=== PATIENT | male | born 1945 | race Caucasian/White ===

== ENCOUNTER 2017-03-31 16:35 | Inpatient (IN) | payer MEDICARE, OTHER ==
[2017-03-31 17:18] LABS: BASO % 0.8 % (0-2.0); EOS % 0.3 % (0-4.5); HEMATOCRIT 21.7 % (35.4-49); MCHC 29.7 g/dl (32.0-35.9); MEAN CELL VOLUME 66.7 fl (80-96); MEAN PLT VOLUME 11.4 fl (7.5-11.1); MONO % 7.6 % (3.8-10.2); NEUT % 76.3 % (42.8-82.8); PLATELET COUNT 97 K/MM3 (134-434); RBC 3.25 M/mm3 (4.00-5.60); RDW 17.4 % (11.9-15.9); WHITE BLOOD COUNT 7.5 K/mm3 (4.0-10.0)
[2017-03-31] MEDS ORDERED: PANTOPRAZOLE SODIUM 40 MG VIAL IVPUSH ONE (17:21)
[2017-03-31 17:27] LABS: MCH 19.8 pg (25.7-33.7)
[2017-03-31 17:28] LABS: HEMOGLOBIN 6.4 GM/dL (11.7-16.9)
[2017-03-31] MEDS ORDERED: PANTOPRAZOLE SODIUM 80 MG in SODIUM CHLORIDE 100 ML IVPB SCH ×2 (17:30→19:45)
[2017-03-31 17:33] LABS: INR 1.27 (0.82-1.09); PROTHROMBIN TIME (PATIENT) 14.3 SEC (9.98-11.88)
[2017-03-31] MEDS ORDERED: PANTOPRAZOLE SODIUM 80 MG/200 ML BAG IVPB ONE (17:37)
[2017-03-31] MEDS ORDERED: PANTOPRAZOLE SODIUM 40 MG VIAL ONE (17:38)
[2017-03-31 17:44] LABS: ALBUMIN 2.5 g/dl (3.4-5.0); ANION GAP 14 (8-16); BILIRUBIN,TOTAL 0.5 mg/dL (0.2-1.0); BLOOD UREA NITROGEN 62 mg/dL (7-18); CALCIUM 8.2 mg/dL (8.5-10.1); CHLORIDE 118 mmol/L (98-107); CO2 14 mmol/L (21-32); CREATININE 1.5 mg/dL (0.7-1.3); SGOT/AST 46 U/L (15-37); SGPT/ALT 63 U/L (12-78); SODIUM 146 mmol/L (136-145); TOT PROT 5.1 g/dl (6.4-8.2)
[2017-03-31 17:46] LABS: ALK PHOS 117 U/L (45-117)
[2017-03-31 17:54] LABS: GLUCOSE,RANDOM 320 mg/dL (74-106); POTASSIUM 7.1 mmol/L (3.5-5.1)
[2017-03-31] MEDS ORDERED: ALBUTEROL SO4 0.083% IH SOL 2.5 MG/3 ML VIAL.NEB. NEB ONE ×3 (17:54→20:43)
[2017-03-31] MEDS ORDERED: SODIUM BICARBONATE 8.4% 50 MEQ/50 ML VIAL IV ONE (17:54)
[2017-03-31] MEDS ORDERED: INSULIN REGULAR HUMAN 100 UNITS/ML *VIAL IVPUSH ONE ×3 (17:54→21:01)
[2017-03-31] MEDS ORDERED: DEXTROSE 50%-WATER - 25 GM/50 ML VIAL IVPUSH ONE ×2 (17:55→20:43)
--- NOTE | 2017-03-31 17:55 | PDOC ---
History of Present Illness - History of Present Illness Initial Comments: 03/31/17 18:12 71 y/o M with a PMH of anemia, HTN, DM, prior alcohol use presents to the ED with lethargy today. Daughter reports 5 episodes of melena, with associated diffuse abdominal pain and dizziness.Patient recently lost about 20 pounds, which the daughter states is due to dietary changes. He denies nausea, vomiting. Denies fever, chills. <Shirley Romero - Last Filed: 03/31/17 18:58> - General History Source: Patient, Family <Nelson Piña - Last Filed: 04/04/17 12:54> - General Chief Complaint: Lethargy Stated Complaint: DIZZINESS/NAUSEA Time Seen by Provider: 03/31/17 16:56 Past History <Shirley Romero - Last Filed: 03/31/17 18:58> - Past Medical History Anemia: Yes Asthma: No Cancer: No Cardiac Disorders: No CVA: No COPD: No CHF: No Dementia: No Diabetes: Yes GI Disorders: No Disorders: Yes (KIDNEY STONES) HTN: Yes Hypercholesterolemia: No Liver Disease: No Seizures: No Thyroid Disease: No - Surgical History Abdominal Surgery: No Appendectomy: No Cardiac Surgery: No Cholecystectomy: No Lung Surgery: No Neurologic Surgery: No Orthopedic Surgery: No - Immunization History Immunization Up to Date: Yes - Suicide/Smoking/Psychosocial Hx Smoking History: Never smoked Have you smoked in the past 12 months: No Hx Alcohol Use: No Drug/Substance Use Hx: No Substance Use Type: None Hx Substance Use Treatment: No <Nelson Piña - Last Filed: 04/04/17 12:54> - Past Medical History Allergies/Adverse Reactions: Allergies Allergy/AdvReac Type Severity Reaction Status Date / Time No Known Drug Allergies Allergy Verified 03/31/17 16:58 Home Medications: Ambulatory Orders Glimepiride 4 mg PO DAILY 01/01/12 Lisinopril [Prinivil] 10 mg PO DAILY 01/01/12 Metformin HCl [Glucophage] 1,000 mg PO BID 01/01/12 Terazosin HCl 2 mg PO DAILY 01/01/12 Insulin (Levemir) [Levemir Flexpen -] 25 units SQ DAILY 04/08/12 Review of Systems - Review of Systems Comments:: 03/31/17 18:12 GENERAL/CONSTITUTIONAL: (+) lethargy. No fever or chills. HEAD, EYES, EARS, NOSE AND THROAT: No change in vision. No ear pain or discharge. No sore throat. CARDIOVASCULAR: No chest pain or shortness of breath. RESPIRATORY: No cough, wheezing, or hemoptysis. GASTROINTESTINAL: (+) melena, abdominal pain. No nausea, vomiting, constipation. GENITOURINARY: No dysuria, frequency, or change in urination. MUSCULOSKELETAL: No joint or muscle swelling or pain. No neck or back pain. SKIN: No rash NEUROLOGIC: (+) dizziness. No headache, loss of consciousness, or change in strength/sensation. ENDOCRINE: No increased thirst. No abnormal weight change. HEMATOLOGIC/LYMPHATIC: No anemia, easy bleeding, or history of blood clots. ALLERGIC/IMMUNOLOGIC: No hives or skin allergy. <Shirley Romero - Last Filed: 03/31/17 18:58> *Physical Exam - Vital Signs Last Vital Signs Temp Pulse Resp BP Pulse Ox 98.1 F 74 18 102/37 99 03/31/17 17:14 03/31/17 16:40 03/31/17 16:40 03/31/17 16:40 03/31/17 16:40 - Physical Exam Comments: 03/31/17 18:58 GENERAL: Awake, alert, and fully oriented, in no acute distress, ill appearing, pale HEAD: No signs of trauma EYES: PERRLA, EOMI, sclera anicteric, conjunctiva clear ENT: Auricles normal inspection, hearing grossly normal, nares patent, oropharynx clear without exudates. Moist mucosa NECK: Normal ROM, supple, no lymphadenopathy, JVD, or masses LUNGS: Mildly tachypneic. Breath sounds equal, clear to auscultation bilaterally. No wheezes, and no crackles HEART: Regular rate and rhythm, normal S1 and S2, no murmurs, rubs or gallops ABDOMEN: Diffuse abdominal tenderness, particularly worse in epigastric. Soft, normoactive bowel sounds. No guarding, no rebound. No masses EXTREMITIES: Normal range of motion, no edema. No clubbing or cyanosis. No cords, erythema, or tenderness NEUROLOGICAL: Cranial nerves II through XII grossly intact. Normal speech, normal gait SKIN: Warm, Dry, normal turgor, no rashes or lesions noted. RECTAL: Dark stool <Joe Romeromacey Solomon - Last Filed: 03/31/17 18:58> - Vital Signs Last Vital Signs Temp Pulse Resp BP Pulse Ox 98.1 F 74 18 102/37 99 03/31/17 17:14 03/31/17 16:40 03/31/17 16:40 03/31/17 16:40 03/31/17 16:40 <Nelson Piña - Last Filed: 04/04/17 12:54> Heart Score/ECG Review #1 ECG reviewed & interpreted by me at: 17:40 03/31/17 18:42 NSR 63, no std/vickey, normal axis, normal intervals, QTC 442 msec. No evidence of peaked T waves <Nelson Piña - Last Filed: 04/04/17 12:54> ED Treatment Course - LABORATORY CBC & Chemistry Diagram: 03/31/17 17:05 03/31/17 17:05 - ADDITIONAL ORDERS Additional order review: Laboratory Results 03/31/17 03/31/17 03/31/17 17:31 17:31 17:24 PT with INR INR PTT (Actin FS) Sodium Potassium Chloride Carbon Dioxide Anion Gap BUN Creatinine Creat Clearance w eGFR Random Glucose Lactic Acid 7.6 H* Calcium Total Bilirubin AST ALT Alkaline Phosphatase Creatine Kinase Troponin I Total Protein Albumin Stool Occult Blood Positive Blood Type B POSITIVE Antibody Screen Crossmatch See Detail 03/31/17 03/31/17 03/31/17 17:05 17:05 17:05 PT with INR 14.30 H INR 1.27 H PTT (Actin FS) 23.0 L Sodium 146 H Potassium 7.1 H* Chloride 118 H Carbon Dioxide 14 L Anion Gap 14 BUN 62 H Creatinine 1.5 H Creat Clearance w eGFR 46.00 Random Glucose 320 H* Lactic Acid Calcium 8.2 L Total Bilirubin 0.5 AST 46 H ALT 63 Alkaline Phosphatase 117 Creatine Kinase 45 Troponin I 0.02 Total Protein 5.1 L Albumin 2.5 L Stool Occult Blood Blood Type B POSITIVE Antibody Screen Negative Crossmatch 03/31/17 17:05 RBC 3.25 L MCV 66.7 L MCHC 29.7 L RDW 17.4 H MPV 11.4 H Neutrophils % 76.3 Lymphocytes % 15.0 Monocytes % 7.6 Eosinophils % 0.3 Basophils % 0.8 - Medications Given in the ED: ED Medications Discontinued Medications Generic Name Dose Route Start Last Admin Trade Name Freq PRN Reason Stop Dose Admin Pantoprazole Sodium 80 mg 03/31/17 17:21 03/31/17 17:49 Protonix Iv IVPUSH 03/31/17 17:22 80 mg ONCE ONE Administration <Shirley Romero - Last Filed: 03/31/17 18:58> - LABORATORY CBC & Chemistry Diagram: 04/04/17 07:30 04/04/17 10:58 - ADDITIONAL ORDERS Additional order review: Laboratory Results 03/31/17 03/31/17 03/31/17 17:31 17:05 17:05 PT with INR 14.30 H INR 1.27 H PTT (Actin FS) 23.0 L Sodium 146 H Chloride 118 H Carbon Dioxide 14 L Anion Gap 14 BUN 62 H Creatinine 1.5 H Creat Clearance w eGFR 46.00 Calcium 8.2 L Total Bilirubin 0.5 AST 46 H ALT 63 Alkaline Phosphatase 117 Creatine Kinase 45 Troponin I 0.02 Total Protein 5.1 L Albumin 2.5 L Crossmatch See Detail 03/31/17 17:05 RBC 3.25 L MCV 66.7 L MCHC 29.7 L RDW 17.4 H MPV 11.4 H Neutrophils % 76.3 Lymphocytes % 15.0 Monocytes % 7.6 Eosinophils % 0.3 Basophils % 0.8 - RADIOLOGY Radiology Studies Ordered: Category Date Time Status CHEST X-RAY PORTABLE* [RAD] Stat Radiology 03/31/17 17:53 Ordered - Medications Given in the ED: ED Medications Discontinued Medications Generic Name Dose Route Start Last Admin Trade Name Freq PRN Reason Stop Dose Admin Pantoprazole Sodium 80 mg 03/31/17 17:21 03/31/17 17:49 Protonix Iv IVPUSH 03/31/17 17:22 80 mg ONCE ONE Administration <Nelson Piña - Last Filed: 04/04/17 12:54> Medical Decision Making - Critical Care Time Total Critical Care Time (minutes): 60 Critical Care Statement: The care of this patient involved high complexity decision making to prevent further life threatening deterioration of the patient 's condition and/or to evaluate & treat vital organ system(s) failure or risk of failure. - Medical Decision Making 03/31/17 18:43 A portion of this note was documented by scribe services under my direction. I have reviewed the details of the note, within reason, and agree with the documentation with the following case summary and management plan written by me. Patient treated in the ED. Nursing notes are reviewed and incorporated into the medical decision-making. Vital signs reviewed. Peripheral IV access obtained by the nurse, laboratory studies are drawn and sent, reviewed and interpreted by myself. Vital Signs Temp Pulse Resp BP Pulse Ox 98.1 F 87 18 130/39 98 03/31/17 17:14 03/31/17 18:18 03/31/17 18:18 03/31/17 18:18 03/31/17 18:18 71-year-old male with history of hypertension, diabetes presents with one week of loose stools, melena and generalized weakness. The patient has been passing dark stools but denies any chest or short of breath. Reports diffuse abdominal pain particular the epigastrium. The patient's daughter went to check on the patient noticed that he was profoundly weak when he typically ambulatory and alert and conversant. Patient was noted to have melanotic stools with a low hemoglobin count concerning for upper GI bleed. The patient appears ill appearing and nontoxic. Patient is noted to have numerous metabolic disarray including an elevated potassium, acute renal insufficiency. He was noted be 6.4 and the patient and family was consented for blood transfusion. Two unit of packed red blood cells were ordered. Case was consulted with lean engineer Dr. Wang who had came and examined the patient. Agrees with the plan of upper GI bleed. States that he will follow along as a inside solar sales consultant. Patient's hyperkalemia was treated with albuterol, dextrose, sodium bicarbonate insulin. We'll hold off on Lasix as patient volume is down. We'll also hold off on kayexelate like given the upper GI bleed. Given the elevated lactic acid, patient was empirically covered Zosyn. We'll up so obtain a CAT scan the abdomen pelvis to rule out microperforations. Given the severity of illness, decision was made to admit the patient the ICU. Case is discussed with Dr. Izquierdo who accepts the patient ICU. Case discussed with [facility] hospitalist Dr. Kulkarni who accepts the patient. Case discussed in detail with admitting physician including history, physical exam and ancillary studies. Admitting physician has assumed care for the patient, will follow all pending diagnostics and will complete the evaluation and treatment. <Nelson Piña - Last Filed: 04/04/17 12:54> *DC/Admit/Observation/Transfer - Attestations Scribe Attestion: 03/31/17 18:12 Documentation prepared by Shirley Romero, acting as medical technologist blood bank for Nelson Piña MD. <Shirley Romero - Last Filed: 03/31/17 18:58> - Discharge Dispostion Admit: Yes <Nelson Piña - Last Filed: 04/04/17 12:54> Diagnosis at time of Disposition: Upper GI bleed, Lactic acidosis, Acute renal insufficiency, Anemia - Discharge Dispostion Condition at time of disposition: Guarded
[2017-03-31] MEDS ORDERED: SODIUM BICARBONATE 8.4% - 50 ML ONE (17:59)
[2017-03-31] MEDS ORDERED: INSULIN REGULAR HUMAN 100 UNITS/ML *VIAL ONE (18:00)
[2017-03-31] MEDS ORDERED: PIPERACIL/TAZOB 3.375 GM 3.375 GM/50 ML PREMIX IVPB ONE (18:12)
[2017-03-31] MEDS: PANTOPRAZOLE SODIUM 80 MG in SODIUM CHLORIDE 100 ML IVPB SCH (18:15)
[2017-03-31] MEDS ORDERED: PIPERACILLIN/TAZOB 3.375 GM 3.375 GM/50 ML BAG IVPB ONE (18:20)
[2017-03-31 18:40] LABS: PLATELET ESTIMATE DECREASED
[2017-03-31 18:42] LABS: MAGNESIUM 1.2 mg/dL (1.8-2.4); PHOSPHOROUS 2.7 mg/dL (2.5-4.9)
[2017-03-31] MEDS ORDERED: PIPERACILLIN/TAZOB 3.375 GM/50 ML PRE-DOCKED IVPB ONE (18:45)
--- NOTE | 2017-03-31 18:58 | CON.GI ---
Consult Consult Specialty:: Gastroenterology ( covering Dr. Vázquez) Referred by:: Dr Nelson Piña Reason for Consultation:: GI bleed - History of Present Illness Chief Complaint: Profound weakness. Melena History of Present Illness: 71M felt too weak to get out of bed today. He has been having abdominal pain and black stool for the past few days. He denies hematemesis. He takes Advil before sleep for arthritic neck pain. He has never had GI bleeding before. He did have a colonoscopy with Dr Og remotely but cannot recall the results. His daughter served as the rubber tire and tubes supervisor. He drank alcohol heavily remotely > 40 years ago. He denies any h/o liver disease. - History Source History Provided By: Patient, Significant Other Limitations to Obtaining History: Clinical Condition - Past Medical History Cardio/Vascular: Yes: HTN Renal/: Yes: Renal Calculi (requiring ESWL) Musculoskeletal: Yes: Chronic low back pain, Osteoarthritis, Other (neck pain) Endocrine: Yes: Diabetes Mellitus (with diabetic retinopathy requiring laser therapy) - Past Surgical History Past Surgical History: Yes: None, Colonoscopy - Alcohol/Substance Use Hx Alcohol Use: Yes (remotely drank heavily) - Smoking History Smoking history: Never smoked Have you smoked in the past 12 months: No - Social History Usual Living Arrangement: With Spouse ADL: Independent Occupation: retired cemetary worker Place of : Other ([place]) Came to [place] (year[place] age 17 History of Recent Travel: No Home Medications - Allergies Allergies/Adverse Reactions: Allergies Allergy/AdvReac Type Severity Reaction Status Date / Time No Known Drug Allergies Allergy Verified 03/31/17 16:58 - Home Medications Home Medications: Ambulatory Orders Glimepiride 4 mg PO DAILY 01/01/12 Lisinopril [Prinivil] 10 mg PO DAILY 01/01/12 Metformin HCl [Glucophage] 1,000 mg PO BID 01/01/12 Terazosin HCl 2 mg PO DAILY 01/01/12 Insulin (Levemir) [Levemir Flexpen -] 25 units SQ DAILY 04/08/12 Family Disease History - Family Disease History Family Disease History: Diabetes: Brother, Sister, Heart Disease: Father ([place] in his 60s), Mother ([place] in her 80s), Brother Review of Systems - Review of Systems Constitutional: reports: Loss of Appetite, Malaise, Unintentional Wgt. Loss, Weakness Eyes: reports: No Symptoms HENT: reports: No Symptoms Neck: reports: No Symptoms Cardiovascular: reports: No Symptoms Respiratory: reports: No Symptoms Gastrointestinal: reports: Abdominal Pain, Melena Genitourinary: reports: No Symptoms Musculoskeletal: reports: Back Pain, Joint Pain Neurological: reports: Incoordination, Weakness Physical Exam-GI Vital Signs: Vital Signs Temperature 98.1 F 03/31/17 17:14 Pulse Rate 87 03/31/17 18:18 Respiratory Rate 18 03/31/17 18:18 Blood Pressure 130/39 03/31/17 18:18 O2 Sat by Pulse Oximetry (%) 98 03/31/17 18:18 CBC,CMP WBC 7.5 K/mm3 (4.0-10.0) 03/31/17 17:05 RBC 3.25 M/mm3 (4.00-5.60) L 03/31/17 17:05 Hgb 6.4 GM/dL (11.7-16.9) L* 03/31/17 17:05 Hct 21.7 % (35.4-49) L 03/31/17 17:05 MCV 66.7 fl (80-96) L 03/31/17 17:05 MCH 19.8 pg (25.7-33.7) L 03/31/17 17:05 MCHC 29.7 g/dl (32.0-35.9) L 03/31/17 17:05 RDW 17.4 % (11.9-15.9) H 03/31/17 17:05 Plt Count 97 K/MM3 (134-434) L 03/31/17 17:05 MPV 11.4 fl (7.5-11.1) H 03/31/17 17:05 Neutrophils % 76.3 % (42.8-82.8) 03/31/17 17:05 Lymphocytes % 15.0 % (8-40) 03/31/17 17:05 Monocytes % 7.6 % (3.8-10.2) 03/31/17 17:05 Eosinophils % 0.3 % (0-4.5) 03/31/17 17:05 Basophils % 0.8 % (0-2.0) 03/31/17 17:05 Platelet Estimate Decreased 03/31/17 17:05 Platelet Comment No clotting detected 03/31/17 17:05 Sodium 146 mmol/L (136-145) H 03/31/17 17:05 Potassium 7.1 mmol/L (3.5-5.1) H* 03/31/17 17:05 Chloride 118 mmol/L (98-107) H 03/31/17 17:05 Carbon Dioxide 14 mmol/L (21-32) L 03/31/17 17:05 Anion Gap 14 (8-16) 03/31/17 17:05 BUN 62 mg/dL (7-18) H 03/31/17 17:05 Creatinine 1.5 mg/dL (0.7-1.3) H 03/31/17 17:05 Creat Clearance w eGFR 46.00 (>60) 03/31/17 17:05 Random Glucose 320 mg/dL (74-106) H* 03/31/17 17:05 Lactic Acid 7.6 mmol/L (0.4-2.0) H* 03/31/17 17:31 Calcium 8.2 mg/dL (8.5-10.1) L 03/31/17 17:05 Phosphorus 2.7 mg/dL (2.5-4.9) 03/31/17 17:05 Magnesium 1.2 mg/dL (1.8-2.4) L 03/31/17 17:05 Total Bilirubin 0.5 mg/dL (0.2-1.0) 03/31/17 17:05 AST 46 U/L (15-37) H 03/31/17 17:05 ALT 63 U/L (12-78) 03/31/17 17:05 Alkaline Phosphatase 117 U/L (45-117) 03/31/17 17:05 Creatine Kinase 45 IU/L (39-308) 03/31/17 17:05 Troponin I 0.02 ng/ml (0.00-0.05) 03/31/17 17:05 Total Protein 5.1 g/dl (6.4-8.2) L 03/31/17 17:05 Albumin 2.5 g/dl (3.4-5.0) L 03/31/17 17:05 Current Medications Generic Name Dose Route Start Last Admin Trade Name Freq PRN Reason Stop Dose Admin Pantoprazole Sodium 80 mg/ 100 mls @ 10 mls/hr 03/31/17 17:30 03/31/17 18:15 Sodium Chloride IVPB 10 mls/hr Q10H JELENA Administration 8 MG/HR Constitutional: Yes: Ashen, Moderate Distress Eyes: Yes: Conjunctiva Clear HENT: Yes: Normocephalic Neck: Yes: Supple Cardiovascular: Yes: Regular Rate and Rhythm, Tachycardia Respiratory: Yes: CTA Bilaterally Gastrointestinal Inspection: Yes: Distention ...Auscultate: Yes: Hypoactive Bowel Sounds ...Palpate: Yes: Soft, Other (nontender) ...Percussion: Yes: Tympanitic ...Rectal Exam: Yes: Guaiac Positive (black strongly guaiac positive stool), Sphincter Tone Normal Genitourinary: Yes: Other (2+ prostate) Edema: No Neurological: Yes: Alert, Oriented Labs: CBC, BMP 03/31/17 17:05 03/31/17 17:05 INR, PTT INR 1.27 (0.82-1.09) H 03/31/17 17:05 Laboratory Tests 03/31/17 03/31/17 03/31/17 17:05 17:05 17:05 WBC 7.5 Hgb 6.4 L* Hct 21.7 L MCV 66.7 L Plt Count 97 L PT with INR 14.30 H INR 1.27 H Total Bilirubin 0.5 AST 46 H ALT 63 Alkaline Phosphatase 117 Albumin 2.5 L Problem List - Problems (1) GI hemorrhage Assessment/Plan: This appears to be a UGI hemorrhage. The most likely etiologies include ulcers or erosive gastritis/duodenitis related to NSAID usage. Given his thrombocytopenia, elevated INR, hypoalbuminemia and hepatitis bleeding due to cirrhosis is also likely which includes esophageal and/or gastric varices and portal gastropathy. Agree with PPI drip. Will empirically add octreotide infusion. I have discussed the need for interventional upper endoscopy with Hero with his daughter serving as our rubber tire and tubes supervisor. I informed him of the risks of perforation and hemorrhage among others after which he gave his mini for an informed consent. He will need to be resuscitated with blood and fluids and have his electrolytes corrected to optimize stability for the procedure. Agree with CT to exclude a perforated ulcer given his profound lactic acidosis Code(s): K92.2 - GASTROINTESTINAL HEMORRHAGE, UNSPECIFIED (2) Hyperkalemia Assessment/Plan: Management already initiated in the ER. See azotemia Code(s): E87.5 - HYPERKALEMIA (3) Azotemia Assessment/Plan: Appears oo be a combination of hypovolemia due to blood loss superimposed on diabetic nephropathy. Given his suspected cirrhosis he is at risk of lapsing into hepatorenal syndrome. A renal consultation should be considered. 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 Will need more extensive studied when stable. Code(s): K74.60 - UNSPECIFIED CIRRHOSIS OF LIVER (6) Lactic acid acidosis Assessment/Plan: For now appears to reflect severe anemia due to hemorrhage. The pain does not appear as severe as would be expected with mesenteric ischemia but if the acidosis fails to rapidly respoind to blood and fluid a CTA will need to be pursued given possible diabetic vasculopathy. Code(s): E87.2 - ACIDOSIS (7) Diabetes mellitus Code(s): E11.9 - TYPE 2 DIABETES MELLITUS WITHOUT COMPLICATIONS (8) Hypertension Code(s): I10 - ESSENTIAL (PRIMARY) HYPERTENSION (9) Anemia Assessment/Plan: The microcytic indices indicate that this acute bleed is superimposed on chronic GI blood loss. He may need a repeat colonoscopy when clinically appropriate. Code(s): D64.9 - ANEMIA, UNSPECIFIED Qualifiers: Other causes of anemia: acute posthemorrhagic (10) Coagulopathy Code(s): D68.9 - COAGULATION DEFECT, UNSPECIFIED Assessment/Plan Transfuse then IV fluids PPI drip Octreotide drip Serial CBCs Vitamin K Ammonia level Renal consultation FFP if bleeding persists Await CT to exclude an abdominal catastrophe CTA if acidosis fails to correct or pain worsens
--- NOTE | 2017-03-31 19:10 | PN ---
Teaching Attending Note Name of Resident: Jaswant Alcala ATTENDING PHYSICIAN STATEMENT I saw and evaluated the patient. I reviewed the resident's note and discussed the case with the resident. I agree with the resident's findings and plan as documented. SUBJECTIVE: 71 M with pmhx. of HTN, renal calculi (ESWL), chronic back pain, OA, DM, Diabetic retinopathy who presents with abdominal pain and black stool. States he has hx. of heavy etoh drinking (>40years ago). Also, notes hes had a colo with Dr. Og. 2- 3 years ago which was negative. Upon my interview with the patient he started having hematemesis X1, which was suctioned, family and notified OBJECTIVE: Physical: VS: Vital Signs Period Temp Pulse Resp BP Sys/Aden Pulse Ox Last 24 Hr 98.1 F 74-87 18-18 102-130/37-39 98-99 GEN: Mod distress, AA0X3 HEENT: NCAT, PERRL, Dried blood in mouth CARD: RRR S1, S2 RESP: CTAB ABD: Distended BSX4, NTD to palpation EXT: - C/C/E RECTAL: Pt. Deferred, as it had been done earlier CBCD WBC 7.5 K/mm3 (4.0-10.0) 03/31/17 17:05 RBC 3.25 M/mm3 (4.00-5.60) L 03/31/17 17:05 Hgb 6.4 GM/dL (11.7-16.9) L* 03/31/17 17:05 Hct 21.7 % (35.4-49) L 03/31/17 17:05 MCV 66.7 fl (80-96) L 03/31/17 17:05 MCHC 29.7 g/dl (32.0-35.9) L 03/31/17 17:05 RDW 17.4 % (11.9-15.9) H 03/31/17 17:05 Plt Count 97 K/MM3 (134-434) L 03/31/17 17:05 MPV 11.4 fl (7.5-11.1) H 03/31/17 17:05 CMP Sodium 146 mmol/L (136-145) H 03/31/17 17:05 Potassium 7.1 mmol/L (3.5-5.1) H* 03/31/17 17:05 Chloride 118 mmol/L (98-107) H 03/31/17 17:05 Carbon Dioxide 14 mmol/L (21-32) L 03/31/17 17:05 Anion Gap 14 (8-16) 03/31/17 17:05 BUN 62 mg/dL (7-18) H 03/31/17 17:05 Creatinine 1.5 mg/dL (0.7-1.3) H 03/31/17 17:05 Creat Clearance w eGFR 46.00 (>60) 03/31/17 17:05 Random Glucose 320 mg/dL (74-106) H* 03/31/17 17:05 Calcium 8.2 mg/dL (8.5-10.1) L 03/31/17 17:05 Total Bilirubin 0.5 mg/dL (0.2-1.0) 03/31/17 17:05 AST 46 U/L (15-37) H 03/31/17 17:05 ALT 63 U/L (12-78) 03/31/17 17:05 Alkaline Phosphatase 117 U/L (45-117) 03/31/17 17:05 Total Protein 5.1 g/dl (6.4-8.2) L 03/31/17 17:05 Albumin 2.5 g/dl (3.4-5.0) L 03/31/17 17:05 CARDIAC ENZYMES Creatine Kinase 45 IU/L (39-308) 03/31/17 17:05 Troponin I 0.02 ng/ml (0.00-0.05) 03/31/17 17:05 CT ABDOMEN- Pending ASSESSMENT AND PLAN: 71 M with pmhx. of HTN, renal calculi (ESWL), chronic back pain, OA, DM, Diabetic retinopathy who presents with abdominal pain and black stool, being admitted for GIB 1.) Upper GI Bleed - NPO - IF Continued Hematemsis- stat intubation - 2 LARGE Bore IVs - Protonix gtt - Transfuse to keep Hgb>7 - GI consult - Repeat LA- Needs repeat after PRBC recieved - Jimenez cx - Serial H&H/Coags - Serial Abdominal exams, - FU CT Abd. - 2U FFP - Octeotride 2.) Hyperkalemia - Treated in ED - Trend K - NO EKG changes 2.) ARF - U lytes - Trend - Avoid Nephrotoxins 4.) Hypomagnesemia - Replete 5.) Dvt Ppx - SCDS CC Time: Place in ICU
[2017-03-31] MEDS ORDERED: OCTREOTIDE ACETATE 50 MCG/1 ML - 1 ML VIAL IVPUSH ONE (19:32)
--- NOTE | 2017-03-31 19:35 | HP ---
CHIEF COMPLAINT: Fatigue, melena Source: daughter at bedside, serving as b2b sales consultant PCP: Dr. Reyes HISTORY OF PRESENT ILLNESS: 71 yo man with pmh of HTN, DM2, Anemia, prior alcohol abuse (40 y ago) who presents to ED in setting of progressive fatigue, multiple days of diarrhea w/ melena and epigastric GI pain. Pt endorses roughly one week of diarrhea w/ accompanying intermittent sharp epigastric pain, worsened by eating w/ no radiation or other exacerbating symptoms. Pt endorses diarrhea w/ dark, tarry stools for past few days, but denies any brittny blood or clots. He also endorses accompanying nausea, but no emesis, in addition to worsening fatigue and lightheadness. He denies any hematemesis, epistaxis or hemoptysis and denies any hx of GI conditions, apart from multiple months of intermittent mild epigastric pain. Pt denies any prior hx of GI bleeds. He endorses chronic advil use at bedtime for chronic neck pain. He also endorses decreased PO intake and 20 lb weight loss, which he attributes to dieting. He denies any fevers/chills, CP, cough, SOB, SANTANA, dysuria, constipation, rashes or peripheral weakness/ numbness. ER course was notable for: (1)Hgb 6.4, plt 97 (2)K 7.1 -> 6.0 w/ tx (3)Glucose 320 (4)Brittny blood in oropharynx during episode of bradycardia after exam Recent Travel: None PAST MEDICAL HISTORY: Anemia HTN DM2 renal calculi Prior alcohol abuse PAST SURGICAL HISTORY: None Colonoscopy 4-5 years ago, negative Social History: Smoking: Denies Alcohol: Heavy drinker ~40 years ago Drugs: Denies Family History: Mother, Father with CAD; Mother during open heart surgery Allergies Shellfish NKDA HOME MEDICATIONS: Home Medications Medication Instructions Recorded Glimepiride 4 mg PO DAILY 01/01/12 Lisinopril [Prinivil] 10 mg PO DAILY 01/01/12 Metformin HCl [Glucophage] 1,000 mg PO BID 01/01/12 Terazosin HCl 2 mg PO DAILY 01/01/12 Insulin (Levemir) [Levemir Flexpen 25 units SQ DAILY 04/08/12 -] REVIEW OF SYSTEMS CONSTITUTIONAL: generalized weakness, loss of appetite, weight change Absent: fever, chills, diaphoresis, malaise, HEENT: Absent: rhinorrhea, nasal congestion, throat pain, throat swelling, difficulty swallowing, mouth swelling, ear pain, eye pain, visual changes CARDIOVASCULAR: lightheadedness, Absent: chest pain, syncope, palpitations, irregular heart rate, peripheral edema RESPIRATORY: Absent: cough, shortness of breath, dyspnea with exertion, orthopnea, wheezing, stridor, hemoptysis GASTROINTESTINAL: abdominal pain, nausea, melena, Absent: abdominal distension, vomiting, diarrhea, constipation, hematochezia GENITOURINARY: Absent: dysuria, frequency, urgency, hesitancy, hematuria, flank pain, genital pain MUSCULOSKELETAL: chronic back pain, Absent: myalgia, arthralgia, joint swelling, neck pain SKIN: Absent: rash, itching, pallor HEMATOLOGIC/IMMUNOLOGIC: Absent: easy bleeding, easy bruising, lymphadenopathy, frequent infections ENDOCRINE: Absent: unexplained weight gain, unexplained weight loss, heat intolerance, cold intolerance NEUROLOGIC: Absent: headache, focal weakness or paresthesias, dizziness, unsteady gait, seizure, mental status changes, bladder or bowel incontinence PHYSICAL EXAMINATION Vital Signs - 24 hr 03/31/17 03/31/17 03/31/17 16:40 17:14 18:18 Temperature 98.1 F Pulse Rate 74 Pulse Rate [ 87 Apical] Respiratory 18 18 Rate Blood Pressure 102/37 Blood Pressure 130/39 [Right Arm] O2 Sat by Pulse 99 98 Oximetry (%) GENERAL: Somnolent, resting bed comfortably. A&Ox3 HEAD: Normal with no signs of trauma. EYES: Pupils equal, round and reactive to light, extraocular movements intact, sclera anicteric, conjunctiva clear. No lid lag. EARS, NOSE, THROAT: Ears normal, nares patent, oropharynx clear without exudates. Moist mucous membranes. NECK: Normal range of motion, supple without lymphadenopathy, JVD, or masses. Some peritracheal adiposity. LUNGS: breath sounds decreased at bases. No wheezes and no crackles. No accessory muscle use. HEART: Tachycardic, normal S1 and S2 without murmur, rub or gallop. ABDOMEN: Globular abdomen, tender to palpation in epigastric region. Hepatosplenomegaly noted. Negative concepcion's, rebound tenderness. No cullens or mena jose sign. Normoactive bowel sounds. No masses noted. Fullness in LUQ/ RUQ. Midline, periumbilical circular scar. MUSCULOSKELETAL: Normal range of motion at all joints. No bony deformities or tenderness. UPPER EXTREMITIES: 2+ pulses, warm, well-perfused. No cyanosis. No clubbing. No peripheral edema. LOWER EXTREMITIES: 2+ pulses, warm, well-perfused. No calf tenderness. No peripheral edema. NEUROLOGICAL: Cranial nerves II-XII intact. Normal speech. Gait not evaluated. PSYCHIATRIC: Cooperative, but somnolent. Restricted affect. SKIN: Warm, dry, normal turgor, no rashes or lesions noted. Laboratory Results - last 24 hr 03/31/17 03/31/17 03/31/17 17:05 17:05 17:05 WBC 7.5 RBC 3.25 L Hgb 6.4 L* Hct 21.7 L MCV 66.7 L MCH 19.8 L MCHC 29.7 L RDW 17.4 H Plt Count 97 L MPV 11.4 H Neutrophils % 76.3 Lymphocytes % 15.0 Monocytes % 7.6 Eosinophils % 0.3 Basophils % 0.8 Platelet Estimate Decreased Platelet Comment No clotting detected PT with INR 14.30 H INR 1.27 H PTT (Actin FS) 23.0 L Sodium 146 H Potassium 7.1 H* Chloride 118 H Carbon Dioxide 14 L Anion Gap 14 BUN 62 H Creatinine 1.5 H Creat Clearance w eGFR 46.00 Random Glucose 320 H* Lactic Acid Calcium 8.2 L Phosphorus 2.7 Magnesium 1.2 L Total Bilirubin 0.5 AST 46 H ALT 63 Alkaline Phosphatase 117 Creatine Kinase 45 Troponin I 0.02 Total Protein 5.1 L Albumin 2.5 L Stool Occult Blood Blood Type Antibody Screen Crossmatch 03/31/17 03/31/17 03/31/17 17:05 17:24 17:31 WBC RBC Hgb Hct MCV MCH MCHC RDW Plt Count MPV Neutrophils % Lymphocytes % Monocytes % Eosinophils % Basophils % Platelet Estimate Platelet Comment PT with INR INR PTT (Actin FS) Sodium Potassium Chloride Carbon Dioxide Anion Gap BUN Creatinine Creat Clearance w eGFR Random Glucose Lactic Acid 7.6 H* Calcium Phosphorus Magnesium Total Bilirubin AST ALT Alkaline Phosphatase Creatine Kinase Troponin I Total Protein Albumin Stool Occult Blood Positive Blood Type B POSITIVE Antibody Screen Negative Crossmatch 03/31/17 17:31 WBC RBC Hgb Hct MCV MCH MCHC RDW Plt Count MPV Neutrophils % Lymphocytes % Monocytes % Eosinophils % Basophils % Platelet Estimate Platelet Comment PT with INR INR PTT (Actin FS) Sodium Potassium Chloride Carbon Dioxide Anion Gap BUN Creatinine Creat Clearance w eGFR Random Glucose Lactic Acid Calcium Phosphorus Magnesium Total Bilirubin AST ALT Alkaline Phosphatase Creatine Kinase Troponin I Total Protein Albumin Stool Occult Blood Blood Type B POSITIVE Antibody Screen Crossmatch See Detail CXR: No acute pathology noted Abdominal CT (non-con) - Read pending. ASSESSMENT/PLAN: 71 yo man with pmh of HTN, DM2, Anemia, prior alcohol abuse (40 y ago) who presents to ED in setting of progressive fatigue, multiple days of diarrhea w/ melena and epigastric GI pain. On interview, pt with hematemesis requiring suctioning. Dr. Wang (GI) contacted, recommended 2 units FFP, continue octreotide gtt, continue with blood transfusion and avoid NGT tube/gastric lavage due to risk of varices. #Upper GI bleed - Pt with brittny hematemesis during interview, multiple days of melena. CBC 6.4 on admission. FOBT + - GI consulted, Dr. Wang aware. Plan to stabilize then EGD. INR 1.5 , received 10mg Vit K in ED - Protonix gtt - transfuse to maintain hgb >7 - f/u abdominal CT read - octreotide gtt - Transfuse 2u FFP per Dr. Wang - Trend lactate - Serial coags, Abdominal exams - bourgeois culture - IV access (multiple large bore, peripheral IVs) - If continues to clinically deteriorate, stat repeat labs, transfuse prbcs and consider intubation. May require gonzalez insertion if continued brittny hematemesis and worsening vitals - Vit K daily #Hyperkalemia - Received tx in ED. 7.1 -> 6.0 on repeat. No ekg changes noted. - Continue to trend K - Daily BMPs - Serial EKGs #Elevated Lactate - IVF/prbcs for volume resuscitation - Trend lactate #Acute renal failure - Increase in Cr to 1.7 - Send urine lytes - Trend Cr - avoid all nephrotoxic agents #DM2 - Confirm home diabetes regimen - BGM q4h - ISS - Hold metformin (renal toxicity) - Levemir 25u Subq #Hypomagnesemia - 1.2 on admission. Received 2gm Mgso4 in ED. - trend mg - Daily Mg, monitor EKG #HTN -hold home HTN meds PPX - SCDs - PPI gtt FEN Aggressive IVFs after completion of blood transfusions Daily BMPs, K elevated, Mg depleted NPO Plan discussed with attending, Dr. Chantel Alcala PGY1 Visit type - Emergency Visit Emergency Visit: Yes ED Registration Date: 03/31/17 Care time: The patient presented to the Emergency Department on the above date and was hospitalized for further evaluation of their emergent condition. - New Patient This patient is new to me today: Yes Date on this admission: 04/01/17 - Critical Care Critical Care patient: Yes Total Critical Care Time (in minutes): 35 Critical Care Statement: The care of this patient involved high complexity decision making to prevent further life threatening deterioration of the patient 's condition and/or to evaluate & treat vital organ system(s) failure or risk of failure.
[2017-03-31] MEDS ORDERED: DEXTROSE 5%-0.45% SALINE 1,000 ML IV SCH (19:45)
[2017-03-31] MEDS ORDERED: OCTREOTIDE ACETATE 100 MCG/1 ML ONE (19:58)
--- NOTE | 2017-03-31 20:03 | CONSULT ---
Consult - text type - Consultation Consultation Note: PULM/CCM Pt seen and examined in ICU CC: weakness HPI: Briefly Mr Ponce is a 71 y/o man with hx of heavy ETOH use/abuse, renal calculi, DM, and HTN who presented to ED today due to weakness after multiple episodes of melena. He has no hx of GIB, has had colonoscopy some time in the past, unclear results. Today he was too weak to get out of bed and had Upper abd pain. Relates frequent dark tarry stool, which he denies having in the past. Denies Cxpn, SOB, syncope, falls, hematemesis, hematuria, BRBPR. In ED pt was afebrile, pale, normotensive 108/50, HR 80, RR 18, good saturations. Labs notable for Hgb 6.7, plts 98, HCo3 14, lacate 7, Cr 1.4 (unk baseline), K 7. Pt has albumin of 2.5, INR 1.5 c/f chronic liver disease. Bilis and transaminases not significantly elevated. PRBC were ordered, fluid was given , Potassium was medically managed, there was no significant EKG changes. Vit K given for elevated INR. PPI and octreotide gtts were started. Pt was seen by GI , plan to transfuse and perform EGD once stable. CTAP was performed, not yet formally read. No apparent free air, significant gastric contents still in stomach c/f gastric outlet obstruction. Pt relates significant weight loss in last few months. Transferred to ICU for further care. Past Medical History Cardio/Vascular HTN Renal/ Renal Calculi (requiring ESWL) Endocrine Diabetes Mellitus (with diabetic retinopathy requiring laser therapy) Past Surgical History Past Surgical History None,Colonoscopy Smoking History Smoking history Never smoked Alcohol/Substance Use Hx Alcohol Use Yes: remotely drank heavily Social History Usual Living Arrangement With Spouse ADL Independent Occupation retired cemetary worker History of Recent Travel No Home Medications Medication Instructions Recorded Glimepiride 4 mg PO DAILY 01/01/12 Lisinopril [Prinivil] 10 mg PO DAILY 01/01/12 Metformin HCl [Glucophage] 1,000 mg PO BID 01/01/12 Terazosin HCl 2 mg PO DAILY 01/01/12 Insulin (Levemir) [Levemir Flexpen 25 units SQ DAILY 04/08/12 -] Current Medications Octreotide Acetate 1,200 mcg/ (Dextrose) 500 mls @ 20.83 mls/hr IVPB Q24H JELENA PRN Reason: 50 MCG/HR Dextrose/Sodium Chloride (D5-1/2ns -) 1,000 mls @ 125 mls/hr IV ASDIR JELENA Pantoprazole Sodium 80 mg/ (Sodium Chloride) 100 mls @ 10 mls/hr IVPB Q10H JELENA PRN Reason: 8 MG/HR Phytonadione (Aqua Mephyton Injection -) 10 mg IM DAILY JELENA Stop: 04/03/17 10:01 ROS: 9pt review negative save for as per HPI CBCD WBC 7.5 K/mm3 (4.0-10.0) 03/31/17 17:05 RBC 3.25 M/mm3 (4.00-5.60) L 03/31/17 17:05 Hgb 6.4 GM/dL (11.7-16.9) L* 03/31/17 17:05 Hct 21.7 % (35.4-49) L 03/31/17 17:05 MCV 66.7 fl (80-96) L 03/31/17 17:05 MCHC 29.7 g/dl (32.0-35.9) L 03/31/17 17:05 RDW 17.4 % (11.9-15.9) H 03/31/17 17:05 Plt Count 97 K/MM3 (134-434) L 03/31/17 17:05 MPV 11.4 fl (7.5-11.1) H 03/31/17 17:05 CMP Sodium 146 mmol/L (136-145) H 03/31/17 17:05 Potassium 7.1 mmol/L (3.5-5.1) H* 03/31/17 17:05 Chloride 118 mmol/L (98-107) H 03/31/17 17:05 Carbon Dioxide 14 mmol/L (21-32) L 03/31/17 17:05 Anion Gap 14 (8-16) 03/31/17 17:05 BUN 62 mg/dL (7-18) H 03/31/17 17:05 Creatinine 1.5 mg/dL (0.7-1.3) H 03/31/17 17:05 Creat Clearance w eGFR 46.00 (>60) 03/31/17 17:05 Calcium 8.2 mg/dL (8.5-10.1) L 03/31/17 17:05 Total Bilirubin 0.5 mg/dL (0.2-1.0) 03/31/17 17:05 AST 46 U/L (15-37) H 03/31/17 17:05 ALT 63 U/L (12-78) 03/31/17 17:05 Alkaline Phosphatase 117 U/L (45-117) 03/31/17 17:05 Total Protein 5.1 g/dl (6.4-8.2) L 03/31/17 17:05 Albumin 2.5 g/dl (3.4-5.0) L 03/31/17 17:05 Troponin, BNP 03/31/17 17:05 Troponin I 0.02 Vital Signs Temp 98.4 F 03/31/17 19:00 Pulse 86 03/31/17 19:00 Resp 17 03/31/17 19:00 BP 114/49 03/31/17 19:00 Pulse Ox 99 03/31/17 19:00 Intake & Output 03/30/17 03/31/17 03/31/17 23:59 11:59 23:59 Weight 86.183 kg Other: Voiding Method Urinal Height 5 ft 6 in Body Mass Index (BMI) 30.7 Weight Measurement Method Est/Stated by Patient EKG: SR, normal axis/intervals CTAP: pending CXR: reviewed, no infiltrate or ptx PE: Gen:awake, alert, mild pallor, no distress HEENT: anicteric PULM: clear, no wheezes CV: RRR, no m/r/g appreciated ABD soft, NT, no hepatomegaly, no spider angiomas noted. No significant fluid wave< hypoactive BS EXT: w/w/p Derm: no rash Neuro: intact, non focal exam A/ 71 y/o man with significant ETOH hx p/w anemia and melena, likely UGIB admitted to ICU for blood/fluid resuscitation, plan for EGD once stable. P/ -2 PRBC now -PPI and octreotide gtt -if hematemesis--> intubate for airway protection as at risk for variceal bleed -maintain adequate access, 2 large bore or greater -hepatitis workup -consider GI cancer workup given weight loss -NPO -venodynes -ICU monitoring Hiram Godoy ACNP [id number] Critical Care Total Critical Care Time (in minutes): 35 Critical Care Statement: The care of this patient involved high complexity decision making to prevent further life threatening deterioration of the patient 's condition and/or to evaluate & treat vital organ system(s) failure or risk of failure.
[2017-03-31] MEDS: OCTREOTIDE ACETATE 1,200 MCG in DEXTROSE 5%-WATER - 488 ML IVPB SCH (20:12)
[2017-03-31 20:25] LABS: ALBUMIN 2.4 g/dl (3.4-5.0); ALK PHOS 115 U/L (45-117); ANION GAP 11 (8-16); BILIRUBIN,TOTAL 0.6 mg/dL (0.2-1.0); BLOOD UREA NITROGEN 66 mg/dL (7-18); CALCIUM 7.7 mg/dL (8.5-10.1); CHLORIDE 118 mmol/L (98-107); CO2 18 mmol/L (21-32); CREATININE 1.7 mg/dL (0.7-1.3); SGOT/AST 42 U/L (15-37); SGPT/ALT 65 U/L (12-78); SODIUM 147 mmol/L (136-145); TOT PROT 5.2 g/dl (6.4-8.2)
[2017-03-31] MEDS ORDERED: MAGNESIUM SULF 50% (8.12 MEQ/2 ML-1 GM VIAL) IVPB ONE (20:41)
[2017-03-31 20:49] LABS: GLUCOSE,RANDOM 418 mg/dL (74-106)
[2017-03-31] MEDS ORDERED: SODIUM CHLORIDE 0.9% 1000 ML INFUS.BAG IV ONE (20:53)
[2017-03-31] MEDS ORDERED: PNEUMOC 13-VAL CONJ-DIP CRM/PF 0.5 ML DISP.SYRIN IM ONE (20:59)
[2017-03-31 21:04] VITALS: BMI 31.1
[2017-03-31] MEDS: CHLORHEXIDINE GLUCONATE 4% CLEANSER FOR DECOLONIZATION TP SCH (21:14)
[2017-03-31] MEDS: MUPIROCIN 2% TOPICAL OINTMENT FOR DECOLONIZATION NS SCH (21:14)
[2017-03-31] MEDS ORDERED: INSULIN SLIDING SCALE (NOVOLOG) 1 VIAL SQ SCH ×2 (23:00→23:01)
[2017-04-01] MEDS ORDERED: INSULIN SLIDING SCALE (NOVOLOG) 1 VIAL SQ SCH
[2017-04-01] MEDS: INSULIN SLIDING SCALE (NOVOLOG) 1 VIAL SQ SCH ×6 (03:00→23:15)
[2017-04-01 03:10] LABS: HEMATOCRIT 28.2 % (35.4-49); MCH 22.3 pg (25.7-33.7); MEAN CELL VOLUME 69.8 fl (80-96); MEAN PLT VOLUME 9.8 fl (7.5-11.1); PLATELET COUNT 92 K/MM3 (134-434); RBC 4.04 M/mm3 (4.00-5.60); RDW 21.5 % (11.9-15.9)
[2017-04-01] MEDS ORDERED: morphine SULFATE 4 MG/ML VIAL ONE (03:56)
[2017-04-01] MEDS: PANTOPRAZOLE SODIUM 80 MG in SODIUM CHLORIDE 100 ML IVPB SCH ×3 (04:04→15:00)
[2017-04-01] MEDS ORDERED: morphine SULFATE 4 MG/ML VIAL IVPUSH ONE (04:15)
[2017-04-01 06:53] LABS: BASO % 0.3 % (0-2.0); EOS % 0.7 % (0-4.5); HEMATOCRIT 25.5 % (35.4-49); LYMPH % 13.3 % (8-40); MCH 21.8 pg (25.7-33.7); MCHC 31.4 g/dl (32.0-35.9); MEAN CELL VOLUME 69.5 fl (80-96); MEAN PLT VOLUME 9.8 fl (7.5-11.1); NEUT % 77.7 % (42.8-82.8); PLATELET COUNT 87 K/MM3 (134-434); RBC 3.67 M/mm3 (4.00-5.60); RDW 20.7 % (11.9-15.9); RETICULOCYTES 1.74 % (0.5-1.5); WHITE BLOOD COUNT 8.1 K/mm3 (4.0-10.0)
[2017-04-01 07:08] LABS: INR 1.18 (0.82-1.09); PROTHROMBIN TIME (PATIENT) 13.3 SEC (9.98-11.88)
[2017-04-01 07:09] LABS: ADD RBC MORPHOLOGY YES
[2017-04-01 07:22] LABS: MAGNESIUM 1.8 mg/dL (1.8-2.4)
--- NOTE | 2017-04-01 07:38 | PN ---
Progress Note (short form) - Note Progress Note: c/o epigastric pain, no improvement since yesterday. requesting water. no more episodes of hematemsis since last night. 1 large melanotic stool this AM. denies CP, SOB, fever, chills. Colonoscopy several years ago, unknown results Current Medications Generic Name Dose Route Start Last Admin Trade Name Selam PRN Reason Stop Dose Admin Chlorhexidine Gluconate 1 applic 03/31/17 22:00 03/31/17 21:14 Hibiclens For Decolonization - TP 1 applic HS JELENA Administration Octreotide Acetate 1,200 mcg/ 500 mls @ 20.83 mls/hr 03/31/17 20:00 03/31/17 20:12 Dextrose IVPB 20.83 mls/hr Q24H JELENA Administration 50 MCG/HR Dextrose/Sodium Chloride 1,000 mls @ 125 mls/hr 03/31/17 19:45 D5-1/2ns - IV ASDIR JELENA Pantoprazole Sodium 80 mg/ 100 mls @ 10 mls/hr 03/31/17 19:45 04/01/17 06:14 Sodium Chloride IVPB Not Given Q10H JELENA 8 MG/HR Insulin Aspart 1 vial 04/01/17 06:00 04/01/17 06:21 Novolog Vial Sliding Scale - SQ 4 units Q4HPO JELENA Administration Protocol Mupirocin 1 applic 03/31/17 22:00 03/31/17 21:14 Bactroban Ointment (For Decolonization) - NS 04/05/17 21:59 1 applic BID JELENA Administration Phytonadione 10 mg 04/01/17 10:00 Aqua Mephyton Injection - IM 04/03/17 10:01 DAILY JELENA Pneumococcal 13-Valent Conj Vacc 0.5 ml 03/31/17 20:59 Prevnar 13 Syringe - IM 03/31/17 21:00 .ONCE ONE Last Vital Signs Temp Pulse Resp BP Pulse Ox 98.7 F 70 20 118/40 98 04/01/17 06:00 04/01/17 06:00 04/01/17 06:00 04/01/17 06:00 03/31/17 20:53 Intake & Output 03/29/17 03/30/17 03/31/17 04/01/17 23:59 23:59 23:59 23:59 Intake Total 1062 217 Output Total 0 1000 Balance 1062 -783 Weight 193 lb 5 oz 193 lb 5 oz General lethargic, pale CV S1 S2 RRR no murmur/rub/gallop Lungs CTA B/L no wheezing/rales/rhonchi Abdomen +epigastric tenderness, soft, ND, obese normoactive BS. unable to palpate liver edge Extremities no pedal edema CBCD WBC 8.1 K/mm3 (4.0-10.0) 04/01/17 06:00 RBC 3.67 M/mm3 (4.00-5.60) L 04/01/17 06:00 Hgb 8.0 GM/dL (11.7-16.9) L D 04/01/17 06:00 Hct 25.5 % (35.4-49) L 04/01/17 06:00 MCV 69.5 fl (80-96) L 04/01/17 06:00 MCHC 31.4 g/dl (32.0-35.9) L 04/01/17 06:00 RDW 20.7 % (11.9-15.9) H 04/01/17 06:00 Plt Count 87 K/MM3 (134-434) L 04/01/17 06:00 MPV 9.8 fl (7.5-11.1) 04/01/17 06:00 CMP Sodium 147 mmol/L (136-145) H 03/31/17 19:45 Potassium 6.0 mmol/L (3.5-5.1) H 03/31/17 19:45 Chloride 118 mmol/L (98-107) H 03/31/17 19:45 Carbon Dioxide 18 mmol/L (21-32) L D 03/31/17 19:45 Anion Gap 11 (8-16) 03/31/17 19:45 BUN 66 mg/dL (7-18) H 03/31/17 19:45 Creatinine 1.7 mg/dL (0.7-1.3) H 03/31/17 19:45 Creat Clearance w eGFR 39.82 (>60) 03/31/17 19:45 Random Glucose 418 mg/dL (74-106) H* D 03/31/17 19:45 Calcium 7.7 mg/dL (8.5-10.1) L 03/31/17 19:45 Total Bilirubin 0.6 mg/dL (0.2-1.0) 03/31/17 19:45 AST 42 U/L (15-37) H 03/31/17 19:45 ALT 65 U/L (12-78) 03/31/17 19:45 Alkaline Phosphatase 115 U/L (45-117) 03/31/17 19:45 Total Protein 5.2 g/dl (6.4-8.2) L 03/31/17 19:45 Albumin 2.4 g/dl (3.4-5.0) L 03/31/17 19:45 CARDIAC ENZYMES Creatine Kinase 45 IU/L (39-308) 03/31/17 17:05 Troponin I 0.02 ng/ml (0.00-0.05) 03/31/17 17:05 A/p 71 yo M with PMH HTN, nephrolithasis, DM, and remote hx of heavy ETOH use presented to the ER wtih abdominal pain and melena and developed multiple episodes of hememtesis in the ER. 1. Upper GI bleed- hemodynamically stable. s/p 2 units PRBC. no repeated episodes of hematemesis. concern for peptic ulcer vs esophageal varices given long hx of ETOH with elevated INR and thrombocytopenia suggestive of cirrhosis although not officially diagnosed. will trend Hgb Q8H. on ppi and octreotide ggt. plan for EGD once medically stable. keep NPO, IVF, pain and nausea control GI on board. 2. Hyperkalemia- s/p cocktail x2. unable to give kayexylate due to GI bleed. repeat. if persists will need to consider HD. repeat labs today 3. Hypophosphatemia- Kphos IV as unable to take po. minimal amount of potassium in Kphos 4. Lactic acidosis- concern for ischemic bowel or perforation. CT abdomen done but no official read. no obvious signs of perforation. more likely due to severe anemia and Metformin use. IVF, trend lactate. hold metformin 5. Hypercoaguable- suspected cirrhosis. s/p vitamin K. 2 FFP ordered to be transfused 6. ANISHA- likely due to poor perfusion. nephrology consulted. monitor UOP. avoid NSAIDS 7. Thrombocytopenia- suspected cirrhosis. trend, consider platelet transfusion prior to any procedures 8. Transaminases- suggestive of heavy ETOH use. will need to work up for cirrhosis. ammonia level elevated however good mental status 9. HTN- currently normotensive. hold antihypertensives 10. DM- check A1c. hold oral agents. BGM and iss 11. DVT ppx- SCD 12. MICU monitoring Visit type - Emergency Visit Emergency Visit: Yes ED Registration Date: 03/31/17 Care time: The patient presented to the Emergency Department on the above date and was hospitalized for further evaluation of their emergent condition. - New Patient This patient is new to me today: Yes Date on this admission: 04/01/17 - Critical Care Critical Care patient: Yes Total Critical Care Time (in minutes): 40 Critical Care Statement: The care of this patient involved high complexity decision making to prevent further life threatening deterioration of the patient 's condition and/or to evaluate & treat vital organ system(s) failure or risk of failure. - Discharge Referral Referred to [facility] Med [facility].: No
[2017-04-01 08:39] LABS: ALBUMIN 2.6 g/dl (3.4-5.0); BILIRUBIN,TOTAL 0.9 mg/dL (0.2-1.0); BLOOD UREA NITROGEN 69 mg/dL (7-18); CHLORIDE 121 mmol/L (98-107); CREATININE 1.3 mg/dL (0.7-1.3); GLUCOSE,RANDOM 231 mg/dL (74-106); POTASSIUM 5.4 mmol/L (3.5-5.1); SGOT/AST 51 U/L (15-37); SODIUM 151 mmol/L (136-145); TOT PROT 5.4 g/dl (6.4-8.2)
[2017-04-01 08:46] LABS: ANISOCYTOSIS 2+; PLATELET ESTIMATE DECREASED
--- NOTE | 2017-04-01 08:51 | EKG ---
Test Reason : Blood Pressure : / mmHG Vent. Rate : 063 BPM Atrial Rate : 063 BPM P-R Int : 176 ms QRS Dur : 090 ms QT Int : 432 ms P-R-T Axes : 071 063 073 degrees QTc Int : 442 ms NORMAL SINUS RHYTHM WITH SINUS ARRHYTHMIA NORMAL ECG WHEN COMPARED WITH ECG OF 04-APR-2001 12:32, NO SIGNIFICANT CHANGE WAS FOUND Confirmed by JANNETTE LING, RAFI ([id number] on 04/01/2017 8:51:13 AM Referred By: Confirmed By:RAFI BHATIA MD
--- NOTE | 2017-04-01 09:16 | PN ---
Progress Note (short form) - Note Progress Note: Patient seen and examined in the ICU. Awake and alert. Denies CP or SOB. Reports some non-specific abdominal discomfort. Intake & Output 03/29/17 03/30/17 03/31/17 04/01/17 23:59 23:59 23:59 23:59 Intake Total 1062 217 Output Total 0 1625 Balance 1062 -1408 Weight 193 lb 5 oz 193 lb 5 oz Last Vital Signs Temp Pulse Resp BP Pulse Ox 98.3 F 87 18 212/68 98 04/01/17 08:00 04/01/17 08:00 04/01/17 08:00 04/01/17 08:00 03/31/17 20:53 Active Medications Chlorhexidine Gluconate (Hibiclens For Decolonization -) 1 applic TP HS [facility] Last Admin: 03/31/17 21:14 Dose: 1 applic Octreotide Acetate 1,200 mcg/ (Dextrose) 500 mls @ 20.83 mls/hr IVPB Q24H JELENA PRN Reason: 50 MCG/HR Last Admin: 03/31/17 20:12 Dose: 20.83 mls/hr Dextrose/Sodium Chloride (D5-1/2ns -) 1,000 mls @ 125 mls/hr IV ASDIR JELENA Pantoprazole Sodium 80 mg/ (Sodium Chloride) 100 mls @ 10 mls/hr IVPB Q10H JELENA PRN Reason: 8 MG/HR Last Admin: 04/01/17 06:14 Dose: Not Given Potassium Phosphate 30 mm/ (Sodium Chloride) 260 mls @ 62.5 mls/hr IVPB ONCE ONE Stop: 04/01/17 12:57 Insulin Aspart (Novolog Vial Sliding Scale -) 1 vial SQ Q4HPO JELENA PRN Reason: Protocol Last Admin: 04/01/17 06:21 Dose: 4 units Mupirocin (Bactroban Ointment (For Decolonization) -) 1 applic NS BID [facility] Stop: 04/05/17 21:59 Last Admin: 03/31/17 21:14 Dose: 1 applic Phytonadione (Aqua Mephyton Injection -) 10 mg IM DAILY [facility] Stop: 04/03/17 10:01 Pneumococcal 13-Valent Conj Vacc (Prevnar 13 Syringe -) 0.5 ml IM .ONCE ONE Stop: 03/31/17 21:00 PE: Gen:awake, alert, mild pallor, no distress HEENT: anicteric PULM: clear, no wheezes CV: RRR, no m/r/g appreciated ABD soft, NT, no hepatomegaly, no spider angiomas noted. No significant fluid wave< hypoactive BS EXT: w/w/p Derm: no rash Neuro: intact, non focal exam Laboratory Results - last 24 hr 03/31/17 03/31/17 03/31/17 17:05 17:05 17:05 WBC 7.5 RBC 3.25 L Hgb 6.4 L* Hct 21.7 L MCV 66.7 L MCH 19.8 L MCHC 29.7 L RDW 17.4 H Plt Count 97 L MPV 11.4 H Neutrophils % 76.3 Lymphocytes % 15.0 Monocytes % 7.6 Eosinophils % 0.3 Basophils % 0.8 Hypochromia Platelet Estimate Decreased Platelet Comment No clotting detected Polychromasia Basophilic Stippling Anisocytosis Microcytosis Retic Count PT with INR 14.30 H INR 1.27 H PTT (Actin FS) 23.0 L Sodium 146 H Potassium 7.1 H* Chloride 118 H Carbon Dioxide 14 L Anion Gap 14 BUN 62 H Creatinine 1.5 H Creat Clearance w eGFR 46.00 POC Glucometer Random Glucose 320 H* Lactic Acid Calcium 8.2 L Phosphorus 2.7 Magnesium 1.2 L Total Bilirubin 0.5 AST 46 H ALT 63 Alkaline Phosphatase 117 Ammonia Creatine Kinase 45 Troponin I 0.02 Total Protein 5.1 L Albumin 2.5 L Stool Occult Blood Blood Type Antibody Screen Crossmatch 03/31/17 03/31/17 03/31/17 17:05 17:24 17:31 WBC RBC Hgb Hct MCV MCH MCHC RDW Plt Count MPV Neutrophils % Lymphocytes % Monocytes % Eosinophils % Basophils % Hypochromia Platelet Estimate Platelet Comment Polychromasia Basophilic Stippling Anisocytosis Microcytosis Retic Count PT with INR INR PTT (Actin FS) Sodium Potassium Chloride Carbon Dioxide Anion Gap BUN Creatinine Creat Clearance w eGFR POC Glucometer Random Glucose Lactic Acid 7.6 H* Calcium Phosphorus Magnesium Total Bilirubin AST ALT Alkaline Phosphatase Ammonia Creatine Kinase Troponin I Total Protein Albumin Stool Occult Blood Positive Blood Type B POSITIVE Antibody Screen Negative Crossmatch 03/31/17 03/31/17 03/31/17 17:31 19:40 19:45 WBC RBC Hgb Hct MCV MCH MCHC RDW Plt Count MPV Neutrophils % Lymphocytes % Monocytes % Eosinophils % Basophils % Hypochromia Platelet Estimate Platelet Comment Polychromasia Basophilic Stippling Anisocytosis Microcytosis Retic Count PT with INR INR PTT (Actin FS) Sodium 147 H Potassium 6.0 H Chloride 118 H Carbon Dioxide 18 L D Anion Gap 11 BUN 66 H Creatinine 1.7 H Creat Clearance w eGFR 39.82 POC Glucometer Random Glucose 418 H* D Lactic Acid 8.3 H* Calcium 7.7 L Phosphorus Magnesium Total Bilirubin 0.6 AST 42 H ALT 65 Alkaline Phosphatase 115 Ammonia Creatine Kinase Troponin I Total Protein 5.2 L Albumin 2.4 L Stool Occult Blood Blood Type B POSITIVE Antibody Screen Crossmatch See Detail 04/01/17 04/01/17 04/01/17 02:50 03:02 03:10 WBC 9.0 RBC 4.04 D Hgb 9.0 L D Hct 28.2 L D MCV 69.8 L MCH 22.3 L MCHC 32.0 RDW 21.5 H D Plt Count 92 L MPV 9.8 D Neutrophils % Lymphocytes % Monocytes % Eosinophils % Basophils % Hypochromia Platelet Estimate Platelet Comment Polychromasia Basophilic Stippling Anisocytosis Microcytosis Retic Count PT with INR INR PTT (Actin FS) Sodium Potassium Chloride Carbon Dioxide Anion Gap BUN Creatinine Creat Clearance w eGFR POC Glucometer [phone] Random Glucose Lactic Acid 2.7 H* Calcium Phosphorus Magnesium Total Bilirubin AST ALT Alkaline Phosphatase Ammonia Creatine Kinase Troponin I Total Protein Albumin Stool Occult Blood Blood Type Antibody Screen Crossmatch 04/01/17 04/01/17 04/01/17 06:00 06:00 06:00 WBC 8.1 RBC 3.67 L Hgb 8.0 L D Hct 25.5 L MCV 69.5 L MCH 21.8 L MCHC 31.4 L RDW 20.7 H Plt Count 87 L MPV 9.8 Neutrophils % 77.7 Lymphocytes % 13.3 Monocytes % 8.0 Eosinophils % 0.7 D Basophils % 0.3 Hypochromia 1+ Platelet Estimate Decreased Platelet Comment Polychromasia 1+ Basophilic Stippling Few Anisocytosis 2+ Microcytosis 1+ Retic Count 1.74 H PT with INR 13.30 H INR 1.18 H PTT (Actin FS) Sodium Potassium Chloride Carbon Dioxide Anion Gap BUN Creatinine Creat Clearance w eGFR POC Glucometer Random Glucose Lactic Acid 1.8 Calcium Phosphorus Magnesium Total Bilirubin AST ALT Alkaline Phosphatase Ammonia Creatine Kinase Troponin I Total Protein Albumin Stool Occult Blood Blood Type Antibody Screen Crossmatch 04/01/17 04/01/17 04/01/17 06:20 06:30 06:30 WBC RBC Hgb Hct MCV MCH MCHC RDW Plt Count MPV Neutrophils % Lymphocytes % Monocytes % Eosinophils % Basophils % Hypochromia Platelet Estimate Platelet Comment Polychromasia Basophilic Stippling Anisocytosis Microcytosis Retic Count PT with INR INR PTT (Actin FS) Sodium Cancelled Potassium Cancelled Chloride Cancelled Carbon Dioxide Cancelled Anion Gap Cancelled BUN Cancelled Creatinine Cancelled Creat Clearance w eGFR Cancelled POC Glucometer [phone] Random Glucose Cancelled Lactic Acid Calcium Cancelled Phosphorus Magnesium Total Bilirubin Cancelled AST Cancelled ALT Cancelled Alkaline Phosphatase Cancelled Ammonia 197.14 H Creatine Kinase Troponin I Total Protein Cancelled Albumin Cancelled Stool Occult Blood Blood Type Antibody Screen Crossmatch 04/01/17 06:30 WBC RBC Hgb Hct MCV MCH MCHC RDW Plt Count MPV Neutrophils % Lymphocytes % Monocytes % Eosinophils % Basophils % Hypochromia Platelet Estimate Platelet Comment Polychromasia Basophilic Stippling Anisocytosis Microcytosis Retic Count PT with INR INR PTT (Actin FS) Sodium 151 H Potassium 5.4 H Chloride 121 H Carbon Dioxide Anion Gap BUN 69 H Creatinine 1.3 D Creat Clearance w eGFR 54.26 POC Glucometer Random Glucose 231 H D Lactic Acid Calcium 8.0 L Phosphorus 2.0 L D Magnesium 1.8 D Total Bilirubin 0.9 D AST 51 H D ALT Alkaline Phosphatase Ammonia Creatine Kinase Troponin I Total Protein 5.4 L Albumin 2.6 L Stool Occult Blood Blood Type Antibody Screen Crossmatch IMP: 71 y/o man with significant ETOH hx p/w anemia and melena, likely UGIB admitted to ICU for blood/fluid resuscitation, plan for EGD once stable. PLAN: -Transfusional support -PPI and octreotide drips -maintain adequate access -hepatitis workup -Will need to consider GI cancer workup given weight loss -NPO -IVF -venodynes -ICU monitoring Dr Izquierdo Critical care time spent in reviewing chart, evaluating patient and formulating plan - 40 minutes.
[2017-04-01 09:31] LABS: ANION GAP 9 (8-16); CO2 21 mmol/L (21-32)
[2017-04-01 09:32] LABS: ALK PHOS 108 U/L (45-117); SGPT/ALT 68 U/L (12-78)
[2017-04-01] MEDS ORDERED: POTASSIUM PHOSPHATE 30 MM in SODIUM CHLORIDE 250 ML IVPB ONE (10:00)
[2017-04-01] MEDS ORDERED: PHYTONADIONE 10 MG/1 ML AMP IM SCH (10:00)
--- NOTE | 2017-04-01 10:22 | PN ---
GI Progress Note Subjective: GI Note ( covering Dr Vázquez) Awake and conversant. Has epigastric pain. CT reveals no perforation. He has gallstones, thickening of the colon wall, splenomegaly and a liver contour suggesting cirrhosis. Hb is up to 8. Potassium in down to 5.4. Will need to proceed [facility] EGD - Objective Vital Signs: Vital Signs Temperature 98.3 F 04/01/17 08:00 Pulse Rate 87 04/01/17 08:00 Respiratory Rate 18 04/01/17 09:00 Blood Pressure 212/68 04/01/17 08:00 O2 Sat by Pulse Oximetry (%) 98 04/01/17 09:00 Laboratory Tests 03/31/17 03/31/17 04/01/17 17:05 17:05 02:50 WBC Hgb 6.4 L* 9.0 L D Plt Count INR 1.27 H Sodium Potassium Anion Gap BUN Creatinine 04/01/17 04/01/17 04/01/17 06:00 06:00 06:30 WBC 8.1 Hgb 8.0 L D Plt Count 87 L INR 1.18 H Sodium 151 H Potassium 5.4 H Anion Gap 9 BUN 69 H Creatinine 1.3 D Constitutional: Anxious ...Auscultate: Yes: Normoactive Bowel Sounds ...Palpate: Yes: Soft, Other (nontender) Labs: CBC, BMP 04/01/17 06:00 04/01/17 06:30 INR, PTT INR 1.18 (0.82-1.09) H 04/01/17 06:00 Assessment/Plan For EGD DORIAN Further recommendations based on EGD findings. Problem List - Problems (1) GI hemorrhage Code(s): K92.2 - GASTROINTESTINAL HEMORRHAGE, UNSPECIFIED (2) Hyperkalemia Code(s): E87.5 - HYPERKALEMIA (3) Azotemia Code(s): R79.89 - OTHER SPECIFIED ABNORMAL FINDINGS OF BLOOD CHEMISTRY (4) Hepatitis Code(s): K75.9 - INFLAMMATORY LIVER DISEASE, UNSPECIFIED (5) Cirrhosis Code(s): K74.60 - UNSPECIFIED CIRRHOSIS OF LIVER (6) Lactic acid acidosis Code(s): E87.2 - ACIDOSIS (7) Diabetes mellitus Code(s): E11.9 - TYPE 2 DIABETES MELLITUS WITHOUT COMPLICATIONS (8) Hypertension Code(s): I10 - ESSENTIAL (PRIMARY) HYPERTENSION (9) Anemia Code(s): D64.9 - ANEMIA, UNSPECIFIED
[2017-04-01] MEDS: MUPIROCIN 2% TOPICAL OINTMENT FOR DECOLONIZATION NS SCH ×2 (10:33→23:15)
[2017-04-01] MEDS ORDERED: ERYTHROMYCIN *INJECTION* 500 MG VIAL IVPB ONE (11:09)
[2017-04-01] MEDS ORDERED: PROPOFOL 20 ML ONE ×2 (11:16)
--- NOTE | 2017-04-01 12:13 | PN ---
Progress Note (short form) - Note Progress Note: GI Procedure Note ( covering Dr Vázquez) : Please see EGD report. Large distal esophageal varices with stigmata of recent bleeding were found and all four were rubber band ligated. Continue antibiotics, octreotide and PPI drip. Problem List - Problems (1) GI hemorrhage Code(s): K92.2 - GASTROINTESTINAL HEMORRHAGE, UNSPECIFIED (2) Hyperkalemia Code(s): E87.5 - HYPERKALEMIA (3) Azotemia Code(s): R79.89 - OTHER SPECIFIED ABNORMAL FINDINGS OF BLOOD CHEMISTRY (4) Hepatitis Code(s): K75.9 - INFLAMMATORY LIVER DISEASE, UNSPECIFIED (5) Cirrhosis Code(s): K74.60 - UNSPECIFIED CIRRHOSIS OF LIVER (6) Lactic acid acidosis Code(s): E87.2 - ACIDOSIS (7) Diabetes mellitus Code(s): E11.9 - TYPE 2 DIABETES MELLITUS WITHOUT COMPLICATIONS (8) Hypertension Code(s): I10 - ESSENTIAL (PRIMARY) HYPERTENSION (9) Anemia Code(s): D64.9 - ANEMIA, UNSPECIFIED
[2017-04-01] MEDS ORDERED: MAG HYDROX/AL HYDROX/SIMETH 30 ML UNIT-DOSE CUP PO PRN (12:16)
--- NOTE | 2017-04-01 12:26 | CONSULT ---
Consult Consult Specialty:: general surgery Referred by:: jhony lopez - GI Reason for Consultation:: UGIB - History of Present Illness Chief Complaint: hematemesis History of Present Illness: 71 yo male PMH ETOH use/abuse, renal calculi, DM, and HTN who presented to ED today due to weakness after multiple episodes of melena. He has no hx of GIB, has had colonoscopy some time in the past, unclear results. Today he was too weak to get out of bed and had Upper abd pain. Relates frequent dark tarry stool , which he denies having in the past. Denies Cxpn, SOB, syncope, falls, hematemesis, hematuria, BRBPR. In the emergency department the patient was afebrile, pale, normotensive 108/50, HR 80, RR 18, good saturations. Labs notable for Hgb 6.7, plts 98, HCo3 14, lacate 7, Cr 1.4 (unk baseline), K 7. Pt has albumin of 2.5, INR 1.5 c/f chronic liver disease. Bilis and transaminases not significantly elevated. PRBC were ordered, fluid was given, Potassium was medically managed, there was no significant EKG changes. Vit K given for elevated INR. PPI and octreotide gtts were started. Pt was seen by GI, plan to transfuse and perform EGD once stable. - History Source History Provided By: Patient, Medical Record Limitations to Obtaining History: No Limitations - Past Medical History Cardio/Vascular: Yes: HTN Renal/: Yes: Renal Calculi (requiring ESWL) Musculoskeletal: Yes: Chronic low back pain, Osteoarthritis, Other (neck pain) Endocrine: Yes: Diabetes Mellitus (with diabetic retinopathy requiring laser therapy) - Past Surgical History Past Surgical History: Yes: None, Colonoscopy - Alcohol/Substance Use Hx Alcohol Use: Yes (remotely drank heavily) - Smoking History Smoking history: Never smoked Have you smoked in the past 12 months: No - Social History Usual Living Arrangement: With Spouse ADL: Independent Occupation: retired cemetary worker History of Recent Travel: No Home Medications - Allergies Allergies/Adverse Reactions: Allergies Allergy/AdvReac Type Severity Reaction Status Date / Time No Known Drug Allergies Allergy Verified 03/31/17 16:58 - Home Medications Home Medications: Ambulatory Orders Glimepiride 4 mg PO DAILY 01/01/12 Lisinopril [Prinivil] 10 mg PO DAILY 01/01/12 Metformin HCl [Glucophage] 1,000 mg PO BID 01/01/12 Terazosin HCl 2 mg PO DAILY 01/01/12 Insulin (Levemir) [Levemir Flexpen -] 25 units SQ DAILY 04/08/12 Family Disease History - Family Disease History Family Disease History: Diabetes: Brother, Sister, Heart Disease: Father ([place] in his 60s), Mother ([place] in her 80s), Brother Review of Systems - Review of Systems Constitutional: denies: Chills, Fever, Loss of Appetite Eyes: denies: Blind Spots, Recent Change in Vision HENT: denies: Difficult Swallowing, Throat Pain Neck: denies: Lumps, Swollen Glands Cardiovascular: denies: Chest Pain, Palpitations Respiratory: denies: Cough, SOB Gastrointestinal: reports: Rectal Bleeding, Vomiting. denies: Abdominal Pain Genitourinary: denies: Burning, Discharge, Dysuria Breasts: reports: No Symptoms Reported. denies: Pain Integumentary: denies: Lesions, Rash Neurological: denies: Change in LOC, Syncope Hematology/Lymphatic: denies: Easily Bruised, Excessive Bleeding Psychiatric: denies: Anxiety, Depression Physical Exam Vital Signs: Vital Signs Temperature 98.4 F 04/01/17 10:00 Pulse Rate 72 04/01/17 10:00 Respiratory Rate 21 04/01/17 10:00 Blood Pressure 124/39 04/01/17 10:00 O2 Sat by Pulse Oximetry (%) 98 04/01/17 09:00 Vital Signs Period Temp Pulse Resp BP Sys/Aden Pulse Ox Last 24 Hr 97.8 F-99.0 F 70-93 16-21 112-212/34-68 98-98 Intake & Output 04/01/17 04/01/17 04/01/17 07:59 15:59 23:59 Intake Total 217 515 Output Total 1000 975 Balance -783 -460 Weight 193 lb 5 oz Intake: IV 217 515 1/2 Normal Saline 1,000 125 ml @ 125 mls/hr IV ASDIR JELENA Rx#:[id number] protonix 70 80 sandostatin 147 160 Output: Urine 1000 975 Void 1000 975 Other: Voiding Method Urinal Urinal Bowel Movement Yes Yes # Bowel Movements 1 2 Weight Measurement Method Built in Bedscale Constitutional: Yes: No Distress, Calm, Obese Eyes: Yes: Conjunctiva Clear, EOM Intact HENT: Yes: Atraumatic, Normocephalic Neck: Yes: Supple, Trachea Midline Cardiovascular: Yes: Regular Rate and Rhythm, S1, S2. No: Murmur Respiratory: Yes: Regular, CTA Bilaterally Gastrointestinal: Yes: Soft, Abdomen, Obese, Ascites, Melena, Rectal Bleeding. No: Tenderness, Tenderness, Epigastrium ...Rectal Exam: Yes: Deferred Renal/: No: CVA Tenderness - Left, CVA Tenderness - Right Neurological: Yes: Alert, Oriented Psychiatric: Yes: Alert, Oriented Labs: CBC, BMP 04/01/17 06:00 04/01/17 06:30 Imaging - Results Chest X-ray: Report Reviewed, Image Reviewed Cat Scan: Pending (no acute pathology identified, report pending), Image Reviewed Problem List - Problems (1) Esophageal varices with hemorrhage Assessment/Plan: 71 yo female with MMP with bleeding esophageal varix, german b, meld 12 (6.0%), he has been transfused units RBC and during his EGD today had multiple varices banded. IVF resusscitation Trend labs [id number] Transfuse blood and blood products as indicated Consider IR if rebleed We will follow for serial exams This patient is critically ill. Time spent reviewing chart, examining patient, talking with providers and/or family and documentation is 60 minutes Thank you for the opportunity to participate in the care of this patient. Code(s): I85.01 - ESOPHAGEAL VARICES WITH BLEEDING (2) Cirrhosis Code(s): K74.60 - UNSPECIFIED CIRRHOSIS OF LIVER (3) Diabetes mellitus Code(s): E11.9 - TYPE 2 DIABETES MELLITUS WITHOUT COMPLICATIONS (4) GI hemorrhage Code(s): K92.2 - GASTROINTESTINAL HEMORRHAGE, UNSPECIFIED (5) Hypertension Code(s): I10 - ESSENTIAL (PRIMARY) HYPERTENSION
[2017-04-01] MEDS ORDERED: SODIUM CHLORIDE 0.45% 1,000 ML IV SCH (12:30)
[2017-04-01] MEDS ORDERED: PT OWN MED DRAWER 7, Y5N ONE ×2 (13:08→19:40)
[2017-04-01 13:31] LABS: HEMATOCRIT 26.8 % (35.4-49); HEMOGLOBIN 8.5 GM/dL (11.7-16.9); MCHC 31.6 g/dl (32.0-35.9); MEAN CELL VOLUME 69.6 fl (80-96); MEAN PLT VOLUME 10.4 fl (7.5-11.1); PLATELET COUNT 100 K/MM3 (134-434); RBC 3.85 M/mm3 (4.00-5.60); RDW 21.2 % (11.9-15.9); WHITE BLOOD COUNT 10.3 K/mm3 (4.0-10.0)
[2017-04-01 13:59] LABS: ANION GAP 10 (8-16); BLOOD UREA NITROGEN 68 mg/dL (7-18); CHLORIDE 122 mmol/L (98-107); CO2 19 mmol/L (21-32); CREATININE 1.3 mg/dL (0.7-1.3); GLUCOSE,RANDOM 264 mg/dL (74-106); PHOSPHOROUS 2.8 mg/dL (2.5-4.9); POTASSIUM 5.6 mmol/L (3.5-5.1); SODIUM 151 mmol/L (136-145)
--- NOTE | 2017-04-01 15:26 | CONSULT ---
Consult Consult Specialty:: Nephrology Reason for Consultation:: ANISHA and hyperkalemia - History of Present Illness Chief Complaint: abdominal pain and melena History of Present Illness: Pt is a 71 year old male with pmhx of anemia, HTN, DM, and etoh use who presents to the ER with abdominal pain and melena. He was found to be anemic and admitted for workup and treatment. I was called to evaluate him for ANISHA and hyperlkalemia. He denies history of CKD. He denies dysuria or hematuria. He denies nsaid use. His renal function improved with hydration. He wsa taken to endoscopy and was found to have esophageal varices. Pt was on lisinopril and metformin at home. - History Source History Provided By: Patient, Family Member, Medical Record - Past Medical History Cardio/Vascular: Yes: HTN Renal/: Yes: Renal Calculi (requiring ESWL) Musculoskeletal: Yes: Chronic low back pain, Osteoarthritis, Other (neck pain) Endocrine: Yes: Diabetes Mellitus (with diabetic retinopathy requiring laser therapy) - Past Surgical History Past Surgical History: Yes: None, Colonoscopy - Alcohol/Substance Use Hx Alcohol Use: Yes (remotely drank heavily) - Smoking History Smoking history: Never smoked Have you smoked in the past 12 months: No - Social History Usual Living Arrangement: With Spouse ADL: Independent Occupation: retired cemetary worker History of Recent Travel: No Home Medications - Allergies Allergies/Adverse Reactions: Allergies Allergy/AdvReac Type Severity Reaction Status Date / Time No Known Drug Allergies Allergy Verified 03/31/17 16:58 - Home Medications Home Medications: Ambulatory Orders Glimepiride 4 mg PO DAILY 01/01/12 Lisinopril [Prinivil] 10 mg PO DAILY 01/01/12 Metformin HCl [Glucophage] 1,000 mg PO BID 01/01/12 Terazosin HCl 2 mg PO DAILY 01/01/12 Insulin (Levemir) [Levemir Flexpen -] 25 units SQ DAILY 04/08/12 Family Disease History - Family Disease History Family Disease History: Diabetes: Brother, Sister, Heart Disease: Father ([place] in his 60s), Mother ([place] in her 80s), Brother Review of Systems - Review of Systems Constitutional: reports: Malaise Eyes: reports: No Symptoms HENT: reports: No Symptoms, Ocular Prosthesis Cardiovascular: reports: No Symptoms Respiratory: reports: No Symptoms Gastrointestinal: reports: Melena Genitourinary: reports: No Symptoms Musculoskeletal: reports: No Symptoms Integumentary: reports: No Symptoms Neurological: reports: No Symptoms Endocrine: reports: No Symptoms Hematology/Lymphatic: reports: No Symptoms Physical Exam Vital Signs: Vital Signs Temperature 98.2 F 04/01/17 14:00 Pulse Rate 81 04/01/17 14:00 Respiratory Rate 20 04/01/17 14:00 Blood Pressure 132/41 04/01/17 14:00 O2 Sat by Pulse Oximetry (%) 98 04/01/17 09:00 Constitutional: Yes: Calm Eyes: Yes: Conjunctiva Clear HENT: Yes: Atraumatic Neck: Yes: Supple Cardiovascular: Yes: S1, S2 Respiratory: Yes: CTA Bilaterally Gastrointestinal: Yes: Normal Bowel Sounds, Soft Renal/: Yes: WNL Musculoskeletal: Yes: WNL Edema: No Neurological: Yes: Oriented Psychiatric: Yes: Oriented Labs: CBC, BMP 04/01/17 13:25 04/01/17 13:25 Laboratory Tests 03/31/17 03/31/17 03/31/17 17:05 17:05 17:31 Hgb 6.4 L* PT with INR INR Sodium Potassium Chloride Carbon Dioxide Anion Gap BUN Creatinine 1.5 H Lactic Acid 7.6 H* Ammonia 03/31/17 03/31/17 04/01/17 19:40 19:45 02:50 Hgb 9.0 L D PT with INR INR Sodium Potassium Chloride Carbon Dioxide Anion Gap BUN Creatinine 1.7 H Lactic Acid 8.3 H* Ammonia 04/01/17 04/01/17 04/01/17 03:10 06:00 06:00 Hgb 8.0 L D PT with INR 13.30 H INR 1.18 H Sodium Potassium Chloride Carbon Dioxide Anion Gap BUN Creatinine Lactic Acid 2.7 H* Ammonia 04/01/17 04/01/17 04/01/17 06:00 06:30 06:30 Hgb PT with INR INR Sodium 151 H Potassium 5.4 H Chloride Carbon Dioxide 21 Anion Gap 9 BUN 69 H Creatinine 1.3 D Lactic Acid 1.8 Ammonia 197.14 H 04/01/17 04/01/17 13:25 13:25 Hgb 8.5 L PT with INR INR Sodium 151 H Potassium 5.6 H Chloride 122 H Carbon Dioxide 19 L Anion Gap 10 BUN Creatinine 1.3 Lactic Acid Ammonia Imaging - Results Chest X-ray: Report Reviewed Problem List - Problems (1) Anemia Code(s): D64.9 - ANEMIA, UNSPECIFIED (2) Azotemia Code(s): R79.89 - OTHER SPECIFIED ABNORMAL FINDINGS OF BLOOD CHEMISTRY (3) Cirrhosis Code(s): K74.60 - UNSPECIFIED CIRRHOSIS OF LIVER (4) Diabetes mellitus Code(s): E11.9 - TYPE 2 DIABETES MELLITUS WITHOUT COMPLICATIONS (5) GI hemorrhage Code(s): K92.2 - GASTROINTESTINAL HEMORRHAGE, UNSPECIFIED (6) Hepatitis Code(s): K75.9 - INFLAMMATORY LIVER DISEASE, UNSPECIFIED (7) Hyperkalemia Code(s): E87.5 - HYPERKALEMIA (8) Hypertension Code(s): I10 - ESSENTIAL (PRIMARY) HYPERTENSION (9) Lactic acid acidosis Code(s): E87.2 - ACIDOSIS Assessment/Plan Current Medications Generic Name Dose Route Start Last Admin Trade Name Freq PRN Reason Stop Dose Admin Al Hydroxide/Mg Hydroxide 30 ml 04/01/17 12:16 Mylanta Oral Suspension - PO Q6H PRN DYSPEPSIA Chlorhexidine Gluconate 1 applic 03/31/17 22:00 03/31/17 21:14 Hibiclens For Decolonization - TP 1 applic HS JELENA Administration Octreotide Acetate 1,200 mcg/ 500 mls @ 20.83 mls/hr 03/31/17 20:00 03/31/17 20:12 Dextrose IVPB 20.83 mls/hr Q24H JELENA Administration 50 MCG/HR Dextrose/Sodium Chloride 1,000 mls @ 125 mls/hr 03/31/17 19:45 D5-1/2ns - IV ASDIR JELENA Pantoprazole Sodium 80 mg/ 100 mls @ 10 mls/hr 03/31/17 19:45 04/01/17 06:14 Sodium Chloride IVPB Not Given Q10H JELENA 8 MG/HR Sodium Chloride 1,000 mls @ 125 mls/hr 04/01/17 12:30 04/01/17 13:00 1/2 Normal Saline IV 125 mls/hr ASDIR JELENA Administration Insulin Aspart 1 vial 04/01/17 06:00 04/01/17 14:40 Novolog Vial Sliding Scale - SQ 5 units Q4HPO JELENA Administration Protocol Lactulose 20 gm 04/01/17 22:00 Cephulac (Oral Use) PO BID JELENA Mupirocin 1 applic 03/31/17 22:00 04/01/17 10:33 Bactroban Ointment (For Decolonization) - NS 04/05/17 21:59 1 applic BID JELENA Administration Pneumococcal 13-Valent Conj Vacc 0.5 ml 03/31/17 20:59 Prevnar 13 Syringe - IM 03/31/17 21:00 .ONCE ONE Impression 1. ANISHA 2. hyperkalemia 3. lactic acidosis 4. GI bleed 5. anemia 6. DM 7. HTN 8. liver cirrhosis 9. hypernatremia Plan - renal function is improving - stopped [id number] - cont with hypotonic fluid as he is hypernatremic - monitor hg - lactic acid has improved - wound not restart metformin at this time - hold lisinopril - if his sugars are controlled would switch fluids to d5w - discussed with GI - will follow pt - low potassium diet once feeds are started - discussed plan with family
[2017-04-01 21:13] LABS: HEMATOCRIT 26.2 % (35.4-49); HEMOGLOBIN 8.3 GM/dL (11.7-16.9); MCHC 31.5 g/dl (32.0-35.9); MEAN CELL VOLUME 69.8 fl (80-96); MEAN PLT VOLUME 9.8 fl (7.5-11.1); PLATELET COUNT 100 K/MM3 (134-434); RBC 3.75 M/mm3 (4.00-5.60); RDW 20.8 % (11.9-15.9); WHITE BLOOD COUNT 7.6 K/mm3 (4.0-10.0)
[2017-04-01] MEDS: OCTREOTIDE ACETATE 1,200 MCG in DEXTROSE 5%-WATER - 488 ML IVPB SCH (21:43)
[2017-04-01 21:44] LABS: ANION GAP 9 (8-16); BLOOD UREA NITROGEN 60 mg/dL (7-18); CALCIUM 7.5 mg/dL (8.5-10.1); CHLORIDE 118 mmol/L (98-107); CO2 20 mmol/L (21-32); CREATININE 1.6 mg/dL (0.7-1.3); PHOSPHOROUS 2.7 mg/dL (2.5-4.9); SODIUM 147 mmol/L (136-145)
[2017-04-01] MEDS: CHLORHEXIDINE GLUCONATE 4% CLEANSER FOR DECOLONIZATION TP SCH (21:44)
[2017-04-01] MEDS: LACTULOSE 20 GM/30 ML UDC (FOR ORAL USE ONLY) PO SCH (21:46)
[2017-04-01 21:48] LABS: GLUCOSE,RANDOM 402 mg/dL (74-106)
[2017-04-01] MEDS ORDERED: INSULIN REGULAR HUMAN 100 UNITS/ML *VIAL IVPUSH ONE (22:11)
[2017-04-02] MEDS ORDERED: HEMOQUE TEST 1 EACH EACH ONE (04:25)
[2017-04-02] MEDS: INSULIN SLIDING SCALE (NOVOLOG) 1 VIAL SQ SCH ×4 (06:00→21:14)
[2017-04-02 06:15] LABS: BASO % 0.4 % (0-2.0); EOS % 2.8 % (0-4.5); HEMOGLOBIN 7.6 GM/dL (11.7-16.9); LYMPH % 15.8 % (8-40); MCHC 31.8 g/dl (32.0-35.9); MEAN CELL VOLUME 69.3 fl (80-96); MEAN PLT VOLUME 9.6 fl (7.5-11.1); MONO % 6.5 % (3.8-10.2); NEUT % 74.5 % (42.8-82.8); PLATELET COUNT 103 K/MM3 (134-434); RBC 3.47 M/mm3 (4.00-5.60); RDW 21.2 % (11.9-15.9); WHITE BLOOD COUNT 7.8 K/mm3 (4.0-10.0)
[2017-04-02 06:30] LABS: INR 1.24 (0.82-1.09)
[2017-04-02 06:45] LABS: CHLORIDE 120 mmol/L (98-107); POTASSIUM 4.5 mmol/L (3.5-5.1); SODIUM 148 mmol/L (136-145)
[2017-04-02 06:52] LABS: ALBUMIN 2.6 g/dl (3.4-5.0); ALK PHOS 99 U/L (45-117); ANION GAP 9 (8-16); BLOOD UREA NITROGEN 45 mg/dL (7-18); CALCIUM 7.9 mg/dL (8.5-10.1); CO2 19 mmol/L (21-32); CREATININE 1.3 mg/dL (0.7-1.3); GLUCOSE,RANDOM 260 mg/dL (74-106); SGOT/AST 39 U/L (15-37); SGPT/ALT 61 U/L (12-78); TOT PROT 5.4 g/dl (6.4-8.2)
--- NOTE | 2017-04-02 08:54 | PN ---
Progress Note (short form) - Note Progress Note: Anesthesia Post Op Pt seen and examined S:alert and awake,c/o chest tightness O: Vital Signs Temperature 99.2 F 04/02/17 06:00 Pulse Rate 78 04/02/17 08:00 Respiratory Rate 20 04/02/17 08:00 Blood Pressure 116/42 04/02/17 08:00 O2 Sat by Pulse Oximetry (%) 98 04/02/17 08:01 CBC, BMP 04/02/17 05:15 04/02/17 05:15 A/P; Current Active Problems Anemia (Acute) Azotemia (Acute) Cirrhosis (Acute) Diabetes mellitus (Acute) Esophageal varices with hemorrhage (Acute) GI hemorrhage (Acute) Hepatitis (Acute) Hyperkalemia (Acute) Hypertension (Acute) Lactic acid acidosis (Acute) s/p EGD with banding EKG NSR doing well post op Continue current care Kevon Figueroa MD
[2017-04-02] MEDS: LACTULOSE 20 GM/30 ML UDC (FOR ORAL USE ONLY) PO SCH ×2 (09:40→21:14)
[2017-04-02] MEDS: MUPIROCIN 2% TOPICAL OINTMENT FOR DECOLONIZATION NS SCH (09:44)
[2017-04-02] MEDS ORDERED: CEFTRIAXONE 1 G/50 ML PREMIX 50 ML IVPB SCH (10:00)
--- NOTE | 2017-04-02 11:20 | PN ---
Progress Note, Physician Chief Complaint: ugib History of Present Illness: 71 yo male PMH ETOH use/abuse, renal calculi, DM, and HTN who presented to ED today due to weakness after multiple episodes of melena. s/p egd varix banding now controlled. no events overnight - Current Medication List Current Medications: Active Medications Al Hydroxide/Mg Hydroxide (Mylanta Oral Suspension -) 30 ml PO Q6H PRN PRN Reason: DYSPEPSIA Chlorhexidine Gluconate (Hibiclens For Decolonization -) 1 applic TP HS [facility] Last Admin: 04/01/17 21:44 Dose: 1 applic CEFTRIAXONE 1 G/50 ML PREMIX (Ceftriaxone 1 Gm-D5w Bag) 50 mls @ 100 mls/hr IVPB DAILY [facility] Octreotide Acetate 1,200 mcg/ (Dextrose) 500 mls @ 10.41 mls/hr IVPB Q24H [facility] PRN Reason: 25 MCG/HR Insulin Aspart (Novolog Vial Sliding Scale -) 1 vial SQ ACHS [facility] PRN Reason: Protocol Last Admin: 04/02/17 06:00 Dose: 5 units Lactulose (Cephulac (Oral Use)) 20 gm PO BID [facility] Last Admin: 04/02/17 09:40 Dose: 20 gm Mupirocin (Bactroban Ointment (For Decolonization) -) 1 applic NS BID [facility] Stop: 04/05/17 21:59 Last Admin: 04/02/17 09:44 Dose: 1 applic Pantoprazole Sodium (Protonix -) 40 mg PO BID [facility] Pneumococcal 13-Valent Conj Vacc (Prevnar 13 Syringe -) 0.5 ml IM .ONCE ONE Stop: 03/31/17 21:00 - Objective Vital Signs: Vital Signs Temperature 99.3 F 04/02/17 10:00 Pulse Rate 64 04/02/17 10:00 Respiratory Rate 20 04/02/17 10:00 Blood Pressure 135/42 04/02/17 10:00 O2 Sat by Pulse Oximetry (%) 98 04/02/17 08:01 Constitutional: Yes: No Distress, Calm, Obese Eyes: Yes: Conjunctiva Clear, EOM Intact HENT: Yes: Atraumatic, Normocephalic Neck: Yes: Supple, Trachea Midline Cardiovascular: Yes: Regular Rate and Rhythm, S1, S2 Respiratory: Yes: Regular, CTA Bilaterally Gastrointestinal: Yes: Normal Bowel Sounds, Soft, Abdomen, Obese, Melena, Rectal Bleeding ...Rectal Exam: Yes: Guaiac Positive Edema: No Peripheral Pulses WNL: Yes Peripheral Pulses: Left Doralis Pedis: 2+, Right Dorsalis Pedis: 2+ Neurological: Yes: Alert, Oriented Labs: CBC, BMP 04/02/17 05:15 04/02/17 05:15 INR, PTT INR 1.24 (0.82-1.09) H 04/02/17 05:15 Problem List - Problems (1) Esophageal varices with hemorrhage Assessment/Plan: 71 yo female with MMP with bleeding esophageal varix, german b, meld 12 (6.0%), he has been transfused units RBC and during his EGD today had multiple varices banded. acute bleed resolved. IVF hydration advance diet as tolerated Trend labs Consider IR if rebleed We will follow peripherally Code(s): I85.01 - ESOPHAGEAL VARICES WITH BLEEDING (2) Cirrhosis Code(s): K74.60 - UNSPECIFIED CIRRHOSIS OF LIVER (3) Diabetes mellitus Code(s): E11.9 - TYPE 2 DIABETES MELLITUS WITHOUT COMPLICATIONS (4) GI hemorrhage Code(s): K92.2 - GASTROINTESTINAL HEMORRHAGE, UNSPECIFIED (5) Hypertension Code(s): I10 - ESSENTIAL (PRIMARY) HYPERTENSION
--- NOTE | 2017-04-02 12:27 | PN ---
Physical Exam: SUBJECTIVE: Patient seen and examined in ICU No overnight events. Patient denies any BM. Has mild epigastric discomfort. Denies any more episodes of hematemesis s/p ligation of 4 varicies OBJECTIVE: Vital Signs Period Temp Pulse Resp BP Sys/Aden Pulse Ox Last 24 Hr 97.8 F-99.6 F 64-88 18-20 116-145/34-58 96-98 GENERAL: The patient is awake, alert, and fully oriented, in no acute distress. HEAD: Normal with no signs of trauma. EYES: Extraocular movements intact, sclera anicteric, conjunctiva clear. No ptosis. NECK: Trachea midline, full range of motion, supple. LUNGS: Breath sounds equal, clear to auscultation bilaterally, no wheezes, no crackles, no accessory muscle use. HEART: Regular rate and rhythm, S1, S2 without murmur, rub or gallop. ABDOMEN: Soft, mild epigastric tenderness, nondistended, normoactive bowel sounds, no guarding, no rebound, no hepatosplenomegaly, no masses. EXTREMITIES: 2+ pulses, warm, well-perfused, no edema. PSYCH: Normal mood, normal affect. SKIN: Warm, dry, normal turgor, no rashes or lesions noted Laboratory Results - last 24 hr 04/01/17 04/01/17 04/01/17 11:01 13:25 13:25 WBC 10.3 H RBC 3.85 L Hgb 8.5 L Hct 26.8 L MCV 69.6 L MCH 22.0 L MCHC 31.6 L RDW 21.2 H Plt Count 100 L MPV 10.4 Neutrophils % Lymphocytes % Monocytes % Eosinophils % Basophils % PT with INR INR Sodium 151 H Potassium 5.6 H Chloride 122 H Carbon Dioxide 19 L Anion Gap 10 BUN 68 H Creatinine 1.3 Creat Clearance w eGFR POC Glucometer [phone] Random Glucose 264 H Calcium 8.0 L Phosphorus 2.8 D Total Bilirubin AST ALT Alkaline Phosphatase Ammonia Total Protein Albumin 04/01/17 04/01/17 04/01/17 14:39 18:09 20:30 WBC 7.6 RBC 3.75 L Hgb 8.3 L Hct 26.2 L MCV 69.8 L MCH 22.0 L MCHC 31.5 L RDW 20.8 H Plt Count 100 L MPV 9.8 Neutrophils % Lymphocytes % Monocytes % Eosinophils % Basophils % PT with INR INR Sodium Potassium Chloride Carbon Dioxide Anion Gap BUN Creatinine Creat Clearance w eGFR POC Glucometer [phone] Random Glucose Calcium Phosphorus Total Bilirubin AST ALT Alkaline Phosphatase Ammonia Total Protein Albumin 04/01/17 04/01/17 04/02/17 20:30 22:07 04:27 WBC RBC Hgb Hct MCV MCH MCHC RDW Plt Count MPV Neutrophils % Lymphocytes % Monocytes % Eosinophils % Basophils % PT with INR INR Sodium 147 H Potassium 5.0 Chloride 118 H Carbon Dioxide 20 L Anion Gap 9 BUN 60 H Creatinine 1.6 H D Creat Clearance w eGFR POC Glucometer > [phone] Random Glucose 402 H* D Calcium 7.5 L Phosphorus 2.7 Total Bilirubin AST ALT Alkaline Phosphatase Ammonia Total Protein Albumin 04/02/17 04/02/17 04/02/17 05:15 05:15 05:15 WBC 7.8 RBC 3.47 L Hgb 7.6 L Hct 24.0 L MCV 69.3 L MCH 22.0 L MCHC 31.8 L RDW 21.2 H Plt Count 103 L MPV 9.6 Neutrophils % 74.5 Lymphocytes % 15.8 Monocytes % 6.5 Eosinophils % 2.8 D Basophils % 0.4 PT with INR 14.00 H INR 1.24 H Sodium 148 H Potassium 4.5 Chloride 120 H Carbon Dioxide 19 L Anion Gap 9 BUN 45 H D Creatinine 1.3 Creat Clearance w eGFR 54.26 POC Glucometer Random Glucose 260 H D Calcium 7.9 L Phosphorus Total Bilirubin 1.0 AST 39 H D ALT 61 Alkaline Phosphatase 99 Ammonia Total Protein 5.4 L Albumin 2.6 L 04/02/17 05:15 WBC RBC Hgb Hct MCV MCH MCHC RDW Plt Count MPV Neutrophils % Lymphocytes % Monocytes % Eosinophils % Basophils % PT with INR INR Sodium Potassium Chloride Carbon Dioxide Anion Gap BUN Creatinine Creat Clearance w eGFR POC Glucometer Random Glucose Calcium Phosphorus Total Bilirubin AST ALT Alkaline Phosphatase Ammonia 154.89 H Total Protein Albumin Active Medications Generic Name Dose Route Start Last Admin Trade Name Freq PRN Reason Stop Dose Admin Al Hydroxide/Mg Hydroxide 30 ml 04/01/17 12:16 Mylanta Oral Suspension - PO Q6H PRN DYSPEPSIA Chlorhexidine Gluconate 1 applic 03/31/17 22:00 01/01/18 21:44 Hibiclens For Decolonization - TP 1 applic HS [facility]ELENA Administration CEFTRIAXONE 1 G/50 ML PREMIX 50 mls @ 100 mls/hr 04/02/17 10:00 Ceftriaxone 1 Gm-D5w Bag IVPB DAILY [facility] Octreotide Acetate 1,200 mcg/ 500 mls @ 10.41 mls/hr 04/02/17 10:41 Dextrose IVPB Q24H [facility]ELENA 25 MCG/HR Insulin Aspart 1 vial 04/01/17 18:59 04/02/17 06:00 Novolog Vial Sliding Scale - SQ 5 units ACHS [facility]ELENA Administration Protocol Lactulose 20 gm 04/01/17 22:00 04/02/17 09:40 Cephulac (Oral Use) PO 20 gm BID [facility]ELENA Administration Mupirocin 1 applic 03/31/17 22:00 04/02/17 09:44 Bactroban Ointment (For Decolonization) - NS 04/05/17 21:59 1 applic BID [facility]ELENA Administration Pantoprazole Sodium 40 mg 04/02/17 22:00 Protonix - PO BID [facility] Pneumococcal 13-Valent Conj Vacc 0.5 ml 03/31/17 20:59 Prevnar 13 Syringe - IM 03/31/17 21:00 .ONCE ONE ASSESSMENT/PLAN: 71 year old M with pmh of HTN, DM Type 2, Anemia, and ETOH abuse presenting with melena and anemia s/p EGD GI Variceal bleeding s/p band ligation -Lactulose 20 gm po bid -Mylanta 30 mL q6 prn -Protonix 40 mg po bid -Octreotide drip -Ceftriaxone for SBP ppx -Monitor H/H -Transfuse if hgb <7 CV HTN -Hold antihtn meds Nephro ANISHA-resolving -No IVF -Avoid nephrotoxic meds -Monitor cr and urine output Endo DM -ISS achs -BGM achs FEN/GI -No IVF -wnl -Clear liquid, advance as tolerated per GI PPx -SCDs -Protonix drip Dispo: Transfer to Med-Surg Visit type - Emergency Visit Emergency Visit: Yes ED Registration Date: 03/31/17 Care time: The patient presented to the Emergency Department on the above date and was hospitalized for further evaluation of their emergent condition. - New Patient This patient is new to me today: Yes Date on this admission: 04/02/17 - Critical Care Critical Care patient: Yes Total Critical Care Time (in minutes): 35 Critical Care Statement: The care of this patient involved high complexity decision making to prevent further life threatening deterioration of the patient 's condition and/or to evaluate & treat vital organ system(s) failure or risk of failure.
--- NOTE | 2017-04-02 12:45 | PN ---
Teaching Attending Note Name of Resident: Popeye Mcdonnell ATTENDING PHYSICIAN STATEMENT I saw and evaluated the patient. I reviewed the resident's note and discussed the case with the resident. I agree with the resident's findings and plan as documented. SUBJECTIVE: Pt seen and examined in the ICU. s/p EGD, found to have esophageal varices s/p banding x 4. Some tarry stools yesterday, none today. Denies abdominal pain. No shortness of breath or chest pain. OBJECTIVE: Last Vital Signs Temp Pulse Resp BP Pulse Ox 99.3 F 64 20 135/42 98 04/02/17 10:00 04/02/17 10:00 04/02/17 10:00 04/02/17 10:00 04/02/17 08:01 Intake & Output 03/30/17 03/31/17 04/01/17 04/02/17 23:59 23:59 23:59 23:59 Intake Total 1062 732 691 Output Total 0 2875 200 Balance 1062 -2143 491 Weight 87.685 kg 87.685 kg 87.226 kg Gen: NAD at rest Heart: RRR Lung: decreased breath sounds at the bases Abd: soft, nontender Ext: no edema CBC, BMP 04/02/17 05:15 04/02/17 05:15 Active Medications Al Hydroxide/Mg Hydroxide (Mylanta Oral Suspension -) 30 ml PO Q6H PRN PRN Reason: DYSPEPSIA Chlorhexidine Gluconate (Hibiclens For Decolonization -) 1 applic TP HS [facility] Last Admin: 04/01/17 21:44 Dose: 1 applic CEFTRIAXONE 1 G/50 ML PREMIX (Ceftriaxone 1 Gm-D5w Bag) 50 mls @ 100 mls/hr IVPB DAILY [facility] Octreotide Acetate 1,200 mcg/ (Dextrose) 500 mls @ 10.41 mls/hr IVPB Q24H [facility] PRN Reason: 25 MCG/HR Insulin Aspart (Novolog Vial Sliding Scale -) 1 vial SQ ACHS [facility] PRN Reason: Protocol Last Admin: 04/02/17 06:00 Dose: 5 units Lactulose (Cephulac (Oral Use)) 20 gm PO BID [facility] Last Admin: 04/02/17 09:40 Dose: 20 gm Mupirocin (Bactroban Ointment (For Decolonization) -) 1 applic NS BID [facility] Stop: 04/05/17 21:59 Last Admin: 04/02/17 09:44 Dose: 1 applic Pantoprazole Sodium (Protonix -) 40 mg PO BID [facility] Pneumococcal 13-Valent Conj Vacc (Prevnar 13 Syringe -) 0.5 ml IM .ONCE ONE Stop: 03/31/17 21:00 ASSESSMENT AND PLAN: Acute GI Bleed Esophageal Varices s/p banding x 4 Acute Blood Loss Anemia Alcoholic Liver Cirrhosis Acute Kidney Injury Lactic Acidosis HTN DM - monitor H/H - transfuse as needed - PO per GI - protonix, octreotide gtts per GI - ensure large bore peripheral access - monitor urine output, creatinine - resume home meds - DVT prophylaxis - can monitor on floor critical care time spent in reviewing chart, evaluating patient and formulating plan 35 min
[2017-04-02] MEDS ORDERED: INSULIN (NOVOLOG) ASPART 100 UNITS/ML 10ML VIAL SQ ONE (13:30)
[2017-04-02 14:08] LABS: BASO % 0.7 % (0-2.0); EOS % 3.3 % (0-4.5); HEMATOCRIT 25.9 % (35.4-49); LYMPH % 16.5 % (8-40); MCH 21.5 pg (25.7-33.7); MCHC 30.8 g/dl (32.0-35.9); MEAN CELL VOLUME 69.7 fl (80-96); MEAN PLT VOLUME 10.4 fl (7.5-11.1); MONO % 8.8 % (3.8-10.2); NEUT % 70.7 % (42.8-82.8); PLATELET COUNT 109 K/MM3 (134-434); RBC 3.72 M/mm3 (4.00-5.60); RDW 21.4 % (11.9-15.9); WHITE BLOOD COUNT 8.9 K/mm3 (4.0-10.0)
[2017-04-02] MEDS ORDERED: INSULIN DETEMIR 100 UNITS/ML MDV SQ SCH (14:15)
[2017-04-02] MEDS ORDERED: INSULIN DETEMIR 100 UNITS/ML MDV SQ ONE ×2 (14:17→17:39)
[2017-04-02] MEDS ORDERED: INSULIN SLIDING SCALE (NOVOLOG) 1 VIAL SQ SCH (14:18)
[2017-04-02 14:26] LABS: ADD RBC MORPHOLOGY YES
[2017-04-02 15:38] LABS: ANISOCYTOSIS 2+; PLATELET ESTIMATE DECREASED; TEAR DROP CELLS 1+
[2017-04-02] MEDS ORDERED: MAG HYDROX/AL HYDROX/SIMETH 30 ML UNIT-DOSE CUP PO PRN (17:02)
--- NOTE | 2017-04-02 17:15 | PN ---
Progress Note, Physician History of Present Illness: Pt seen and examined at bedside. He is awake and alert. He denies chest pain or shortness of breath. - Current Medication List Current Medications: Active Medications Al Hydroxide/Mg Hydroxide (Mylanta Oral Suspension -) 30 ml PO Q6H PRN PRN Reason: DYSPEPSIA Octreotide Acetate 1,200 mcg/ (Dextrose) 500 mls @ 10.41 mls/hr IVPB Q24H [facility] PRN Reason: 25 MCG/HR Ceftriaxone Sodium 1 gm/ (Dextrose) 50 mls @ 100 mls/hr IVPB DAILY [facility] Insulin Aspart (Novolog Vial Sliding Scale -) 1 vial SQ ACHS [facility] PRN Reason: Protocol Insulin Detemir (Levemir Vial) 10 units SQ AM [facility] Lactulose (Cephulac (Oral Use)) 20 gm PO BID [facility] Pantoprazole Sodium (Protonix -) 40 mg PO BID [facility] - Objective Vital Signs: Vital Signs Temperature 99.1 F 04/02/17 14:00 Pulse Rate 65 04/02/17 14:00 Respiratory Rate 20 04/02/17 14:00 Blood Pressure 137/43 04/02/17 14:00 O2 Sat by Pulse Oximetry (%) 98 04/02/17 08:01 Constitutional: Yes: Calm Eyes: Yes: Conjunctiva Clear HENT: Yes: Atraumatic Neck: Yes: Supple Cardiovascular: Yes: S1, S2 Respiratory: Yes: CTA Bilaterally Gastrointestinal: Yes: Normal Bowel Sounds, Soft Genitourinary: Yes: WNL Musculoskeletal: Yes: WNL Extremities: Yes: WNL Edema: No Neurological: Yes: Oriented Psychiatric: Yes: Oriented Labs: CBC, BMP 04/02/17 13:50 04/02/17 05:15 INR, PTT INR 1.24 (0.82-1.09) H 04/02/17 05:15 Problem List - Problems (1) Anemia Code(s): D64.9 - ANEMIA, UNSPECIFIED (2) Azotemia Code(s): R79.89 - OTHER SPECIFIED ABNORMAL FINDINGS OF BLOOD CHEMISTRY (3) Cirrhosis Code(s): K74.60 - UNSPECIFIED CIRRHOSIS OF LIVER (4) Diabetes mellitus Code(s): E11.9 - TYPE 2 DIABETES MELLITUS WITHOUT COMPLICATIONS (5) GI hemorrhage Code(s): K92.2 - GASTROINTESTINAL HEMORRHAGE, UNSPECIFIED (6) Hepatitis Code(s): K75.9 - INFLAMMATORY LIVER DISEASE, UNSPECIFIED (7) Hyperkalemia Code(s): E87.5 - HYPERKALEMIA (8) Hypertension Code(s): I10 - ESSENTIAL (PRIMARY) HYPERTENSION (9) Lactic acid acidosis Code(s): E87.2 - ACIDOSIS Assessment/Plan Current Medications Generic Name Dose Route Start Last Admin Trade Name Freq PRN Reason Stop Dose Admin Al Hydroxide/Mg Hydroxide 30 ml 04/02/17 17:02 Mylanta Oral Suspension - PO Q6H PRN DYSPEPSIA Octreotide Acetate 1,200 mcg/ 500 mls @ 10.41 mls/hr 04/02/17 10:41 Dextrose IVPB Q24H [facility]NA 25 MCG/HR Ceftriaxone Sodium 1 gm/ 50 mls @ 100 mls/hr 04/03/17 10:00 Dextrose IVPB DAILY [facility] Insulin Aspart 1 vial 04/02/17 16:30 Novolog Vial Sliding Scale - SQ ACHS [facility]NA Protocol Insulin Detemir 10 units 04/03/17 07:00 Levemir Vial SQ AM [facility] Lactulose 20 gm 04/02/17 22:00 Cephulac (Oral Use) PO BID [facility] Pantoprazole Sodium 40 mg 04/02/17 22:00 Protonix - PO BID [facility]ELENA Impression 1. ANISHA 2. hyperkalemia 3. lactic acidosis 4. GI bleed 5. anemia 6. DM 7. HTN 8. liver cirrhosis 9. hypernatremia Plan - renal function is improved - recommend hypotonic fluids - repeat labs in am - encourage free water intake - monitor potassium - will follow pt - discussed plan with family
[2017-04-02] MEDS: OCTREOTIDE ACETATE 1,200 MCG in DEXTROSE 5%-WATER - 488 ML IVPB SCH (17:36)
--- NOTE | 2017-04-02 18:43 | PN ---
Teaching Attending Note Name of Resident: Heather Scruggs ATTENDING PHYSICIAN STATEMENT Time of evaluation 9:30 AM I saw and evaluated the patient. I reviewed the resident's note and discussed the case with the resident. I agree with the resident's findings and plan as documented. SUBJECTIVE: patient seen and examined, reports some chest burning with eating, overall feels better otherwise. NO nausea, vomiting or dizziness. Had 1 BM yesterday, unsure if dark. Tolerating liquid diet well. OBJECTIVE: Vital Signs Period Temp Pulse Resp BP Sys/Aden Pulse Ox Last 24 Hr 72 F-99.6 F 64-79 18-25 65-137/34-79 96-98 Intake & Output 03/30/17 03/31/17 04/01/17 04/02/17 23:59 23:59 23:59 23:59 Intake Total 2891 674 1330 Output Total 0 2875 600 Balance 1062 -2143 891 Weight 193 lb 5 oz 193 lb 5 oz 192 lb 4.8 oz General: sitting in bed in no acute distress CVS:S1S2 regular Chest: CTAB, no rales or wheezing abdomen: soft, NT, ND, positive bwoel sounds extremtiies; no edema Home Medication List Medication Instructions Recorded Confirmed Type Glimepiride 4 mg PO DAILY 01/01/12 03/31/17 History Lisinopril [Prinivil] 10 mg PO DAILY 01/01/12 03/31/17 History Metformin HCl [Glucophage] 1,000 mg PO BID 01/01/12 03/31/17 History Terazosin HCl 2 mg PO DAILY 01/01/12 03/31/17 History Insulin (Levemir) [Levemir Flexpen 25 units SQ DAILY 04/08/12 03/31/17 History -] Active Medications Generic Name Dose Route Start Last Admin Trade Name Freq PRN Reason Stop Dose Admin Al Hydroxide/Mg Hydroxide 30 ml 04/02/17 17:02 Mylanta Oral Suspension - PO Q6H PRN DYSPEPSIA Octreotide Acetate 1,200 mcg/ 500 mls @ 10.41 mls/hr 04/02/17 10:41 04/02/17 17:36 Dextrose IVPB 10.41 mls/hr Q24H [facility] Administration 25 MCG/HR CEFTRIAXONE 1 G/50 ML PREMIX 50 mls @ 100 mls/hr 04/03/17 10:00 Ceftriaxone 1 Gm-D5w Bag IVPB DAILY [facility] Insulin Aspart 1 vial 04/02/17 16:30 04/02/17 17:44 Novolog Vial Sliding Scale - SQ 10 units ACHS [facility] Administration Protocol Insulin Detemir 10 units 04/03/17 07:00 Levemir Vial SQ AM [facility] Lactulose 20 gm 04/02/17 22:00 Cephulac (Oral Use) PO BID [facility] Pantoprazole Sodium 40 mg 04/02/17 22:00 Protonix - PO BID [facility] Laboratory Results - last 24 hr 04/01/17 04/01/17 04/01/17 14:39 18:09 20:30 WBC 7.6 RBC 3.75 L Hgb 8.3 L Hct 26.2 L MCV 69.8 L MCH 22.0 L MCHC 31.5 L RDW 20.8 H Plt Count 100 L MPV 9.8 Neutrophils % Lymphocytes % Monocytes % Eosinophils % Basophils % Hypochromia Platelet Estimate Polychromasia Anisocytosis Microcytosis Tear Drop Cells Fragmented RBCs PT with INR INR Sodium Potassium Chloride Carbon Dioxide Anion Gap BUN Creatinine Creat Clearance w eGFR POC Glucometer 321.88169 387.01647 Random Glucose Calcium Phosphorus Total Bilirubin AST ALT Alkaline Phosphatase Ammonia Total Protein Albumin 04/01/17 04/01/17 04/02/17 20:30 22:07 04:27 WBC RBC Hgb Hct MCV MCH MCHC RDW Plt Count MPV Neutrophils % Lymphocytes % Monocytes % Eosinophils % Basophils % Hypochromia Platelet Estimate Polychromasia Anisocytosis Microcytosis Tear Drop Cells Fragmented RBCs PT with INR INR Sodium 147 H Potassium 5.0 Chloride 118 H Carbon Dioxide 20 L Anion Gap 9 BUN 60 H Creatinine 1.6 H D Creat Clearance w eGFR POC Glucometer > [phone] Random Glucose 402 H* D Calcium 7.5 L Phosphorus 2.7 Total Bilirubin AST ALT Alkaline Phosphatase Ammonia Total Protein Albumin 04/02/17 04/02/17 04/02/17 05:15 05:15 05:15 WBC 7.8 RBC 3.47 L Hgb 7.6 L Hct 24.0 L MCV 69.3 L MCH 22.0 L MCHC 31.8 L RDW 21.2 H Plt Count 103 L MPV 9.6 Neutrophils % 74.5 Lymphocytes % 15.8 Monocytes % 6.5 Eosinophils % 2.8 D Basophils % 0.4 Hypochromia Platelet Estimate Polychromasia Anisocytosis Microcytosis Tear Drop Cells Fragmented RBCs PT with INR 14.00 H INR 1.24 H Sodium 148 H Potassium 4.5 Chloride 120 H Carbon Dioxide 19 L Anion Gap 9 BUN 45 H D Creatinine 1.3 Creat Clearance w eGFR 54.26 POC Glucometer Random Glucose 260 H D Calcium 7.9 L Phosphorus Total Bilirubin 1.0 AST 39 H D ALT 61 Alkaline Phosphatase 99 Ammonia Total Protein 5.4 L Albumin 2.6 L 04/02/17 04/02/17 04/02/17 05:15 12:43 13:50 WBC 8.9 RBC 3.72 L Hgb 8.0 L Hct 25.9 L MCV 69.7 L MCH 21.5 L MCHC 30.8 L RDW 21.4 H Plt Count 109 L MPV 10.4 Neutrophils % 70.7 Lymphocytes % 16.5 Monocytes % 8.8 Eosinophils % 3.3 Basophils % 0.7 Hypochromia 3+ Platelet Estimate Decreased Polychromasia 1+ Anisocytosis 2+ Microcytosis 3+ Tear Drop Cells 1+ Fragmented RBCs 1+ PT with INR INR Sodium Potassium Chloride Carbon Dioxide Anion Gap BUN Creatinine Creat Clearance w eGFR POC Glucometer > 400 Random Glucose Calcium Phosphorus Total Bilirubin AST ALT Alkaline Phosphatase Ammonia 154.89 H Total Protein Albumin 04/02/17 17:32 WBC RBC Hgb Hct MCV MCH MCHC RDW Plt Count MPV Neutrophils % Lymphocytes % Monocytes % Eosinophils % Basophils % Hypochromia Platelet Estimate Polychromasia Anisocytosis Microcytosis Tear Drop Cells Fragmented RBCs PT with INR INR Sodium Potassium Chloride Carbon Dioxide Anion Gap BUN Creatinine Creat Clearance w eGFR POC Glucometer [phone] Random Glucose Calcium Phosphorus Total Bilirubin AST ALT Alkaline Phosphatase Ammonia Total Protein Albumin ASSESSMENT AND PLAN: 71 yo M with PMH HTN, nephrolithasis, DM, and remote hx of heavy ETOH use presented to the ER wtih abdominal pain and melena and developed multiple episodes of hememtesis in the ER. -Acute upper GI bleed from esophageal varices s/p banding -Acute blood loss anemia s/p 2 units PRBC -Hyperkalemia, resolved -ANISHA, likely from poor perfusion, improved, monitor -Hypernatremia suspect from less free water intake -Hypophosphatemia , -Lactic acidosis, suspect from hypovolumia/GI bleed, ischemic bowel ruled out on CT A/P -Hepatic cirrhosis with portal hypertension, coagulopathy, abnormal LFTs, thrombocytopenia -HTN -NIDDM Plan: GI input noted. Tolerating clears well, changed to Protonix PO BID Octreotide drip per GI. renal function improved, renal input appreciated. Trend LFTs, coags, platelets. Hold antihypertensives for now. Follow up A1c, ISS, diabetic diet when full PO. Hold oral agents for now SCDs for DVTPPX Critical care time spent in ICU 35 min. OK for transfer to medical floor.
--- NOTE | 2017-04-02 21:10 | PN ---
Physical Exam: SUBJECTIVE: Patient seen and examined. Pt transferred to med-surg floors today. Pt reports chronic stomach pain. Pt denies chest pain, sob, nausea, vomiting, diarrhea, fever, chills. Pt tolerating clear liquid diet. OBJECTIVE: Vital Signs Period Temp Pulse Resp BP Sys/Aden Pulse Ox Last 24 Hr 72 F-99.6 F 64-79 18-25 65-145/40-79 96-98 GENERAL: The patient is awake, alert, and fully oriented, in no acute distress. HEAD: Normal with no signs of trauma. LUNGS: Breath sounds equal, clear to auscultation bilaterally, no wheezes, no crackles, no accessory muscle use. HEART: Regular rate and rhythm, S1, S2 without murmur, rub or gallop. ABDOMEN: Soft, nontender, nondistended, normoactive bowel sounds, no guarding. EXTREMITIES: Warm, well-perfused, no edema. PSYCH: Normal mood, normal affect. SKIN: Warm, dry, normal turgor, no rashes or lesions noted Laboratory Results - last 24 hr 04/01/17 04/01/17 04/01/17 14:39 18:09 20:30 WBC 7.6 RBC 3.75 L Hgb 8.3 L Hct 26.2 L MCV 69.8 L MCH 22.0 L MCHC 31.5 L RDW 20.8 H Plt Count 100 L MPV 9.8 Neutrophils % Lymphocytes % Monocytes % Eosinophils % Basophils % Hypochromia Platelet Estimate Polychromasia Anisocytosis Microcytosis Tear Drop Cells Fragmented RBCs PT with INR INR Sodium Potassium Chloride Carbon Dioxide Anion Gap BUN Creatinine Creat Clearance w eGFR POC Glucometer [phone] Random Glucose Calcium Phosphorus Total Bilirubin AST ALT Alkaline Phosphatase Ammonia Total Protein Albumin 04/01/17 04/01/17 04/02/17 20:30 22:07 04:27 WBC RBC Hgb Hct MCV MCH MCHC RDW Plt Count MPV Neutrophils % Lymphocytes % Monocytes % Eosinophils % Basophils % Hypochromia Platelet Estimate Polychromasia Anisocytosis Microcytosis Tear Drop Cells Fragmented RBCs PT with INR INR Sodium 147 H Potassium 5.0 Chloride 118 H Carbon Dioxide 20 L Anion Gap 9 BUN 60 H Creatinine 1.6 H D Creat Clearance w eGFR POC Glucometer > [phone] Random Glucose 402 H* D Calcium 7.5 L Phosphorus 2.7 Total Bilirubin AST ALT Alkaline Phosphatase Ammonia Total Protein Albumin 04/02/17 04/02/17 04/02/17 05:15 05:15 05:15 WBC 7.8 RBC 3.47 L Hgb 7.6 L Hct 24.0 L MCV 69.3 L MCH 22.0 L MCHC 31.8 L RDW 21.2 H Plt Count 103 L MPV 9.6 Neutrophils % 74.5 Lymphocytes % 15.8 Monocytes % 6.5 Eosinophils % 2.8 D Basophils % 0.4 Hypochromia Platelet Estimate Polychromasia Anisocytosis Microcytosis Tear Drop Cells Fragmented RBCs PT with INR 14.00 H INR 1.24 H Sodium 148 H Potassium 4.5 Chloride 120 H Carbon Dioxide 19 L Anion Gap 9 BUN 45 H D Creatinine 1.3 Creat Clearance w eGFR 54.26 POC Glucometer Random Glucose 260 H D Calcium 7.9 L Phosphorus Total Bilirubin 1.0 AST 39 H D ALT 61 Alkaline Phosphatase 99 Ammonia Total Protein 5.4 L Albumin 2.6 L 04/02/17 04/02/17 04/02/17 05:15 12:43 13:50 WBC 8.9 RBC 3.72 L Hgb 8.0 L Hct 25.9 L MCV 69.7 L MCH 21.5 L MCHC 30.8 L RDW 21.4 H Plt Count 109 L MPV 10.4 Neutrophils % 70.7 Lymphocytes % 16.5 Monocytes % 8.8 Eosinophils % 3.3 Basophils % 0.7 Hypochromia 3+ Platelet Estimate Decreased Polychromasia 1+ Anisocytosis 2+ Microcytosis 3+ Tear Drop Cells 1+ Fragmented RBCs 1+ PT with INR INR Sodium Potassium Chloride Carbon Dioxide Anion Gap BUN Creatinine Creat Clearance w eGFR POC Glucometer > 400 Random Glucose Calcium Phosphorus Total Bilirubin AST ALT Alkaline Phosphatase Ammonia 154.89 H Total Protein Albumin 04/02/17 17:32 WBC RBC Hgb Hct MCV MCH MCHC RDW Plt Count MPV Neutrophils % Lymphocytes % Monocytes % Eosinophils % Basophils % Hypochromia Platelet Estimate Polychromasia Anisocytosis Microcytosis Tear Drop Cells Fragmented RBCs PT with INR INR Sodium Potassium Chloride Carbon Dioxide Anion Gap BUN Creatinine Creat Clearance w eGFR POC Glucometer [phone] Random Glucose Calcium Phosphorus Total Bilirubin AST ALT Alkaline Phosphatase Ammonia Total Protein Albumin Active Medications Generic Name Dose Route Start Last Admin Trade Name Freq PRN Reason Stop Dose Admin Al Hydroxide/Mg Hydroxide 30 ml 04/02/17 17:02 Mylanta Oral Suspension - PO Q6H PRN DYSPEPSIA Octreotide Acetate 1,200 mcg/ 500 mls @ 10.41 mls/hr 04/02/17 10:41 04/02/17 17:36 Dextrose IVPB 10.41 mls/hr Q24H JELENA Administration 25 MCG/HR CEFTRIAXONE 1 G/50 ML PREMIX 50 mls @ 100 mls/hr 04/03/17 10:00 Ceftriaxone 1 Gm-D5w Bag IVPB DAILY JELENA Insulin Aspart 1 vial 04/02/17 16:30 04/02/17 17:44 Novolog Vial Sliding Scale - SQ 10 units ACHS JELENA Administration Protocol Insulin Detemir 10 units 04/03/17 07:00 Levemir Vial SQ AM JELENA Lactulose 20 gm 04/02/17 22:00 Cephulac (Oral Use) PO BID JELENA Pantoprazole Sodium 40 mg 04/02/17 22:00 Protonix - PO BID JELENA ASSESSMENT/PLAN: 71M with PMH of htn, DM, remote hx of heavy etoh use, presented with epigastric pain and melena with multiple episodes of hematemeis in the ER. # upper GI bleed - monitor hgb - s/p 2U PRBCs on 04/01/17 - s/p EGD with banding of esophageal varices this morning - GI ppx with Protonix 40mg po BID - octreotide - GI (Dr. Wang) recs appreciated # ANISHA - renal function improved - monitor Cr and UOP # DM - BGMs - Novolog SSI - Levemir 10U AM - f/u [id number] # transaminitis - suggestive of etoh hx - trend LFTs, coags and platelets - elevated ammonia noted, pt is AAOx3 # hypernatremia - Free Water Deficit 2.5 L - Renal (Dr. Day) recs appreciated: encourage free water intake # FEN - Fluids: encourage po - Electrolytes: continue to monitor - Nutrition: clear liquids # Prophylaxis - DVT ppx with brown SCDs, hold pharmacologic ppx in light of upper GI bleed and thrombocytopenia - GI ppx with Prontonix BID - deconditioning ppx with PT Visit type - Emergency Visit Emergency Visit: Yes ED Registration Date: 03/31/17 Care time: The patient presented to the Emergency Department on the above date and was hospitalized for further evaluation of their emergent condition. - New Patient This patient is new to me today: Yes Date on this admission: 04/02/17 - Critical Care Critical Care patient: Yes Total Critical Care Time (in minutes): 40 Critical Care Statement: The care of this patient involved high complexity decision making to prevent further life threatening deterioration of the patient 's condition and/or to evaluate & treat vital organ system(s) failure or risk of failure.
[2017-04-02] MEDS: PANTOPRAZOLE 40 MG TABLET (FP) PO SCH (21:15)
[2017-04-03] MEDS: INSULIN DETEMIR 100 UNITS/ML MDV SQ SCH (06:35)
[2017-04-03] MEDS: INSULIN SLIDING SCALE (NOVOLOG) 1 VIAL SQ SCH ×4 (06:38→21:53)
[2017-04-03] MEDS ORDERED: INSULIN (NOVOLOG) ASPART 100 UNITS/ML 10ML VIAL ONE ×3 (06:43→16:43)
[2017-04-03 08:04] LABS: HEMATOCRIT 23.7 % (35.4-49); HEMOGLOBIN 7.5 GM/dL (11.7-16.9); MCHC 31.5 g/dl (32.0-35.9); MEAN CELL VOLUME 69.9 fl (80-96); MEAN PLT VOLUME 10.1 fl (7.5-11.1); PLATELET COUNT 95 K/MM3 (134-434); RDW 21.3 % (11.9-15.9); WHITE BLOOD COUNT 7.3 K/mm3 (4.0-10.0)
[2017-04-03 08:22] LABS: ALBUMIN 2.6 g/dl (3.4-5.0); ANION GAP 5 (8-16); BLOOD UREA NITROGEN 27 mg/dL (7-18); CALCIUM 7.4 mg/dL (8.5-10.1); CHLORIDE 116 mmol/L (98-107); CO2 27 mmol/L (21-32); GLUCOSE,RANDOM 180 mg/dL (74-106); POTASSIUM 4.4 mmol/L (3.5-5.1); SGOT/AST 40 U/L (15-37); SGPT/ALT 59 U/L (12-78); SODIUM 148 mmol/L (136-145)
[2017-04-03 08:27] LABS: ALK PHOS 105 U/L (45-117); CREATININE 1.2 mg/dL (0.7-1.3); TOT PROT 5.4 g/dl (6.4-8.2)
[2017-04-03 08:40] LABS: INR 1.2 (0.82-1.09); PROTHROMBIN TIME (PATIENT) 13.6 SEC (9.98-11.88)
[2017-04-03] MEDS: PANTOPRAZOLE 40 MG TABLET (FP) PO SCH ×2 (09:31→21:52)
[2017-04-03] MEDS: LACTULOSE 20 GM/30 ML UDC (FOR ORAL USE ONLY) PO SCH ×2 (09:31→21:52)
[2017-04-03] MEDS: CEFTRIAXONE 1 G/50 ML PREMIX 50 ML IVPB SCH (09:31)
--- NOTE | 2017-04-03 09:42 | EKG ---
Test Reason : Blood Pressure : / mmHG Vent. Rate : 067 BPM Atrial Rate : 067 BPM P-R Int : 164 ms QRS Dur : 086 ms QT Int : 402 ms P-R-T Axes : 055 045 058 degrees QTc Int : 424 ms NORMAL SINUS RHYTHM NORMAL ECG Confirmed by MD Sonja, Waldo ([id number]) on 04/03/2017 9:41:44 AM Referred By: Confirmed By:Waldo Casillas MD
--- NOTE | 2017-04-03 10:20 | PN ---
Progress Note, Physician History of Present Illness: c/o mild chest pain. No bms, nausea, hematemesis, melena, hematochezia. No dysphagia. Not in distress. - Current Medication List Current Medications: Active Medications Al Hydroxide/Mg Hydroxide (Mylanta Oral Suspension -) 30 ml PO Q6H PRN PRN Reason: DYSPEPSIA Octreotide Acetate 1,200 mcg/ (Dextrose) 500 mls @ 10.41 mls/hr IVPB Q24H JELENA PRN Reason: 25 MCG/HR Last Admin: 04/02/17 17:36 Dose: 10.41 mls/hr CEFTRIAXONE 1 G/50 ML PREMIX (Ceftriaxone 1 Gm-D5w Bag) 50 mls @ 100 mls/hr IVPB DAILY [facility] Last Admin: 04/03/17 09:31 Dose: 100 mls/hr Insulin Aspart (Novolog Vial Sliding Scale -) 1 vial SQ ACHS JELENA PRN Reason: Protocol Last Admin: 04/03/17 06:38 Dose: 4 units Insulin Detemir (Levemir Vial) 10 units SQ AM [facility] Last Admin: 04/03/17 06:35 Dose: 10 units Lactulose (Cephulac (Oral Use)) 20 gm PO BID [facility] Last Admin: 04/03/17 09:31 Dose: 20 gm Pantoprazole Sodium (Protonix -) 40 mg PO BID [facility] Last Admin: 04/03/17 09:31 Dose: 40 mg - Objective Vital Signs: Vital Signs Temperature 98.6 F 04/03/17 06:00 Pulse Rate 64 04/03/17 06:00 Respiratory Rate 22 04/03/17 06:00 Blood Pressure 132/54 04/03/17 06:00 O2 Sat by Pulse Oximetry (%) 98 04/02/17 20:08 Constitutional: Yes: No Distress, Calm Eyes: Yes: Conjunctiva Clear HENT: Yes: Atraumatic Neck: Yes: Supple Cardiovascular: Yes: Regular Rate and Rhythm Respiratory: Yes: Regular Gastrointestinal: Yes: Soft, Abdomen, Obese, Ascites, Distention. No: Melena, Rectal Bleeding, Tenderness, Epigastrium, Vomiting Neurological: Yes: Alert Labs: CBC, BMP 04/03/17 06:30 04/03/17 06:30 INR, PTT INR 1.20 (0.82-1.09) H 04/03/17 06:30 Laboratory Results - last 24 hr 04/02/17 04/02/17 04/02/17 05:15 12:43 13:50 WBC 8.9 RBC 3.72 L Hgb 8.0 L Hct 25.9 L MCV 69.7 L MCH 21.5 L MCHC 30.8 L RDW 21.4 H Plt Count 109 L MPV 10.4 Neutrophils % 70.7 Lymphocytes % 16.5 Monocytes % 8.8 Eosinophils % 3.3 Basophils % 0.7 Hypochromia 3+ Platelet Estimate Decreased Polychromasia 1+ Anisocytosis 2+ Microcytosis 3+ Tear Drop Cells 1+ Fragmented RBCs 1+ PT with INR INR Sodium Potassium Chloride Carbon Dioxide Anion Gap BUN Creatinine Creat Clearance w eGFR POC Glucometer > 400 Random Glucose Hemoglobin A1c % Calcium Total Bilirubin AST ALT Alkaline Phosphatase Creatine Kinase Troponin I Total Protein Albumin Tumor Marker AFP 2.1 04/02/17 04/02/17 04/03/17 17:32 22:30 05:23 WBC RBC Hgb Hct MCV MCH MCHC RDW Plt Count MPV Neutrophils % Lymphocytes % Monocytes % Eosinophils % Basophils % Hypochromia Platelet Estimate Polychromasia Anisocytosis Microcytosis Tear Drop Cells Fragmented RBCs PT with INR INR Sodium Potassium Chloride Carbon Dioxide Anion Gap BUN Creatinine Creat Clearance w eGFR POC Glucometer [phone] 202 Random Glucose Hemoglobin A1c % Calcium Total Bilirubin AST ALT Alkaline Phosphatase Creatine Kinase Troponin I Total Protein Albumin Tumor Marker AFP 04/03/17 04/03/17 04/03/17 06:30 06:30 06:30 WBC 7.3 RBC 3.40 L Hgb 7.5 L Hct 23.7 L MCV 69.9 L MCH 22.0 L MCHC 31.5 L RDW 21.3 H Plt Count 95 L MPV 10.1 Neutrophils % Lymphocytes % Monocytes % Eosinophils % Basophils % Hypochromia Platelet Estimate Polychromasia Anisocytosis Microcytosis Tear Drop Cells Fragmented RBCs PT with INR 13.60 H INR 1.20 H Sodium 148 H Potassium 4.4 Chloride 116 H Carbon Dioxide 27 D Anion Gap 5 L BUN 27 H D Creatinine 1.2 Creat Clearance w eGFR 59.51 POC Glucometer Random Glucose 180 H D Hemoglobin A1c % Calcium 7.4 L Total Bilirubin 1.0 AST 40 H ALT 59 Alkaline Phosphatase 105 Creatine Kinase 36 L Troponin I < 0.02 Total Protein 5.4 L Albumin 2.6 L Tumor Marker AFP 04/03/17 04/03/17 06:30 06:30 WBC RBC Hgb Hct MCV MCH MCHC RDW Plt Count MPV Neutrophils % Lymphocytes % Monocytes % Eosinophils % Basophils % Hypochromia Platelet Estimate Polychromasia Anisocytosis Microcytosis Tear Drop Cells Fragmented RBCs PT with INR INR Sodium Potassium Chloride Carbon Dioxide Anion Gap BUN Creatinine Creat Clearance w eGFR POC Glucometer Random Glucose Hemoglobin A1c % 9.7 H Calcium Total Bilirubin AST ALT Alkaline Phosphatase Creatine Kinase Cancelled Troponin I Cancelled Total Protein Albumin Tumor Marker AFP Problem List - Problems (1) Esophageal varices with hemorrhage Code(s): I85.01 - ESOPHAGEAL VARICES WITH BLEEDING (2) GI hemorrhage Code(s): K92.2 - GASTROINTESTINAL HEMORRHAGE, UNSPECIFIED Assessment/Plan continue current management. Carafate added Soft diet Sandostatin can be d/c's after a total of 72 hrs if no signs of GI bleeding
[2017-04-03] MEDS: SUCRALFATE 1 GM/10 ML UNIT DOSE CUPS PO SCH ×3 (11:13→22:18)
--- NOTE | 2017-04-03 13:11 | EKG ---
Test Reason : Blood Pressure : / mmHG Vent. Rate : 061 BPM Atrial Rate : 061 BPM P-R Int : 182 ms QRS Dur : 086 ms QT Int : 410 ms P-R-T Axes : 069 045 057 degrees QTc Int : 412 ms NORMAL SINUS RHYTHM NORMAL ECG WHEN COMPARED WITH ECG OF 02-APR-2017 02:41, NO SIGNIFICANT CHANGE WAS FOUND Confirmed by RENU FERNÁNDEZ MD ([id number]) on 04/03/2017 1:11:21 PM Referred By: POLLY SERRA Confirmed By:RENU FERNÁNDEZ MD
--- NOTE | 2017-04-03 13:54 | CON.CARD ---
Consult Consult Specialty:: Cardiology Referred by:: Roberth Vázquez Reason for Consultation:: chest pain - History of Present Illness Chief Complaint: GI bleed History of Present Illness: 71 year old male with a pmhx of htn, dm, and etoh use admitted with abdominal pain and melena and found to be anemic Hgb 6s. EGD demonstrated esophageal varices s/p banding. Today had complained of some mild chest pain. Patient seen and evaluated at bedside with family and nurse. Patient says he gets some very mild central chest pain when he drinks something cold or eats something. Mildly reproducible to palpation. Not associated with sob. Non-radiating. Did PT today and ambulated up and down hallways with no chest pain or dyspnea. Family reports patient had cardiac cath several years ago at [facility] and was told it was fine. - History Source History Provided By: Patient, Family Member, Medical Record - Past Medical History Cardio/Vascular: Yes: HTN Renal/: Yes: Renal Calculi (requiring ESWL) Musculoskeletal: Yes: Chronic low back pain, Osteoarthritis, Other (neck pain) Endocrine: Yes: Diabetes Mellitus (with diabetic retinopathy requiring laser therapy) - Past Surgical History Past Surgical History: Yes: None, Colonoscopy - Alcohol/Substance Use Hx Alcohol Use: Yes (remotely drank heavily) - Smoking History Smoking history: Never smoked Have you smoked in the past 12 months: No - Social History Usual Living Arrangement: With Spouse ADL: Independent Occupation: retired cemetary worker History of Recent Travel: No Home Medications - Allergies Allergies/Adverse Reactions: Allergies Allergy/AdvReac Type Severity Reaction Status Date / Time No Known Drug Allergies Allergy Verified 03/31/17 16:58 - Home Medications Home Medications: Ambulatory Orders Glimepiride 4 mg PO DAILY 01/01/12 Lisinopril [Prinivil] 10 mg PO DAILY 01/01/12 Metformin HCl [Glucophage] 1,000 mg PO BID 01/01/12 Terazosin HCl 2 mg PO DAILY 01/01/12 Insulin (Levemir) [Levemir Flexpen -] 25 units SQ DAILY 04/08/12 Family Disease History - Family Disease History Family Disease History: Diabetes: Brother, Sister, Heart Disease: Father ([place] in his 60s), Mother ([place] in her 80s), Brother Vital Signs: Vital Signs Temperature 98.6 F 04/03/17 06:00 Pulse Rate 63 04/03/17 10:00 Respiratory Rate 22 04/03/17 10:00 Blood Pressure 124/56 04/03/17 10:00 O2 Sat by Pulse Oximetry (%) 98 04/02/17 20:08 Constitutional: Yes: No Distress Neck: Yes: WNL Respiratory: Yes: CTA Bilaterally Gastrointestinal: Yes: Soft Cardiovascular: Yes: WNL, Regular Rate and Rhythm JVD: No Carotid Bruit: No Heart Sounds: Yes: S1, S2 Murmur: No: Systolic Murmur Edema: No - Other Data Labs, Other Data: CBC, BMP 04/03/17 06:30 04/03/17 06:30 INR, PTT INR 1.20 (0.82-1.09) H 04/03/17 06:30 Troponin, BNP 04/03/17 04/03/17 06:30 06:30 Troponin I < 0.02 Cancelled Troponin, BNP 04/03/17 04/03/17 06:30 06:30 Troponin I < 0.02 Cancelled Imaging - Results Chest X-ray: Report Reviewed EKG: Image Reviewed Assessment/Plan 71 year old male with a pmhx of htn, dm, and etoh use admitted with abdominal pain and melena and found to be anemic Hgb 6s. EGD demonstrated esophageal varices s/p banding. Today had complained of some mild chest pain. Patient seen and evaluated at bedside with family and nurse. Patient says he gets some very mild central chest pain when he drinks something cold or eats something. Mildly reproducible to palpation. Not associated with sob. Non-radiating. Did PT today and ambulated up and down hallways with no chest pain or dyspnea. Family reports patient had cardiac cath several years ago at [facility] and was told it was fine. 1) Chest pain -Pain is very atypical and unlikely to be cardiac in etiology. EKG normal with no ischemic changes. EKG from this morning with limb lead reversal. Echocardiogram unremarakble -Patient very comfortable and symptoms related to eating and drinking. No symptoms on exertion with PT. Would treat GI issues and transfuse as needed as per primary team. Please call back with any new issues. Any worsening chest pain. Any new ekg changes.
--- NOTE | 2017-04-03 15:39 | PN ---
Progress Note, Physician History of Present Illness: Pt seen and examined at bedside. He is awake and alert. Pt is out of bed to chair. He is now in the medical aguilar. - Current Medication List Current Medications: Active Medications Al Hydroxide/Mg Hydroxide (Mylanta Oral Suspension -) 30 ml PO Q6H PRN PRN Reason: DYSPEPSIA Octreotide Acetate 1,200 mcg/ (Dextrose) 500 mls @ 10.41 mls/hr IVPB Q24H JELENA PRN Reason: 25 MCG/HR Last Admin: 04/02/17 17:36 Dose: 10.41 mls/hr CEFTRIAXONE 1 G/50 ML PREMIX (Ceftriaxone 1 Gm-D5w Bag) 50 mls @ 100 mls/hr IVPB DAILY [facility] Last Admin: 04/03/17 09:31 Dose: 100 mls/hr Insulin Aspart (Novolog Vial Sliding Scale -) 1 vial SQ ACHS JELENA PRN Reason: Protocol Last Admin: 04/03/17 11:13 Dose: 6 units Insulin Detemir (Levemir Vial) 10 units SQ AM [facility] Last Admin: 04/03/17 06:35 Dose: 10 units Lactulose (Cephulac (Oral Use)) 20 gm PO BID [facility] Last Admin: 04/03/17 09:31 Dose: 20 gm Pantoprazole Sodium (Protonix -) 40 mg PO BID [facility] Last Admin: 04/03/17 09:31 Dose: 40 mg Sucralfate (Carafate Oral Suspension -) 1 gm PO ACHS [facility] Last Admin: 04/03/17 11:13 Dose: 1 gm - Objective Vital Signs: Vital Signs Temperature 98.7 F 04/03/17 15:25 Pulse Rate 75 04/03/17 15:25 Respiratory Rate 22 04/03/17 15:25 Blood Pressure 124/61 04/03/17 15:25 O2 Sat by Pulse Oximetry (%) 98 04/02/17 20:08 Constitutional: Yes: Calm Eyes: Yes: Conjunctiva Clear HENT: Yes: Atraumatic Neck: Yes: Supple Cardiovascular: Yes: S1, S2 Respiratory: Yes: CTA Bilaterally Gastrointestinal: Yes: Soft Genitourinary: Yes: WNL Musculoskeletal: Yes: WNL Edema: No Neurological: Yes: Oriented Psychiatric: Yes: Oriented Labs: CBC, BMP 04/03/17 06:30 04/03/17 06:30 INR, PTT INR 1.20 (0.82-1.09) H 04/03/17 06:30 Problem List - Problems (1) Anemia Code(s): D64.9 - ANEMIA, UNSPECIFIED (2) Azotemia Code(s): R79.89 - OTHER SPECIFIED ABNORMAL FINDINGS OF BLOOD CHEMISTRY (3) Cirrhosis Code(s): K74.60 - UNSPECIFIED CIRRHOSIS OF LIVER (4) Diabetes mellitus Code(s): E11.9 - TYPE 2 DIABETES MELLITUS WITHOUT COMPLICATIONS (5) GI hemorrhage Code(s): K92.2 - GASTROINTESTINAL HEMORRHAGE, UNSPECIFIED (6) Hepatitis Code(s): K75.9 - INFLAMMATORY LIVER DISEASE, UNSPECIFIED (7) Hyperkalemia Code(s): E87.5 - HYPERKALEMIA (8) Hypertension Code(s): I10 - ESSENTIAL (PRIMARY) HYPERTENSION (9) Lactic acid acidosis Code(s): E87.2 - ACIDOSIS Assessment/Plan Current Medications Generic Name Dose Route Start Last Admin Trade Name Freq PRN Reason Stop Dose Admin Al Hydroxide/Mg Hydroxide 30 ml 04/02/17 17:02 Mylanta Oral Suspension - PO Q6H PRN DYSPEPSIA Octreotide Acetate 1,200 mcg/ 500 mls @ 10.41 mls/hr 04/02/17 10:41 04/02/17 17:36 Dextrose IVPB 10.41 mls/hr Q24H JELENA Administration 25 MCG/HR CEFTRIAXONE 1 G/50 ML PREMIX 50 mls @ 100 mls/hr 04/03/17 10:00 04/03/17 09: 31 Ceftriaxone 1 Gm-D5w Bag IVPB 100 mls/hr DAILY JELENA Administration Insulin Aspart 1 vial 04/02/17 16:30 04/03/17 11:13 Novolog Vial Sliding Scale - SQ 6 units ACHS JELENA Administration Protocol Insulin Detemir 10 units 04/03/17 07:00 04/03/17 06:35 Levemir Vial SQ 10 units AM JELENA Administration Lactulose 20 gm 04/02/17 22:00 04/03/17 09:31 Cephulac (Oral Use) PO 20 gm BID JELENA Administration Pantoprazole Sodium 40 mg 04/02/17 22:00 04/03/17 09:31 Protonix - PO 40 mg BID JELENA Administration Sucralfate 1 gm 04/03/17 11:00 04/03/17 11:13 Carafate Oral Suspension - PO 1 gm ACHS JELENA Administration Impression 1. ANISHA 2. hyperkalemia 3. lactic acidosis 4. GI bleed 5. anemia 6. DM 7. HTN 8. liver cirrhosis 9. hypernatremia Plan - renal function stabilizing - sodium remains elevated, recommend that pt increase his free water intake - repeat labs in am - monitor potassium - will follow pt - discussed plan with family
[2017-04-03] MEDS ORDERED: DEXTROSE 5%-WATER - 1,000 ML IV SCH (15:45)
--- NOTE | 2017-04-03 16:30 | PN ---
Progress Note, Physician Chief Complaint: Upper GI bleeding History of Present Illness: 71 yo male PMH ETOH use/abuse, renal calculi, DM, and HTN who presented to ED today due to weakness after multiple episodes of melena. s/p egd varix banding now controlled. no events overnight - Current Medication List Current Medications: Active Medications Al Hydroxide/Mg Hydroxide (Mylanta Oral Suspension -) 30 ml PO Q6H PRN PRN Reason: DYSPEPSIA Octreotide Acetate 1,200 mcg/ (Dextrose) 500 mls @ 10.41 mls/hr IVPB Q24H JELENA PRN Reason: 25 MCG/HR Last Admin: 04/02/17 17:36 Dose: 10.41 mls/hr CEFTRIAXONE 1 G/50 ML PREMIX (Ceftriaxone 1 Gm-D5w Bag) 50 mls @ 100 mls/hr IVPB DAILY [facility] Last Admin: 04/03/17 09:31 Dose: 100 mls/hr Dextrose (D5w -) 1,000 mls @ 42 mls/hr IV ASDIR [facility] Insulin Aspart (Novolog Vial Sliding Scale -) 1 vial SQ ACHS [facility] PRN Reason: Protocol Last Admin: 04/03/17 11:13 Dose: 6 units Insulin Detemir (Levemir Vial) 10 units SQ AM [facility] Last Admin: 04/03/17 06:35 Dose: 10 units Lactulose (Cephulac (Oral Use)) 20 gm PO BID [facility] Last Admin: 04/03/17 09:31 Dose: 20 gm Pantoprazole Sodium (Protonix -) 40 mg PO BID [facility] Last Admin: 04/03/17 09:31 Dose: 40 mg Sucralfate (Carafate Oral Suspension -) 1 gm PO ACHS [facility] Last Admin: 04/03/17 11:13 Dose: 1 gm - Objective Vital Signs: Vital Signs Temperature 98.7 F 04/03/17 15:25 Pulse Rate 75 04/03/17 15:25 Respiratory Rate 22 04/03/17 15:25 Blood Pressure 124/61 04/03/17 15:25 O2 Sat by Pulse Oximetry (%) 98 04/02/17 20:08 Constitutional: Yes: No Distress, Calm, Obese. No: Pallor Eyes: Yes: Conjunctiva Clear HENT: Yes: Atraumatic, Normocephalic Neck: Yes: Supple, Trachea Midline Cardiovascular: Yes: Regular Rate and Rhythm, S1, S2. No: Murmur Respiratory: Yes: Regular, CTA Bilaterally Gastrointestinal: Yes: Normal Bowel Sounds, Soft, Abdomen, Obese. No: Melena, Tenderness ...Rectal Exam: Yes: Deferred Genitourinary: No: CVA Tenderness - Left, CVA Tenderness - Right Musculoskeletal: No: Muscle Pain, Muscle Weakness Edema: No Peripheral Pulses WNL: Yes Peripheral Pulses: Left Doralis Pedis: 2+, Right Dorsalis Pedis: 2+ Labs: CBC, BMP 04/03/17 06:30 04/03/17 06:30 INR, PTT INR 1.20 (0.82-1.09) H 04/03/17 06:30 Problem List - Problems (1) Esophageal varices with hemorrhage Assessment/Plan: 71 yo female with MMP with bleeding esophageal varix, german b, meld 12 (6.0%), he has been transfused units RBC and during his EGD today had multiple varices banded. acute bleed resolved. tolerating soft diet IVF hydration Trend labs Consider IR if rebleed Recall as needed No surgical followup is needed Code(s): I85.01 - ESOPHAGEAL VARICES WITH BLEEDING (2) Cirrhosis Code(s): K74.60 - UNSPECIFIED CIRRHOSIS OF LIVER (3) Diabetes mellitus Code(s): E11.9 - TYPE 2 DIABETES MELLITUS WITHOUT COMPLICATIONS (4) GI hemorrhage Code(s): K92.2 - GASTROINTESTINAL HEMORRHAGE, UNSPECIFIED (5) Hypertension Code(s): I10 - ESSENTIAL (PRIMARY) HYPERTENSION
[2017-04-03] MEDS: OCTREOTIDE ACETATE 1,200 MCG in DEXTROSE 5%-WATER - 488 ML IVPB SCH (17:35)
--- NOTE | 2017-04-03 18:07 | PN ---
Teaching Attending Note Name of Resident: Heather Scruggs ATTENDING PHYSICIAN STATEMENT Time of evaluation: 10:30 AM I saw and evaluated the patient. I reviewed the resident's note and discussed the case with the resident. I agree with the resident's findings and plan as documented. SUBJECTIVE: Patient seen and examined, reports chest pain in AM when seen, when asked if was 'pressure like' reported yes, NO dyspnea, palpitations, dizziness or new complaints. no nausea, vomiting or abdominal pain, tolerating diet well. OBJECTIVE: Vital Signs Period Temp Pulse Resp BP Sys/Aden Pulse Ox Last 24 Hr 98.6 F-98.7 F 63-75 22-22 124-132/54-61 98 Intake & Output 03/31/17 04/01/17 04/02/17 04/03/17 23:59 23:59 23:59 23:59 Intake Total 7729 393 1755 Output Total 0 2875 600 500 Balance 1062 -2143 1200 -500 Weight 193 lb 5 oz 193 lb 5 oz 192 lb 4.8 oz 190 lb General: sitting in bed in no acute distress CVS:S1S2 regular Chest; CTAB, no rales or wheezing abdomen: soft, NT, ND, positive bowel sounds extremities: no edema Home Medication List Medication Instructions Recorded Confirmed Type Glimepiride 4 mg PO DAILY 01/01/12 03/31/17 History Lisinopril [Prinivil] 10 mg PO DAILY 01/01/12 03/31/17 History Metformin HCl [Glucophage] 1,000 mg PO BID 01/01/12 03/31/17 History Terazosin HCl 2 mg PO DAILY 01/01/12 03/31/17 History Insulin (Levemir) [Levemir Flexpen 25 units SQ DAILY 04/08/12 03/31/17 History -] Active Medications Generic Name Dose Route Start Last Admin Trade Name Freq PRN Reason Stop Dose Admin Al Hydroxide/Mg Hydroxide 30 ml 04/02/17 17:02 Mylanta Oral Suspension - PO Q6H PRN DYSPEPSIA Octreotide Acetate 1,200 mcg/ 500 mls @ 10.41 mls/hr 04/02/17 10:41 04/03/17 17:35 Dextrose IVPB 10.41 mls/hr Q24H JELENA Administration 25 MCG/HR CEFTRIAXONE 1 G/50 ML PREMIX 50 mls @ 100 mls/hr 04/03/17 10:00 04/03/17 09: 31 Ceftriaxone 1 Gm-D5w Bag IVPB 100 mls/hr DAILY JELENA Administration Dextrose 1,000 mls @ 42 mls/hr 04/03/17 15:45 04/03/17 17:35 D5w - IV 42 mls/hr ASDIR JELENA Administration Insulin Aspart 1 vial 04/02/17 16:30 04/03/17 17:36 Novolog Vial Sliding Scale - SQ 8 units ACHS JELENA Administration Protocol Insulin Detemir 10 units 04/03/17 07:00 04/03/17 06:35 Levemir Vial SQ 10 units AM JELENA Administration Lactulose 20 gm 04/02/17 22:00 04/03/17 09:31 Cephulac (Oral Use) PO 20 gm BID JELENA Administration Pantoprazole Sodium 40 mg 04/02/17 22:00 04/03/17 09:31 Protonix - PO 40 mg BID JELENA Administration Sucralfate 1 gm 04/03/17 11:00 04/03/17 17:36 Carafate Oral Suspension - PO 1 gm ACHS JELENA Administration Laboratory Results - last 24 hr 03/31/17 03/31/17 04/02/17 17:05 17:31 05:15 WBC RBC Hgb Hct MCV MCH MCHC RDW Plt Count MPV PT with INR INR Sodium Potassium Chloride Carbon Dioxide Anion Gap BUN Creatinine Creat Clearance w eGFR POC Glucometer Random Glucose Hemoglobin A1c % Calcium Total Bilirubin AST ALT Alkaline Phosphatase Creatine Kinase Troponin I Total Protein Albumin Tumor Marker AFP 2.1 Blood Type B POSITIVE Antibody Screen Negative Crossmatch See Detail See Detail 04/02/17 04/03/17 04/03/17 22:30 05:23 06:30 WBC 7.3 RBC 3.40 L Hgb 7.5 L Hct 23.7 L MCV 69.9 L MCH 22.0 L MCHC 31.5 L RDW 21.3 H Plt Count 95 L MPV 10.1 PT with INR INR Sodium Potassium Chloride Carbon Dioxide Anion Gap BUN Creatinine Creat Clearance w eGFR POC Glucometer 168 202 Random Glucose Hemoglobin A1c % Calcium Total Bilirubin AST ALT Alkaline Phosphatase Creatine Kinase Troponin I Total Protein Albumin Tumor Marker AFP Blood Type Antibody Screen Crossmatch 04/03/17 04/03/17 04/03/17 06:30 06:30 06:30 WBC RBC Hgb Hct MCV MCH MCHC RDW Plt Count MPV PT with INR 13.60 H INR 1.20 H Sodium 148 H Potassium 4.4 Chloride 116 H Carbon Dioxide 27 D Anion Gap 5 L BUN 27 H D Creatinine 1.2 Creat Clearance w eGFR 59.51 POC Glucometer Random Glucose 180 H D Hemoglobin A1c % 9.7 H Calcium 7.4 L Total Bilirubin 1.0 AST 40 H ALT 59 Alkaline Phosphatase 105 Creatine Kinase 36 L Troponin I < 0.02 Total Protein 5.4 L Albumin 2.6 L Tumor Marker AFP Blood Type Antibody Screen Crossmatch 04/03/17 04/03/17 04/03/17 06:30 11:04 16:26 WBC RBC Hgb Hct MCV MCH MCHC RDW Plt Count MPV PT with INR INR Sodium Potassium Chloride Carbon Dioxide Anion Gap BUN Creatinine Creat Clearance w eGFR POC Glucometer 294 308 Random Glucose Hemoglobin A1c % Calcium Total Bilirubin AST ALT Alkaline Phosphatase Creatine Kinase Cancelled Troponin I Cancelled Total Protein Albumin Tumor Marker AFP Blood Type Antibody Screen Crossmatch 2D echo impaired LV relaxation, no WMA noted EKG flipped T waves in lateral leads likely lead reversal ASSESSMENT AND PLAN: 71 yo M with PMH HTN, nephrolithasis, DM, and remote hx of heavy ETOH use presented to the ER wtih abdominal pain and melena and developed multiple episodes of hememtesis in the ER. -Acute upper GI bleed from esophageal varices s/p banding -Acute blood loss anemia s/p 2 units PRBC -Atypical Chest pain -Hyperkalemia, resolved -ANISHA, likely from poor perfusion, improved, monitor -Hypernatremia suspect from less free water intake -Hypophosphatemia , -Lactic acidosis, suspect from hypovolumia/GI bleed, ischemic bowel ruled out on CT A/P -Hepatic cirrhosis with portal hypertension, coagulopathy, abnormal LFTs, thrombocytopenia -HTN -NIDDM Plan: GI input noted. Tolerating clears well, advanced to soft diet. Changed to Protonix PO BID Octreotide drip started on 03/31, will d/c in AM if no new events. renal function improved, renal input appreciated. Trend LFTs, coags, platelets. Hold antihypertensives for now. A1c, ISS, Changed to diabetic diet. Hold oral agents for now Encourage free water intake Atpyical chest pain, cardiology input appreciated, EKG changes from lead reversal. 2D echo non concerning. No additional w/u for now, monitor. SCDs for DVTPPX PT eval for dispo planning.
[2017-04-03 19:01] LABS: HEMATOCRIT 25.2 % (35.4-49); MCH 23.2 pg (25.7-33.7); MCHC 31.9 g/dl (32.0-35.9); MEAN CELL VOLUME 72.8 fl (80-96); PLATELET COUNT 99 K/MM3 (134-434); RBC 3.46 M/mm3 (4.00-5.60); RDW 24.1 % (11.9-15.9)
[2017-04-03 19:07] LABS: ADD RBC MORPHOLOGY YES
[2017-04-03 20:03] LABS: ANISOCYTOSIS 3+; MACROCYTOSIS 1+
--- NOTE | 2017-04-03 20:34 | PN ---
Physical Exam: SUBJECTIVE: Patient seen and examined. Pt reports chest pain this AM, rated 7/ 10, new since last night, feels like pressure, non-radiating, substernal/Left Chest. Trops (-) and EKG reveals NSR. Pt denies palpitations, dizziness, sob, nausea, vomiting, abdominal pain, fever, chills. Pt tolerating soft diet. OBJECTIVE: Vital Signs Period Temp Pulse Resp BP Sys/Aden Pulse Ox Last 24 Hr 98.6 F-98.7 F 63-75 22-22 124-132/54-61 GENERAL: The patient is awake, alert, and fully oriented, in no acute distress. LUNGS: Breath sounds equal, clear to auscultation bilaterally, no wheezes, no crackles, no accessory muscle use. HEART: Regular rate and rhythm, +S1/S2. ABDOMEN: Soft, nontender, nondistended. EXTREMITIES: Warm, well-perfused, no edema. SKIN: Warm, dry, normal turgor, no rashes or lesions noted Laboratory Results - last 24 hr 03/31/17 03/31/17 04/02/17 17:05 17:31 05:15 WBC RBC Hgb Hct MCV MCH MCHC RDW Plt Count MPV Hypochromia Anisocytosis Microcytosis Macrocytosis PT with INR INR Sodium Potassium Chloride Carbon Dioxide Anion Gap BUN Creatinine Creat Clearance w eGFR POC Glucometer Random Glucose Hemoglobin A1c % Calcium Total Bilirubin AST ALT Alkaline Phosphatase Creatine Kinase Troponin I Total Protein Albumin Tumor Marker AFP 2.1 Blood Type B POSITIVE B POSITIVE Antibody Screen Negative Crossmatch See Detail See Detail 04/02/17 04/03/17 04/03/17 22:30 05:23 06:30 WBC 7.3 RBC 3.40 L Hgb 7.5 L Hct 23.7 L MCV 69.9 L MCH 22.0 L MCHC 31.5 L RDW 21.3 H Plt Count 95 L MPV 10.1 Hypochromia Anisocytosis Microcytosis Macrocytosis PT with INR INR Sodium Potassium Chloride Carbon Dioxide Anion Gap BUN Creatinine Creat Clearance w eGFR POC Glucometer 168 202 Random Glucose Hemoglobin A1c % Calcium Total Bilirubin AST ALT Alkaline Phosphatase Creatine Kinase Troponin I Total Protein Albumin Tumor Marker AFP Blood Type Antibody Screen Crossmatch 04/03/17 04/03/17 04/03/17 06:30 06:30 06:30 WBC RBC Hgb Hct MCV MCH MCHC RDW Plt Count MPV Hypochromia Anisocytosis Microcytosis Macrocytosis PT with INR 13.60 H INR 1.20 H Sodium 148 H Potassium 4.4 Chloride 116 H Carbon Dioxide 27 D Anion Gap 5 L BUN 27 H D Creatinine 1.2 Creat Clearance w eGFR 59.51 POC Glucometer Random Glucose 180 H D Hemoglobin A1c % 9.7 H Calcium 7.4 L Total Bilirubin 1.0 AST 40 H ALT 59 Alkaline Phosphatase 105 Creatine Kinase 36 L Troponin I < 0.02 Total Protein 5.4 L Albumin 2.6 L Tumor Marker AFP Blood Type Antibody Screen Crossmatch 04/03/17 04/03/17 04/03/17 06:30 11:04 16:26 WBC RBC Hgb Hct MCV MCH MCHC RDW Plt Count MPV Hypochromia Anisocytosis Microcytosis Macrocytosis PT with INR INR Sodium Potassium Chloride Carbon Dioxide Anion Gap BUN Creatinine Creat Clearance w eGFR POC Glucometer 294 308 Random Glucose Hemoglobin A1c % Calcium Total Bilirubin AST ALT Alkaline Phosphatase Creatine Kinase Cancelled Troponin I Cancelled Total Protein Albumin Tumor Marker AFP Blood Type Antibody Screen Crossmatch 04/03/17 04/03/17 18:10 18:10 WBC 6.0 RBC 3.46 L Hgb 8.0 L Hct 25.2 L MCV 72.8 L MCH 23.2 L MCHC 31.9 L RDW 24.1 H D Plt Count 99 L MPV 10.0 Hypochromia 2+ Anisocytosis 3+ Microcytosis 2+ Macrocytosis 1+ PT with INR INR Sodium Potassium Chloride Carbon Dioxide Anion Gap BUN Creatinine Creat Clearance w eGFR POC Glucometer Random Glucose Hemoglobin A1c % Calcium Total Bilirubin AST ALT Alkaline Phosphatase Creatine Kinase 34 L Troponin I < 0.02 Total Protein Albumin Tumor Marker AFP Blood Type Antibody Screen Crossmatch Active Medications Generic Name Dose Route Start Last Admin Trade Name Freq PRN Reason Stop Dose Admin Al Hydroxide/Mg Hydroxide 30 ml 04/02/17 17:02 Mylanta Oral Suspension - PO Q6H PRN DYSPEPSIA Octreotide Acetate 1,200 mcg/ 500 mls @ 10.41 mls/hr 04/02/17 10:41 04/03/17 17:35 Dextrose IVPB 10.41 mls/hr Q24H JELENA Administration 25 MCG/HR CEFTRIAXONE 1 G/50 ML PREMIX 50 mls @ 100 mls/hr 04/03/17 10:00 04/03/17 09: 31 Ceftriaxone 1 Gm-D5w Bag IVPB 100 mls/hr DAILY JELENA Administration Dextrose 1,000 mls @ 42 mls/hr 04/03/17 15:45 04/03/17 17:35 D5w - IV 42 mls/hr ASDIR JELENA Administration Insulin Aspart 1 vial 04/02/17 16:30 04/03/17 17:36 Novolog Vial Sliding Scale - SQ 8 units ACHS JELENA Administration Protocol Insulin Detemir 10 units 04/03/17 07:00 04/03/17 06:35 Levemir Vial SQ 10 units AM JELENA Administration Lactulose 20 gm 04/02/17 22:00 04/03/17 09:31 Cephulac (Oral Use) PO 20 gm BID JELENA Administration Pantoprazole Sodium 40 mg 04/02/17 22:00 04/03/17 09:31 Protonix - PO 40 mg BID JELENA Administration Sucralfate 1 gm 04/03/17 11:00 04/03/17 17:36 Carafate Oral Suspension - PO 1 gm ACHS JELENA Administration IMAGIN04/03/17 Echo -> Left ventricle borderline dilated, with normal EF and wall motion. Right ventricular systolic function normal. Trace MR and TR. ASSESSMENT/PLAN: 71M with PMH of htn, DM, remote hx of heavy etoh use, presented with epigastric pain and melena with multiple episodes of hematemeis in the ER. # upper GI bleed - s/p EGD with banding of esophageal varices on 04/01/17 - monitor hgb - s/p 3U PRBCs during this hospitalization, with given 1U today - GI ppx with Protonix 40mg po BID - octreotide - GI (Dr. Vázquez) recs appreciated: Sucralfate added, diet upgraded to soft, can D/C Octreotide after 72 hrs if no signs of GI bleeding noted. - Surgery (Dr. Castellon) recs appreciated # chest pain - Cardiology (Dr. Casillas) recs appreciated: EKG from this morning with limb lead reversal. Pain is atypical and unlikely to be cardiac in etiology. - trops (-) x 2 # DM - BGMs - Novolog SSI - Levemir 10U AM # transaminitis - suggestive of etoh hx - trend LFTs, coags and platelets - elevated ammonia noted, pt is AAOx3 # hypernatremia - Free Water Deficit 2.5 L - Renal (Dr. Day) recs appreciated: encourage free water intake # FEN - Fluids: encourage po - Electrolytes: continue to monitor - Nutrition: soft diabetic diet # Prophylaxis - DVT ppx with brown SCDs, hold pharmacologic ppx in light of upper GI bleed and thrombocytopenia - GI ppx with Prontonix BID - deconditioning ppx with PT Visit type - Emergency Visit Emergency Visit: Yes ED Registration Date: 03/31/17 Care time: The patient presented to the Emergency Department on the above date and was hospitalized for further evaluation of their emergent condition. - New Patient This patient is new to me today: No - Critical Care Critical Care patient: No
[2017-04-04] MEDS: INSULIN DETEMIR 100 UNITS/ML MDV SQ SCH (06:15)
[2017-04-04] MEDS: SUCRALFATE 1 GM/10 ML UNIT DOSE CUPS PO SCH ×4 (06:15→21:18)
[2017-04-04] MEDS: INSULIN SLIDING SCALE (NOVOLOG) 1 VIAL SQ SCH ×4 (06:16→21:21)
[2017-04-04] MEDS: ACETAMINOPHEN 500 MG TABLET (FP) PO PRN ×2 (06:54→20:07)
[2017-04-04] MEDS ORDERED: INSULIN (NOVOLOG) ASPART 100 UNITS/ML 10ML VIAL ONE ×3 (07:22→21:21)
[2017-04-04] MEDS: PANTOPRAZOLE SODIUM 80 MG in SODIUM CHLORIDE 100 ML IVPB SCH (07:33)
[2017-04-04] MEDS ORDERED: INSULIN DETEMIR 100 UNITS/ML MDV SQ ONE (07:49)
[2017-04-04] MEDS ORDERED: INSULIN DETEMIR 100 UNITS/ML MDV SQ SCH (07:50)
[2017-04-04 08:31] LABS: HEMATOCRIT 25.5 % (35.4-49); HEMOGLOBIN 8.2 GM/dL (11.7-16.9); MEAN CELL VOLUME 71.8 fl (80-96); MEAN PLT VOLUME 10.1 fl (7.5-11.1); PLATELET COUNT 86 K/MM3 (134-434); RBC 3.55 M/mm3 (4.00-5.60); RDW 23.9 % (11.9-15.9)
[2017-04-04 09:00] LABS: ALBUMIN 2.5 g/dl (3.4-5.0); ANION GAP 8 (8-16); BLOOD UREA NITROGEN 19 mg/dL (7-18); CALCIUM 7.7 mg/dL (8.5-10.1); CHLORIDE 114 mmol/L (98-107); CO2 23 mmol/L (21-32); CREATININE 1.1 mg/dL (0.7-1.3); GLUCOSE,RANDOM 225 mg/dL (74-106); POTASSIUM 4.2 mmol/L (3.5-5.1); SGOT/AST 37 U/L (15-37); SGPT/ALT 57 U/L (12-78); SODIUM 145 mmol/L (136-145)
[2017-04-04 09:02] LABS: ALK PHOS 112 U/L (45-117); BILIRUBIN,TOTAL 1.2 mg/dL (0.2-1.0); TOT PROT 5.4 g/dl (6.4-8.2)
[2017-04-04] MEDS: PANTOPRAZOLE 40 MG TABLET (FP) PO SCH ×2 (09:29→21:18)
[2017-04-04] MEDS: LACTULOSE 20 GM/30 ML UDC (FOR ORAL USE ONLY) PO SCH ×2 (09:29→21:18)
[2017-04-04] MEDS: CEFTRIAXONE 1 G/50 ML PREMIX 50 ML IVPB SCH (09:29)
[2017-04-04] MEDS: OCTREOTIDE ACETATE 1,200 MCG in DEXTROSE 5%-WATER - 488 ML IVPB SCH (09:48)
--- NOTE | 2017-04-04 11:32 | PN ---
Progress Note, Physician History of Present Illness: No longer has chest pain. No nausea, hematemesis, melena, hematochezia. No dysphagia. Not in distress. - Current Medication List Current Medications: Active Medications Acetaminophen (Tylenol -) 500 mg PO Q4H PRN PRN Reason: FEVER OR PAIN Last Admin: 04/04/17 06:54 Dose: 500 mg Al Hydroxide/Mg Hydroxide (Mylanta Oral Suspension -) 30 ml PO Q6H PRN PRN Reason: DYSPEPSIA Octreotide Acetate 1,200 mcg/ (Dextrose) 500 mls @ 10.41 mls/hr IVPB Q24H JELENA PRN Reason: 25 MCG/HR Last Admin: 04/04/17 09:48 Dose: Not Given CEFTRIAXONE 1 G/50 ML PREMIX (Ceftriaxone 1 Gm-D5w Bag) 50 mls @ 100 mls/hr IVPB DAILY [facility] Last Admin: 04/04/17 09:29 Dose: 100 mls/hr Dextrose (D5w -) 1,000 mls @ 42 mls/hr IV ASDIR [facility] Last Admin: 04/03/17 17:35 Dose: 42 mls/hr Insulin Aspart (Novolog Vial Sliding Scale -) 1 vial SQ [facility] PRN Reason: Protocol Last Admin: 04/04/17 10:55 Dose: 12 units Insulin Detemir (Levemir Vial) 15 units SQ AM [facility] Lactulose (Cephulac (Oral Use)) 20 gm PO BID [facility] Last Admin: 04/04/17 09:29 Dose: 20 gm Pantoprazole Sodium (Protonix -) 40 mg PO BID [facility] Last Admin: 04/04/17 09:29 Dose: 40 mg Sucralfate (Carafate Oral Suspension -) 1 gm PO ACHS [facility] Last Admin: 04/04/17 10:55 Dose: 1 gm - Objective Vital Signs: Vital Signs Temperature 98.8 F 04/04/17 10:00 Pulse Rate 65 04/04/17 10:00 Respiratory Rate 15 04/04/17 10:00 Blood Pressure 154/51 04/04/17 10:00 O2 Sat by Pulse Oximetry (%) 98 04/02/17 20:08 Neurological: Yes: Alert Labs: CBC, BMP 04/04/17 07:30 INR, PTT INR 1.20 (0.82-1.09) H 04/03/17 06:30 Abnormal Lab Results 03/31/17 03/31/17 04/03/17 17:05 17:31 18:10 RBC Hgb Hct MCV MCH MCHC RDW Plt Count Chloride BUN Random Glucose Calcium Total Bilirubin Creatine Kinase 34 L Total Protein Albumin Crossmatch See Detail See Detail 04/03/17 04/04/17 04/04/17 18:10 07:30 07:30 RBC 3.46 L 3.55 L Hgb 8.0 L 8.2 L Hct 25.2 L 25.5 L MCV 72.8 L 71.8 L MCH 23.2 L 23.0 L MCHC 31.9 L RDW 24.1 H D 23.9 H Plt Count 99 L 86 L Chloride 114 H BUN 19 H D Random Glucose 225 H D Calcium 7.7 L Total Bilirubin 1.2 H Creatine Kinase Total Protein 5.4 L Albumin 2.5 L Crossmatch 04/04/17 07:30 RBC Hgb Hct MCV MCH MCHC RDW Plt Count Chloride BUN Random Glucose Calcium Total Bilirubin Creatine Kinase 28 L Total Protein Albumin Crossmatch Problem List - Problems (1) Esophageal varices with hemorrhage Code(s): I85.01 - ESOPHAGEAL VARICES WITH BLEEDING (2) GI hemorrhage Code(s): K92.2 - GASTROINTESTINAL HEMORRHAGE, UNSPECIFIED Assessment/Plan continue current management. Carafate added Soft diet Octreotide can be d/c's after a total of 72 hrs if no signs of GI bleeding
--- NOTE | 2017-04-04 15:39 | PN ---
Progress Note, Physician History of Present Illness: Pt seen and examined at bedside. He is awake and alert. He denies shortness of breath. - Current Medication List Current Medications: Active Medications Acetaminophen (Tylenol -) 500 mg PO Q4H PRN PRN Reason: FEVER OR PAIN Last Admin: 04/04/17 06:54 Dose: 500 mg Al Hydroxide/Mg Hydroxide (Mylanta Oral Suspension -) 30 ml PO Q6H PRN PRN Reason: DYSPEPSIA CEFTRIAXONE 1 G/50 ML PREMIX (Ceftriaxone 1 Gm-D5w Bag) 50 mls @ 100 mls/hr IVPB DAILY [facility] Last Admin: 04/04/17 09:29 Dose: 100 mls/hr Dextrose (D5w -) 1,000 mls @ 42 mls/hr IV ASDIR [facility] Last Admin: 04/03/17 17:35 Dose: 42 mls/hr Insulin Aspart (Novolog Vial Sliding Scale -) 1 vial SQ [facility] PRN Reason: Protocol Last Admin: 04/04/17 10:55 Dose: 12 units Insulin Detemir (Levemir Vial) 15 units SQ AM [facility] Lactulose (Cephulac (Oral Use)) 20 gm PO BID [facility] Last Admin: 04/04/17 09:29 Dose: 20 gm Pantoprazole Sodium (Protonix -) 40 mg PO BID [facility] Last Admin: 04/04/17 09:29 Dose: 40 mg Sucralfate (Carafate Oral Suspension -) 1 gm PO ACHS [facility] Last Admin: 04/04/17 10:55 Dose: 1 gm - Objective Vital Signs: Vital Signs Temperature 98.3 F 04/04/17 15:28 Pulse Rate 57 L 04/04/17 15:28 Respiratory Rate 18 04/04/17 15:28 Blood Pressure 132/48 04/04/17 15:28 O2 Sat by Pulse Oximetry (%) 98 04/02/17 20:08 Constitutional: Yes: Calm Eyes: Yes: Conjunctiva Clear HENT: Yes: Atraumatic Cardiovascular: Yes: S1, S2 Respiratory: Yes: CTA Bilaterally Gastrointestinal: Yes: Soft Genitourinary: Yes: WNL Musculoskeletal: Yes: WNL Edema: No Neurological: Yes: Oriented Psychiatric: Yes: Oriented Labs: CBC, BMP 04/04/17 07:30 04/04/17 10:58 INR, PTT INR 1.20 (0.82-1.09) H 04/03/17 06:30 Problem List - Problems (1) Anemia Code(s): D64.9 - ANEMIA, UNSPECIFIED (2) Azotemia Code(s): R79.89 - OTHER SPECIFIED ABNORMAL FINDINGS OF BLOOD CHEMISTRY (3) Cirrhosis Code(s): K74.60 - UNSPECIFIED CIRRHOSIS OF LIVER (4) Diabetes mellitus Code(s): E11.9 - TYPE 2 DIABETES MELLITUS WITHOUT COMPLICATIONS (5) GI hemorrhage Code(s): K92.2 - GASTROINTESTINAL HEMORRHAGE, UNSPECIFIED (6) Hepatitis Code(s): K75.9 - INFLAMMATORY LIVER DISEASE, UNSPECIFIED (7) Hyperkalemia Code(s): E87.5 - HYPERKALEMIA (8) Hypertension Code(s): I10 - ESSENTIAL (PRIMARY) HYPERTENSION (9) Lactic acid acidosis Code(s): E87.2 - ACIDOSIS Assessment/Plan Current Medications Generic Name Dose Route Start Last Admin Trade Name Freq PRN Reason Stop Dose Admin Acetaminophen 500 mg 04/04/17 06:42 04/04/17 06:54 Tylenol - PO 500 mg Q4H PRN Administration FEVER OR PAIN Al Hydroxide/Mg Hydroxide 30 ml 04/02/17 17:02 Mylanta Oral Suspension - PO Q6H PRN DYSPEPSIA CEFTRIAXONE 1 G/50 ML PREMIX 50 mls @ 100 mls/hr 04/03/17 10:00 04/04/17 09: 29 Ceftriaxone 1 Gm-D5w Bag IVPB 100 mls/hr DAILY JELENA Administration Dextrose 1,000 mls @ 42 mls/hr 04/03/17 15:45 04/03/17 17:35 D5w - IV 42 mls/hr ASDIR JELENA Administration Insulin Aspart 1 vial 04/02/17 16:30 04/04/17 10:55 Novolog Vial Sliding Scale - SQ 12 units ACHS JELENA Administration Protocol Insulin Detemir 15 units 04/04/17 07:50 Levemir Vial SQ AM JELENA Lactulose 20 gm 04/02/17 22:00 04/04/17 09:29 Cephulac (Oral Use) PO 20 gm BID JELENA Administration Pantoprazole Sodium 40 mg 04/02/17 22:00 04/04/17 09:29 Protonix - PO 40 mg BID JELENA Administration Sucralfate 1 gm 04/03/17 11:00 04/04/17 10:55 Carafate Oral Suspension - PO 1 gm ACHS JELENA Administration Impression 1. ANISHA 2. hyperkalemia 3. lactic acidosis 4. GI bleed 5. anemia 6. DM 7. HTN 8. liver cirrhosis 9. hypernatremia Plan - encourage PO water intake - will stop d5w as his glucose is elevated - repeat labs in am - monitor potassium - will follow pt
--- NOTE | 2017-04-04 16:42 | PN ---
Teaching Attending Note Name of Resident: Heather Scruggs ATTENDING PHYSICIAN STATEMENT I saw and evaluated the patient. I reviewed the resident's note and discussed the case with the resident. I agree with the resident's findings and plan as documented. SUBJECTIVE: Patient seen and examined. no complaints. Denies any chest pain, abdominal pain , nausea, vomiting. Feels good. OBJECTIVE: Vital Signs Period Temp Pulse Resp BP Sys/Aden Pulse Ox Last 24 Hr 98.3 F-99.3 F 57-65 15-20 118-154/41-60 Intake & Output 04/01/17 04/02/17 04/03/17 04/04/17 23:59 23:59 23:59 23:59 Intake Total 732 1800 620 400 Output Total 2875 600 700 950 Balance -2143 1200 -80 -550 Weight 193 lb 5 oz 192 lb 4.8 oz 190 lb 193 lb General: sitting in chair in no acute distress CVS:S1s2 regular Chest: CTAB, no rales or wheezing abdomen : soft, NT, ND, positive bowel sounds extremities: no edema Home Medication List Medication Instructions Recorded Confirmed Type Glimepiride 4 mg PO DAILY 01/01/12 03/31/17 History Lisinopril [Prinivil] 10 mg PO DAILY 01/01/12 03/31/17 History Metformin HCl [Glucophage] 1,000 mg PO BID 01/01/12 03/31/17 History Terazosin HCl 2 mg PO DAILY 01/01/12 03/31/17 History Insulin (Levemir) [Levemir Flexpen 25 units SQ DAILY 04/08/12 03/31/17 History -] Active Medications Generic Name Dose Route Start Last Admin Trade Name Freq PRN Reason Stop Dose Admin Acetaminophen 500 mg 04/04/17 06:42 04/04/17 06:54 Tylenol - PO 500 mg Q4H PRN Administration FEVER OR PAIN Al Hydroxide/Mg Hydroxide 30 ml 04/02/17 17:02 Mylanta Oral Suspension - PO Q6H PRN DYSPEPSIA CEFTRIAXONE 1 G/50 ML PREMIX 50 mls @ 100 mls/hr 04/03/17 10:00 04/04/17 09: 29 Ceftriaxone 1 Gm-D5w Bag IVPB 100 mls/hr DAILY JELENA Administration Insulin Aspart 1 vial 04/02/17 16:30 04/04/17 16:23 Novolog Vial Sliding Scale - SQ 6 units ACHS JELENA Administration Protocol Insulin Detemir 15 units 04/04/17 07:50 Levemir Vial SQ AM JELENA Lactulose 20 gm 04/02/17 22:00 04/04/17 09:29 Cephulac (Oral Use) PO 20 gm BID JELENA Administration Pantoprazole Sodium 40 mg 04/02/17 22:00 04/04/17 09:29 Protonix - PO 40 mg BID JELENA Administration Sucralfate 1 gm 04/03/17 11:00 04/04/17 16:23 Carafate Oral Suspension - PO 1 gm ACHS JELENA Administration Laboratory Results - last 24 hr 03/31/17 04/03/17 04/03/17 17:31 16:26 18:10 WBC RBC Hgb Hct MCV MCH MCHC RDW Plt Count MPV Hypochromia Anisocytosis Microcytosis Macrocytosis Sodium Potassium Chloride Carbon Dioxide Anion Gap BUN Creatinine Creat Clearance w eGFR POC Glucometer 308 Random Glucose Calcium Total Bilirubin AST ALT Alkaline Phosphatase Creatine Kinase 34 L Troponin I < 0.02 Total Protein Albumin Blood Type B POSITIVE Crossmatch See Detail 04/03/17 04/03/17 04/04/17 18:10 21:46 06:13 WBC 6.0 RBC 3.46 L Hgb 8.0 L Hct 25.2 L MCV 72.8 L MCH 23.2 L MCHC 31.9 L RDW 24.1 H D Plt Count 99 L MPV 10.0 Hypochromia 2+ Anisocytosis 3+ Microcytosis 2+ Macrocytosis 1+ Sodium Potassium Chloride Carbon Dioxide Anion Gap BUN Creatinine Creat Clearance w eGFR POC Glucometer 358 268 Random Glucose Calcium Total Bilirubin AST ALT Alkaline Phosphatase Creatine Kinase Troponin I Total Protein Albumin Blood Type Crossmatch 04/04/17 04/04/17 04/04/17 07:30 07:30 07:30 WBC 5.0 RBC 3.55 L Hgb 8.2 L Hct 25.5 L MCV 71.8 L MCH 23.0 L MCHC 32.0 RDW 23.9 H Plt Count 86 L MPV 10.1 Hypochromia Anisocytosis Microcytosis Macrocytosis Sodium 145 Potassium 4.2 Chloride 114 H Carbon Dioxide 23 Anion Gap 8 BUN 19 H D Creatinine 1.1 Creat Clearance w eGFR > 60 POC Glucometer Random Glucose 225 H D Calcium 7.7 L Total Bilirubin 1.2 H AST 37 ALT 57 Alkaline Phosphatase 112 Creatine Kinase 28 L Troponin I < 0.02 Total Protein 5.4 L Albumin 2.5 L Blood Type Crossmatch 04/04/17 04/04/17 04/04/17 08:02 10:45 10:47 WBC RBC Hgb Hct MCV MCH MCHC RDW Plt Count MPV Hypochromia Anisocytosis Microcytosis Macrocytosis Sodium Potassium Chloride Carbon Dioxide Anion Gap BUN Creatinine Creat Clearance w eGFR POC Glucometer 249 414 421 Random Glucose Calcium Total Bilirubin AST ALT Alkaline Phosphatase Creatine Kinase Troponin I Total Protein Albumin Blood Type Crossmatch 04/04/17 04/04/17 10:58 16:22 WBC RBC Hgb Hct MCV MCH MCHC RDW Plt Count MPV Hypochromia Anisocytosis Microcytosis Macrocytosis Sodium Potassium Chloride Carbon Dioxide Anion Gap BUN Creatinine Creat Clearance w eGFR POC Glucometer 281 Random Glucose 385 H* D Calcium Total Bilirubin AST ALT Alkaline Phosphatase Creatine Kinase Troponin I Total Protein Albumin Blood Type Crossmatch ASSESSMENT AND PLAN: 71 yo M with PMH HTN, nephrolithasis, DM, and remote hx of heavy ETOH use presented to the ER wtih abdominal pain and melena and developed multiple episodes of hememtesis in the ER. -Acute upper GI bleed from esophageal varices s/p banding -Acute blood loss anemia s/p 2 units PRBC -Atypical Chest pain -Hyperkalemia, resolved -ANISHA, likely from poor perfusion, improved, monitor -Hypernatremia suspect from less free water intake -Hypophosphatemia , -Lactic acidosis, suspect from hypovolumia/GI bleed, ischemic bowel ruled out on CT A/P -Hepatic cirrhosis with portal hypertension, coagulopathy, abnormal LFTs, thrombocytopenia -HTN -NIDDM Plan: GI input noted. Tolerating clears well, advanced to soft diet. Changed to Protonix PO BID Octreotide drip started on 03/31, d/c today. Started on sucralfate. renal function improved, renal input appreciated. Trend LFTs, coags, platelets, overall stable now. Hold antihypertensives for now. A1c, ISS, Changed to diabetic diet. Hyperglycemic now as PO intake as improved. Increase levemir to 20 units, titrate up to home regimen> Resume oral meds on discharge. Atpyical chest pain, cardiology input appreciated, EKG changes from lead reversal. 2D echo non concerning. No additional w/u for now, monitor. SCDs for DVTPPX PT eval noted. Plan for home with services d/c in 24 hours if no new events or concerns.
--- NOTE | 2017-04-04 18:38 | PN ---
Physical Exam: SUBJECTIVE: Patient seen and examined. Pt denies chest pain, dizziness, sob, nausea, vomiting, abdominal pain, fever, chills. Pt tolerating soft diet. OBJECTIVE: Vital Signs Period Temp Pulse Resp BP Sys/Aden Pulse Ox Last 24 Hr 98.3 F-98.9 F 57-65 15-20 118-154/41-60 GENERAL: The patient is awake, alert, and fully oriented, in no acute distress. LUNGS: Breath sounds equal, clear to auscultation bilaterally, no wheezes, no crackles, no accessory muscle use. HEART: Regular rate and rhythm, +S1/S2. ABDOMEN: Soft, nontender, nondistended. EXTREMITIES: Warm, well-perfused, no edema. SKIN: Warm, dry, normal turgor, no rashes or lesions noted Laboratory Results - last 24 hr 03/31/17 04/03/17 04/03/17 17:31 18:10 18:10 WBC 6.0 RBC 3.46 L Hgb 8.0 L Hct 25.2 L MCV 72.8 L MCH 23.2 L MCHC 31.9 L RDW 24.1 H D Plt Count 99 L MPV 10.0 Hypochromia 2+ Anisocytosis 3+ Microcytosis 2+ Macrocytosis 1+ Sodium Potassium Chloride Carbon Dioxide Anion Gap BUN Creatinine Creat Clearance w eGFR POC Glucometer Random Glucose Calcium Total Bilirubin AST ALT Alkaline Phosphatase Creatine Kinase 34 L Troponin I < 0.02 Total Protein Albumin Blood Type B POSITIVE Crossmatch See Detail 04/03/17 04/04/17 04/04/17 21:46 06:13 07:30 WBC 5.0 RBC 3.55 L Hgb 8.2 L Hct 25.5 L MCV 71.8 L MCH 23.0 L MCHC 32.0 RDW 23.9 H Plt Count 86 L MPV 10.1 Hypochromia Anisocytosis Microcytosis Macrocytosis Sodium Potassium Chloride Carbon Dioxide Anion Gap BUN Creatinine Creat Clearance w eGFR POC Glucometer 358 268 Random Glucose Calcium Total Bilirubin AST ALT Alkaline Phosphatase Creatine Kinase Troponin I Total Protein Albumin Blood Type Crossmatch 04/04/17 04/04/17 04/04/17 07:30 07:30 08:02 WBC RBC Hgb Hct MCV MCH MCHC RDW Plt Count MPV Hypochromia Anisocytosis Microcytosis Macrocytosis Sodium 145 Potassium 4.2 Chloride 114 H Carbon Dioxide 23 Anion Gap 8 BUN 19 H D Creatinine 1.1 Creat Clearance w eGFR > 60 POC Glucometer 249 Random Glucose 225 H D Calcium 7.7 L Total Bilirubin 1.2 H AST 37 ALT 57 Alkaline Phosphatase 112 Creatine Kinase 28 L Troponin I < 0.02 Total Protein 5.4 L Albumin 2.5 L Blood Type Crossmatch 04/04/17 04/04/17 04/04/17 10:45 10:47 10:58 WBC RBC Hgb Hct MCV MCH MCHC RDW Plt Count MPV Hypochromia Anisocytosis Microcytosis Macrocytosis Sodium Potassium Chloride Carbon Dioxide Anion Gap BUN Creatinine Creat Clearance w eGFR POC Glucometer 414 421 Random Glucose 385 H* D Calcium Total Bilirubin AST ALT Alkaline Phosphatase Creatine Kinase Troponin I Total Protein Albumin Blood Type Crossmatch 04/04/17 16:22 WBC RBC Hgb Hct MCV MCH MCHC RDW Plt Count MPV Hypochromia Anisocytosis Microcytosis Macrocytosis Sodium Potassium Chloride Carbon Dioxide Anion Gap BUN Creatinine Creat Clearance w eGFR POC Glucometer 281 Random Glucose Calcium Total Bilirubin AST ALT Alkaline Phosphatase Creatine Kinase Troponin I Total Protein Albumin Blood Type Crossmatch Active Medications Generic Name Dose Route Start Last Admin Trade Name Freq PRN Reason Stop Dose Admin Acetaminophen 500 mg 04/04/17 06:42 04/04/17 06:54 Tylenol - PO 500 mg Q4H PRN Administration FEVER OR PAIN Al Hydroxide/Mg Hydroxide 30 ml 04/02/17 17:02 Mylanta Oral Suspension - PO Q6H PRN DYSPEPSIA CEFTRIAXONE 1 G/50 ML PREMIX 50 mls @ 100 mls/hr 04/03/17 10:00 04/04/17 09: 29 Ceftriaxone 1 Gm-D5w Bag IVPB 100 mls/hr DAILY JELENA Administration Insulin Aspart 1 vial 04/02/17 16:30 04/04/17 16:23 Novolog Vial Sliding Scale - SQ 6 units ACHS JELENA Administration Protocol Insulin Detemir 15 units 04/04/17 07:50 Levemir Vial SQ AM JELENA Lactulose 20 gm 04/02/17 22:00 04/04/17 09:29 Cephulac (Oral Use) PO 20 gm BID JELENA Administration Pantoprazole Sodium 40 mg 04/02/17 22:00 04/04/17 09:29 Protonix - PO 40 mg BID JEELNA Administration Sucralfate 1 gm 04/03/17 11:00 04/04/17 16:23 Carafate Oral Suspension - PO 1 gm ACHS JELENA Administration ASSESSMENT/PLAN: 71M with PMH of htn, DM, remote hx of heavy etoh use, presented with epigastric pain and melena with multiple episodes of hematemeis in the ER. # upper GI bleed - s/p EGD with banding of esophageal varices on 04/01/17 - monitor hgb - s/p 3U PRBCs during this hospitalization, with given 1U today - GI ppx with Protonix 40mg po BID - octreotide D/Jefe - GI (Dr. Vázquez) recs appreciated: Sucralfate added, diet upgraded to soft, can D/C Octreotide after 72 hrs if no signs of GI bleeding noted. - Surgery (Dr. Castellon) recs appreciated # DM - BGMs - Novolog SSI - Levemir 15U AM - resume oral home meds on discharge # transaminitis - resolved - suggestive of etoh hx - trend LFTs, coags and platelets - elevated ammonia noted, pt is AAOx3 # hypernatremia - resolved - Free Water Deficit 1.6 L - Renal (Dr. Day) recs appreciated: encourage free water intake # FEN - Fluids: encourage po - Electrolytes: continue to monitor - Nutrition: soft diabetic diet # Prophylaxis - DVT ppx with brown SCDs, hold pharmacologic ppx in light of upper GI bleed and thrombocytopenia - GI ppx with Prontonix BID - deconditioning ppx with PT Visit type - Emergency Visit Emergency Visit: Yes ED Registration Date: 03/31/17 Care time: The patient presented to the Emergency Department on the above date and was hospitalized for further evaluation of their emergent condition. - New Patient This patient is new to me today: No - Critical Care Critical Care patient: No
[2017-04-05] MEDS ORDERED: INSULIN (NOVOLOG) ASPART 100 UNITS/ML 10ML VIAL ONE ×2 (06:38→10:28)
[2017-04-05] MEDS: INSULIN SLIDING SCALE (NOVOLOG) 1 VIAL SQ SCH ×2 (06:39→10:34)
[2017-04-05] MEDS: SUCRALFATE 1 GM/10 ML UNIT DOSE CUPS PO SCH ×2 (06:39→10:35)
[2017-04-05] MEDS ORDERED: INSULIN DETEMIR 100 UNITS/ML MDV SQ ONE (08:00)
[2017-04-05 08:47] LABS: HEMATOCRIT 26.2 % (35.4-49); HEMOGLOBIN 8.3 GM/dL (11.7-16.9); MCHC 31.8 g/dl (32.0-35.9); MEAN CELL VOLUME 72.5 fl (80-96); PLATELET COUNT 99 K/MM3 (134-434); RBC 3.62 M/mm3 (4.00-5.60); RDW 24.6 % (11.9-15.9); WHITE BLOOD COUNT 5.2 K/mm3 (4.0-10.0)
--- NOTE | 2017-04-05 08:56 | PN ---
Teaching Attending Note Name of Resident: Heather Scruggs ATTENDING PHYSICIAN STATEMENT Time of evaluation: I saw and evaluated the patient. I reviewed the resident's note and discussed the case with the resident. I agree with the resident's findings and plan as documented. SUBJECTIVE: Patient seen and examined, no complaints, tolerating diet well, no dark or bloody stools. OBJECTIVE: Vital Signs Period Temp Pulse Resp BP Sys/Aden Pulse Ox Last 24 Hr 98.0 F-98.8 F 55-65 15-20 122-154/48-58 96 Intake & Output 04/02/17 04/03/17 04/04/17 04/05/17 23:59 23:59 23:59 23:59 Intake Total 1800 620 812.4 Output Total 600 700 950 Balance 1200 -80 -137.6 Weight 192 lb 4.8 oz 190 lb 193 lb 191 lb 9 oz General; Abdomen: extremities: Home Medication List Medication Instructions Recorded Confirmed Type Glimepiride 4 mg PO DAILY 01/01/12 03/31/17 History Lisinopril [Prinivil] 10 mg PO DAILY 01/01/12 03/31/17 History Metformin HCl [Glucophage] 1,000 mg PO BID 01/01/12 03/31/17 History Terazosin HCl 2 mg PO DAILY 01/01/12 03/31/17 History Insulin (Levemir) [Levemir Flexpen 25 units SQ DAILY 04/08/12 03/31/17 History -] Active Medications Generic Name Dose Route Start Last Admin Trade Name Freq PRN Reason Stop Dose Admin Acetaminophen 500 mg 04/04/17 06:42 04/04/17 20:07 Tylenol - PO 500 mg Q4H PRN Administration FEVER OR PAIN Al Hydroxide/Mg Hydroxide 30 ml 04/02/17 17:02 Mylanta Oral Suspension - PO Q6H PRN DYSPEPSIA CEFTRIAXONE 1 G/50 ML PREMIX 50 mls @ 100 mls/hr 04/03/17 10:00 04/04/17 09: 29 Ceftriaxone 1 Gm-D5w Bag IVPB 100 mls/hr DAILY JELENA Administration Insulin Aspart 1 vial 04/02/17 16:30 04/05/17 06:39 Novolog Vial Sliding Scale - SQ 4 units ACHS JELENA Administration Protocol Insulin Detemir 25 units 04/06/17 07:00 Levemir Vial SQ AM JELNEA Lactulose 20 gm 04/02/17 22:00 04/04/17 21:18 Cephulac (Oral Use) PO 20 gm BID JELENA Administration Pantoprazole Sodium 40 mg 04/02/17 22:00 04/04/17 21:18 Protonix - PO 40 mg BID JELNEA Administration Sucralfate 1 gm 04/03/17 11:00 04/05/17 06:39 Carafate Oral Suspension - PO 1 gm ACHS JELENA Administration ASSESSMENT AND PLAN: 71 yo M with PMH HTN, nephrolithasis, DM, and remote hx of heavy ETOH use presented to the ER wtih abdominal pain and melena and developed multiple episodes of hememtesis in the ER. -Acute upper GI bleed from esophageal varices s/p banding -Acute blood loss anemia s/p 2 units PRBC -Atypical Chest pain -Hyperkalemia, resolved -ANISHA, likely from poor perfusion, improved, monitor -Hypernatremia suspect from less free water intake -Hypophosphatemia , -Lactic acidosis, suspect from hypovolumia/GI bleed, ischemic bowel ruled out on CT A/P -Hepatic cirrhosis with portal hypertension, coagulopathy, abnormal LFTs, thrombocytopenia -HTN -NIDDM Plan: GI input noted. Tolerating diet well, no concerns. Changed to Protonix PO BID Octreotide drip started on 03/31, d/c today. Started on sucralfate. discussed with Dr. Vázquez, transition to ciprofloxacin for a total 7 days and outpatient follow up in 1 week. renal function improved, renal input appreciated. Trend LFTs, coags, platelets, overall stable now. A1c, ISS, Changed to diabetic diet. Hyperglycemic now as PO intake as improved. Increase levemir to 25 units, titrate up to home regimen> Resume oral meds on discharge. Resume terazosin, hold lisinopril on dc Atpyical chest pain, cardiology input appreciated, EKG changes from lead reversal. 2D echo non concerning. No additional w/u for now, monitor. SCDs for DVTPPX PT eval noted. d/c home with services with outpatient follow up. CBC/chem-7 follow up in 1 week. Discussed with patient and all questions answered.
[2017-04-05] MEDS: PANTOPRAZOLE 40 MG TABLET (FP) PO SCH (09:09)
[2017-04-05] MEDS: LACTULOSE 20 GM/30 ML UDC (FOR ORAL USE ONLY) PO SCH (09:09)
[2017-04-05] MEDS: CEFTRIAXONE 1 G/50 ML PREMIX 50 ML IVPB SCH (09:10)
[2017-04-05 09:12] LABS: ANION GAP 7 (8-16); BLOOD UREA NITROGEN 18 mg/dL (7-18); CALCIUM 7.5 mg/dL (8.5-10.1); CHLORIDE 115 mmol/L (98-107); CO2 23 mmol/L (21-32); CREATININE 1.1 mg/dL (0.7-1.3); GLUCOSE,RANDOM 198 mg/dL (74-106); SODIUM 145 mmol/L (136-145)
[2017-04-05 11:32] VITALS: BP 144/59; PULSE 70; TEMP 99.5
--- NOTE | 2017-04-05 13:33 | PN ---
Progress Note, Physician History of Present Illness: No nausea, hematemesis, melena, hematochezia. No dysphagia. Not in distress. - Current Medication List Current Medications: Active Medications Acetaminophen (Tylenol -) 500 mg PO Q4H PRN PRN Reason: FEVER OR PAIN Last Admin: 04/04/17 20:07 Dose: 500 mg Al Hydroxide/Mg Hydroxide (Mylanta Oral Suspension -) 30 ml PO Q6H PRN PRN Reason: DYSPEPSIA CEFTRIAXONE 1 G/50 ML PREMIX (Ceftriaxone 1 Gm-D5w Bag) 50 mls @ 100 mls/hr IVPB DAILY [facility] Last Admin: 04/05/17 09:10 Dose: 100 mls/hr Insulin Aspart (Novolog Vial Sliding Scale -) 1 vial SQ ACHS [facility] PRN Reason: Protocol Last Admin: 04/05/17 10:34 Dose: 10 units Insulin Detemir (Levemir Vial) 25 units SQ AM JELENA Lactulose (Cephulac (Oral Use)) 20 gm PO BID [facility] Last Admin: 04/05/17 09:09 Dose: 20 gm Pantoprazole Sodium (Protonix -) 40 mg PO BID [facility] Last Admin: 04/05/17 09:09 Dose: 40 mg Sucralfate (Carafate Oral Suspension -) 1 gm PO ACHS [facility] Last Admin: 04/05/17 10:35 Dose: 1 gm - Objective Vital Signs: Vital Signs Temperature 99.5 F 04/05/17 09:00 Pulse Rate 70 04/05/17 09:00 Respiratory Rate 18 04/05/17 09:00 Blood Pressure 144/59 04/05/17 09:00 O2 Sat by Pulse Oximetry (%) 96 04/04/17 20:34 Constitutional: Yes: No Distress, Calm Eyes: Yes: Conjunctiva Clear HENT: Yes: Atraumatic Neck: Yes: Supple Cardiovascular: Yes: Regular Rate and Rhythm Respiratory: Yes: Regular Gastrointestinal: Yes: Normal Bowel Sounds, Soft. No: Distention, Melena, Rectal Bleeding, Tenderness, Tenderness, Epigastrium, Tenderness, Rebound, Vomiting Neurological: Yes: Alert, Oriented Labs: CBC, BMP 04/05/17 08:00 04/05/17 08:00 INR, PTT INR 1.20 (0.82-1.09) H 04/03/17 06:30 Abnormal Lab Results 04/05/17 04/05/17 08:00 08:00 RBC 3.62 L Hgb 8.3 L Hct 26.2 L MCV 72.5 L MCH 23.0 L MCHC 31.8 L RDW 24.6 H Plt Count 99 L Chloride 115 H Anion Gap 7 L Random Glucose 198 H D Calcium 7.5 L Problem List - Problems (1) Esophageal varices with hemorrhage Code(s): I85.01 - ESOPHAGEAL VARICES WITH BLEEDING (2) GI hemorrhage Code(s): K92.2 - GASTROINTESTINAL HEMORRHAGE, UNSPECIFIED Assessment/Plan Continue current management. Soft, low salt diet Follow up as op in 1 week if d/c'd today
--- NOTE | 2017-04-05 17:13 | DS ---
Physical Exam: SUBJECTIVE: Patient seen and examined. Pt denies chest pain, dizziness, sob, nausea, vomiting, abdominal pain, melena, hematochezia, fever, chills. Pt tolerating soft diet. Pt feels ready to go home today. OBJECTIVE: Vital Signs Period Temp Pulse Resp BP Sys/Aden Pulse Ox Last 24 Hr 98.0 F-99.5 F 55-70 18-20 122-144/52-59 96 PHYSICAL EXAM GENERAL: The patient is awake, alert, and fully oriented, in no acute distress. LUNGS: Breath sounds equal, clear to auscultation bilaterally, no wheezes, no crackles, no accessory muscle use. HEART: Regular rate and rhythm, +S1/S2. ABDOMEN: Soft, nontender, nondistended. EXTREMITIES: Warm, well-perfused, no edema. SKIN: Warm, dry, normal turgor, no rashes or lesions noted LABS Laboratory Results - last 24 hr 04/04/17 04/05/17 04/05/17 21:18 06:35 08:00 WBC RBC Hgb Hct MCV MCH MCHC RDW Plt Count MPV Sodium 145 Potassium 4.0 Chloride 115 H Carbon Dioxide 23 Anion Gap 7 L BUN 18 Creatinine 1.1 POC Glucometer 358 214 Random Glucose 198 H D Calcium 7.5 L 04/05/17 04/05/17 04/05/17 08:00 09:47 10:33 WBC 5.2 RBC 3.62 L Hgb 8.3 L Hct 26.2 L MCV 72.5 L MCH 23.0 L MCHC 31.8 L RDW 24.6 H Plt Count 99 L MPV 10.0 Sodium Potassium Chloride Carbon Dioxide Anion Gap BUN Creatinine POC Glucometer 344 387 Random Glucose Calcium HOSPITAL COURSE: Date of Admission:03/31/17 Date of Discharge: 04/05/17 71M with PMH of htn, DM, remote hx of heavy etoh use, presented with epigastric pain and melena with multiple episodes of hematemeis in the ER. Pt received 3U PRBCs during this hospitalization and Octreotide drip. Pt received EGD with banding of esophageal varices on 04/02/17. Pt experienced hyperglycemia during this hospitalization, resumed home diabetic medications on discharge. 03/31/17 CXR -> no acute pathology 03/31/17 Ab/Pel CT -> hepatic cirrhosis, mild splenomegaly. very small ascites in upper abdomen. Possible mild concentric colonic wall thickening possibly infections/inflammatory colitis vs portal enteropathy. Mild-moderate gastric distention 2/2 fluid/ingested material. 04/01/17 CXR -> no acute pathology 04/03/17 Echo -> Left ventricle borderline dilated, with normal EF and wall motion. Right ventricular systolic function normal. Trace MR and TR. Pt walked 200 ft with PT on 04/05/17. Pt medically stable for discharge home. Minutes to complete discharge: 40 Discharge Summary Reason For Visit: UPPER GASTROINTESTINAL HEMORRHAGE Condition: Improved - Instructions Diet, Activity, Other Instructions: You were treated for upper GI bleeding. You had a banding procedure done to seal large veins in your esophagus on the morning of 04/02/[address] Vázquez. New medications: - Ciprofloxacin twice daily (every 12 hours) for 4 more days - Sucralfate 4 times daily (1 hour before each meal, and at bedtime). - Protonix twice daily for 2 weeks then as directed by your doctor - Lactulose twice daily - titrate to 1-2 bowel movements daily Medication changes; Your lisinopril is being discontinued on discharge. Advise home BP monitoring till next doctor visit and notify doctor if SBP ( upper BP) persistently > 135 or < 100 or any dizziness noted. Specifically, resume your diabetes medications (and monitor your blood sugar levels) as you have had high blood sugars during this hospitalization. Follow-ups: - with your Primary Care Physician (Dr. Dan) in 1 week. Keep a log of your blood sugar levels, and bring this log to this PCP appointment. - with a GastroIntestinal Doctor (Dr. Vázquez) in 1 week. -Blood work (CBC, chem-7) to assess your blood counts and kidney function with your doctor in 1 week. Please return to the hospital immediately if you experience persistent or increased coughing up blood, bloody or dark bowel movements, abdominal pain, or for any medical emergency. Referrals: Armando Dan MD [Primary Care Provider] - 1 Week Roberth Vázquez MD [Staff Physician] - 1 Week Disposition: VNS/HOME HEALTH CARE - Home Medications Comprehensive Discharge Medication List: Ambulatory Orders Glimepiride 4 mg PO DAILY 01/01/12 Metformin HCl [Glucophage] 1,000 mg PO BID 01/01/12 Terazosin HCl 2 mg PO DAILY 01/01/12 Insulin (Levemir) [Levemir Flexpen -] 25 units SQ DAILY 04/08/12 Ciprofloxacin [Cipro (Restricted To Id)] 500 mg PO BID #8 tablet 04/05/17 Lactulose (Oral Use) [Cephulac -] 20 gm PO BID #1 bottle 04/05/17 Miscellaneous Drug Not In Syst [Outpatient Lab Test] 1 each ASDIR #1 misc 08/16 Pantoprazole Sodium [Protonix -] 40 mg PO BID #60 tablet.ec 04/05/17 Sucralfate Oral Suspension [Carafate Oral Suspension -] 1 gm PO ACHS #120 ml 08/16 This patient is new to me today: No Emergency Visit: Yes ED Registration Date: 03/31/17 Care time: The patient presented to the Emergency Department on the above date and was hospitalized for further evaluation of their emergent condition. Critical Care patient: No - Discharge Referral Referred to [facility] Med [facility] Yes Physician Referral: Armando Reyes MD ([facility])
[2017-04-06] MEDS ORDERED: INSULIN DETEMIR 100 UNITS/ML MDV SQ SCH (07:00)
== END 2017-04-05 15:46 | disposition home health service (06) | DRG 369 ==
LOC: JER 16:35 → JERBED 18:57 → JICU 20:31 → J6S 04-02 18:40
PROVIDERS: ADMIT Internal Medicine; ATTEND Hospitalist
PROC: 30233N1 Transfusion of Nonautologous Red Blood Cells into Peripheral Vein, Percutaneous Approach (ICD-10-PCS; 2017-03-31)
PROC: 0W3P8ZZ Control Bleeding in Gastrointestinal Tract, Via Natural or Artificial Opening Endoscopic (ICD-10-PCS; principal; 2017-04-01 11:02)
DX: I85.01 Esophageal varices with bleeding (principal); E87.2 Acidosis; N17.9 Acute kidney failure, unspecified; K76.6 Portal hypertension; D68.59 Other primary thrombophilia; E87.0 Hyperosmolality and hypernatremia; D62 Acute posthemorrhagic anemia; K70.30 Alcoholic cirrhosis of liver without ascites; D64.9 Anemia, unspecified; I10 Essential (primary) hypertension; Z79.84 Long term (current) use of oral hypoglycemic drugs; K75.81 Nonalcoholic steatohepatitis (NASH); E86.1 Hypovolemia; E87.5 Hyperkalemia; E83.42 Hypomagnesemia; E83.39 Other disorders of phosphorus metabolism; D69.59 Other secondary thrombocytopenia; F10.21 Alcohol dependence, in remission; R74.0 Nonspecific elevation of levels of transaminase and lactic acid dehydrogenase [LDH]; E11.21 Type 2 diabetes mellitus with diabetic nephropathy; E11.319 Type 2 diabetes mellitus with unspecified diabetic retinopathy without macular edema; Z87.891 Personal history of nicotine dependence; K31.89 Other diseases of stomach and duodenum; E66.9 Obesity, unspecified; Z68.30 Body mass index [BMI] 30.0-30.9, adult; Z79.4 Long term (current) use of insulin
CPT/HCPCS: 36415; 36430; 71010-TC; 71045-TC; 74176-TC; 80048; 80053; 82105; 82140; 82272; 82550; 82947; 83036; 83605; 83735; 84100; 84484; 85025; 85027; 85044; 85610; 85730; 86850; 86900; 86901; 86922; 93005; 93010; 93306-TC; 97116-GP; 97161-GP; 99285-25; P9038; P9058

== ENCOUNTER 2017-04-23 12:48 | Inpatient (IN) | payer MEDICARE, OTHER ==
--- NOTE | 2017-04-23 14:41 | PDOC ---
History of Present Illness - General Chief Complaint: Revisit, Lab Variance Stated Complaint: LAB VARIANCE (PCP SENT) Time Seen by Provider: 04/23/17 13:55 - History of Present Illness Initial Comments: 04/23/17 14:36 71 M with h/o cirrhosis, DM, HTN, anemia, presenting to ER with worsening anemia and hyperkalemia. Pt states that he had outpt labs done a few days ago that showed that he had a low H/H, as well as an elevated potassium, though he does not know the exact numbers. Pt was instructed by his PMD to come to ER for treatment. Pt denies any complaints currently. Denies lightheadedness/syncope. Denies CP/SOB. Pt notes that his stool was slightly dark this morning but denies any black, tarry stools. He had a recent EGD by Dr. Wang this month and was found to have esophageal varices that were banded. Denies abdominal pain. Denies N/V/D. Past History - Past Medical History Allergies/Adverse Reactions: Allergies Allergy/AdvReac Type Severity Reaction Status Date / Time No Known Drug Allergies Allergy Verified 04/23/17 12:59 Home Medications: Ambulatory Orders Glimepiride 4 mg PO DAILY 01/01/12 Metformin HCl [Glucophage] 1,000 mg PO BID 01/01/12 Terazosin HCl 2 mg PO DAILY 01/01/12 Insulin (Levemir) [Levemir Flexpen -] 25 units SQ DAILY 04/08/12 Miscellaneous Drug Not In Syst [Outpatient Lab Test] 1 each ASDIR #1 misc 08/16 Pantoprazole Sodium [Protonix] 40 mg PO BID #60 tablet. 04/05/17 Sucralfate [Carafate] 1 gm PO ACHS #120 ml 04/05/17 Ferrous Sulfate [Feosol] 325 mg PO DAILY #30 ud 04/27/17 Anemia: Yes Asthma: No Cancer: No Cardiac Disorders: No CVA: No COPD: No CHF: No Dementia: No Diabetes: Yes GI Disorders: No Disorders: Yes (KIDNEY STONES) HTN: Yes Hypercholesterolemia: No Liver Disease: No Seizures: No Thyroid Disease: No - Surgical History Abdominal Surgery: No Appendectomy: No Cardiac Surgery: No Cholecystectomy: No Lung Surgery: No Neurologic Surgery: No Orthopedic Surgery: No - Immunization History Immunization Up to Date: Yes - Suicide/Smoking/Psychosocial Hx Smoking History: Never smoked Have you smoked in the past 12 months: No Information on smoking cessation initiated: No Hx Alcohol Use: No Drug/Substance Use Hx: No Substance Use Type: None Hx Substance Use Treatment: No Review of Systems - Review of Systems Comments:: 04/23/17 16:57 "GENERAL/CONSTITUTIONAL: No fever or chills. No weakness. HEAD, EYES, EARS, NOSE AND THROAT: No change in vision. No ear pain or discharge. No sore throat. CARDIOVASCULAR: No chest pain or shortness of breath. RESPIRATORY: No cough, wheezing, or hemoptysis. GASTROINTESTINAL: No nausea, vomiting, diarrhea or constipation. GENITOURINARY: No dysuria, frequency, or change in urination. MUSCULOSKELETAL: No joint or muscle swelling or pain. No neck or back pain. SKIN: No rash NEUROLOGIC: No headache, vertigo, loss of consciousness, or change in strength/ sensation. ENDOCRINE: No increased thirst. No abnormal weight change. HEMATOLOGIC/LYMPHATIC: No anemia, easy bleeding, or history of blood clots. ALLERGIC/IMMUNOLOGIC: No hives or skin allergy. " *Physical Exam - Vital Signs Last Vital Signs Temp Pulse Resp BP Pulse Ox 98.9 F 65 18 133/47 97 04/23/17 12:57 04/23/17 12:57 04/23/17 12:57 04/23/17 12:57 04/23/17 12:57 - Physical Exam Comments: 04/23/17 16:57 "GENERAL: Awake, alert, and fully oriented, in no acute distress HEAD: No signs of trauma EYES: PERRLA, EOMI, sclera anicteric, conjunctiva clear ENT: Auricles normal inspection, hearing grossly normal, nares patent, oropharynx clear without exudates. Moist mucosa NECK: Nontender, no stepoffs, Normal ROM, supple, no lymphadenopathy, JVD, or masses LUNGS: Breath sounds equal, clear to auscultation bilaterally. No wheezes, and no crackles HEART: Regular rate and rhythm, normal S1 and S2, no murmurs, rubs or gallops ABDOMEN: Soft, nontender, normoactive bowel sounds. No guarding, no rebound. No masses EXTREMITIES: Normal range of motion, no edema. No clubbing or cyanosis. No cords, erythema, or tenderness NEUROLOGICAL: Cranial nerves II through XII intact. 5/5 strength and sensation in all extremities, Normal speech, normal gait SKIN: Warm, Dry, normal turgor, no rashes or lesions noted. " ED Treatment Course - LABORATORY CBC & Chemistry Diagram: 04/26/17 15:30 04/26/17 07:57 Medical Decision Making - Medical Decision Making 04/23/17 16:58 71 M with worsening anemia and hyperkalemia on outpt labs. Pt without any complaints today. Possible UGIB given h/o esophageal varices. Hyperkalemia may be 2/2 worsening renal function. Possible hepatorenal syndrome. - Labs - Stool guaiac 04/23/17 17:16 CBC,CMP WBC 2.9 K/mm3 (4.0-10.0) L D 04/23/17 15:36 RBC 3.68 M/mm3 (4.00-5.60) L 04/23/17 15:36 Hgb 7.8 GM/dL (11.7-16.9) L D 04/23/17 15:36 Hct 26.2 % (35.4-49) L 04/23/17 15:36 MCV 71.1 fl (80-96) L 04/23/17 15:36 MCH 21.2 pg (25.7-33.7) L 04/23/17 15:36 MCHC 29.8 g/dl (32.0-35.9) L 04/23/17 15:36 RDW 21.6 % (11.9-15.9) H 04/23/17 15:36 Plt Count 96 K/MM3 (134-434) L D 04/23/17 15:36 MPV 10.1 fl (7.5-11.1) 04/23/17 15:36 Neutrophils % 64.4 % (42.8-82.8) 04/23/17 15:36 Lymphocytes % 28.3 % (8-40) D 04/23/17 15:36 Monocytes % 5.6 % (3.8-10.2) 04/23/17 15:36 Eosinophils % 1.0 % (0-4.5) 04/23/17 15:36 Basophils % 0.7 % (0-2.0) 04/23/17 15:36 Sodium 143 mmol/L (136-145) 04/23/17 15:36 Potassium 5.9 mmol/L (3.5-5.1) H 04/23/17 15:36 Chloride 113 mmol/L (98-107) H 04/23/17 15:36 Carbon Dioxide 20 mmol/L (21-32) L 04/23/17 15:36 Anion Gap 10 (8-16) 04/23/17 15:36 BUN 29 mg/dL (7-18) H D 04/23/17 15:36 Creatinine 1.3 mg/dL (0.7-1.3) 04/23/17 15:36 Creat Clearance w eGFR 54.26 (>60) 04/23/17 15:36 Random Glucose 236 mg/dL (74-106) H 04/23/17 15:36 Calcium 9.2 mg/dL (8.5-10.1) 04/23/17 15:36 Magnesium 1.6 mg/dL (1.8-2.4) L 04/23/17 15:36 Total Bilirubin 0.5 mg/dL (0.2-1.0) D 04/23/17 15:36 AST 50 U/L (15-37) H D 04/23/17 15:36 ALT 58 U/L (12-78) 04/23/17 15:36 Alkaline Phosphatase 152 U/L (45-117) H D 04/23/17 15:36 Total Protein 7.1 g/dl (6.4-8.2) D 04/23/17 15:36 Albumin 3.3 g/dl (3.4-5.0) L D 04/23/17 15:36 Labs notable for pancytopenia. Guaiac negative. Will send retic count and hemolysis labs. Heme consult placed to Dr. Casillas Potassium 5.9. Will administer insulin, bicarb, calcium, kayexalate. EKG obtained with slightly hyperacute T waves. Pt admitted to Hospitalist Case discussed in detail with admitting physician including history, physical exam and ancillary studies. Admitting physician has assumed care for the patient and will follow all pending diagnostics and complete the evaluation and treatment. *DC/Admit/Observation/Transfer Diagnosis at time of Disposition: Pancytopenia, Hyperkalemia - Discharge Dispostion Condition at time of disposition: Guarded Admit: Yes - Prescriptions - Referrals - Patient Instructions - Post Discharge Activity - Attestations Physician Attestion: 04/23/17 17:16 I, Dr. Rogelio Stanley MD, attest that this document has been prepared under my direction and personally reviewed by me in its entirety. I further attest, that it accurately reflects all work, treatment, procedures and medical decision -making performed by me.
[2017-04-23 16:12] LABS: BASO % 0.7 % (0-2.0); HEMATOCRIT 26.2 % (35.4-49); HEMOGLOBIN 7.8 GM/dL (11.7-16.9); LYMPH % 28.3 % (8-40); MCH 21.2 pg (25.7-33.7); MCHC 29.8 g/dl (32.0-35.9); MEAN CELL VOLUME 71.1 fl (80-96); MEAN PLT VOLUME 10.1 fl (7.5-11.1); MONO % 5.6 % (3.8-10.2); NEUT % 64.4 % (42.8-82.8); PLATELET COUNT 96 K/MM3 (134-434); RBC 3.68 M/mm3 (4.00-5.60); RDW 21.6 % (11.9-15.9); WHITE BLOOD COUNT 2.9 K/mm3 (4.0-10.0)
[2017-04-23 16:16] LABS: ADD RBC MORPHOLOGY YES
[2017-04-23 16:32] LABS: ALBUMIN 3.3 g/dl (3.4-5.0); ALK PHOS 152 U/L (45-117); ANION GAP 10 (8-16); BILIRUBIN,TOTAL 0.5 mg/dL (0.2-1.0); BLOOD UREA NITROGEN 29 mg/dL (7-18); CALCIUM 9.2 mg/dL (8.5-10.1); CHLORIDE 113 mmol/L (98-107); CO2 20 mmol/L (21-32); CREATININE 1.3 mg/dL (0.7-1.3); GLUCOSE,RANDOM 236 mg/dL (74-106); POTASSIUM 5.9 mmol/L (3.5-5.1); SGOT/AST 50 U/L (15-37); SGPT/ALT 58 U/L (12-78); SODIUM 143 mmol/L (136-145); TOT PROT 7.1 g/dl (6.4-8.2)
[2017-04-23 17:09] LABS: INR 1.1 (0.82-1.09); PROTHROMBIN TIME (PATIENT) 12.6 SEC (9.98-11.88)
[2017-04-23] MEDS ORDERED: SODIUM CHLORIDE 1,000 ML IV STA (17:11)
[2017-04-23] MEDS ORDERED: CALCIUM GLUCONATE 10% - 1,000 MG/10 ML VIAL IVPB ONE (17:12)
[2017-04-23] MEDS ORDERED: INSULIN REGULAR HUMAN 100 UNITS/ML *VIAL IVPUSH ONE (17:12)
[2017-04-23] MEDS ORDERED: SODIUM BICARBONATE 4.2% 5 MEQ/10 ML DISP.SYRIN IVPUSH ONE (17:13)
[2017-04-23] MEDS ORDERED: SODIUM POLYSTYRENE SULFONATE 15 GM/60 ML BOTTLE PO ONE (17:15)
[2017-04-23] MEDS ORDERED: SODIUM BICARBONATE 8.4% - 50 ML ONE (17:53)
[2017-04-23] MEDS ORDERED: SODIUM POLYSTYRENE SULFONATE 15 GM/60 ML BOTTLE ONE (17:53)
[2017-04-23] MEDS ORDERED: INSULIN REGULAR HUMAN 100 UNITS/ML *VIAL ONE (17:54)
[2017-04-23] MEDS ORDERED: CALCIUM GLUCONATE 10% - 1,000 MG/10 ML VIAL ONE (17:55)
[2017-04-23 21:42] LABS: ANISOCYTOSIS 2+
--- NOTE | 2017-04-24 07:59 | EKG ---
Test Reason : Blood Pressure : / mmHG Vent. Rate : 055 BPM Atrial Rate : 055 BPM P-R Int : 192 ms QRS Dur : 092 ms QT Int : 416 ms P-R-T Axes : 062 054 060 degrees QTc Int : 397 ms SINUS BRADYCARDIA WITH SINUS ARRHYTHMIA OTHERWISE NORMAL ECG WHEN COMPARED WITH ECG OF 03-APR-2017 11:26, NO SIGNIFICANT CHANGE WAS FOUND Confirmed by MICAELA LING, GRANT ([id number]) on 04/24/2017 7:59:03 AM Referred By: Confirmed By:GRANT HINOJOSA MD
--- NOTE | 2017-04-24 08:10 | HP ---
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 He currently feels well and denies hematemesis, hematochezia, melena, hematuria. Melena and hematemesis that preceded his last admission was kindra first and only presentation of bleeding, for which he was transfused. He was also treated with vit K for thrombocytopenia, found to have ANISHA and hyperkalemia at that time. In ED patient found to have K of 5.9 and Hgb of 7.8, drop from 8.9 a week ago. His Hgb baseline since last admission has been around 8.5. he is also found to be pancytopenic. He reports past EtOH abuse but has quit several years ago. He has 3 loose stools/day with lactulose. Patient deneis CP, palpitations, lightheadedness, AMS, h/a, n/v, abd pain, weight gain, LE edema, Abdominal distention, sob, cough, bleeding from mucous membranes. ER course was notable for: (1)cxr, ekg (2)labs, stool for occult blood (3)IVF, sodium bicarb, calcium gluconate, insulin, kayexalate Recent Travel: denies PAST MEDICAL HISTORY: as above PAST SURGICAL HISTORY: as above Social History: lives at home with Smoking:denies Alcohol:past abuse Drugs:denies Family History: htn Allergies No Known Drug Allergies Allergy (Verified 04/23/17 12:59) HOME MEDICATIONS: Home Medications Medication Instructions Recorded Glimepiride 4 mg PO DAILY 01/01/12 Metformin HCl [Glucophage] 1,000 mg PO BID 01/01/12 Terazosin HCl 2 mg PO DAILY 01/01/12 Insulin (Levemir) [Levemir Flexpen 25 units SQ DAILY 04/08/12 -] Ciprofloxacin [Cipro -] 500 mg PO BID #8 tablet 04/05/17 Lactulose 20 gm PO BID #1 ml 04/05/17 Miscellaneous Drug Not In Syst 1 each ASDIR #1 misc 04/05/17 [Outpatient Lab Test] Pantoprazole Sodium [Protonix] 40 mg PO BID #60 tablet. 04/05/17 Sucralfate [Carafate] 1 gm PO ACHS #120 ml 04/05/17 REVIEW OF SYSTEMS CONSTITUTIONAL: Absent: fever, chills, diaphoresis, generalized weakness, malaise HEENT: Absent: rhinorrhea, nasal congestion, throat pain, throat swelling, difficulty swallowing CARDIOVASCULAR: Absent: chest pain, syncope, palpitations, irregular heart rate, lightheadedness , peripheral edema RESPIRATORY: Absent: cough, shortness of breath, hemoptysis GASTROINTESTINAL: Absent: abdominal pain, abdominal distension, nausea, vomiting, constipation, melena, hematochezia GENITOURINARY: Absent: dysuria, hematuria, flank pain MUSCULOSKELETAL: Absent: back pain, neck pain SKIN: Absent: rash, itching, pallor HEMATOLOGIC/IMMUNOLOGIC: Absent: easy bleeding, easy bruising, ENDOCRINE: Absent: unexplained weight gain, unexplained weight loss, heat intolerance, cold intolerance NEUROLOGIC: Absent: headache, focal weakness or paresthesias PSYCHIATRIC: Absent: anxiety, depression PHYSICAL EXAMINATION Vital Signs - 24 hr 04/23/17 04/23/17 04/23/17 12:57 18:37 19:39 Temperature 98.9 F 97.8 F Pulse Rate 65 Pulse Rate [ 75 Right Radial] Respiratory 18 16 16 Rate Blood Pressure 133/47 Blood Pressure 135/49 [Left Arm] O2 Sat by Pulse 97 100 100 Oximetry (%) 04/23/17 04/24/17 04/24/17 21:00 03:00 06:04 Temperature 98.4 F 98.7 F Pulse Rate 58 L 59 L Pulse Rate [ Right Radial] Respiratory 17 20 Rate Blood Pressure 143/68 116/59 Blood Pressure [Left Arm] O2 Sat by Pulse 100 99 Oximetry (%) GENERAL: Awake, alert, and fully oriented, in no acute distress. HEAD: Normal with no signs of trauma. EYES: Pupils equal, round and reactive to light, extraocular movements intact, sclera anicteric, conjunctiva clear. No lid lag. EARS, NOSE, THROAT: Moist mucous membranes. NECK: supple LUNGS: Breath sounds equal, clear to auscultation bilaterally. HEART: Regular rate and rhythm, normal S1 and S2 ABDOMEN: Soft, nontender, not distended, normoactive bowel sounds, no guarding, no rebound, no masses. no fluid wave MUSCULOSKELETAL:No CVA tenderness. UPPER EXTREMITIES: 2+ pulses, warm, well-perfused. No peripheral edema. LOWER EXTREMITIES: 1+ pulses, warm, well-perfused. No calf tenderness. No peripheral edema. NEUROLOGICAL: Cranial nerves II-XII grossly intact. Normal speech. PSYCHIATRIC: Cooperative. Good eye contact. Appropriate mood and affect. SKIN: Warm, dry Laboratory Results - last 24 hr 04/23/17 04/23/17 04/23/17 15:00 15:36 15:36 WBC 2.9 L D RBC 3.68 L Hgb 7.8 L D Hct 26.2 L MCV 71.1 L MCH 21.2 L MCHC 29.8 L RDW 21.6 H Plt Count 96 L D MPV 10.1 Neutrophils % 64.4 Lymphocytes % 28.3 D Monocytes % 5.6 Eosinophils % 1.0 Basophils % 0.7 Hypochromia 2+ Polychromasia 2+ Poikilocytosis 2+ Anisocytosis 2+ Microcytosis 2+ Spherocytes 1+ Fragmented RBCs 1+ Retic Count PT with INR INR PTT (Actin FS) 26.5 L Sodium Potassium Chloride Carbon Dioxide Anion Gap BUN Creatinine Creat Clearance w eGFR Random Glucose Calcium Magnesium Total Bilirubin AST ALT Alkaline Phosphatase LD Total Total Protein Albumin Stool Occult Blood Negative Blood Type Antibody Screen 04/23/17 04/23/17 04/23/17 15:36 15:36 15:36 WBC RBC Hgb Hct MCV MCH MCHC RDW Plt Count MPV Neutrophils % Lymphocytes % Monocytes % Eosinophils % Basophils % Hypochromia Polychromasia Poikilocytosis Anisocytosis Microcytosis Spherocytes Fragmented RBCs Retic Count PT with INR 12.60 H INR 1.10 PTT (Actin FS) Sodium 143 Potassium 5.9 H Chloride 113 H Carbon Dioxide 20 L Anion Gap 10 BUN 29 H D Creatinine 1.3 Creat Clearance w eGFR 54.26 Random Glucose 236 H Calcium 9.2 Magnesium Total Bilirubin 0.5 D AST 50 H D ALT 58 Alkaline Phosphatase 152 H D LD Total Total Protein 7.1 D Albumin 3.3 L D Stool Occult Blood Blood Type B POSITIVE Antibody Screen Negative 04/23/17 04/23/17 04/23/17 15:36 15:36 15:36 WBC RBC Hgb Hct MCV MCH MCHC RDW Plt Count MPV Neutrophils % Lymphocytes % Monocytes % Eosinophils % Basophils % Hypochromia Polychromasia Poikilocytosis Anisocytosis Microcytosis Spherocytes Fragmented RBCs Retic Count 0.76 D PT with INR INR PTT (Actin FS) Sodium Potassium Chloride Carbon Dioxide Anion Gap BUN Creatinine Creat Clearance w eGFR Random Glucose Calcium Magnesium 1.6 L Total Bilirubin AST ALT Alkaline Phosphatase LD Total 207 Total Protein Albumin Stool Occult Blood Blood Type Antibody Screen ASSESSMENT/PLAN: This is a 71 yo M with PMH of alcoholic cirrhosis (MELD 12), IDDM, HTN, anemia, Last admitted 03/31 for upper gib, received esophageal varice banding, now presenting per PCP request due to worsening anemia and hyperkalemia. acute on chronic anemia r/o upper GIB in setting if stable alcoholic cirrhosis -esophageal banding 1 mo ago s/p upper GIB with transfusion -hgb drop 8.9 to 7.8 in 1 week; trend h/h -INR wnl, stool guaiac negative; repeat -GI consult; PPI drip, NPO for possible diagnostic endoscopy -consider non selective beta yulissa for maintenance -NS@75 -microcytic, hypochromic, may be a chronic component unrelated to bleed; Fe studies, f/u with heme Pancytopenia -platelets at baseline high 90's; may comsider FFP in acute bleed discovered -wbc 2.9 below baseline -microcytic hypochromic anemia -heme consulted Hyperkalemia -spiked t waves on ekg -may be attributable to ckd/hepatorenal -s/p sodium bicarb, calcium gluconate, insulin, kayexalate; repeat ekg, k -adjust daily kayexalate dose as needed Prerenal azotemia -BUN slightly elevated 29, creat 1.3 at baseline -GFR slightly worsened at 54 since last checked -f/u UA -IV hydration -renal consulted HTN -normotensive; hold meds IDDM -hold basal insulin because NPO -BGM, ISS FEN -NS@75 -replete mag Dispo: adm m/s Problem List - Problem (1) Hyperkalemia Code(s): E87.5 - HYPERKALEMIA (2) Pancytopenia Code(s): D61.818 - OTHER PANCYTOPENIA (3) Anemia Code(s): D64.9 - ANEMIA, UNSPECIFIED (4) Azotemia Code(s): R79.89 - OTHER SPECIFIED ABNORMAL FINDINGS OF BLOOD CHEMISTRY (5) Cirrhosis Code(s): K74.60 - UNSPECIFIED CIRRHOSIS OF LIVER (6) Diabetes mellitus Code(s): E11.9 - TYPE 2 DIABETES MELLITUS WITHOUT COMPLICATIONS (7) Esophageal varices with hemorrhage Code(s): I85.01 - ESOPHAGEAL VARICES WITH BLEEDING (8) Hepatitis Code(s): K75.9 - INFLAMMATORY LIVER DISEASE, UNSPECIFIED (9) Hypertension Code(s): I10 - ESSENTIAL (PRIMARY) HYPERTENSION (10) Hyperkalemia Code(s): E87.5 - HYPERKALEMIA Visit type - Emergency Visit Emergency Visit: Yes ED Registration Date: 04/23/17 Care time: The patient presented to the Emergency Department on the above date and was hospitalized for further evaluation of their emergent condition. - New Patient This patient is new to me today: Yes Date on this admission: 04/24/17 - Critical Care Critical Care patient: No
[2017-04-24] MEDS ORDERED: MAGNESIUM SULF 50% (8.12 MEQ/2 ML-1 GM VIAL) IVPB ONE (08:13)
[2017-04-24 08:43] LABS: BASO % 0.6 % (0-2.0); EOS % 2.7 % (0-4.5); HEMATOCRIT 24.7 % (35.4-49); HEMOGLOBIN 7.7 GM/dL (11.7-16.9); LYMPH % 35.9 % (8-40); MCH 21.6 pg (25.7-33.7); MCHC 31.2 g/dl (32.0-35.9); MEAN CELL VOLUME 69.4 fl (80-96); MEAN PLT VOLUME 9.6 fl (7.5-11.1); MONO % 6.6 % (3.8-10.2); NEUT % 54.2 % (42.8-82.8); PLATELET COUNT 97 K/MM3 (134-434); RBC 3.56 M/mm3 (4.00-5.60); RDW 21.3 % (11.9-15.9); WHITE BLOOD COUNT 2.9 K/mm3 (4.0-10.0)
[2017-04-24] MEDS ORDERED: MAGNESIUM SULFATE IN WATER 2 GM/50 ML IVPB IVPB ONE (09:00)
[2017-04-24] MEDS ORDERED: PANTOPRAZOLE SODIUM 80 MG in SODIUM CHLORIDE 100 ML IVPB SCH (09:00)
[2017-04-24 09:17] LABS: ANION GAP 11 (8-16); BLOOD UREA NITROGEN 18 mg/dL (7-18); CALCIUM 8.9 mg/dL (8.5-10.1); CHLORIDE 116 mmol/L (98-107); CO2 21 mmol/L (21-32); GLUCOSE,RANDOM 85 mg/dL (74-106); MAGNESIUM 1.3 mg/dL (1.8-2.4); POTASSIUM 4.3 mmol/L (3.5-5.1); SODIUM 148 mmol/L (136-145)
[2017-04-24 09:19] LABS: CREATININE 0.9 mg/dL (0.7-1.3); PHOSPHOROUS 3.6 mg/dL (2.5-4.9)
--- NOTE | 2017-04-24 09:43 | CONSULT ---
Consult Consult Specialty:: Hematology - History of Present Illness History of Present Illness: 71 yo M with PMH of alcoholic cirrhosis (MELD 12), IDDM, HTN, anemia, Last admitted 03/31 for upper gib, received esophageal varice banding, now presenting per PCP request due to worsening anemia and hyperkalemia. Consult requested for pancytopenia Pt seen and examined. Feels OK this morning - History Source History Provided By: Patient, Medical Record - Past Medical History Cardio/Vascular: Yes: HTN Renal/: Yes: Renal Calculi (requiring ESWL) Musculoskeletal: Yes: Chronic low back pain, Osteoarthritis, Other (neck pain) Endocrine: Yes: Diabetes Mellitus (with diabetic retinopathy requiring laser therapy) - Past Surgical History Past Surgical History: Yes: None, Colonoscopy - Alcohol/Substance Use Hx Alcohol Use: No - Smoking History Smoking history: Never smoked Have you smoked in the past 12 months: No - Social History Usual Living Arrangement: With Spouse ADL: Independent Occupation: retired cemetary worker History of Recent Travel: No Home Medications - Allergies Allergies/Adverse Reactions: Allergies Allergy/AdvReac Type Severity Reaction Status Date / Time No Known Drug Allergies Allergy Verified 04/23/17 12:59 - Home Medications Home Medications: Ambulatory Orders Glimepiride 4 mg PO DAILY 01/01/12 Metformin HCl [Glucophage] 1,000 mg PO BID 01/01/12 Terazosin HCl 2 mg PO DAILY 01/01/12 Insulin (Levemir) [Levemir Flexpen -] 25 units SQ DAILY 04/08/12 Ciprofloxacin [Cipro -] 500 mg PO BID #8 tablet 04/05/17 Lactulose 20 gm PO BID #1 ml 04/05/17 Miscellaneous Drug Not In Syst [Outpatient Lab Test] 1 each ASDIR #1 misc 08/16 Pantoprazole Sodium [Protonix] 40 mg PO BID #60 tablet. 04/05/17 Sucralfate [Carafate] 1 gm PO ACHS #120 ml 04/05/17 Family Disease History - Family Disease History Family Disease History: Diabetes: Brother, Sister, Heart Disease: Father ([place] in his 60s), Mother ([place] in her 80s), Brother Review of Systems - Review of Systems Constitutional: reports: Weakness. denies: Lethargy HENT: denies: Difficult Swallowing, Ear Discharge Neck: denies: Decreased ROM, Lumps Cardiovascular: denies: Chest Pain, Edema, Shortness of Breath Respiratory: denies: Cough, Exercise Intolerance Gastrointestinal: denies: Abdominal Pain, Bloating, Constipation Neurological: denies: No Symptoms Hematology/Lymphatic: denies: No Symptoms Physical Exam Vital Signs: Vital Signs Temperature 98.7 F 04/24/17 06:04 Pulse Rate 59 L 04/24/17 06:04 Respiratory Rate 20 04/24/17 06:04 Blood Pressure 116/59 04/24/17 06:04 O2 Sat by Pulse Oximetry (%) 99 04/24/17 03:00 Constitutional: Yes: No Distress, Calm Eyes: Yes: Conjunctiva Clear HENT: Yes: Atraumatic, Normocephalic Neck: Yes: Supple, Trachea Midline Cardiovascular: Yes: Regular Rate and Rhythm Respiratory: Yes: Regular, CTA Bilaterally Gastrointestinal: Yes: Normal Bowel Sounds, Soft, Abdomen, Obese. No: Ascites Musculoskeletal: Yes: WNL Extremities: Yes: WNL Edema: No Labs: CBC, BMP 04/24/17 08:20 04/24/17 08:20 Imaging - Results Cat Scan: Report Reviewed Problem List - Problems (1) Pancytopenia Code(s): D61.818 - OTHER PANCYTOPENIA (2) Anemia Code(s): D64.9 - ANEMIA, UNSPECIFIED (3) Cirrhosis Code(s): K74.60 - UNSPECIFIED CIRRHOSIS OF LIVER (4) Esophageal varices with hemorrhage Code(s): I85.01 - ESOPHAGEAL VARICES WITH BLEEDING Assessment/Plan Cytopenias in the setting Hepatic cirrhosis, splenomegaly in the setting of past alcohol abuse than likely a primary hematological problem. reviewed the most recent admission in detail for screening labs For One unit PRBC today GI f/u risk of HRS not ruled out
[2017-04-24] MEDS ORDERED: INSULIN DETEMIR 100 UNITS/ML MDV SQ SCH (10:00)
[2017-04-24] MEDS ORDERED: PANTOPRAZOLE 40 MG TABLET (FP) PO SCH (10:00)
--- NOTE | 2017-04-24 10:24 | EKG ---
Test Reason : Blood Pressure : / mmHG Vent. Rate : 058 BPM Atrial Rate : 058 BPM P-R Int : 168 ms QRS Dur : 092 ms QT Int : 418 ms P-R-T Axes : 061 038 056 degrees QTc Int : 410 ms SINUS BRADYCARDIA OTHERWISE NORMAL ECG WHEN COMPARED WITH ECG OF 23-APR-2017 15:54, NO SIGNIFICANT CHANGE WAS FOUND Confirmed by GRANT HINOJOSA MD ([id number]) on 04/24/2017 10:24:14 AM Referred By: Tip WILLS Confirmed By:GRANT HINOJOSA MD
[2017-04-24] MEDS: LACTULOSE 20 GM/30 ML UDC (FOR ORAL USE ONLY) PO SCH ×2 (10:52→21:11)
[2017-04-24] MEDS: PANTOPRAZOLE SODIUM 160 MG in DEXTROSE 5%-WATER - 290 ML IVPB SCH (10:52)
[2017-04-24] MEDS: SODIUM CHLORIDE 1,000 ML IV SCH ×2 (10:52→20:40)
[2017-04-24] MEDS: SUCRALFATE 1 GM/10 ML UNIT DOSE CUPS PO SCH ×3 (10:53→21:11)
--- NOTE | 2017-04-24 11:09 | CON.GI ---
Consult Consult Specialty:: GI - History of Present Illness History of Present Illness: The pt is known to GI service from prior, recent admission and OP follow up. Grade IV EV s/p banding on last admission. No ascites. Was seen as OP last week with no specific complaints. An autoimmune liver work up and screening colonoscopy were planned. In ED patient found to have K of 5.9 and Hgb of 7.8, drop from 8.9 a week ago. His Hgb baseline since last admission has been around 8.5. There is no melena, hematochezia,, henmatemesis, nausea, or vomiting. No abdominal pain. - History Source History Provided By: Patient, Medical Record Limitations to Obtaining History: No Limitations - Past Medical History Cardio/Vascular: Yes: HTN Renal/: Yes: Renal Calculi (requiring ESWL) Musculoskeletal: Yes: Chronic low back pain, Osteoarthritis, Other (neck pain) Endocrine: Yes: Diabetes Mellitus (with diabetic retinopathy requiring laser therapy) - Past Surgical History Past Surgical History: Yes: None, Colonoscopy - Alcohol/Substance Use Hx Alcohol Use: No - Smoking History Smoking history: Never smoked Have you smoked in the past 12 months: No - Social History Usual Living Arrangement: With Spouse ADL: Independent Occupation: retired cemetary worker History of Recent Travel: No Home Medications - Allergies Allergies/Adverse Reactions: Allergies Allergy/AdvReac Type Severity Reaction Status Date / Time No Known Drug Allergies Allergy Verified 04/23/17 12:59 - Home Medications Home Medications: Ambulatory Orders Glimepiride 4 mg PO DAILY 01/01/12 Metformin HCl [Glucophage] 1,000 mg PO BID 01/01/12 Terazosin HCl 2 mg PO DAILY 01/01/12 Insulin (Levemir) [Levemir Flexpen -] 25 units SQ DAILY 04/08/12 Ciprofloxacin [Cipro -] 500 mg PO BID #8 tablet 04/05/17 Lactulose 20 gm PO BID #1 ml 04/05/17 Miscellaneous Drug Not In Syst [Outpatient Lab Test] 1 each ASDIR #1 misc 08/16 Pantoprazole Sodium [Protonix] 40 mg PO BID #60 tablet. 04/05/17 Sucralfate [Carafate] 1 gm PO ACHS #120 ml 04/05/17 Family Disease History - Family Disease History Family Disease History: Diabetes: Brother, Sister, Heart Disease: Father (OR in his 60s), Mother (OR in her 80s), Brother Review of Systems Findings/Remarks: As per HPI and H&P Physical Exam-GI Vital Signs: Vital Signs Temperature 98.7 F 04/24/17 06:04 Pulse Rate 59 L 04/24/17 06:04 Respiratory Rate 20 04/24/17 06:04 Blood Pressure 116/59 04/24/17 06:04 O2 Sat by Pulse Oximetry (%) 99 04/24/17 03:00 Constitutional: Yes: Well Nourished, No Distress, Calm Eyes: Yes: Conjunctiva Clear HENT: Yes: Atraumatic Neck: Yes: Supple Cardiovascular: Yes: Regular Rate and Rhythm Respiratory: Yes: Regular Gastrointestinal Inspection: Yes: Distention ...Palpate: Yes: Soft. No: Firm/Rigid, Guarding, Tenderness ...Percussion: No: Fluid Wave Neurological: Yes: Alert, Oriented Labs: CBC, BMP 04/24/17 08:20 04/24/17 08:20 INR, PTT INR 1.10 (0.82-1.09) 04/23/17 15:36 CBCD WBC 2.9 K/mm3 (4.0-10.0) L 04/24/17 08:20 RBC 3.56 M/mm3 (4.00-5.60) L 04/24/17 08:20 Hgb 7.7 GM/dL (11.7-16.9) L 04/24/17 08:20 Hct 24.7 % (35.4-49) L 04/24/17 08:20 MCV 69.4 fl (80-96) L 04/24/17 08:20 MCHC 31.2 g/dl (32.0-35.9) L 04/24/17 08:20 RDW 21.3 % (11.9-15.9) H 04/24/17 08:20 Plt Count 97 K/MM3 (134-434) L 04/24/17 08:20 MPV 9.6 fl (7.5-11.1) 04/24/17 08:20 CMP Sodium 148 mmol/L (136-145) H 04/24/17 08:20 Potassium 4.3 mmol/L (3.5-5.1) D 04/24/17 08:20 Chloride 116 mmol/L (98-107) H 04/24/17 08:20 Carbon Dioxide 21 mmol/L (21-32) 04/24/17 08:20 Anion Gap 11 (8-16) 04/24/17 08:20 BUN 18 mg/dL (7-18) D 04/24/17 08:20 Creatinine 0.9 mg/dL (0.7-1.3) D 04/24/17 08:20 Creat Clearance w eGFR 54.26 (>60) 04/23/17 15:36 Calcium 8.9 mg/dL (8.5-10.1) 04/24/17 08:20 Total Bilirubin 0.5 mg/dL (0.2-1.0) D 04/23/17 15:36 AST 50 U/L (15-37) H D 04/23/17 15:36 ALT 58 U/L (12-78) 04/23/17 15:36 Alkaline Phosphatase 152 U/L (45-117) H D 04/23/17 15:36 Total Protein 7.1 g/dl (6.4-8.2) D 04/23/17 15:36 Albumin 3.3 g/dl (3.4-5.0) L D 04/23/17 15:36 Abnormal Lab Results 04/23/17 04/23/17 04/23/17 15:36 15:36 15:36 WBC 2.9 L D RBC 3.68 L Hgb 7.8 L D Hct 26.2 L MCV 71.1 L MCH 21.2 L MCHC 29.8 L RDW 21.6 H Plt Count 96 L D PT with INR PTT (Actin FS) 26.5 L Sodium Potassium Chloride Carbon Dioxide BUN Random Glucose Magnesium AST Alkaline Phosphatase Albumin Crossmatch See Detail 04/23/17 04/23/17 04/23/17 15:36 15:36 15:36 WBC RBC Hgb Hct MCV MCH MCHC RDW Plt Count PT with INR 12.60 H PTT (Actin FS) Sodium Potassium 5.9 H Chloride 113 H Carbon Dioxide 20 L BUN 29 H D Random Glucose 236 H Magnesium 1.6 L AST 50 H D Alkaline Phosphatase 152 H D Albumin 3.3 L D Crossmatch 04/24/17 04/24/17 08:20 08:20 WBC 2.9 L RBC 3.56 L Hgb 7.7 L Hct 24.7 L MCV 69.4 L MCH 21.6 L MCHC 31.2 L RDW 21.3 H Plt Count 97 L PT with INR PTT (Actin FS) Sodium 148 H Potassium Chloride 116 H Carbon Dioxide BUN Random Glucose Magnesium 1.3 L AST Alkaline Phosphatase Albumin Crossmatch Imaging - Results Cat Scan: Report Reviewed (thinkened colon 03/31/17) Problem List - Problems (1) Hyperkalemia Code(s): E87.5 - HYPERKALEMIA (2) Anemia Code(s): D64.9 - ANEMIA, UNSPECIFIED (3) Cirrhosis Code(s): K74.60 - UNSPECIFIED CIRRHOSIS OF LIVER (4) Diabetes mellitus Code(s): E11.9 - TYPE 2 DIABETES MELLITUS WITHOUT COMPLICATIONS (5) Esophageal varices with hemorrhage Code(s): I85.01 - ESOPHAGEAL VARICES WITH BLEEDING (6) GI hemorrhage Code(s): K92.2 - GASTROINTESTINAL HEMORRHAGE, UNSPECIFIED (7) Abnormal CT of the abdomen Code(s): R93.5 - ABN FINDINGS ON DX IMAGING OF ABD REGIONS, INC RETROPERITON Assessment/Plan A 71 yom with liver cirrhosis of, likely, metabolic etiology. Autoimmune workup in progress. Known Grade 4 EV banded last months by GI corporate concierge, no ascites. On lactulose and PPI at home. No signs of encephalopathy. Anemia in setting of hemoccult negative stools. No overt GI bleeding. Thickened colon on CT 03/31/17 Correct electrolytes Continue the PPI Monitor Hgb and stools for melena Plan colonoscopy once electrolytes OK
[2017-04-24] MEDS: INSULIN SLIDING SCALE (NOVOLOG) 1 VIAL SQ SCH ×2 (11:43→16:57)
--- NOTE | 2017-04-24 14:04 | CONSULT ---
Consult Consult Specialty:: Nephrology Referred by:: Dr. Delarosa Reason for Consultation:: Hyperkalemia - History of Present Illness Chief Complaint: Hyperkalemia History of Present Illness: 71M with history of HTN DM alcoholic liver cirrhosis and esophageal varices s/p EGD with banding on recent admission 2 weeks ago presents to the ED after outpatient labs were noted to show hyperkalemia and worsening anemia. Per GI note an outpatient autoimmune liver work up and screening colonoscopy were planned. In ED patient found to have K of 5.9 and Hgb of 7.8, drop from 8.9 a week ago. History taken from daughter who states Dr. Vázquez sent patient to Dr. Reyes the PCP for evaluation due to a drop in Hb. Dr Reyes was trending his labs and noted hyperkalemia and worsening anemia and recommended he go to the ED for transfusion and evaluation. He denies melena, hematochezia, , hematemesis, nausea, or vomiting. No abdominal pain. He denies fevers chills chest pain or shortness of breath. - History Source History Provided By: Patient, Family Member Limitations to Obtaining History: Language Barrier - Past Medical History Cardio/Vascular: Yes: HTN Renal/: Yes: Renal Calculi (requiring ESWL) Musculoskeletal: Yes: Chronic low back pain, Osteoarthritis, Other (neck pain) Endocrine: Yes: Diabetes Mellitus (with diabetic retinopathy requiring laser therapy) - Past Surgical History Past Surgical History: Yes: None Additional Surgical History: EGD - Alcohol/Substance Use Hx Alcohol Use: No - Smoking History Smoking history: Never smoked Have you smoked in the past 12 months: No - Social History Usual Living Arrangement: With Spouse ADL: Independent Occupation: retired cemetary worker History of Recent Travel: No Home Medications - Allergies Allergies/Adverse Reactions: Allergies Allergy/AdvReac Type Severity Reaction Status Date / Time No Known Drug Allergies Allergy Verified 04/23/17 12:59 - Home Medications Home Medications: Ambulatory Orders Glimepiride 4 mg PO DAILY 01/01/12 Metformin HCl [Glucophage] 1,000 mg PO BID 01/01/12 Terazosin HCl 2 mg PO DAILY 01/01/12 Insulin (Levemir) [Levemir Flexpen -] 25 units SQ DAILY 04/08/12 Ciprofloxacin [Cipro -] 500 mg PO BID #8 tablet 04/05/17 Lactulose 20 gm PO BID #1 ml 04/05/17 Miscellaneous Drug Not In Syst [Outpatient Lab Test] 1 each ASDIR #1 misc 08/16 Pantoprazole Sodium [Protonix] 40 mg PO BID #60 tablet. 04/05/17 Sucralfate [Carafate] 1 gm PO ACHS #120 ml 04/05/17 Family Disease History - Family Disease History Family Disease History: Diabetes: Brother, Sister, Heart Disease: Father ([place] in his 60s), Mother ([place] in her 80s), Brother Review of Systems - Review of Systems Constitutional: reports: No Symptoms Eyes: reports: No Symptoms HENT: reports: No Symptoms Neck: reports: No Symptoms Cardiovascular: reports: No Symptoms Respiratory: reports: No Symptoms Gastrointestinal: denies: Abdominal Pain, Rectal Bleeding, Vomiting Genitourinary: reports: No Symptoms Neurological: reports: No Symptoms Endocrine: reports: No Symptoms Physical Exam Vital Signs: Vital Signs Temperature 98.7 F 04/24/17 06:04 Pulse Rate 59 L 04/24/17 06:04 Respiratory Rate 20 04/24/17 06:04 Blood Pressure 116/59 04/24/17 06:04 O2 Sat by Pulse Oximetry (%) 99 04/24/17 03:00 Constitutional: Yes: Well Nourished, Other (sitting up in bed eating) Eyes: Yes: Other (conjunctial pallor) HENT: Yes: Atraumatic Neck: Yes: Supple Cardiovascular: Yes: Regular Rate and Rhythm Respiratory: Yes: CTA Bilaterally Gastrointestinal: Yes: Soft Renal/: No: CVA Tenderness - Left, CVA Tenderness - Right Psychiatric: Yes: Alert Labs: CBC, BMP 04/24/17 08:20 04/24/17 08:20 Imaging - Results EKG: Report Reviewed, Image Reviewed Assessment/Plan 71M who presents to the ED at the direction of his PCP and garnishment specialist with an acute on chronic blood loss anemia and hyperkalemia Problem List: Hyperkalemia with EKG changes Acute blood loss anemia esophageal varices HTN DM Alcoholic liver cirrhosis Plan: Patient's hyperkalemia improved with treatment continue to trend BMP trend renal function transfuse PRN currently getting 1 unit PRBCs Treat hyperkalemia PRN GI evaluation Will follow Case discussed with attending Dr. Day
--- NOTE | 2017-04-24 15:07 | PN ---
Teaching Attending Note Name of Resident: Ashley Jefferson ATTENDING PHYSICIAN STATEMENT I saw and evaluated the patient. I reviewed the resident's note and discussed the case with the resident. I agree with the resident's findings and plan as documented. SUBJECTIVE:71 yo M with PMH alcoholic cirrhosis, DM, HTN anemia, and esophageal varices with recent banding was sent to ER by his PMD for worsening anemia and hyperkalemia that was seen on repeat labs. as per pt he has been asymptomatic. denies CP, SOB, fever, chills, fatigue, dizzyness, hemoptysis, hemtemsis, BRBPR or melena. OBJECTIVE: Last Vital Signs Temp Pulse Resp BP Pulse Ox 98.8 F 54 L 20 136/56 99 04/24/17 14:33 04/24/17 14:33 04/24/17 14:33 04/24/17 14:33 04/24/17 03:00 General lethargic and pale CV S1 S2 RRR no murmur/rub/gallop Lungs CTA B/L no wheezing/rales/rhonchi Abdomen soft NT/ND no rebound or guarding Extremities no pedal edema ASSESSMENT AND PLAN: 71 yo M with PMH alcoholic cirrhosis, DM, HTN, anemia, and esophageal varices with recent banding was sent to ER by his PMD for worsening anemia and hyperkalemia 1. Possible Upper GI bleed- concern for esophageal variceal bleeding. 2 bore IV access, NPO, IVF, PPI ggt, trend Hgb Q8H. Consult Gi for repeat EGD. unclear why non selective beta yulissa was not started on recent admission, possible due to relative bradycardia. will need to clarify with GI 2. Hyperkalemia- s/p calcium gluconate and kayexylate. with peaked T waves on EKG. will repeat labs. nephrology consulted for possible persistent hyperkalemia may require HD if does not respond to therapy 3. Pancytopenia- likely due to cirrhosis. stat repeat labs sent. if remains thrombocytopenic will need to txn platelets if remains low in setting of active bleed. send iron studies. hematology consulted. 4. ANISHA- likely from dehydration however concern for developing hepatorenal syndrome. on IVF. will repeat. avoid nephrotoxic agents. nephrology consulted 5. Hypomagnesemia- Mg 2g IV 6. DM- hold oral agents. ISS. reduce night time dose of levemir 7. HTN- controlled. hold oral agents for now. BP controlled 8. Alcoholic cirrhosis- MELD 12. no signs of ascites. hold lactulose at this time. not on other medications 9. DVT ppx- SCD. hold pharmacologic anticoagulating in setting of likely GI bleed
--- NOTE | 2017-04-24 17:25 | PN ---
Teaching Attending Note Name of Resident: Delio Yao (Nephrology) ATTENDING PHYSICIAN STATEMENT I saw and evaluated the patient. I reviewed the resident's note and discussed the case with the resident. I agree with the resident's findings and plan as documented. Nephrology Consult Pt is a 71 year old male with hx of liver cirrhosis known to me from a previous admission who was sent in for anemia and hyperkalemia. I was called to evaluate him for follow up. Current Medications Generic Name Dose Route Start Last Admin Trade Name Freq PRN Reason Stop Dose Admin Sodium Chloride 1,000 mls @ 75 mls/hr 04/24/17 09:00 04/24/17 10:52 Normal Saline - IV 75 mls/hr ASDIR JELENA Administration Pantoprazole Sodium 160 mg/ 290 mls @ 14.5 mls/hr 04/24/17 10:00 04/24/17 10: 52 Dextrose IVPB 14.5 mls/hr Q20H JELENA Administration Insulin Aspart 1 vial 04/24/17 11:00 04/24/17 16:57 Novolog Vial Sliding Scale - SQ 4 units TIDAC JELENA Administration Protocol Lactulose 20 gm 04/24/17 10:00 04/24/17 10:52 Cephulac (Oral Use) PO 20 gm BID JELENA Administration Sucralfate 1 gm 04/24/17 11:00 04/24/17 16:57 Carafate Oral Suspension - PO 1 gm ACHS JELENA Administration Terazosin HCl 2 mg 04/24/17 22:00 Hytrin - PO HS JELENA Last Vital Signs Temp Pulse Resp BP Pulse Ox 98.8 F 54 L 20 136/56 99 04/24/17 14:33 04/24/17 14:33 04/24/17 14:33 04/24/17 14:33 04/24/17 03:00 Laboratory Tests 04/05/17 04/23/17 04/23/17 08:00 15:36 15:36 WBC Hgb 7.8 L D Sodium 143 Potassium 5.9 H Anion Gap 10 BUN 29 H D Creatinine 1.1 1.3 Magnesium 04/24/17 04/24/17 08:20 08:20 WBC 2.9 L Hgb 7.7 L Sodium 148 H Potassium 4.3 D Anion Gap 11 BUN Creatinine 0.9 D Magnesium 1.3 L cardio s1s2 pulm clear GI soft ext neg edema neuro awake Impression 1. CKD 2. hyperkalemia 3. hypernatremia 4. GI bleed 5. anemia 6. DM 7. HTN 8. liver cirrhosis Plan - potassium is improved - replace mag - low potassium diet - encourage free water intake - will hold off fluids as he is getting blood - repeat labs in am Dr Day
[2017-04-24] MEDS ORDERED: INSULIN (NOVOLOG) ASPART 100 UNITS/ML 10ML VIAL ONE (18:25)
[2017-04-24 20:19] LABS: HEMATOCRIT 29.4 % (35.4-49); HEMOGLOBIN 9.3 GM/dL (11.7-16.9); MCH 22.8 pg (25.7-33.7); MCHC 31.6 g/dl (32.0-35.9); MEAN CELL VOLUME 72.2 fl (80-96); MEAN PLT VOLUME 10.6 fl (7.5-11.1); PLATELET COUNT 106 K/MM3 (134-434); RBC 4.07 M/mm3 (4.00-5.60); WHITE BLOOD COUNT 3.4 K/mm3 (4.0-10.0)
[2017-04-24] MEDS ORDERED: PT OWN MED DRAWER 7, Y5N ONE (21:10)
[2017-04-24 23:57] LABS: URINE APPEARANCE CLEAR; URINE BILIRUBIN NEGATIVE (NEGATIVE); URINE BLOOD NEGATIVE (NEGATIVE); URINE COLOR STRAW; URINE GLUCOSE (UA) 1+ (NEGATIVE); URINE KETONE NEGATIVE (NEGATIVE); URINE LEUK ESTERASE NEGATIVE (NEGATIVE); URINE NITRITE NEGATIVE (NEGATIVE); URINE PROTEIN NEGATIVE (NEGATIVE); URINE UROBILINOGEN NEGATIVE mg/dL (0.2-1.0)
[2017-04-25] MEDS ORDERED: PT OWN MED DRAWER 7, Y5N ONE (06:30)
[2017-04-25] MEDS: SUCRALFATE 1 GM/10 ML UNIT DOSE CUPS PO SCH ×4 (06:51→21:21)
[2017-04-25] MEDS: INSULIN SLIDING SCALE (NOVOLOG) 1 VIAL SQ SCH ×3 (06:51→17:58)
[2017-04-25] MEDS: PANTOPRAZOLE SODIUM 160 MG in DEXTROSE 5%-WATER - 290 ML IVPB SCH (08:40)
--- NOTE | 2017-04-25 08:47 | PN ---
Physical Exam: SUBJECTIVE: Patient seen and examined by me this AM - No major overnight events. Received one unit prbcs since yesterday. Denies any fever/chills, cough, SOB, CP, N/V, abdominal pain, rashes, hematochezia, melena, hemoptysis, hematuria, hematemesis. - Going for EGD/colonoscopy tomorrow with Dr. Vázquez. NPO after midnight OBJECTIVE: Vital Signs Intake & Output 04/22/17 04/23/17 04/24/17 04/25/17 23:59 23:59 23:59 23:59 Intake Total 1477 2124 Balance 1477 2124 Weight 84.538 kg 87.09 kg Period Temp Pulse Resp BP Sys/Aden Pulse Ox Last 24 Hr 97.9 F-98.8 F 54-63 18-20 124-138/46-59 97-98 GENERAL: The patient is awake, alert, and fully oriented, in no acute distress. HEAD: Normal with no signs of trauma. EYES: PERRL, extraocular movements intact, sclera anicteric, conjunctiva clear. No ptosis. ENT: Ears normal, nares patent, oropharynx clear without exudates, moist mucous membranes. NECK: JVD 4Cm below mandible.Trachea midline, full range of motion, supple. LUNGS: Breath sounds equal, clear to auscultation bilaterally, no wheezes, no crackles, no accessory muscle use. HEART: Bradycardic. Regular rate and rhythm, S1, S2 without murmur, rub or gallop. ABDOMEN: Soft, nontender, nondistended, normoactive bowel sounds, no guarding, no rebound, shrunken liver, splenomegaly noted. no masses. EXTREMITIES: 2+ pulses, warm, well-perfused, no edema. NEUROLOGICAL: Cranial nerves II through XII grossly intact. Normal speech, gait not observed. PSYCH: Normal mood, normal affect. SKIN: Warm, dry, normal turgor, no rashes or lesions noted Rectal: No internal/external hemorrhoids. No lacerations or masses noted. No blood in stool. Laboratory Results - last 24 hr CBC, BMP 04/25/17 20:00 04/25/17 08:00 04/23/17 04/23/17 04/24/17 15:36 20:15 08:20 WBC 2.9 L RBC 3.56 L Hgb 7.7 L Hct 24.7 L MCV 69.4 L MCH 21.6 L MCHC 31.2 L RDW 21.3 H Plt Count 97 L MPV 9.6 Neutrophils % 54.2 Lymphocytes % 35.9 D Monocytes % 6.6 Eosinophils % 2.7 D Basophils % 0.6 Haptoglobin 97 Sodium Potassium Chloride Carbon Dioxide Anion Gap BUN Creatinine POC Glucometer Random Glucose Calcium Phosphorus Magnesium Urine Color Urine Appearance Urine pH Ur Specific Warren Urine Protein Urine Glucose (UA) Urine Ketones Urine Blood Urine Nitrite Urine Bilirubin Urine Urobilinogen Ur Leukocyte Esterase Blood Type B POSITIVE Antibody Screen Negative Crossmatch See Detail 04/24/17 04/24/17 04/24/17 08:20 08:27 11:40 WBC RBC Hgb Hct MCV MCH MCHC RDW Plt Count MPV Neutrophils % Lymphocytes % Monocytes % Eosinophils % Basophils % Haptoglobin Sodium 148 H Potassium 4.3 D Chloride 116 H Carbon Dioxide 21 Anion Gap 11 BUN 18 D Creatinine 0.9 D POC Glucometer 210 Random Glucose 85 D Calcium 8.9 Phosphorus 3.6 D Cancelled Magnesium 1.3 L Cancelled Urine Color Urine Appearance Urine pH Ur Specific Warren Urine Protein Urine Glucose (UA) Urine Ketones Urine Blood Urine Nitrite Urine Bilirubin Urine Urobilinogen Ur Leukocyte Esterase Blood Type Antibody Screen Crossmatch 04/24/17 04/24/17 04/24/17 16:56 19:25 23:00 WBC 3.4 L RBC 4.07 Hgb 9.3 L D Hct 29.4 L D MCV 72.2 L MCH 22.8 L MCHC 31.6 L RDW 23.0 H Plt Count 106 L MPV 10.6 D Neutrophils % Lymphocytes % Monocytes % Eosinophils % Basophils % Haptoglobin Sodium Potassium Chloride Carbon Dioxide Anion Gap BUN Creatinine POC Glucometer 230 Random Glucose Calcium Phosphorus Magnesium Urine Color Straw Urine Appearance Clear Urine pH 5.0 Ur Specific Warren 1.009 Urine Protein Negative Urine Glucose (UA) 1+ H Urine Ketones Negative Urine Blood Negative Urine Nitrite Negative Urine Bilirubin Negative Urine Urobilinogen Negative Ur Leukocyte Esterase Negative Blood Type Antibody Screen Crossmatch 04/25/17 06:27 WBC RBC Hgb Hct MCV MCH MCHC RDW Plt Count MPV Neutrophils % Lymphocytes % Monocytes % Eosinophils % Basophils % Haptoglobin Sodium Potassium Chloride Carbon Dioxide Anion Gap BUN Creatinine POC Glucometer 202 Random Glucose Calcium Phosphorus Magnesium Urine Color Urine Appearance Urine pH Ur Specific Warren Urine Protein Urine Glucose (UA) Urine Ketones Urine Blood Urine Nitrite Urine Bilirubin Urine Urobilinogen Ur Leukocyte Esterase Blood Type Antibody Screen Crossmatch Active Medications Generic Name Dose Route Start Last Admin Trade Name Selam PRN Reason Stop Dose Admin Sodium Chloride 1,000 mls @ 75 mls/hr 04/24/17 09:00 04/24/17 20:40 Normal Saline - IV 75 mls/hr ASDIR JELENA Administration Pantoprazole Sodium 160 mg/ 290 mls @ 14.5 mls/hr 04/24/17 10:00 04/25/17 08: 40 Dextrose IVPB 14.5 mls/hr Q20H JELENA Administration Insulin Aspart 1 vial 04/24/17 11:00 04/25/17 06:51 Novolog Vial Sliding Scale - SQ 4 units TIDAC JELENA Administration Protocol Lactulose 20 gm 04/24/17 10:00 04/24/17 21:11 Cephulac (Oral Use) PO 20 gm BID JELENA Administration Sucralfate 1 gm 04/24/17 11:00 04/25/17 06:51 Carafate Oral Suspension - PO 1 gm ACHS JELENA Administration Terazosin HCl 2 mg 04/24/17 22:00 Hytrin - PO HS JELENA No micro EKG 04/25 - NSR, NAD, rate 64, qtc 430, peaked twaves in v3-v6, II still. ASSESSMENT/PLAN: 71 yo M with PMH of alcoholic cirrhosis (MELD 12), IDDM, HTN, anemia, Last admitted 03/31 for upper gib, received esophageal varice banding, now presenting per PCP request due to worsening anemia and hyperkalemia. #acute on chronic anemia - must r/o UGIB, given hx of varices, cirrhosis; esophageal banding one month ago -Trend H/H -INR nrml, FOBT neg; repeat -GI consulted, colonoscopy tomorrow, NPO aftermidnigth, bowel prep tonight - PPI BID IV -Restart BB after procedure; confirm with GI -IVFs stopped as BP stable -microcytic, hypochromic anemia - f/u iron studies -sucralfate #Hyperkalemia - possible element of hepatorenal syndrome; K 4.3 this AM -still w/ peaked TWs on EKG 04/25 AM -s/p sodium bicarb, calcium gluconate, insulin, kayexalate -Daily BMPs, trend #Pancytopenia -platelets at baseline high 90's; may comsider FFP in acute bleed discovered -wbc 2.9 below baseline -microcytic hypochromic anemia -heme consulted #Prerenal azotemia- Cr 1.3 at baseline, BUN 29; GFR decreased at 54 -UA normal -stopped IVFs as BP stable -renal consulted - given 2 units of mag for hypoMag #HTN -c/w hytrin - monitor BP IDDM -restart levemir 25u in AM -BGM, ISS FEN -PO hydartion -Daily BMPs, mg - NPO after midnight for EGD w/ Dr. Vázquez Dispo: adm m/s Plan discussed with Dr. Isaura Alcala, PGY1 Visit type - Emergency Visit Emergency Visit: Yes ED Registration Date: 04/23/17 Care time: The patient presented to the Emergency Department on the above date and was hospitalized for further evaluation of their emergent condition. - New Patient This patient is new to me today: Yes Date on this admission: 04/26/17 - Critical Care Critical Care patient: No - Discharge Referral Referred to [facility] Med [facility].C[facility] No
[2017-04-25 09:07] LABS: HEMATOCRIT 30.8 % (35.4-49); HEMOGLOBIN 9.5 GM/dL (11.7-16.9); MCH 22.2 pg (25.7-33.7); MCHC 30.9 g/dl (32.0-35.9); MEAN PLT VOLUME 10.4 fl (7.5-11.1); PLATELET COUNT 102 K/MM3 (134-434); RBC 4.28 M/mm3 (4.00-5.60); RDW 23.1 % (11.9-15.9); WHITE BLOOD COUNT 3.5 K/mm3 (4.0-10.0)
[2017-04-25 09:09] LABS: INR 1.17 (0.82-1.09); PROTHROMBIN TIME (PATIENT) 13.2 SEC (9.98-11.88)
[2017-04-25 09:26] LABS: PHOSPHOROUS 2.8 mg/dL (2.5-4.9)
[2017-04-25 09:29] LABS: ANION GAP 12 (8-16); BLOOD UREA NITROGEN 13 mg/dL (7-18); CALCIUM 8.3 mg/dL (8.5-10.1); CHLORIDE 111 mmol/L (98-107); CO2 21 mmol/L (21-32); GLUCOSE,RANDOM 176 mg/dL (74-106); MAGNESIUM 1.4 mg/dL (1.8-2.4); POTASSIUM 4.3 mmol/L (3.5-5.1); SODIUM 144 mmol/L (136-145)
[2017-04-25 09:31] LABS: CREATININE 1.1 mg/dL (0.7-1.3); LDH 161 U/L (87-241)
--- NOTE | 2017-04-25 10:29 | EKG ---
Test Reason : Blood Pressure : / mmHG Vent. Rate : 064 BPM Atrial Rate : 064 BPM P-R Int : 180 ms QRS Dur : 080 ms QT Int : 418 ms P-R-T Axes : 057 031 050 degrees QTc Int : 431 ms NORMAL SINUS RHYTHM NORMAL ECG WHEN COMPARED WITH ECG OF 24-APR-2017 09:07, NO SIGNIFICANT CHANGE WAS FOUND Confirmed by CECILIA STRATTON MD ([id number]) on 04/25/2017 10:29:21 AM Referred By: Confirmed By:CECILIA STRATTON MD
[2017-04-25] MEDS ORDERED: MAGNESIUM SULF 50% (8.12 MEQ/2 ML-1 GM VIAL) IVPB ONE (10:47)
--- NOTE | 2017-04-25 10:49 | PN ---
Progress Note, Physician History of Present Illness: patient seen and examined at bedside ambulated with Physical therapy this morning and did well without symptoms denies bloody bowel movements - Current Medication List Current Medications: Active Medications Sodium Chloride (Normal Saline -) 1,000 mls @ 75 mls/hr IV ASDIR [facility] Last Admin: 04/24/17 20:40 Dose: 75 mls/hr Pantoprazole Sodium 160 mg/ (Dextrose) 290 mls @ 14.5 mls/hr IVPB Q20H [facility] Last Admin: 04/25/17 08:40 Dose: 14.5 mls/hr Insulin Aspart (Novolog Vial Sliding Scale -) 1 vial SQ TIDAC [facility] PRN Reason: Protocol Last Admin: 04/25/17 06:51 Dose: 4 units Lactulose (Cephulac (Oral Use)) 20 gm PO BID [facility] Last Admin: 04/24/17 21:11 Dose: 20 gm Magnesium Sulfate (Magnesium Sulfate) 2 gm IVPB ONCE ONE Stop: 04/25/17 10:48 Sucralfate (Carafate Oral Suspension -) 1 gm PO ACHS [facility] Last Admin: 04/25/17 06:51 Dose: 1 gm Terazosin HCl (Hytrin -) 2 mg PO HS [facility] - Objective Vital Signs: Vital Signs Temperature 98.7 F 04/25/17 10:00 Pulse Rate 62 04/25/17 10:00 Respiratory Rate 16 04/25/17 10:00 Blood Pressure 153/54 04/25/17 10:00 O2 Sat by Pulse Oximetry (%) 100 04/25/17 09:00 Constitutional: Yes: Well Nourished, Other (sitting up in bed eating) HENT: Yes: Atraumatic Neck: Yes: Supple Cardiovascular: Yes: Regular Rate and Rhythm Respiratory: Yes: CTA Bilaterally Gastrointestinal: Yes: Soft Renal/: No: CVA Tenderness - Left, CVA Tenderness - Right Psychiatric: Yes: Alert Labs: CBC, BMP 04/25/17 07:30 04/25/17 08:00 INR, PTT INR 1.17 (0.82-1.09) H 04/25/17 08:00 Assessment/Plan 71M who presents to the ED at the direction of his PCP and family protection specialist with an acute on chronic blood loss anemia and hyperkalemia Problem List: Hyperkalemia with EKG changes Acute blood loss anemia esophageal varices HTN DM Alcoholic liver cirrhosis hypomagnesemia Plan: Patient's hyperkalemia improved with treatment will give 2gm magnesium continue to trend BMP trend renal function transfuse PRN s/p 1 unit PRBCs yesterday with appropriate response-Hb stable for 2 readings trend CBC per primary team and GI Treat hyperkalemia PRN GI evaluation noted can stop IVF Will follow Case discussed with attending Dr. Day
[2017-04-25] MEDS: LACTULOSE 20 GM/30 ML UDC (FOR ORAL USE ONLY) PO SCH ×2 (11:13→21:21)
[2017-04-25] MEDS: SODIUM CHLORIDE 1,000 ML IV SCH (11:14)
[2017-04-25] MEDS ORDERED: MAGNESIUM SULFATE IN WATER 2 GM/50 ML IVPB IVPB ONE (11:20)
--- NOTE | 2017-04-25 14:02 | PN ---
Progress Note, Physician History of Present Illness: No events. Comfortable. Family at bedside. No melena, hematochezia, hematememsis , vomiting reported. - Current Medication List Current Medications: Active Medications Sodium Chloride (Normal Saline -) 1,000 mls @ 75 mls/hr IV ASDIR [facility] Last Admin: 04/25/17 11:14 Dose: Not Given Pantoprazole Sodium 160 mg/ (Dextrose) 290 mls @ 14.5 mls/hr IVPB Q20H [facility] Last Admin: 04/25/17 08:40 Dose: 14.5 mls/hr Insulin Aspart (Novolog Vial Sliding Scale -) 1 vial SQ TIDAC [facility] PRN Reason: Protocol Last Admin: 04/25/17 12:44 Dose: 8 units Insulin Detemir (Levemir Vial) 25 units SQ AM JELENA Lactulose (Cephulac (Oral Use)) 20 gm PO BID [facility] Last Admin: 04/25/17 11:13 Dose: 20 gm Sucralfate (Carafate Oral Suspension -) 1 gm PO ACHS [facility] Last Admin: 04/25/17 11:13 Dose: 1 gm Terazosin HCl (Hytrin -) 2 mg PO HS [facility] - Objective Vital Signs: Vital Signs Temperature 98.7 F 04/25/17 10:00 Pulse Rate 62 04/25/17 10:00 Respiratory Rate 16 04/25/17 10:00 Blood Pressure 153/54 04/25/17 10:00 O2 Sat by Pulse Oximetry (%) 100 04/25/17 09:00 Constitutional: Yes: Well Nourished, No Distress, Calm, Pallor Neurological: Yes: Alert, Oriented Labs: CBC, BMP 04/25/17 07:30 04/25/17 08:00 INR, PTT INR 1.17 (0.82-1.09) H 04/25/17 08:00 Abnormal Lab Results 04/24/17 04/24/17 04/25/17 19:25 23:00 07:30 WBC 3.4 L 3.5 L Hgb 9.3 L D 9.5 L Hct 29.4 L D 30.8 L MCV 72.2 L 72.0 L MCH 22.8 L 22.2 L MCHC 31.6 L 30.9 L RDW 23.0 H 23.1 H Plt Count 106 L 102 L PT with INR INR Chloride Random Glucose Calcium Magnesium Ferritin Urine Glucose (UA) 1+ H 04/25/17 04/25/17 08:00 08:00 WBC Hgb Hct MCV MCH MCHC RDW Plt Count PT with INR 13.20 H INR 1.17 H Chloride 111 H Random Glucose 176 H D Calcium 8.3 L Magnesium 1.4 L Ferritin 16.081 L Urine Glucose (UA) Problem List - Problems (1) Hyperkalemia Code(s): E87.5 - HYPERKALEMIA (2) Anemia Code(s): D64.9 - ANEMIA, UNSPECIFIED (3) Cirrhosis Code(s): K74.60 - UNSPECIFIED CIRRHOSIS OF LIVER (4) Diabetes mellitus Code(s): E11.9 - TYPE 2 DIABETES MELLITUS WITHOUT COMPLICATIONS (5) Esophageal varices with hemorrhage Code(s): I85.01 - ESOPHAGEAL VARICES WITH BLEEDING (6) GI hemorrhage Code(s): K92.2 - GASTROINTESTINAL HEMORRHAGE, UNSPECIFIED (7) Abnormal CT of the abdomen Code(s): R93.5 - ABN FINDINGS ON DX IMAGING OF ABD REGIONS, INC RETROPERITON Assessment/Plan Significant anemia with melena at home. History of esophageal varices, banded recently. Thickened distal colon on CT reevaluate for upper GI bleed, ? recurrent varices, Plan EGD and colonocpy tomorrow Clear liquid diet today discussed with the patient
--- NOTE | 2017-04-25 14:49 | PN ---
Teaching Attending Note Name of Resident: Delio Yao (Nephrology) ATTENDING PHYSICIAN STATEMENT I saw and evaluated the patient. I reviewed the resident's note and discussed the case with the resident. I agree with the resident's findings and plan as documented. Renal Follow Up Pt seen and examined at bedside. He is awake and alert. He has no complaints. Current Medications Generic Name Dose Route Start Last Admin Trade Name Selam PRN Reason Stop Dose Admin Bisacodyl 20 mg 04/25/17 15:00 Dulcolax - PO 04/25/17 15:01 ONCE ONE Sodium Chloride 1,000 mls @ 75 mls/hr 04/24/17 09:00 04/25/17 11:14 Normal Saline - IV Not Given ASDIR JELENA Pantoprazole Sodium 160 mg/ 290 mls @ 14.5 mls/hr 04/24/17 10:00 04/25/17 08: 40 Dextrose IVPB 14.5 mls/hr Q20H JELENA Administration Insulin Aspart 1 vial 04/24/17 11:00 04/25/17 12:44 Novolog Vial Sliding Scale - SQ 8 units TIDAC JELENA Administration Protocol Insulin Detemir 25 units 04/26/17 07:00 Levemir Vial SQ AM JELENA Lactulose 20 gm 04/24/17 10:00 04/25/17 11:13 Cephulac (Oral Use) PO 20 gm BID JELENA Administration Polyethylene Glycol/Electrolytes 4,000 ml 04/25/17 18:00 Golytely Solution - PO 04/25/17 18:01 ONCE ONE Sucralfate 1 gm 04/24/17 11:00 04/25/17 11:13 Carafate Oral Suspension - PO 1 gm ACHS JELENA Administration Terazosin HCl 2 mg 04/24/17 22:00 Hytrin - PO HS JELENA Last Vital Signs Temp Pulse Resp BP Pulse Ox 98.2 F 70 20 135/58 100 04/25/17 14:00 04/25/17 14:00 04/25/17 14:00 04/25/17 14:00 04/25/17 09:00 Laboratory Tests 04/25/17 08:00 Sodium 144 Potassium 4.3 Chloride 111 H Creatinine 1.1 D Magnesium 1.4 L Ferritin 16.081 L cardio s1s2 pulm clear GI soft ext neg edema neuro awake Impression 1. CKD 2. hyperkalemia 3. hypernatremia 4. GI bleed 5. anemia 6. DM 7. HTN 8. liver cirrhosis Plan - potassium is improved - change ns to 1/2ns - repeat labs in am - decrease rate of fluids - replace mag
[2017-04-25] MEDS ORDERED: SODIUM CHLORIDE 0.45% 1,000 ML IV SCH (15:00)
[2017-04-25] MEDS ORDERED: BISACODYL 5 MG TABLET.DR (FP) PO ONE (15:00)
--- NOTE | 2017-04-25 16:42 | PN ---
Teaching Attending Note Name of Resident: Jaswant Alcala ATTENDING PHYSICIAN STATEMENT I saw and evaluated the patient. I reviewed the resident's note and discussed the case with the resident. I agree with the resident's findings and plan as documented. SUBJECTIVE:asymptomatic. tolerating diet. denies Cp, SOB, fever, chills, hemoptysis, hemetemsis, BRBPR or melena OBJECTIVE: Last Vital Signs Temp Pulse Resp BP Pulse Ox 98.2 F 70 20 135/58 100 04/25/17 14:00 04/25/17 14:00 04/25/17 14:00 04/25/17 14:00 04/25/17 09:00 General NAD CV S1 S2 RRR no murmur/rub/gallop Lungs CTA B/L no wheezing/rales/rhonchi Abdomen soft NT/ND no rebound or guarding +spleenomegaly Extremities no pedal edema ASSESSMENT AND PLAN: 71 yo M with PMH alcoholic cirrhosis, DM, HTN, anemia, and esophageal varices with recent banding was sent to ER by his PMD for worsening anemia and hyperkalemia 1. Possible Upper GI bleed- concern for esophageal variceal bleeding. s/p 1 unit PRBC. tolerating diet. plan for EGD/colonoscopy in the AM. will d/c IVF and switch ppi ggt to BID IV. GI on board. 2. Hyperkalemia- s/p calcium gluconate and kayexylate. with peaked T waves on EKG. resolved 3. Pancytopenia- likely due to cirrhosis. stable. hematology consulted. 4. ANISHA- likely from dehydration however concern for developing hepatorenal syndrome. resolved. avoid nephrotoxic agents. nephrology consulted 5. Hypomagnesemia- Mg 2g IV 6. DM- hold oral agents. ISS. on levemir 7. HTN- controlled. hold oral agents for now. BP controlled 8. Alcoholic cirrhosis- MELD 12. no signs of ascites. hold lactulose at this time. not on other medications 9. DVT ppx- SCD. hold pharmacologic anticoagulating in setting of likely GI bleed
[2017-04-25] MEDS ORDERED: PEG 3350/NA SULF BICARB CL/KCL 4000 ML SOLN.RECON PO ONE (18:00)
[2017-04-25 20:36] LABS: HEMATOCRIT 31.2 % (35.4-49); HEMOGLOBIN 9.8 GM/dL (11.7-16.9); MCH 22.8 pg (25.7-33.7); MCHC 31.4 g/dl (32.0-35.9); MEAN CELL VOLUME 72.6 fl (80-96); MEAN PLT VOLUME 9.6 fl (7.5-11.1); PLATELET COUNT 111 K/MM3 (134-434); RDW 22.7 % (11.9-15.9); WHITE BLOOD COUNT 3.9 K/mm3 (4.0-10.0)
[2017-04-25] MEDS: PANTOPRAZOLE SODIUM 40 MG VIAL IVPUSH SCH (21:21)
[2017-04-25] MEDS: TERAZOSIN HCL 1 MG CAPSULE PO SCH (21:21)
--- NOTE | 2017-04-26 05:26 | PN ---
Physical Exam: SUBJECTIVE: Patient seen and examined by me this AM OBJECTIVE: Vital Signs Intake & Output 04/23/17 04/24/17 04/25/17 04/26/17 23:59 23:59 23:59 23:59 Intake Total 1477 3823.5 3010 Balance 1477 3823.5 3010 Weight 84.538 kg 87.09 kg Period Temp Pulse Resp BP Sys/Aden Pulse Ox Last 24 Hr 97.9 F-98.7 F 54-70 16-20 134-153/54-62 100 GENERAL: The patient is awake, alert, and fully oriented, in no acute distress. HEAD: Normal with no signs of trauma. EYES: PERRL, extraocular movements intact, sclera anicteric, conjunctiva clear. No ptosis. ENT: Ears normal, nares patent, oropharynx clear without exudates, moist mucous membranes. NECK: Trachea midline, full range of motion, supple. LUNGS: Breath sounds equal, clear to auscultation bilaterally, no wheezes, no crackles, no accessory muscle use. HEART: Regular rate and rhythm, S1, S2 without murmur, rub or gallop. ABDOMEN: TTP in RUQ. + murphys sign. Mild suprapubic tenderness. Negative rovsings. soft, NT in all other quadrants. Normoactive bowel sounds. No rebound , masses or organomegaly EXTREMITIES: 2+ pulses, warm, well-perfused, no edema. NEUROLOGICAL: Cranial nerves II through XII grossly intact. Normal speech, gait not observed. PSYCH: Normal mood, normal affect. SKIN: Warm, dry, normal turgor, no rashes or lesions noted Laboratory Results - last 24 hr CBC, BMP 04/25/17 20:00 04/25/17 08:00 04/23/17 04/25/17 04/25/17 20:15 06:27 07:30 WBC 3.5 L RBC 4.28 Hgb 9.5 L Hct 30.8 L MCV 72.0 L MCH 22.2 L MCHC 30.9 L RDW 23.1 H Plt Count 102 L MPV 10.4 Retic Count Haptoglobin 97 PT with INR INR Sodium Potassium Chloride Carbon Dioxide Anion Gap BUN Creatinine POC Glucometer 202 Random Glucose Calcium Phosphorus Magnesium Ferritin LD Total Vitamin B12 Serum Folate 04/25/17 04/25/17 04/25/17 08:00 08:00 08:00 WBC RBC Hgb Hct MCV MCH MCHC RDW Plt Count MPV Retic Count 0.99 D Haptoglobin PT with INR 13.20 H INR 1.17 H Sodium 144 Potassium 4.3 Chloride 111 H Carbon Dioxide 21 Anion Gap 12 BUN 13 D Creatinine 1.1 D POC Glucometer Random Glucose 176 H D Calcium 8.3 L Phosphorus 2.8 D Magnesium 1.4 L Ferritin 16.081 L LD Total 161 D Vitamin B12 Serum Folate 15 04/25/17 04/25/17 04/25/17 08:00 12:41 17:04 WBC RBC Hgb Hct MCV MCH MCHC RDW Plt Count MPV Retic Count Haptoglobin PT with INR INR Sodium Potassium Chloride Carbon Dioxide Anion Gap BUN Creatinine POC Glucometer 319 316 Random Glucose Calcium Phosphorus Magnesium Ferritin LD Total Vitamin B12 504 Serum Folate 04/25/17 20:00 WBC 3.9 L RBC 4.30 Hgb 9.8 L Hct 31.2 L MCV 72.6 L MCH 22.8 L MCHC 31.4 L RDW 22.7 H Plt Count 111 L MPV 9.6 Retic Count Haptoglobin PT with INR INR Sodium Potassium Chloride Carbon Dioxide Anion Gap BUN Creatinine POC Glucometer Random Glucose Calcium Phosphorus Magnesium Ferritin LD Total Vitamin B12 Serum Folate Active Medications Generic Name Dose Route Start Last Admin Trade Name Frekirsten PRN Reason Stop Dose Admin Insulin Aspart 1 vial 04/24/17 11:00 04/25/17 17:58 Novolog Vial Sliding Scale - SQ 8 units TIDAC JELENA Administration Protocol Insulin Detemir 25 units 04/26/17 07:00 Levemir Vial SQ AM JELENA Lactulose 20 gm 04/24/17 10:00 04/25/17 21:21 Cephulac (Oral Use) PO 20 gm BID JELENA Administration Pantoprazole Sodium 40 mg 04/25/17 22:00 04/25/17 21:21 Protonix Iv IVPUSH 40 mg BID JELENA Administration Sucralfate 1 gm 04/24/17 11:00 04/25/17 21:21 Carafate Oral Suspension - PO 1 gm ACHS JELENA Administration Terazosin HCl 2 mg 04/24/17 22:00 04/25/17 21:21 Hytrin - PO Not Given HS JELENA No micro EKG 04/24 - NSR, NAD, rate of 76, qtc 416, no st or tw changes RUQ US 04/24 - IMPRESSION: Findings suspicious for acute cholecystitis. Clinical correlation and follow-up recommended. CXR PA/lateral 04/24 - Normal HIDA scan 04/25 - No filling of gallbladder after 60 minutes of imaging. Please note that the study is essentially nondiagnostic due to early completion of the exam at the request of the surgeon. However when correlated with ultrasound of April 24, 2017, findings are suspicious for cystic duct obstruction and acute cholecystitis ASSESSMENT/PLAN: Pt is a 35 y/o F with PMH recently treated gastric ulcer who presented to ED with RUQ pain initially 9/10 radiating to the back constant since 6pm yesterday , and multiple episodes of nonbloody bilious vomiting in AM. #Acute cholecystitis -U/S significant for cholecystitis, lipase nrml 94; zosyn given in ED; febrile to 100.3 - HIDA suggestive of acute GB oobstruction and cholecystitis; will go to surgery with Dr. Nicole this PM - Post-op management per primary team - Protonix - ID consulted, will adjust abx accordingly; will continue w/ zosyn for now - Trend WBC, fever curve - zofran for N/V #fe deficiency anemia - Microcytic anemia (8.5 hgb, MCV 62) -f/u Fe studies -f/u B12, folate - trend CBC #thrombocytosis - likely Jun, on admission -Daily CBC, trend #Hypokalemia - IV KCL - Repeat BMP PPX Lovenox BID after surgery PPI #FEN NS 100cc Daily BMP NPO pre op, regular diet after Dispo -Admit to Med/Surg Plan discussed with Dr. Isaura Alcala, PGY1
--- NOTE | 2017-04-26 05:26 | PN ---
Physical Exam: SUBJECTIVE: Patient seen and examined by me this AM - Will go for EGD today. Completed bowel prep overnight. Pt endorsing pain in L hip, likely from bumping into bedrail when walking to bathroom. Denies CP, SOB, cough, N/V, diarrhea, any bleeds, melena or dysuria. OBJECTIVE: Vital Signs Intake & Output 04/23/17 04/24/17 04/25/17 04/26/17 23:59 23:59 23:59 23:59 Intake Total 1477 3823.5 3010 Balance 1477 3823.5 3010 Weight 84.538 kg 87.09 kg Period Temp Pulse Resp BP Sys/Aden Pulse Ox Last 24 Hr 97.9 F-98.7 F 54-70 16-20 134-153/54-62 100 GENERAL: The patient is awake, alert, and fully oriented, in no acute distress. HEAD: Normal with no signs of trauma. EYES: PERRL, extraocular movements intact, sclera anicteric, conjunctiva clear. No ptosis. ENT: Ears normal, nares patent, oropharynx clear without exudates, moist mucous membranes. NECK: Trachea midline, full range of motion, supple. LUNGS: Breath sounds equal, clear to auscultation bilaterally, no wheezes, no crackles, no accessory muscle use. HEART: Regular rate and rhythm, S1, S2 without murmur, rub or gallop. ABDOMEN: Soft, nontender, nondistended, normoactive bowel sounds, no guarding, no rebound, shrunken liver, splenomegaly noted. no masses. EXTREMITIES: 2+ pulses, warm, well-perfused, no edema. NEUROLOGICAL: Cranial nerves II through XII grossly intact. Normal speech, gait not observed. PSYCH: Normal mood, normal affect. SKIN: Warm, dry, normal turgor, no rashes or lesions noted Rectal: No internal/external hemorrhoids. No lacerations or masses noted. No blood in stool. Laboratory Results - last 24 hr CBC, BMP CBC, BMP 04/26/17 07:57 04/25/17 20:00 04/25/17 08:00 04/23/17 04/25/17 04/25/17 20:15 06:27 07:30 WBC 3.5 L RBC 4.28 Hgb 9.5 L Hct 30.8 L MCV 72.0 L MCH 22.2 L MCHC 30.9 L RDW 23.1 H Plt Count 102 L MPV 10.4 Retic Count Haptoglobin 97 PT with INR INR Sodium Potassium Chloride Carbon Dioxide Anion Gap BUN Creatinine POC Glucometer 202 Random Glucose Calcium Phosphorus Magnesium Ferritin LD Total Vitamin B12 Serum Folate 04/25/17 04/25/17 04/25/17 08:00 08:00 08:00 WBC RBC Hgb Hct MCV MCH MCHC RDW Plt Count MPV Retic Count 0.99 D Haptoglobin PT with INR 13.20 H INR 1.17 H Sodium 144 Potassium 4.3 Chloride 111 H Carbon Dioxide 21 Anion Gap 12 BUN 13 D Creatinine 1.1 D POC Glucometer Random Glucose 176 H D Calcium 8.3 L Phosphorus 2.8 D Magnesium 1.4 L Ferritin 16.081 L LD Total 161 D Vitamin B12 Serum Folate 15 04/25/17 04/25/17 04/25/17 08:00 12:41 17:04 WBC RBC Hgb Hct MCV MCH MCHC RDW Plt Count MPV Retic Count Haptoglobin PT with INR INR Sodium Potassium Chloride Carbon Dioxide Anion Gap BUN Creatinine POC Glucometer 319 316 Random Glucose Calcium Phosphorus Magnesium Ferritin LD Total Vitamin B12 504 Serum Folate 04/25/17 20:00 WBC 3.9 L RBC 4.30 Hgb 9.8 L Hct 31.2 L MCV 72.6 L MCH 22.8 L MCHC 31.4 L RDW 22.7 H Plt Count 111 L MPV 9.6 Retic Count Haptoglobin PT with INR INR Sodium Potassium Chloride Carbon Dioxide Anion Gap BUN Creatinine POC Glucometer Random Glucose Calcium Phosphorus Magnesium Ferritin LD Total Vitamin B12 Serum Folate Active Medications Generic Name Dose Route Start Last Admin Trade Name Freq PRN Reason Stop Dose Admin Insulin Aspart 1 vial 04/24/17 11:00 04/25/17 17:58 Novolog Vial Sliding Scale - SQ 8 units TIDAC JELENA Administration Protocol Insulin Detemir 25 units 04/26/17 07:00 Levemir Vial SQ AM JELENA Lactulose 20 gm 04/24/17 10:00 04/25/17 21:21 Cephulac (Oral Use) PO 20 gm BID JELENA Administration Pantoprazole Sodium 40 mg 04/25/17 22:00 04/25/17 21:21 Protonix Iv IVPUSH 40 mg BID JELENA Administration Sucralfate 1 gm 04/24/17 11:00 04/25/17 21:21 Carafate Oral Suspension - PO 1 gm ACHS JELENA Administration Terazosin HCl 2 mg 04/24/17 22:00 04/25/17 21:21 Hytrin - PO Not Given HS JELENA No micro EKG 04/25 - NSR, NAD, rate 64, qtc 430, peaked twaves in v3-v6, II still. ASSESSMENT/PLAN: 71 yo M with PMH of alcoholic cirrhosis (MELD 12), IDDM, HTN, anemia, Last admitted 03/31 for upper gib, received esophageal varice banding, now presenting per PCP request due to worsening anemia and hyperkalemia. #acute on chronic anemia - must r/o UGIB, given hx of varices, cirrhosis; esophageal banding one month ago -Trend H/H -INR nrml, FOBT neg; repeat -GI consulted; EGD/colonoscopy today; finished bowel prep - s/p 1u prbcs - PPI BID IV -Restart BB after procedure; confirm with GI -IVFs stopped as BP stable -microcytic, hypochromic anemia - f/u iron studies -sucralfate #Hyperkalemia - possible element of hepatorenal syndrome; K 4.0 this AM -still w/ peaked TWs on EKG 04/25 AM -s/p sodium bicarb, calcium gluconate, insulin, kayexalate -Daily BMPs, trend #Pancytopenia - likely secondary to cirrhosis; stable -platelets at baseline high 90's; may consider FFP in acute bleed discovered -microcytic hypochromic anemia -heme consulted #Prerenal azotemia- Cr 1.3 at baseline, BUN 29; GFR decreased at 54 -UA normal -PO hydration -renal consulted - no nephrotoxic agents #HTN -c/w hytrin - monitor BP #Alcoholic cirrhosis- MELD 12 - C/w lactulose - alcohol cessation IDDM -restart levemir 25u in AM -BGM, ISS - hold all oral agents FEN -PO hydration -Daily BMPs, mg -Diabetic diet after EGD/colonoscopy Dispo home today if EGD/colonoscopy normal Plan discussed with Dr. Isaura Alcala, PGY1 Visit type - Emergency Visit Emergency Visit: Yes ED Registration Date: 04/23/17 Care time: The patient presented to the Emergency Department on the above date and was hospitalized for further evaluation of their emergent condition. - New Patient This patient is new to me today: No - Critical Care Critical Care patient: No
[2017-04-26] MEDS: SUCRALFATE 1 GM/10 ML UNIT DOSE CUPS PO SCH ×4 (06:12→21:25)
[2017-04-26] MEDS: INSULIN SLIDING SCALE (NOVOLOG) 1 VIAL SQ SCH ×3 (06:16→17:48)
[2017-04-26] MEDS: INSULIN DETEMIR 100 UNITS/ML MDV SQ SCH (06:18)
[2017-04-26 06:30] LABS: SERUM IRON SATURATION 30 % (15-55); TOTAL IRON BINDING CAPACITY 345 ug/dL (250-450); TRANSFERRIN 273 mg/dL (200-370); UIBC 241 ug/dL (111-343)
[2017-04-26 08:45] LABS: BASO % 0.3 % (0-2.0); EOS % 3.3 % (0-4.5); HEMOGLOBIN 9.1 GM/dL (11.7-16.9); LYMPH % 30.4 % (8-40); MCH 22.1 pg (25.7-33.7); MCHC 31.3 g/dl (32.0-35.9); MEAN CELL VOLUME 70.7 fl (80-96); MEAN PLT VOLUME 8.9 fl (7.5-11.1); MONO % 8.5 % (3.8-10.2); NEUT % 57.5 % (42.8-82.8); PLATELET COUNT 94 K/MM3 (134-434); RDW 23.1 % (11.9-15.9); WHITE BLOOD COUNT 3.4 K/mm3 (4.0-10.0)
[2017-04-26 09:03] LABS: INR 1.22 (0.82-1.09); PROTHROMBIN TIME (PATIENT) 13.8 SEC (9.98-11.88)
[2017-04-26 09:11] LABS: ALBUMIN 2.8 g/dl (3.4-5.0); ANION GAP 9 (8-16); BILIRUBIN,TOTAL 1.1 mg/dL (0.2-1.0); BLOOD UREA NITROGEN 11 mg/dL (7-18); CALCIUM 8.6 mg/dL (8.5-10.1); CHLORIDE 112 mmol/L (98-107); CO2 23 mmol/L (21-32); CREATININE 1.1 mg/dL (0.7-1.3); GLUCOSE,RANDOM 172 mg/dL (74-106); SGOT/AST 64 U/L (15-37); SGPT/ALT 80 U/L (12-78); SODIUM 144 mmol/L (136-145); TOT PROT 6.3 g/dl (6.4-8.2)
[2017-04-26 09:12] LABS: ALK PHOS 140 U/L (45-117)
--- NOTE | 2017-04-26 09:43 | EKG ---
Test Reason : Blood Pressure : / mmHG Vent. Rate : 054 BPM Atrial Rate : 054 BPM P-R Int : 190 ms QRS Dur : 090 ms QT Int : 448 ms P-R-T Axes : 064 041 056 degrees QTc Int : 424 ms SINUS BRADYCARDIA OTHERWISE NORMAL ECG WHEN COMPARED WITH ECG OF 25-APR-2017 08:33, NO SIGNIFICANT CHANGE WAS FOUND Confirmed by ASHWINI ZENG MD ([id number]) on 04/26/2017 9:43:22 AM Referred By: Confirmed By:ASHWINI ZENG MD
[2017-04-26] MEDS: LACTULOSE 20 GM/30 ML UDC (FOR ORAL USE ONLY) PO SCH ×2 (10:31→21:25)
[2017-04-26] MEDS: PANTOPRAZOLE SODIUM 40 MG VIAL IVPUSH SCH ×2 (10:31→21:25)
--- NOTE | 2017-04-26 12:13 | PN ---
Teaching Attending Note Name of Resident: Jaswant Alcala ATTENDING PHYSICIAN STATEMENT I saw and evaluated the patient. I reviewed the resident's note and discussed the case with the resident. I agree with the resident's findings and plan as documented. SUBJECTIVE:asymptomatic. denies CP, SOB, fever, chills, Hemoptysis, hemetemsis OBJECTIVE: Last Vital Signs Temp Pulse Resp BP Pulse Ox 98.7 F 54 L 20 135/50 100 04/26/17 09:00 04/26/17 09:00 04/26/17 09:00 04/26/17 09:00 04/25/17 09:00 General NAD Abdomen soft NT/ND no rebound or guarding +spleenomegaly ASSESSMENT AND PLAN: 71 yo M with PMH alcoholic cirrhosis, DM, HTN, anemia, and esophageal varices with recent banding was sent to ER by his PMD for worsening anemia and hyperkalemia 1. Possible Upper GI bleed- concern for esophageal variceal bleeding. s/p 1 unit PRBC. tolerating diet.NPO for EGD/colonoscopy. cont ppi BID IV. GI on board. 2. Hyperkalemia- s/p calcium gluconate and kayexylate. with peaked T waves on EKG. resolved 3. Pancytopenia- likely due to cirrhosis. stable. hematology consulted. 4. ANISHA- likely from dehydration however concern for developing hepatorenal syndrome. resolved. avoid nephrotoxic agents. nephrology consulted 5. Hypomagnesemia- lab add on 6. DM- hold oral agents. ISS. has not received levemir during this stay due to NPO status and then hypoglycemia. will need to start reduced dose 7. HTN- controlled. off medication. 8. Alcoholic cirrhosis- MELD 12. no signs of ascites. cont lactulose. not on other medications 9. DVT ppx- SCD. hold pharmacologic anticoagulating in setting of likely GI bleed 10. d/c home today pending results of procedure. spoke wiht daughter present at bedside. all questions answered. verbalized understanding and agreement
[2017-04-26 12:51] LABS: MAGNESIUM 1.4 mg/dL (1.8-2.4)
[2017-04-26] MEDS ORDERED: PROPOFOL 20 ML ONE ×2 (13:31)
--- NOTE | 2017-04-26 14:20 | PROC ---
Endoscopy Procedure Endoscopy procedure completed. Please see scanned procedure report. Esophageal varices found. Grade 4, 3 column with stigmata of impending, or recent bleeding. All 3 columns successfully banded. No other pathology observed on this exam. Carafate PPI Clear liquid diet today, advance to soft in am Colonoscopy showed a focal colitis in the descending colon, biopsied. Rectal varices noted, otherwise normal colonoscopy to the cecum Follow pathology in office i 1 week.
[2017-04-26] MEDS ORDERED: MAGNESIUM SULF 50% (8.12 MEQ/2 ML-1 GM VIAL) IVPB ONE (15:56)
[2017-04-26 16:03] LABS: HEMATOCRIT 28.4 % (35.4-49); HEMOGLOBIN 8.9 GM/dL (11.7-16.9); MCH 22.6 pg (25.7-33.7); MCHC 31.5 g/dl (32.0-35.9); MEAN CELL VOLUME 71.7 fl (80-96); MEAN PLT VOLUME 9.4 fl (7.5-11.1); PLATELET COUNT 99 K/MM3 (134-434); RBC 3.97 M/mm3 (4.00-5.60); WHITE BLOOD COUNT 2.9 K/mm3 (4.0-10.0)
[2017-04-26] MEDS ORDERED: MAGNESIUM SULFATE IN WATER 2 GM/50 ML IVPB IVPB ONE (16:15)
--- NOTE | 2017-04-26 16:31 | PN ---
Progress Note, Physician History of Present Illness: Pt seen and examined at bedside. He had his endoscopy. - Current Medication List Current Medications: Active Medications MAGNESIUM SULFATE IN WATER (Magnesium Sulf 2 G/50 Ml Bag) 2 gm in 50 mls @ 50 mls/hr IVPB ONCE ONE Stop: 04/26/17 17:14 Insulin Aspart (Novolog Vial Sliding Scale -) 1 vial SQ TIDAC [facility] PRN Reason: Protocol Last Admin: 04/26/17 11:32 Dose: Not Given Insulin Detemir (Levemir Vial) 25 units SQ AM [facility] Last Admin: 04/26/17 06:18 Dose: Not Given Lactulose (Cephulac (Oral Use)) 20 gm PO BID [facility] Last Admin: 04/26/17 10:31 Dose: Not Given Pantoprazole Sodium (Protonix Iv) 40 mg IVPUSH BID [facility] Last Admin: 04/26/17 10:31 Dose: Not Given Sucralfate (Carafate Oral Suspension -) 1 gm PO ACHS [facility] Last Admin: 04/26/17 10:31 Dose: Not Given Terazosin HCl (Hytrin -) 2 mg PO HS [facility] Last Admin: 04/25/17 21:21 Dose: Not Given - Objective Vital Signs: Vital Signs Temperature 98.0 F 04/26/17 15:29 Pulse Rate 49 L 04/26/17 15:29 Respiratory Rate 16 04/26/17 15:29 Blood Pressure 141/54 04/26/17 15:29 O2 Sat by Pulse Oximetry (%) 99 04/26/17 14:44 Constitutional: Yes: Calm Eyes: Yes: Conjunctiva Clear HENT: Yes: Atraumatic Cardiovascular: Yes: S1, S2 Respiratory: Yes: CTA Bilaterally Gastrointestinal: Yes: Soft Genitourinary: Yes: WNL Breast(s): Yes: WNL Extremities: Yes: WNL Edema: No Integumentary: Yes: WNL Neurological: Yes: Oriented Psychiatric: Yes: Oriented Labs: CBC, BMP 04/26/17 15:30 04/26/17 07:57 INR, PTT INR 1.22 (0.82-1.09) H 04/26/17 07:57 Problem List - Problems (1) Hyperkalemia Code(s): E87.5 - HYPERKALEMIA Assessment/Plan Current Medications Generic Name Dose Route Start Last Admin Trade Name Freq PRN Reason Stop Dose Admin MAGNESIUM SULFATE IN WATER 2 gm in 50 mls @ 50 mls/hr 04/26/17 16:15 Magnesium Sulf 2 G/50 Ml Bag IVPB 04/26/17 17:14 ONCE ONE Insulin Aspart 1 vial 04/24/17 11:00 04/26/17 11:32 Novolog Vial Sliding Scale - SQ Not Given TIDAC [facility] Protocol Insulin Detemir 25 units 04/26/17 07:00 04/26/17 06:18 Levemir Vial SQ Not Given AM [facility] Lactulose 20 gm 04/24/17 10:00 04/26/17 10:31 Cephulac (Oral Use) PO Not Given BID JELENA Pantoprazole Sodium 40 mg 04/25/17 22:00 04/26/17 10:31 Protonix Iv IVPUSH Not Given BID JELENA Sucralfate 1 gm 04/24/17 11:00 04/26/17 10:31 Carafate Oral Suspension - PO Not Given ACHS [facility] Terazosin HCl 2 mg 04/24/17 22:00 04/25/17 21:21 Hytrin - PO Not Given HS [facility] Laboratory Tests 04/26/17 07:57 Magnesium 1.4 L Impression 1. CKD 2. hyperkalemia 3. hypernatremia 4. GI bleed 5. anemia 6. DM 7. HTN 8. liver cirrhosis Plan - renal function is stable - replace mag - will see pt in office - can stop fluids once tolerating diet - discussed with GI Dr Day
--- NOTE | 2017-04-26 17:15 | RAPID ---
Physical Examination Vital Signs: Vital Signs Temperature 98.0 F 04/26/17 15:29 Pulse Rate 49 L 04/26/17 15:29 Respiratory Rate 16 04/26/17 15:29 Blood Pressure 141/54 04/26/17 15:29 O2 Sat by Pulse Oximetry (%) 99 04/26/17 14:44 Constitutional: Yes: Anxious Eyes: Yes: WNL Neck: Yes: Supple Cardiovascular: Yes: Bradycardia, S1, S2. No: JVD Respiratory: Yes: CTA Bilaterally Gastrointestinal: Yes: WNL, Normal Bowel Sounds Labs: CBC, BMP 04/26/17 15:30 04/26/17 07:57 Rapid Response - Rapid Response Assessment: Called to bedside by nursing staff due to patient complaining of chest pain. Pt s/p EGD/conolonoscopy this AM with esophageal banding with Dr. Vázquez. Pt states the pain is L sided miriam-sternal and base of throat, non-radiating, worsened by deep inspiration and palpation. Pt endorses sensation of upper chest tightness. Pt denies lightheadness, SOB, palpitations, abdominal pain, N/V. PE: VITALS 131/73 pulse 68 RR 20 Sat 98% on room air NCAT S1 S2, bradycardia, no other murmurs Lungs CTABL Abdomen S/NT/ND CN 2-12 intact, 5/5 motor strength in extremities Assessment/plan: Likely post-procedure lower esophageal pain/spasm; R/o ACS EKG Trend trops CXR Primary team notified
[2017-04-26] MEDS ORDERED: INSULIN (NOVOLOG) ASPART 100 UNITS/ML 10ML VIAL ONE (17:27)
[2017-04-26] MEDS ORDERED: ACETAMINOPHEN 325 MG TABLET (FP) PO PRN (18:29)
[2017-04-26] MEDS ORDERED: PT OWN MED DRAWER 7, Y5N ONE (21:06)
[2017-04-26] MEDS: TERAZOSIN HCL 1 MG CAPSULE PO SCH (21:25)
[2017-04-26 21:39] LABS: ADD RBC MORPHOLOGY YES; ANISOCYTOSIS 3+
[2017-04-27 06:02] VITALS: TEMP 98
[2017-04-27] MEDS: SUCRALFATE 1 GM/10 ML UNIT DOSE CUPS PO SCH ×2 (06:43→10:19)
[2017-04-27] MEDS: INSULIN DETEMIR 100 UNITS/ML MDV SQ SCH (06:43)
[2017-04-27] MEDS: INSULIN SLIDING SCALE (NOVOLOG) 1 VIAL SQ SCH (06:43)
[2017-04-27] MEDS ORDERED: INSULIN (NOVOLOG) ASPART 100 UNITS/ML 10ML VIAL ONE (06:55)
[2017-04-27 08:46] LABS: HEMATOCRIT 28.5 % (35.4-49); HEMOGLOBIN 8.8 GM/dL (11.7-16.9); MCH 22.3 pg (25.7-33.7); MEAN CELL VOLUME 71.9 fl (80-96); MEAN PLT VOLUME 9.2 fl (7.5-11.1); PLATELET COUNT 95 K/MM3 (134-434); RBC 3.96 M/mm3 (4.00-5.60); WHITE BLOOD COUNT 3.1 K/mm3 (4.0-10.0)
[2017-04-27] MEDS: LACTULOSE 20 GM/30 ML UDC (FOR ORAL USE ONLY) PO SCH (09:01)
[2017-04-27 09:02] LABS: ANION GAP 10 (8-16); BLOOD UREA NITROGEN 10 mg/dL (7-18); CALCIUM 8.5 mg/dL (8.5-10.1); CHLORIDE 113 mmol/L (98-107); CO2 22 mmol/L (21-32); GLUCOSE,RANDOM 179 mg/dL (74-106); MAGNESIUM 1.6 mg/dL (1.8-2.4); PHOSPHOROUS 3.2 mg/dL (2.5-4.9); POTASSIUM 4.1 mmol/L (3.5-5.1); SODIUM 145 mmol/L (136-145)
[2017-04-27] MEDS ORDERED: FERROUS SO4 325 MG TABLET (FP) PO SCH (10:00)
[2017-04-27] MEDS ORDERED: PANTOPRAZOLE 40 MG TABLET (FP) PO SCH (10:00)
[2017-04-27] MEDS ORDERED: MAGNESIUM OXIDE 400 MG TABLET (FP) PO ONE (10:01)
--- NOTE | 2017-04-27 10:01 | PN ---
Progress Note (short form) - Note Progress Note: asymptomatic. no recurrent episodes of CP. tolerated diet today. dneies CP, SOB < fever,chills, N'/V/C/D, hemoptysis or hemetemsis Current Medications Generic Name Dose Route Start Last Admin Trade Name Freq PRN Reason Stop Dose Admin Acetaminophen 650 mg 04/26/17 18:29 04/27/17 02:30 Tylenol - PO 650 mg Q6H PRN Administration PAIN Ferrous Sulfate 325 mg 04/27/17 10:00 04/27/17 09:01 Feosol - PO 325 mg DAILY JELENA Administration Insulin Aspart 1 vial 04/24/17 11:00 04/27/17 06:43 Novolog Vial Sliding Scale - SQ 2 units TIDAC JELENA Administration Protocol Insulin Detemir 25 units 04/26/17 07:00 04/27/17 06:43 Levemir Vial SQ 25 units AM JELENA Administration Lactulose 20 gm 04/24/17 10:00 04/27/17 09:01 Cephulac (Oral Use) PO 20 gm BID JELENA Administration Pantoprazole Sodium 40 mg 04/27/17 10:00 04/27/17 09:01 Protonix - PO 40 mg BID JELENA Administration Sucralfate 1 gm 04/24/17 11:00 04/27/17 06:43 Carafate Oral Suspension - PO 1 gm ACHS JELENA Administration Terazosin HCl 2 mg 04/24/17 22:00 04/26/17 21:25 Hytrin - PO 2 mg HS JELENA Administration Last Vital Signs Temp Pulse Resp BP Pulse Ox 98.0 F 53 L 16 131/49 99 04/27/17 05:00 04/27/17 05:00 04/27/17 05:00 04/27/17 05:00 04/26/17 21:00 General NAD' CV S1 S2 RRR no murmur/rub/gallop no chest wall tenderness no crepitence Lungs CTA B/L no wheezing/rales/rhonchi Abdomen soft NT/ND no rebound or guarding +spleenomegaly CBCD WBC 3.1 K/mm3 (4.0-10.0) L 04/27/17 07:30 RBC 3.96 M/mm3 (4.00-5.60) L 04/27/17 07:30 Hgb 8.8 GM/dL (11.7-16.9) L 04/27/17 07:30 Hct 28.5 % (35.4-49) L 04/27/17 07:30 MCV 71.9 fl (80-96) L 04/27/17 07:30 MCHC 31.0 g/dl (32.0-35.9) L 04/27/17 07:30 RDW 23.0 % (11.9-15.9) H 04/27/17 07:30 Plt Count 95 K/MM3 (134-434) L 04/27/17 07:30 MPV 9.2 fl (7.5-11.1) 04/27/17 07:30 CMP Sodium 145 mmol/L (136-145) 04/27/17 07:30 Potassium 4.1 mmol/L (3.5-5.1) 04/27/17 07:30 Chloride 113 mmol/L (98-107) H 04/27/17 07:30 Carbon Dioxide 22 mmol/L (21-32) 04/27/17 07:30 Anion Gap 10 (8-16) 04/27/17 07:30 BUN 10 mg/dL (7-18) 04/27/17 07:30 Creatinine 1.0 mg/dL (0.7-1.3) 04/27/17 07:30 Creat Clearance w eGFR > 60 (>60) 04/26/17 07:57 Calcium 8.5 mg/dL (8.5-10.1) 04/27/17 07:30 Total Bilirubin 1.1 mg/dL (0.2-1.0) H D 04/26/17 07:57 AST 64 U/L (15-37) H D 04/26/17 07:57 ALT 80 U/L (12-78) H D 04/26/17 07:57 Alkaline Phosphatase 140 U/L (45-117) H 04/26/17 07:57 Total Protein 6.3 g/dl (6.4-8.2) L 04/26/17 07:57 Albumin 2.8 g/dl (3.4-5.0) L 04/26/17 07:57 ASSESSMENT AND PLAN: 71 yo M with PMH alcoholic cirrhosis, DM, HTN, anemia, and esophageal varices with recent banding was sent to ER by his PMD for worsening anemia and hyperkalemia 1. Possible Upper GI bleed- concern for esophageal variceal bleeding. s/p 1 unit PRBC this hospitalization. s/p EGD and colonoscopy. Grade 4 esophageal varcies s/p banding but no signs of bleeding noted. colonoscopy with focal colitis in the descending colon, biopsied. Rectal varices noted tolerating soft diet. will need to f/u with GI in 1 week. 2. CP- likely due to EGD. Cardiac enzymes negative. ekg negative. CXR no perforation noted. now resolved. no indication for further workup inaptient. 2. Hyperkalemia- s/p calcium gluconate and kayexylate. with peaked T waves on EKG. resolved 3. Pancytopenia- likely due to cirrhosis. stable. hematology consulted. 4. ANISHA- likely from dehydration however concern for developing hepatorenal syndrome. resolved. avoid nephrotoxic agents. nephrology consulted 5. Hypomagnesemia- Mg 800mg 6. DM- can restart metformin and glimperide on discharge. would hold levemir until tolerating regular diet. 7. HTN- controlled. off medication. 8. Alcoholic cirrhosis- MELD 12. no signs of ascites. cont lactulose. not on other medications 9. DVT ppx- SCD. hold pharmacologic anticoagulating in setting of likely GI bleed 10. d/c home. stressed importance of f/u with PMD and GI next week for lab check. stressed importance of medication compliance and ETOH cessation. Visit type - Emergency Visit Emergency Visit: Yes ED Registration Date: 04/23/17 Care time: The patient presented to the Emergency Department on the above date and was hospitalized for further evaluation of their emergent condition. - New Patient This patient is new to me today: No - Critical Care Critical Care patient: No - Discharge Referral Referred to [facility] Yes Physician Referral: Armando Reyes MD ([facility])
[2017-04-27 10:40] VITALS: BP 138/57; PULSE 83
--- NOTE | 2017-04-27 12:19 | EKG ---
Test Reason : Blood Pressure : / mmHG Vent. Rate : 053 BPM Atrial Rate : 053 BPM P-R Int : 186 ms QRS Dur : 088 ms QT Int : 454 ms P-R-T Axes : 048 022 042 degrees QTc Int : 426 ms SINUS BRADYCARDIA OTHERWISE NORMAL ECG WHEN COMPARED WITH ECG OF 26-APR-2017 09:17, NO SIGNIFICANT CHANGE WAS FOUND Confirmed by MD ALEKS, RA ([id number]) on 04/27/2017 12:18:52 PM Referred By: Confirmed By:RA FINK MD
--- NOTE | 2017-04-30 10:31 | PATH ---
Surgical Pathology Report Patient Name: BRONWYN [facility]ENSEN [facility]. Rec. #: [id number] /Age/Gender: 1945 (Age: 71) / M Account: [id number] Location: [address] [place] [address] Taken: 04/26/2017 Received: 04/29/2017 Reported: 04/30/2017 Physicians: Surya Bhatia M.D. Specimen(s) Received BX DESCENDING COLON Clinical History Preoperative diagnosis: GI bleeding, history of esophageal banding Postoperative diagnosis: Esophageal varices, focal colitis Final Diagnosis DESCENDING COLON, BIOPSY: COLONIC MUCOSA WITH VASCULAR ECTASIA AND FOCAL LAMINA PROPRIA FIBROSIS. NO ACTIVE COLITIS IDENTIFIED. Electronically Signed Marium Wong M.D. Gross Description Received in formalin, labeled "biopsy descending colon" is a lopez, irregular portion of soft tissue measuring 0.2 cm. in greatest dimension. The specimen is submitted in toto in one cassette. /04/29/2017 saudi04/29/2017
--- NOTE | 2017-05-06 20:37 | DS ---
Physical Exam: SUBJECTIVE: Patient seen and examined asymptomatic. no recurrent episodes of CP. tolerated diet today. dneies CP, SOB < fever,chills, N'/V/C/D, hemoptysis or hemetemsis OBJECTIVE: Last Vital Signs Temp Pulse Resp BP Pulse Ox 98.0 F 83 18 138/57 99 04/27/17 05:00 04/27/17 09:00 04/27/17 09:00 04/27/17 09:00 04/27/17 09:00 PHYSICAL EXAM General NAD' CV S1 S2 RRR no murmur/rub/gallop no chest wall tenderness no crepitence Lungs CTA B/L no wheezing/rales/rhonchi Abdomen soft NT/ND no rebound or guarding +spleenomegaly LABS CBC, BMP 04/27/17 07:30 04/27/17 07:30 No micro EKG 04/25 - NSR, NAD, rate 64, qtc 430, peaked twaves in v3-v6, II still. CXR 04/26 - No change since prior study Consults: Heme/Onc - Seen by Dr. Solano Renal - Seen by Dr. Day GI - Seen by Dr. Vázquez HOSPITAL COURSE: Pre-hospital course: 71 yo M with PMH of alcoholic cirrhosis (MELD 12), IDDM, HTN, anemia, Last admitted 03/31 for upper gib, received esophageal varice banding, now presenting per PCP request due to worsening anemia and hyperkalemia. He currently feels well and denies hematemesis, hematochezia, melena, hematuria. Melena and hematemesis that preceded his last admission was kindra first and only presentation of bleeding, for which he was transfused. He was also treated with vit K for thrombocytopenia, found to have ANISHA and hyperkalemia at that time. In ED patient found to have K of 5.9 and Hgb of 7.8, drop from 8.9 a week ago. His Hgb baseline since last admission has been around 8.5. he is also found to be pancytopenic. He reports past EtOH abuse but has quit several years ago. He has 3 loose stools/day with lactulose. Patient denies CP, palpitations, lightheadedness, AMS, h/a, n/v, abd pain, weight gain, LE edema, Abdominal distention, sob, cough, bleeding from mucous membranes. Hospital course: Pt last admitted on 03/31 for upper GI bleed and received esophageal variceal banding. On admission, labs notable for WBC 2.9, Hgb 7.8, plts 96, K 5.9, AST 50 , ALT 58, Alk phos 152, BUN 29/Cr 1.3 with magnesium of 1.6. EKG with peaked T waves. Pt treated with calcium gluconate, insulin, sodium bicarb and kayexylate. IV access obtained, pt made NPO, IVFs, PPI ggt and serial CBCs ordered. GI, Heme/onc and renal consulted. Pt mag repleted IV. Unclear initially why pt not on BB, however bradycardic on presentation with HR in 50s. Per heme, thrombocytopenia likely secondary to liver dz. Per GI, plan for colonoscopy once electrolytes stabilized. Pt given one unit prbcs on 04/24, repeat K 4.3, Hgb 9.3. Renal team concurred with management course at this point. Pt restarted on home levemir 25u and IVFs stopped on 04/25, as pt normotensive. Repeat EKG on 04/25 still with peaked Twaves. Pt started on bowel prep 04/25 overnight, tolerated well. Pt received EGD/colonoscopy on 04/26. Findings notable for grade 4 esophageal varices s/p banding w/ no bleeding noted. Colonoscopy w/ focal colitis in descending colon, biopsied. Rectal varices also noted. 04/26 PM, pt complaining of L sided CP with radiation to base of neck; stat trops, ekg ordered. Trops negative, EKG w/ no new ischemic changes. Pain likely secondary to EGD. 04/27, Hgb 8.8 (microcytic anemia), WBC 3.1, no electrolyte abs noted. Pt tolerated restarting diet. Pt still with thrombocytopenia, however baseline in 90s. Pt discharged home with outpt f/u with Dr. Vázquez in one week to review biopsy results and CBC in one week for further surveillance of rebleed/worsening anemia with additional f/u w/ PCP. Date of Admission:04/23/17 Date of Discharge: 04/27/17 Patient medical stable and cleared for discharge with f/u with Dr. Vázquez and PCP in one week. Minutes to complete discharge: 35 Discharge Summary Reason For Visit: PANCYTOPENIA Condition: Guarded - Instructions Diet, Activity, Other Instructions: During your stay you were treated for low blood counts and a possible GI bleed Continue with soft diet for now, slowly advance diet as tolerated. Follow a diabetic diet Medications: The following medications were added to your regimen. Please take them as described below: Ferrous sulfate 325mg (iron pills), one pill once a day, by mouth. A common side effect of this medication is dark or black bowel movements, as well as constipation. Please discuss this medication with your primary care doctor so they can make further modifications if needed. You should have your iron studies repeated in 3 months Please continue taking all other home medication as previously prescribed. Hold your insulin at this time. monitor your sugars and bring them with you to your primary doctor appointment. He will advise you on if you should re-start your insulin. Follow-ups: Please schedule an appointment to see your primary care physician, Dr. Reyes, in one week. You were seen by Dr. Vázquez in the hospital and he performed an endoscopy and banding of your esophageal varices and a colonoscopy. Please follow-up with him in his clinic in one week to review the results of your procedure and for further management of your medication. His contact information has been provided. Labs: We have provided a prescription for outpatient lab work as listed below. Please have these labs drawn and send the results to your primary care provider: Complete Blood Count Basic Metabolic Panel You will also need blood iron measurements performed in three months. Please bring this to the attention of your primary care provider. Please return to the hospital if you experience any of the following symptoms: - Coughing or vomiting blood - Blood in your stool - Persistent fatigue, lightheadness - Any new or concerning symptoms Referrals: Armando Dan MD [Primary Care Provider] - 1 Week Roberth Vázquez MD [Staff Physician] - 1 Week Disposition: HOME - Home Medications Comprehensive Discharge Medication List: Ambulatory Orders Glimepiride 4 mg PO DAILY 01/01/12 Metformin HCl [Glucophage] 1,000 mg PO BID 01/01/12 Terazosin HCl 2 mg PO DAILY 01/01/12 Miscellaneous Drug Not In Syst [Outpatient Lab Test] 1 each ASDIR #1 misc 08/16 Pantoprazole Sodium [Protonix] 40 mg PO BID #60 tablet. 04/05/17 Sucralfate [Carafate] 1 gm PO ACHS #120 ml 04/05/17 Ferrous Sulfate [Feosol] 325 mg PO DAILY #30 ud 04/27/17 Lactulose (Oral Use) [Cephulac -] 20 gm PO BID udc 04/27/17 This patient is new to me today: No Emergency Visit: Yes ED Registration Date: 04/23/17 Care time: The patient presented to the Emergency Department on the above date and was hospitalized for further evaluation of their emergent condition. Critical Care patient: No - Discharge Referral Referred to [facility] Yes Physician Referral: Armando Reyes MD ([facility])
== END 2017-04-27 13:53 | disposition home or self-care (01) | DRG 369 ==
LOC: JER 12:48 → JERBED 17:16 → J6S 20:04
PROVIDERS: ADMIT Family Medicine; ATTEND Internal Medicine
PROC: 30233N1 Transfusion of Nonautologous Red Blood Cells into Peripheral Vein, Percutaneous Approach (ICD-10-PCS; 2017-04-23)
PROC: 0DBM8ZX Excision of Descending Colon, Via Natural or Artificial Opening Endoscopic, Diagnostic (ICD-10-PCS; 2017-04-26)
PROC: 06L38CZ Occlusion of Esophageal Vein with Extraluminal Device, Via Natural or Artificial Opening Endoscopic (ICD-10-PCS; principal; 2017-04-26 12:15)
DX: I85.01 Esophageal varices with bleeding (principal); D61.818 Other pancytopenia; N17.9 Acute kidney failure, unspecified; E87.0 Hyperosmolality and hypernatremia; D62 Acute posthemorrhagic anemia; K70.30 Alcoholic cirrhosis of liver without ascites; E87.5 Hyperkalemia; Z79.4 Long term (current) use of insulin; F10.10 Alcohol abuse, uncomplicated; R16.1 Splenomegaly, not elsewhere classified; E86.0 Dehydration; E83.42 Hypomagnesemia; E11.22 Type 2 diabetes mellitus with diabetic chronic kidney disease; I12.9 Hypertensive chronic kidney disease with stage 1 through stage 4 chronic kidney disease, or unspecified chronic kidney disease; N18.9 Chronic kidney disease, unspecified; R07.9 Chest pain, unspecified; K52.9 Noninfective gastroenteritis and colitis, unspecified; K62.9 Disease of anus and rectum, unspecified; K63.9 Disease of intestine, unspecified
CPT/HCPCS: 36415; 36430; 71045-TC-FY; 80048; 80053; 81003; 82272; 82550; 82607; 82728; 82746; 82784; 82962; 83010; 83540; 83550; 83615; 83735; 84100; 84155; 84165; 84466; 84484; 85025; 85027; 85044; 85610; 85730; 86334; 86850; 86900; 86901; 86922; 93005; 93010; 97116-GP; 97161-GP; 99282-25; J7030; P9038; P9058

== ENCOUNTER 2018-02-21 18:54 | Inpatient (IN) | payer MEDICARE, OTHER ==
--- NOTE | 2018-02-21 19:32 | PDOC ---
History of Present Illness - General History Source: Patient, Family Exam Limitations: No Limitations - History of Present Illness Initial Comments: 02/21/18 21:41 The patient is a 72-year-old male with past medical history significant for Alcoholic Cirrhosis, s/p esophageal varices banding, IDDM, HTN, and anemia presents to the emergency department with abdominal pain since 2:00 pm this afternoon. Per daughter, who is translating, the patient reports an acute onset of abdominal pain since 2:00 pm today. The patient reports a constant localized pain thats dull and achy in quality, with the severity of 10/10, denies pain is radiating to the back or the sides. The patient reports associated symptoms of 3 episodes of NBNB watery diarrhea, denies urinary symptoms and a syncopal episode at 6:30 pm today, that was witnessed by the nephew, who reported that he regained conscious moments later. The patient reports following the syncopal episode, he was experiencing nausea and tremors. The daughter reports the patient had not his usual food yesterday at Thanksgiving dinner, denies any other family sick. The patient reports a chronic history of blurry vision and L. muscle strain. Denies fever, recent illness, hematochezia, melena, dysuria, hematuria, frequency or urgency to urinate, vomiting. Allergies: NKA Social history: Prior alcohol abuse, no tobacco or recreational drug use reported. Surgical history: None reported PCP: Dr Dan <Michelle Gomez - Last Filed: 02/21/18 21:41> <Samantha Singer - Last Filed: 02/22/18 19:47> - General Chief Complaint: Pain, Acute Stated Complaint: ABDOMINAL PAIN Time Seen by Provider: 02/21/18 19:32 Past History <Michelle Gomez - Last Filed: 02/21/18 21:41> - Past Medical History Anemia: Yes Asthma: No Cancer: No Cardiac Disorders: No CVA: No COPD: No CHF: No Dementia: No Diabetes: Yes GI Disorders: No Disorders: Yes (KIDNEY STONES) HTN: Yes Hypercholesterolemia: No Liver Disease: No Seizures: No Thyroid Disease: No - Surgical History Abdominal Surgery: No Appendectomy: No Cardiac Surgery: No Cholecystectomy: No Lung Surgery: No Neurologic Surgery: No Orthopedic Surgery: No - Immunization History Immunization Up to Date: Yes - Suicide/Smoking/Psychosocial Hx Smoking History: Never smoked Have you smoked in the past 12 months: No Information on smoking cessation initiated: No Hx Alcohol Use: No Drug/Substance Use Hx: No Substance Use Type: None Hx Substance Use Treatment: No <Samantha Singer - Last Filed: 02/22/18 19:47> - Past Medical History Allergies/Adverse Reactions: Allergies Allergy/AdvReac Type Severity Reaction Status Date / Time No Known Drug Allergies Allergy Verified 02/21/18 19:29 Home Medications: Ambulatory Orders Glimepiride 4 mg PO DAILY 01/01/12 Terazosin HCl 2 mg PO DAILY 01/01/12 metFORMIN HCL [Glucophage] 1,000 mg PO BID 01/01/12 Pantoprazole Sodium [Protonix] 40 mg PO BID #60 tablet. 04/05/17 Ferrous Sulfate [Feosol] 325 mg PO DAILY #30 ud 04/27/17 Review of Systems - Review of Systems Able to Perform ROS?: Yes Comments:: 02/21/18 21:52 GENERAL/CONSTITUTIONAL: s/p syncopal episode. No fever or chills. No weakness. HEAD, EYES, EARS, NOSE AND THROAT: No change in vision. No ear pain or discharge. No sore throat. CARDIOVASCULAR: No chest pain or shortness of breath. RESPIRATORY: No cough, wheezing, or hemoptysis. GASTROINTESTINAL: +abdominal pain, diarrhea or nausea. No vomiting or constipation. GENITOURINARY: No dysuria, frequency, or change in urination. MUSCULOSKELETAL: No joint or muscle swelling or pain. No neck or back pain. SKIN: No rash NEUROLOGIC: +tremors. No headache, vertigo, loss of consciousness, or change in strength/sensation. ENDOCRINE: No increased thirst. No abnormal weight change. HEMATOLOGIC/LYMPHATIC: No anemia, easy bleeding, or history of blood clots. ALLERGIC/IMMUNOLOGIC: No hives or skin allergy. <Michelle Gomez - Last Filed: 02/21/18 21:41> *Physical Exam - Vital Signs Last Vital Signs Temp Pulse Resp BP Pulse Ox 97.7 F 61 18 142/55 L 96 02/21/18 19:29 02/21/18 19:29 02/21/18 19:29 02/21/18 19:29 02/21/18 19:29 - Physical Exam Comments: 02/21/18 22:03 GENERAL: Afebrile. Awake, alert, and fully oriented, in no acute distress HEAD: No signs of trauma EYES: PERRLA, EOMI, sclera anicteric, conjunctiva clear ENT: Auricles normal inspection, hearing grossly normal, nares patent, oropharynx clear without exudates. Moist mucosa NECK: Normal ROM, supple, no lymphadenopathy, JVD, or masses LUNGS: Breath sounds equal, clear to auscultation bilaterally. No wheezes, and no crackles HEART: Regular rate and rhythm, normal S1 and S2, no murmurs, rubs or gallops ABDOMEN: +epigastric pain, worse than RUQ pain, diffuse abdominal pain. Increased bowel sounds throughout. Soft. No guarding, no rebound. No masses. No flank pain. EXTREMITIES: Normal range of motion, no edema. No clubbing or cyanosis. No cords, erythema, or tenderness NEUROLOGICAL: Neuro intact, following commands and answering questions. Cranial nerves II through XII grossly intact. Normal speech. Reflex equal. SKIN: Warm, Dry, normal turgor, no rashes or lesions noted. <Michelle Gomez - Last Filed: 02/21/18 21:41> - Vital Signs Last Vital Signs Temp Pulse Resp BP Pulse Ox 97.7 F 61 18 142/55 L 96 02/21/18 19:29 02/21/18 19:29 02/21/18 19:29 02/21/18 19:29 02/21/18 19:29 <Samantha Singer - Last Filed: 02/22/18 19:47> Heart Score/ECG Review - ECG Intrepretation Rhythm: Regular Rhythm - [place] Hudson: Normal - P and HI Delta Wave(s) Present: No WPW: No - QRS Poor R Wave Progression: No Q Wave Present: No - ST and T Flattened T Waves: No Prolonged Q-T Interval: No <Samantha Singer - Last Filed: 02/22/18 19:47> ED Treatment Course - LABORATORY CBC & Chemistry Diagram: 02/21/18 20:34 02/21/18 20:34 - ADDITIONAL ORDERS Additional order review: Laboratory Results 02/21/18 02/21/18 02/21/18 20:34 20:34 20:34 PT with INR 14.10 H INR 1.19 H PTT (Actin FS) 23.8 L Sodium 144 Potassium 4.6 Chloride 110 H Carbon Dioxide 24 Anion Gap 10 BUN 19 H Creatinine 1.4 H Creat Clearance w eGFR 49.68 Random Glucose 305 H* Calcium 8.8 Total Bilirubin 1.0 AST 38 H ALT 54 Alkaline Phosphatase 183 H Creatine Kinase 41 Troponin I < 0.02 Total Protein 7.6 Albumin 3.6 Total Amylase 121 H Lipase 307 02/21/18 20:34 RBC 4.50 MCV 66.2 L MCHC 33.5 RDW 16.9 H MPV 8.8 Neutrophils % 81.0 D Lymphocytes % 10.3 D Monocytes % 6.3 Eosinophils % 1.3 Basophils % 1.1 D - Medications Given in the ED: ED Medications Discontinued Medications Generic Name Dose Route Start Last Admin Trade Name Frekirsten PRN Reason Stop Dose Admin Sodium Chloride 500 ml 02/21/18 20:06 02/21/18 21:41 Normal Saline - IV 02/21/18 20:07 500 ml ONCE ONE Administration <Michelle Gomez - Last Filed: 02/21/18 21:41> - LABORATORY CBC & Chemistry Diagram: 02/22/18 05:20 02/22/18 05:20 <Samantha Singer - Last Filed: 02/22/18 19:47> Medical Decision Making - Medical Decision Making 02/21/18 20:38 Pt comes with diffuse abd pain after thanksgiving dinner yesterday, when he ate all sorts of foods that he normally doesn't eat. 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 Most recent surg procedure was banding of his esophageal varices. Pt was complaining of abd pain and slumped over and had a symcopal episode that was witnessed by family due to the pain. Pt seems to be neurologically intact at this time. He complains of diffuse abd pain. Pain is worse on the epigastric and RUQ areas, but he also has lower abd tenderness. He has no dysuria at this time. He is neurologically intact in the ER. Pt is awaiting labs, CT head and sono abd, CXR. 02/21/18 20:45 CXR is normal 02/22/18 19:46 Pt has diffuse wall thickening of her GB and new gb stones, however, no a clear cholecystitis. He will be admitted for GI evaluation. Surg consult, if needed <Samantha Singer - Last Filed: 02/22/18 19:47> *DC/Admit/Observation/Transfer - Attestations Scribe Attestion: 02/21/18 22:03 Documentation prepared by Michelle Gomez, acting as medical practice manager for Samantha Singer MD. <Michelle Gomze - Last Filed: 02/21/18 21:41> - Discharge Dispostion Decision to Admit order: Yes <Samantha Singer - Last Filed: 02/22/18 19:47> Diagnosis at time of Disposition: Colic, biliary, Hepatitis, Cirrhosis, Diabetes mellitus, Hypertension - Discharge Dispostion Condition at time of disposition: Guarded
[2018-02-21] MEDS ORDERED: SODIUM CHLORIDE 0.9% 500 ML INFUS.BAG IV ONE ×2 (20:06→22:57)
[2018-02-21 20:45] LABS: BASO % 1.1 % (0-2.0); EOS % 1.3 % (0-4.5); HEMATOCRIT 29.8 % (35.4-49); LYMPH % 10.3 % (8-40); MCH 22.2 pg (25.7-33.7); MCHC 33.5 g/dl (32.0-35.9); MEAN CELL VOLUME 66.2 fl (80-96); MONO % 6.3 % (3.8-10.2); RDW 16.9 % (11.9-15.9); WHITE BLOOD COUNT 5.4 K/mm3 (4.0-10.0)
[2018-02-21 20:55] LABS: MEAN PLT VOLUME 8.8 fl (7.5-11.1)
[2018-02-21 21:14] LABS: INR 1.19 (0.83-1.09); PROTHROMBIN TIME (PATIENT) 14.1 SEC (9.7-13.0)
[2018-02-21 21:18] LABS: ALBUMIN 3.6 g/dl (3.4-5.0); ALK PHOS 183 U/L (45-117); AMYLASE 121 U/L (25-115); ANION GAP 10 MMOL/L (8-16); BLOOD UREA NITROGEN 19 mg/dL (7-18); CALCIUM 8.8 mg/dL (8.5-10.1); CHLORIDE 110 mmol/L (98-107); CO2 24 mmol/L (21-32); CREATININE 1.4 mg/dL (0.55-1.3); LIPASE 307 U/L (73-393); POTASSIUM 4.6 mmol/L (3.5-5.1); SGOT/AST 38 U/L (15-37); SGPT/ALT 54 U/L (13-61); SODIUM 144 mmol/L (136-145); TOT PROT 7.6 g/dl (6.4-8.2)
[2018-02-21 21:29] LABS: GLUCOSE,RANDOM 305 mg/dL (74-106)
[2018-02-21] MEDS ORDERED: PIPERACILLIN/TAZOB 3.375 GM 3.375 GM in DEXTROSE 5%-WATER - 50 ML IVPB ONE (22:57)
[2018-02-21] MEDS ORDERED: PIPERACILLIN/TAZOB 3.375 GM 3.375 GM/50 ML BAG IVPB ONE (23:22)
[2018-02-21 23:25] LABS: PLATELET COUNT 98 K/MM3 (134-434); PLATELET ESTIMATE SLT DECREASE
[2018-02-22] MEDS ORDERED: INSULIN REGULAR HUMAN 100 UNITS/ML *VIAL IVPUSH ONE (00:50)
[2018-02-22] MEDS ORDERED: INSULIN REGULAR HUMAN 100 UNITS/ML *VIAL ONE (00:58)
--- NOTE | 2018-02-22 02:05 | PN ---
Teaching Attending Note Name of Resident: Genoveva Rausch ATTENDING PHYSICIAN STATEMENT I saw and evaluated the patient. I reviewed the resident's note and discussed the case with the resident. I agree with the resident's findings and plan as documented. SUBJECTIVE: Patient is a 72-year-old male with past medical history significant for Alcoholic Cirrhosis, s/p esophageal varices banding, IDDM, HTN, and anemia presents to the emergency department with abdominal pain since 2:00 pm this afternoon. Per daughter, who is translating, the patient reports an acute onset of abdominal pain since 2:00 pm today. The patient reports a constant localized pain thats dull and achy in quality, with the severity of 10/10, denies pain is radiating to the back or the sides. The patient reports associated symptoms of 3 episodes of NBNB watery diarrhea, denies urinary symptoms and a syncopal episode at 6:30 pm today, that was witnessed by the nephew, who reported that he regained conscious moments later. The patient reports following the syncopal episode, he was experiencing nausea and tremors. The daughter reports the patient had not his usual food yesterday at Thanksgiving dinner, denies any other family sick. The patient reports a chronic history of blurry vision and L. muscle strain. Denies fever, recent illness, hematochezia, melena, dysuria, hematuria, frequency or urgency to urinate, vomiting. OBJECTIVE: Alert Vital Signs Period Temp Pulse Resp BP Sys/Aden Pulse Ox Last 24 Hr 97.7 F 61 18 142/55 96 HEENT: No Jaundice, eye redness or discharge, PERRLA, EOMI. Normocephalic, atraumatic. External ears are normal and hearing is grossly intact. No nasal discharge. Neck: Supple, nontender. No palpable adenopathy or thyromegaly. No JVD Chest: Good effort. Clear to auscultation and percussion. Heart: Regular. No S3, rub or murmur Abdomen: Not distended, soft, nontender and no HSM. No rebound or guarding. Normoactive bowel sounds. Ext: Peripheral pulses intact. No leg edema. Skin: Warm and dry. No petechiae, rash or ecchymosis. Neuro: Alert. Oriented x3. CN 2-12 grossly intact. Sensation grossly intact in all four extremities and DTR are symmetric. Current Medications Generic Name Dose Route Start Last Admin Trade Name Selam PRN Reason Stop Dose Admin Heparin Sodium (Porcine) 5,000 unit 02/22/18 06:00 02/22/18 13:20 Heparin - SQ 5,000 unit TID JELENA Administration Sodium Chloride 1,000 mls @ 100 mls/hr 02/22/18 03:30 02/22/18 03:37 Normal Saline - IV 100 mls/hr ASDIR JELENA Administration Insulin Aspart 1 vial 02/22/18 07:00 02/22/18 16:55 Novolog Vial Sliding Scale - SQ 4 units ACHS JELENA Administration Protocol Home Medications Medication Instructions Recorded Glimepiride 4 mg PO DAILY 01/01/12 Terazosin HCl 2 mg PO DAILY 01/01/12 metFORMIN HCL [Glucophage] 1,000 mg PO BID 01/01/12 Pantoprazole Sodium [Protonix] 40 mg PO BID #60 tablet. 04/05/17 Ferrous Sulfate [Feosol] 325 mg PO DAILY #30 ud 04/27/17 Abnormal Lab Results 02/21/18 02/21/18 02/21/18 20:34 20:34 20:34 Hgb 10.0 L Hct 29.8 L MCV 66.2 L MCH 22.2 L MCHC RDW 16.9 H Plt Count 98 L Retic Count PT with INR 14.10 H INR 1.19 H PTT (Actin FS) 23.8 L Sodium Chloride Anion Gap BUN Creatinine Random Glucose Magnesium AST Alkaline Phosphatase Total Amylase 02/21/18 02/22/18 02/22/18 20:34 05:20 05:20 Hgb 9.8 L Hct 31.0 L MCV 66.1 L MCH 20.9 L MCHC 31.6 L RDW 16.6 H Plt Count 98 L Retic Count 1.55 H D PT with INR INR PTT (Actin FS) Sodium 146 H Chloride 110 H 114 H Anion Gap 5 L BUN 19 H Creatinine 1.4 H Random Glucose 305 H* 120 H Magnesium 1.4 L AST 38 H Alkaline Phosphatase 183 H Total Amylase 121 H ASSESSMENT AND PLAN: 1. Abdominal pain - Sonogram shows cholelithiasis, but no strong evidence for cholecystitis. He is now painfree. Will get HIDA scan, consult GI and Surgery. No need for antibiotics at this time. Get UA. Monitor platelets. 2. DM - For now, we will hold the home diabetes drugs and implement sliding scale insulin regimen. Provide comprehensive diabetes care with patient teaching and counseling about the importance of euglycemia, eye care and foot care. 3. ANISHA - Cause unclear. Get UA and kidney sonogram. Hydrate and avoid nephrotoxic agents such as NSAIDS, aminoglycosides, contrast dyes and certain Alternative medicine products. 4. Low MCV Anemia - Do basic anemia work up including serial stool guaiacs, reticulocyte count and iron studies. 5. Obesity - Will provide patient all the necessary assistance, counseling and positive reinforcement to facilitate weight loss. Consult emergency department nurse. 6. DVT prophylaxis - Heparin 5000u sq tid. 7. Advance directives - Full code
[2018-02-22] MEDS: SODIUM CHLORIDE 1,000 ML IV SCH (03:37)
--- NOTE | 2018-02-22 03:40 | HP ---
CHIEF COMPLAINT: biliary colic PCP: HISTORY OF PRESENT ILLNESS: 72 y/o M with PMH alcoholic cirrhosis, s/p esophageal variceal banding, DM, HTN , anemia, who presents to the ED c/o abdominal pain that started at 2pm yesterday, followed by a syncopal episode a few hours later. As per daughter, pt first developed sudden abdominal pain yesterday afternoon; 01/08 diffuse to mid-epigastrium a/w multiple episodes of loose BM's without blood. A few hours later, pt syncopized and developed subsequent nausea. Denies BARRERA, fever, chills, melena, or dysuria. ER course was notable for: (1) novolog 4u (2) NS (3) zosyn Recent Travel: denies PAST MEDICAL HISTORY: as above PAST SURGICAL HISTORY: denies Social History: Smoking: denies Alcohol: used in the past, but has been sober for years Drugs: denies Family History: denies Allergies No Known Drug Allergies Allergy (Verified 02/21/18 19:29) HOME MEDICATIONS: Home Medications Medication Instructions Recorded Glimepiride 4 mg PO DAILY 01/01/12 Terazosin HCl 2 mg PO DAILY 01/01/12 metFORMIN HCL [Glucophage] 1,000 mg PO BID 01/01/12 Pantoprazole Sodium [Protonix] 40 mg PO BID #60 tablet. 04/05/17 Ferrous Sulfate [Feosol] 325 mg PO DAILY #30 ud 04/27/17 REVIEW OF SYSTEMS CONSTITUTIONAL: Absent: fever, chills, diaphoresis, generalized weakness, malaise, loss of appetite, weight change HEENT: Absent: rhinorrhea, nasal congestion, throat pain, throat swelling, difficulty swallowing, mouth swelling, ear pain, eye pain, visual changes CARDIOVASCULAR: Absent: chest pain, syncope, palpitations, irregular heart rate, lightheadedness , peripheral edema RESPIRATORY: Absent: cough, shortness of breath, dyspnea with exertion, orthopnea, wheezing, stridor, hemoptysis GASTROINTESTINAL: +abdominal pain, nausea, diarrhea Absent: constipation, melena, hematochezia GENITOURINARY: Absent: dysuria, frequency, urgency, hesitancy, hematuria, flank pain, genital pain MUSCULOSKELETAL: Absent: myalgia, arthralgia, joint swelling, back pain, neck pain SKIN: Absent: rash, itching, pallor HEMATOLOGIC/IMMUNOLOGIC: Absent: easy bleeding, easy bruising, lymphadenopathy, frequent infections ENDOCRINE: Absent: unexplained weight gain, unexplained weight loss, heat intolerance, cold intolerance NEUROLOGIC: Absent: headache, focal weakness or paresthesias, dizziness, unsteady gait, seizure, mental status changes, bladder or bowel incontinence PSYCHIATRIC: Absent: anxiety, depression, suicidal or homicidal ideation, hallucinations. PHYSICAL EXAMINATION Vital Signs - 24 hr 02/21/18 19:29 Temperature 97.7 F Pulse Rate 61 Respiratory 18 Rate Blood Pressure 142/55 L O2 Sat by Pulse 96 Oximetry (%) GENERAL: Awake, in no acute distress. HEAD: Normal with no signs of trauma. EYES: Pupils equal, round and reactive to light, extraocular movements intact, sclera anicteric, conjunctiva clear. EARS, NOSE, THROAT: Ears normal, nares patent, oropharynx clear without exudates. Dry mucous membranes. NECK: Normal range of motion, supple LUNGS: Breath sounds equal, clear to auscultation bilaterally. No wheezes, and no crackles. HEART: Regular rate and rhythm, normal S1 and S2 without murmur, rub or gallop. ABDOMEN: Soft, nontender, not distended, normoactive bowel sounds, no guarding, no rebound, no masses. MUSCULOSKELETAL: Normal range of motion at all joints. LOWER EXTREMITIES: 2+ pt pulses, warm, well-perfused. No calf tenderness. No peripheral edema. NEUROLOGICAL: Cranial nerves II-XII intact. PSYCHIATRIC: Cooperative. Good eye contact. SKIN: Warm, dry, normal turgor Laboratory Results - last 24 hr 02/21/18 02/21/18 02/21/18 20:34 20:34 20:34 WBC 5.4 RBC 4.50 Hgb 10.0 L Hct 29.8 L MCV 66.2 L MCH 22.2 L MCHC 33.5 RDW 16.9 H Plt Count 98 L MPV 8.8 Absolute Neuts (auto) 4.4 Neutrophils % 81.0 D Lymphocytes % 10.3 D Monocytes % 6.3 Eosinophils % 1.3 Basophils % 1.1 D Nucleated RBC % 0 Platelet Estimate Slt decrease PT with INR 14.10 H INR 1.19 H PTT (Actin FS) 23.8 L Sodium Potassium Chloride Carbon Dioxide Anion Gap BUN Creatinine Creat Clearance w eGFR Random Glucose Calcium Total Bilirubin AST ALT Alkaline Phosphatase Creatine Kinase Troponin I Total Protein Albumin Total Amylase Lipase 02/21/18 20:34 WBC RBC Hgb Hct MCV MCH MCHC RDW Plt Count MPV Absolute Neuts (auto) Neutrophils % Lymphocytes % Monocytes % Eosinophils % Basophils % Nucleated RBC % Platelet Estimate PT with INR INR PTT (Actin FS) Sodium 144 Potassium 4.6 Chloride 110 H Carbon Dioxide 24 Anion Gap 10 BUN 19 H Creatinine 1.4 H Creat Clearance w eGFR 49.68 Random Glucose 305 H* Calcium 8.8 Total Bilirubin 1.0 AST 38 H ALT 54 Alkaline Phosphatase 183 H Creatine Kinase 41 Troponin I < 0.02 Total Protein 7.6 Albumin 3.6 Total Amylase 121 H Lipase 307 ASSESSMENT/PLAN: 72 y/o M with PMH alcoholic cirrhosis, s/p esophageal variceal banding, DM, HTN , anemia, who presents to the ED c/o abdominal pain that started at 2pm yesterday, followed by a syncopal episode a few hours later. #Abdominal pain -possibly 2/2 biliary colic. pt underwent abd sono; with evidence of developing cholelithiasis, however without evidence of current acute cholecystitis. afebrile, without white count. -received zosyn x1 in ER. without active infection currently; would keep NPO for bowel rest, give IVF. -seen by surgery, without need for intervention -consider GI consult if pain worsens #s/p syncopal episode -Head CT- without acute changes #ANISHA possible 2/2 dehydration -F/u UA, renal sono to investigate cause. whether exacerbated by infection -avoid nephrotoxic agents #DM -ISS ACHS -BGM #Microcytic anemia -in setting of older adult r/o bleed, will need to find out hx colonoscopy -stool guiac, iron studies #F/E/N IV NS 100 cc/hr continue to follow lytes NPO #PPX Hep 5000 SQ TID #Dispo med-surg obs Visit type - Emergency Visit Emergency Visit: Yes ED Registration Date: 02/22/18 Care time: The patient presented to the Emergency Department on the above date and was hospitalized for further evaluation of their emergent condition. - New Patient This patient is new to me today: Yes Date on this admission: 02/22/18 - Critical Care Critical Care patient: No
[2018-02-22 05:38] LABS: EOS % 1.9 % (0-4.5); HEMOGLOBIN 9.8 GM/dL (11.7-16.9); LYMPH % 18.5 % (8-40); MCH 20.9 pg (25.7-33.7); MCHC 31.6 g/dl (32.0-35.9); MEAN CELL VOLUME 66.1 fl (80-96); MEAN PLT VOLUME 8.8 fl (7.5-11.1); MONO % 5.4 % (3.8-10.2); NEUT % 73.2 % (42.8-82.8); PLATELET COUNT 98 K/MM3 (134-434); RBC 4.69 M/mm3 (4.00-5.60); RDW 16.6 % (11.9-15.9); RETICULOCYTES 1.55 % (0.5-1.5); WHITE BLOOD COUNT 5.4 K/mm3 (4.0-10.0)
[2018-02-22 06:05] LABS: ANION GAP 5 MMOL/L (8-16); BLOOD UREA NITROGEN 16 mg/dL (7-18); CALCIUM 8.7 mg/dL (8.5-10.1); CHLORIDE 114 mmol/L (98-107); CO2 27 mmol/L (21-32); CREATININE 1.1 mg/dL (0.55-1.3); GLUCOSE,RANDOM 120 mg/dL (74-106); MAGNESIUM 1.4 mg/dL (1.8-2.4); PHOSPHOROUS 2.7 mg/dL (2.5-4.9); POTASSIUM 4.5 mmol/L (3.5-5.1); SODIUM 146 mmol/L (136-145)
[2018-02-22 06:52] LABS: PLATELET ESTIMATE SLT DECREASE
[2018-02-22 06:53] LABS: ANISOCYTOSIS 2+
[2018-02-22] MEDS: HEPARIN NA (PORCINE) 5,000 UNITS/ML 1ML VIAL SQ SCH ×3 (08:40→22:02)
[2018-02-22] MEDS: INSULIN SLIDING SCALE (NOVOLOG) 1 VIAL SQ SCH ×4 (09:32→22:01)
--- NOTE | 2018-02-22 10:13 | HOSP ---
Subjective - Review of Symptoms Events since last encounter: Patient is comfortable with no acute distress, no shortness of breath. Vital Signs Temperature 98.8 F 02/22/18 05:23 Pulse Rate 55 L 02/22/18 05:23 Respiratory Rate 17 02/22/18 05:23 Blood Pressure 151/45 L 02/22/18 05:23 O2 Sat by Pulse Oximetry (%) 98 02/22/18 05:23 GENERAL: Awake, in no acute distress. HEAD: Normal with no signs of trauma. EYES: Pupils equal, round and reactive to light, extraocular movements intact, sclera anicteric, conjunctiva clear. EARS, NOSE, THROAT: Ears normal, oropharynx clear without exudates. Dry mucous membranes. NECK: Normal range of motion, supple ,No JVD LUNGS: Breath sounds equal, clear to auscultation bilaterally. No wheezes, and no crackles. HEART: Regular rate and rhythm, normal S1 and S2 without murmur, rub or gallop. ABDOMEN: Soft, nontender, not distended, normoactive bowel sounds, no guarding, no rebound, no masses. EXTREMITIES: 2+ pt pulses, warm, well-perfused. No calf tenderness. No peripheral edema. NEUROLOGICAL: Cranial nerves II-XII intact. Cooperative. Good eye contact. SKIN: Warm, dry, normal turgor CBCD WBC 5.4 K/mm3 (4.0-10.0) 02/22/18 05:20 RBC 4.69 M/mm3 (4.00-5.60) 02/22/18 05:20 Hgb 9.8 GM/dL (11.7-16.9) L 02/22/18 05:20 Hct 31.0 % (35.4-49) L 02/22/18 05:20 MCV 66.1 fl (80-96) L 02/22/18 05:20 MCHC 31.6 g/dl (32.0-35.9) L 02/22/18 05:20 RDW 16.6 % (11.9-15.9) H 02/22/18 05:20 Plt Count 98 K/MM3 (134-434) L 02/22/18 05:20 MPV 8.8 fl (7.5-11.1) 02/22/18 05:20 CMP Sodium 146 mmol/L (136-145) H 02/22/18 05:20 Potassium 4.5 mmol/L (3.5-5.1) 02/22/18 05:20 Chloride 114 mmol/L (98-107) H 02/22/18 05:20 Carbon Dioxide 27 mmol/L (21-32) 02/22/18 05:20 Anion Gap 5 MMOL/L (8-16) L 02/22/18 05:20 BUN 16 mg/dL (7-18) 02/22/18 05:20 Creatinine 1.1 mg/dL (0.55-1.3) 02/22/18 05:20 Creat Clearance w eGFR > 60 (>60) 02/22/18 05:20 Random Glucose 120 mg/dL (74-106) H 02/22/18 05:20 Calcium 8.7 mg/dL (8.5-10.1) 02/22/18 05:20 Total Bilirubin 1.0 mg/dL (0.2-1) 02/21/18 20:34 AST 38 U/L (15-37) H 02/21/18 20:34 ALT 54 U/L (13-61) 02/21/18 20:34 Alkaline Phosphatase 183 U/L (45-117) H 02/21/18 20:34 Total Protein 7.6 g/dl (6.4-8.2) 02/21/18 20:34 Albumin 3.6 g/dl (3.4-5.0) 02/21/18 20:34 CARDIAC ENZYMES Creatine Kinase 41 IU/L (26-308) 02/21/18 20:34 Troponin I < 0.02 ng/ml (0.00-0.05) 02/21/18 20:34 Current Medications Generic Name Dose Route Start Last Admin Trade Name Freq PRN Reason Stop Dose Admin Heparin Sodium (Porcine) 5,000 unit 02/22/18 06:00 02/22/18 08:40 Heparin - SQ Not Given TID JELENA Sodium Chloride 1,000 mls @ 100 mls/hr 02/22/18 03:30 02/22/18 03:37 Normal Saline - IV 100 mls/hr ASDIR JELENA Administration Insulin Aspart 1 vial 02/22/18 07:00 02/22/18 09:32 Novolog Vial Sliding Scale - SQ Not Given ACHS [facility] Protocol Home Medications Medication Instructions Recorded Glimepiride 4 mg PO DAILY 01/01/12 Terazosin HCl 2 mg PO DAILY 01/01/12 metFORMIN HCL [Glucophage] 1,000 mg PO BID 01/01/12 Pantoprazole Sodium [Protonix] 40 mg PO BID #60 tablet. 04/05/17 Ferrous Sulfate [Feosol] 325 mg PO DAILY #30 ud 04/27/17 A/P: 72 y/o M with PMH alcoholic cirrhosis, s/p esophageal variceal banding, DM, HTN , anemia, who presents to the ED c/o abdominal pain that started at 2pm yesterday, followed by a syncopal episode a few hours later. #Acute biliary colic with evidence of cholelithiasis, without evidence of current acute cholecystitis. s/p zosyn x1 in ER. NPO. #s/p syncopal episode:with negative head Head CT #ANISHA avoid nephrotoxic agents #DM: ISS ACHS. BGM #Microcytic anemia r/o bleed, further w/u as as an outpatient. med-surg obs Physical Examination Vital Signs: Vital Signs Temperature 98.8 F 02/22/18 05:23 Pulse Rate 55 L 02/22/18 05:23 Respiratory Rate 17 02/22/18 05:23 Blood Pressure 151/45 L 02/22/18 05:23 O2 Sat by Pulse Oximetry (%) 98 02/22/18 05:23 Labs: CBC, BMP 02/22/18 05:20 02/22/18 05:20
--- NOTE | 2018-02-22 10:45 | CONSULT ---
- Consultation REQUESTING PROVIDER: CONSULT REQUEST: We have been asked to surgically evaluate this patient for ( specify). PCP:Tay Hernandez HISTORY OF PRESENT ILLNESS:The patient is a 72-year-old male with past medical history significant for Alcoholic Cirrhosis, s/p esophageal varices banding, IDDM, HTN, and anemia presented to the emergency department with abdominal pain since 2:00 pm 02/21/18.which has since resolved. Pain was constant localized pain ? cramp like " in quality, with the severity of 10/10, denied pain is radiating to the back or the sides. The patient reports associated symptoms of 3 episodes of NBNB watery diarrhea and a ? syncopal episode.. It was reported that the patient had not his usual food at Thanksgiving dinner. reports a Denies fever, recent illness, hematochezia, melena, dysuria, hematuria, frequency or urgency to urinate, vomiting. Has a h/o UGI bleeding due to gastritis and bleeding varices which have been banded in the past; this morning he has has no n/v/pain and wants to eat. He has had known gallstones since at least 03/2017. PMHx: NIDDM; ESLD; UGI bleed; varices PSHx: none Home Medications Medication Instructions Recorded Glimepiride 4 mg PO DAILY 01/01/12 Terazosin HCl 2 mg PO DAILY 01/01/12 metFORMIN HCL [Glucophage] 1,000 mg PO BID 01/01/12 Pantoprazole Sodium [Protonix] 40 mg PO BID #60 tablet. 04/05/17 Ferrous Sulfate [Feosol] 325 mg PO DAILY #30 ud 04/27/17 Allergies Allergy/AdvReac Type Severity Reaction Status Date / Time No Known Drug Allergies Allergy Verified 02/21/18 19:29 PHYSICAL EXAM: GENERAL: Awake, alert, and fully oriented, in no acute distress. HEAD: Normal with no signs of trauma. EYES: sclera anicteric, conjunctiva clear. NECK: Normal ROM, supple without lymphadenopathy, JVD, or masses. ABDOMEN: Soft, nontender, not distended, normoactive bowel sounds, no guarding, no rebound, no masses. No organomegaly. MUSCULOSKELETAL: Normal ROM at all joints. No bony deformities or tenderness. No CVA tenderness. UPPER EXTREMITIES: 2+ pulses, warm, well-perfused. No cyanosis. Cap refill <2 seconds. No peripheral edema. LOWER EXTREMITIES: 2+ pulses, warm, well-perfused. No calf tenderness. No peripheral edema. NEUROLOGICAL: Normal speech, gait not observed. PSYCH: Cooperative. Good eye contact. Appropriate mood and affect. SKIN: Warm, dry, normal turgor, no rashes or lesions noted. Vital Signs Temperature 98.8 F 02/22/18 05:23 Pulse Rate 55 L 02/22/18 05:23 Respiratory Rate 17 02/22/18 05:23 Blood Pressure 151/45 L 02/22/18 05:23 O2 Sat by Pulse Oximetry (%) 98 02/22/18 05:23 Lab Results WBC 5.4 K/mm3 (4.0-10.0) 02/22/18 05:20 RBC 4.69 M/mm3 (4.00-5.60) 02/22/18 05:20 Hgb 9.8 GM/dL (11.7-16.9) L 02/22/18 05:20 Hct 31.0 % (35.4-49) L 02/22/18 05:20 MCV 66.1 fl (80-96) L 02/22/18 05:20 MCHC 31.6 g/dl (32.0-35.9) L 02/22/18 05:20 RDW 16.6 % (11.9-15.9) H 02/22/18 05:20 Plt Count 98 K/MM3 (134-434) L 02/22/18 05:20 Sodium 146 mmol/L (136-145) H 02/22/18 05:20 Potassium 4.5 mmol/L (3.5-5.1) 02/22/18 05:20 Chloride 114 mmol/L (98-107) H 02/22/18 05:20 Carbon Dioxide 27 mmol/L (21-32) 02/22/18 05:20 Anion Gap 5 MMOL/L (8-16) L 02/22/18 05:20 BUN 16 mg/dL (7-18) 02/22/18 05:20 Creatinine 1.1 mg/dL (0.55-1.3) 02/22/18 05:20 Random Glucose 120 mg/dL (74-106) H 02/22/18 05:20 Calcium 8.7 mg/dL (8.5-10.1) 02/22/18 05:20 INR 1.19 (0.83-1.09) H 02/21/18 20:34 US reviewed IMP: abdominal pain; resolved; ? related to biliary colic. PLAN: Suggest trial of clear liquids and advance as tolerated; would not advise lap key in this patient w/liver disease and esophageal varices; he is a prohibitive risk for surgery; no antibiotics are indicated. Rogelio Ledesma MD FACS
--- NOTE | 2018-02-22 11:59 | EKG ---
Test Reason : Blood Pressure : / mmHG Vent. Rate : 057 BPM Atrial Rate : 057 BPM P-R Int : 180 ms QRS Dur : 090 ms QT Int : 446 ms P-R-T Axes : 052 042 057 degrees QTc Int : 434 ms SINUS BRADYCARDIA OTHERWISE NORMAL ECG WHEN COMPARED WITH ECG OF 26-APR-2017 17:22, NO SIGNIFICANT CHANGE WAS FOUND Confirmed by LINDA RICH MD ([id number]) on 02/22/2018 11:59:22 AM Referred By: Confirmed By:LINDA RICH MD
[2018-02-22 13:06] LABS: URINE APPEARANCE CLEAR; URINE BILIRUBIN NEGATIVE (<2.0 mg/dL); URINE COLOR LTYELLOW; URINE GLUCOSE (UA) NEGATIVE (NEGATIVE); URINE KETONE NEGATIVE (NEGATIVE); URINE LEUK ESTERASE NEGATIVE (NEGATIVE); URINE NITRITE NEGATIVE (NEGATIVE); URINE PROTEIN NEGATIVE (NEGATIVE); URINE UROBILINOGEN NEGATIVE mg/dL (0.2-1.0)
[2018-02-22 16:24] VITALS: BMI 30.3
[2018-02-23] MEDS: SODIUM CHLORIDE 1,000 ML IV SCH (05:36)
[2018-02-23] MEDS: HEPARIN NA (PORCINE) 5,000 UNITS/ML 1ML VIAL SQ SCH ×3 (05:38→22:00)
[2018-02-23] MEDS: INSULIN SLIDING SCALE (NOVOLOG) 1 VIAL SQ SCH ×4 (06:02→22:01)
[2018-02-23 06:40] LABS: SERUM IRON SATURATION 35 % (15-55); TOTAL IRON BINDING CAPACITY 315 ug/dL (250-450); UIBC 205 ug/dL (111-343)
[2018-02-23] MEDS ORDERED: SODIUM CHLORIDE 0.45% 1,000 ML IV SCH (10:00)
[2018-02-23] MEDS: MAGNESIUM SULF 50% (8.12 MEQ/2 ML-1 GM VIAL) IVPB SCH ×2 (10:23→12:00)
[2018-02-23] MEDS ORDERED: INSULIN (NOVOLOG) ASPART 100 UNITS/ML 10ML VIAL ONE (11:45)
--- NOTE | 2018-02-23 12:34 | PN ---
Physical Exam: SUBJECTIVE: Patient seen and examined ; no new complaints ; tolerating clear liquid diet. Denies abdominal pain, n, v. OBJECTIVE: Vital Signs Period Temp Pulse Resp BP Sys/Aden Pulse Ox Last 24 Hr 98.2 F-98.7 F 54-55 18-18 122-146/50-60 98-98 GENERAL: The patient is awake, alert, and fully oriented, in no acute distress. HEAD: Normal with no signs of trauma. LUNGS: Breath sounds equal, clear to auscultation bilaterally, no wheezes, no crackles, no accessory muscle use. HEART: Regular rate and rhythm, S1, S2 without murmur, rub or gallop. ABDOMEN: Soft, nontender, nondistended, normoactive bowel sounds, no guarding, no rebound EXTREMITIES: 2+ pulses, warm, well-perfused, no edema. NEUROLOGICAL: Cranial nerves II through XII grossly intact. Normal speech, gait not observed. PSYCH: Normal mood, normal affect. SKIN: Warm, dry, normal turgor, no rashes or lesions noted Laboratory Results - last 24 hr 02/22/18 02/22/18 02/22/18 05:20 12:00 16:53 POC Glucometer 243 Iron 110 TIBC 315 Iron Saturation 35 Urine Color Ltyellow Urine Appearance Clear Urine pH 6.0 Ur Specific [place] 1.010 Urine Protein Negative Urine Glucose (UA) Negative Urine Ketones Negative Urine Blood Negative Urine Nitrite Negative Urine Bilirubin Negative Urine Urobilinogen Negative Ur Leukocyte Esterase Negative Stool Occult Blood 02/22/18 02/22/18 02/23/18 17:00 22:01 05:38 POC Glucometer 176 97 Iron TIBC Iron Saturation Urine Color Urine Appearance Urine pH Ur Specific [place] Urine Protein Urine Glucose (UA) Urine Ketones Urine Blood Urine Nitrite Urine Bilirubin Urine Urobilinogen Ur Leukocyte Esterase Stool Occult Blood Negative 02/23/18 11:59 POC Glucometer 200 Iron TIBC Iron Saturation Urine Color Urine Appearance Urine pH Ur Specific [place] Urine Protein Urine Glucose (UA) Urine Ketones Urine Blood Urine Nitrite Urine Bilirubin Urine Urobilinogen Ur Leukocyte Esterase Stool Occult Blood Active Medications Generic Name Dose Route Start Last Admin Trade Name Freq PRN Reason Stop Dose Admin Heparin Sodium (Porcine) 5,000 unit 02/22/18 06:00 02/23/18 05:38 Heparin - SQ 5,000 unit TID JELENA Administration Sodium Chloride 1,000 mls @ 75 mls/hr 02/23/18 10:00 02/23/18 10:23 1/2 Normal Saline IV 02/23/18 23:19 75 mls/hr ASDIR JELENA Administration Insulin Aspart 1 vial 02/22/18 07:00 02/23/18 12:00 Novolog Vial Sliding Scale - SQ 2 units ACHS JELENA Administration Protocol ASSESSMENT/PLAN: This is a 72 year old male anemia with a history of alcoholic cirrhosis, esophageal varicies, who presents with n/v/abdominal pain. #abdominal pain secondary to biliary colic; -tolerating clears; advance diet to soft -abdominal US; +splenomegaly +hepatic cirrhosis; increased gallbladder thickening; cholelithiasis; -no evidence of cholecysitis; afebrile -evaluated by surgery; not a candidate for surgery #DMII: -cont insulin ss; bgm #ANISHA ; -resolved after IVF; #hx of iron deficiency anemia: heme count stable -no active bleed; stool occult negative GI ppl: cont home protonix 40mg bid Vte ppx: cont heparin sq Disposition: monitor for advancing diet; possible/ d/c in am Visit type - Emergency Visit Emergency Visit: Yes ED Registration Date: 02/22/18 Care time: The patient presented to the Emergency Department on the above date and was hospitalized for further evaluation of their emergent condition. - New Patient This patient is new to me today: Yes Date on this admission: 02/23/18 - Critical Care Critical Care patient: No
[2018-02-23] MEDS: PANTOPRAZOLE 40 MG TABLET (FP) PO SCH ×2 (14:51→22:00)
--- NOTE | 2018-02-23 18:09 | PN ---
Teaching Attending Note Name of Resident: Jaycee Dahl ATTENDING PHYSICIAN STATEMENT I saw and evaluated the patient. I reviewed the resident's note and discussed the case with the resident. I agree with the resident's findings and plan as documented. SUBJECTIVE: Comfortable with no acute distress. lying in with no nausea or vomiting, no further pain as per patient. OBJECTIVE: Vital Signs Temperature 98.1 F 02/23/18 13:40 Pulse Rate 63 02/23/18 13:40 Respiratory Rate 18 02/23/18 13:40 Blood Pressure 148/63 02/23/18 13:40 O2 Sat by Pulse Oximetry (%) 98 02/23/18 09:00 GENERAL: The patient is awake, alert, and fully oriented, in no acute distress. HEAD: Normal with no signs of trauma. LUNGS: Breath sounds equal, CTBL, no wheezes, no crackles, no accessory muscle use. HEART: Regular rate and rhythm, S1, S2 without murmur, rub or gallop. ABDOMEN: Soft, nontender, nondistended, normoactive bowel sounds, no guarding, no rebound EXTREMITIES: 2+ pulses, warm, well-perfused, no edema. NEUROLOGICAL: Cranial nerves II through XII grossly intact. Normal speech, gait not observed. PSYCH: Normal mood, normal affect. SKIN: Warm, dry, normal turgor, no rashes or lesions noted CBCD WBC 5.4 K/mm3 (4.0-10.0) 02/22/18 05:20 RBC 4.69 M/mm3 (4.00-5.60) 02/22/18 05:20 Hgb 9.8 GM/dL (11.7-16.9) L 02/22/18 05:20 Hct 31.0 % (35.4-49) L 02/22/18 05:20 MCV 66.1 fl (80-96) L 02/22/18 05:20 MCHC 31.6 g/dl (32.0-35.9) L 02/22/18 05:20 RDW 16.6 % (11.9-15.9) H 02/22/18 05:20 Plt Count 98 K/MM3 (134-434) L 02/22/18 05:20 MPV 8.8 fl (7.5-11.1) 02/22/18 05:20 CMP Sodium 146 mmol/L (136-145) H 02/22/18 05:20 Potassium 4.5 mmol/L (3.5-5.1) 02/22/18 05:20 Chloride 114 mmol/L (98-107) H 02/22/18 05:20 Carbon Dioxide 27 mmol/L (21-32) 02/22/18 05:20 Anion Gap 5 MMOL/L (8-16) L 02/22/18 05:20 BUN 16 mg/dL (7-18) 02/22/18 05:20 Creatinine 1.1 mg/dL (0.55-1.3) 02/22/18 05:20 Creat Clearance w eGFR > 60 (>60) 02/22/18 05:20 Random Glucose 120 mg/dL (74-106) H 02/22/18 05:20 Calcium 8.7 mg/dL (8.5-10.1) 02/22/18 05:20 Total Bilirubin 1.0 mg/dL (0.2-1) 02/21/18 20:34 AST 38 U/L (15-37) H 02/21/18 20:34 ALT 54 U/L (13-61) 02/21/18 20:34 Alkaline Phosphatase 183 U/L (45-117) H 02/21/18 20:34 Total Protein 7.6 g/dl (6.4-8.2) 02/21/18 20:34 Albumin 3.6 g/dl (3.4-5.0) 02/21/18 20:34 CARDIAC ENZYMES Creatine Kinase 41 IU/L (26-308) 02/21/18 20:34 Troponin I < 0.02 ng/ml (0.00-0.05) 02/21/18 20:34 Current Medications Generic Name Dose Route Start Last Admin Trade Name Freq PRN Reason Stop Dose Admin Heparin Sodium (Porcine) 5,000 unit 02/22/18 06:00 02/23/18 14:51 Heparin - SQ 5,000 unit TID JELENA Administration Sodium Chloride 1,000 mls @ 75 mls/hr 02/23/18 10:00 02/23/18 10:23 1/2 Normal Saline IV 02/23/18 23:19 75 mls/hr ASDIR JELENA Administration Insulin Aspart 1 vial 02/22/18 07:00 02/23/18 17:14 Novolog Vial Sliding Scale - SQ 8 units ACHS JELENA Administration Protocol Pantoprazole Sodium 40 mg 02/23/18 13:00 02/23/18 14:51 Protonix - PO 40 mg BID JELENA Administration Terazosin HCl 2 mg 02/24/18 10:00 Hytrin - PO DAILY [facility] Home Medications Medication Instructions Recorded Glimepiride 4 mg PO DAILY 01/01/12 Terazosin HCl 2 mg PO DAILY 01/01/12 metFORMIN HCL [Glucophage] 1,000 mg PO BID 01/01/12 Pantoprazole Sodium [Protonix] 40 mg PO BID #60 tablet. 04/05/17 Ferrous Sulfate [Feosol] 325 mg PO DAILY #30 ud 04/27/17 abdominal US: positive for splenomegaly , with liver cirrhosis; increased gallbladder thickening; cholelithiasis; no evidence of cholecysitis; afebrile ASSESSMENT AND PLAN: 72 y/o M with PMH alcoholic cirrhosis, s/p esophageal variceal banding, DM, HTN , anemia, who presents to the ED c/o abdominal pain that started at 2pm yesterday, followed by a syncopal episode a few hours later. #Acute biliary colic with evidence of cholelithiasis, denies having any pain at this time, without evidence of current acute cholecystitis. s/p zosyn x1 in ER. will advance his diet, if tolerates will discharge the patient home in am. #s/p syncopal episode:with negative head Head CT #ANISHA avoid nephrotoxic agents #DM: ISS ACHS. BGM #Microcytic anemia r/o bleed, will need to find out hx colonoscopy, stool guiac , iron studies #PPX: Hep 5000 SQ TID med-surg obs
[2018-02-24] MEDS: HEPARIN NA (PORCINE) 5,000 UNITS/ML 1ML VIAL SQ SCH (05:55)
[2018-02-24] MEDS: INSULIN SLIDING SCALE (NOVOLOG) 1 VIAL SQ SCH ×2 (06:04→12:03)
[2018-02-24 06:44] LABS: BASO % 0.6 % (0-2.0); EOS % 3.5 % (0-4.5); HEMATOCRIT 27.7 % (35.4-49); HEMOGLOBIN 9.2 GM/dL (11.7-16.9); LYMPH % 43.2 % (8-40); MCH 21.9 pg (25.7-33.7); MCHC 33.2 g/dl (32.0-35.9); MEAN CELL VOLUME 65.8 fl (80-96); MEAN PLT VOLUME 9.3 fl (7.5-11.1); MONO % 5.8 % (3.8-10.2); NEUT % 46.9 % (42.8-82.8); PLATELET COUNT 103 K/MM3 (134-434); RBC 4.22 M/mm3 (4.00-5.60); RDW 16.4 % (11.9-15.9); WHITE BLOOD COUNT 3.4 K/mm3 (4.0-10.0)
[2018-02-24 07:46] LABS: ALBUMIN 2.9 g/dl (3.4-5.0); ALK PHOS 131 U/L (45-117); ANION GAP 7 MMOL/L (8-16); BILIRUBIN,TOTAL 1.1 mg/dL (0.2-1); BLOOD UREA NITROGEN 12 mg/dL (7-18); CALCIUM 8.1 mg/dL (8.5-10.1); CHLORIDE 112 mmol/L (98-107); CO2 25 mmol/L (21-32); CREATININE 1.1 mg/dL (0.55-1.3); GLUCOSE,RANDOM 148 mg/dL (74-106); MAGNESIUM 1.7 mg/dL (1.8-2.4); PHOSPHOROUS 2.9 mg/dL (2.5-4.9); POTASSIUM 3.9 mmol/L (3.5-5.1); SGOT/AST 39 U/L (15-37); SGPT/ALT 49 U/L (13-61); SODIUM 144 mmol/L (136-145); TOT PROT 6.2 g/dl (6.4-8.2)
[2018-02-24] MEDS ORDERED: MAGNESIUM OXIDE 400 MG TABLET (FP) PO ONE (08:14)
[2018-02-24] MEDS ORDERED: TERAZOSIN HCL 1 MG CAPSULE PO SCH (10:00)
[2018-02-24] MEDS: PANTOPRAZOLE 40 MG TABLET (FP) PO SCH (10:21)
[2018-02-24 11:06] VITALS: BP 136/55; PULSE 55; TEMP 98
--- NOTE | 2018-02-24 11:34 | DS ---
Physical Exam: SUBJECTIVE: Patient seen and examined, denies any abdominal pain, nausea, or vomiting. Patient states he has been able to tolerate his soft food diet. OBJECTIVE: Vital Signs Temperature 98.0 F 02/24/18 10:00 Pulse Rate 55 L 02/24/18 10:00 Respiratory Rate 18 02/24/18 10:00 Blood Pressure 136/55 L 02/24/18 10:00 O2 Sat by Pulse Oximetry (%) 98 02/24/18 09:00 PHYSICAL EXAM GENERAL: The patient is awake, alert, and fully oriented, in no acute distress. HEAD: Normal with no signs of trauma. LUNGS: Breath sounds equal, clear to auscultation bilaterally, no wheezes, no crackles, no accessory muscle use. HEART: Regular rate and rhythm, S1, S2 without murmur, rub or gallop. ABDOMEN: Soft, nontender, nondistended, normoactive bowel sounds, EXTREMITIES: 2+ pulses, warm, well-perfused, no edema. PSYCH: Normal mood, normal affect. SKIN: Warm, dry, normal turgor, no rashes or lesions noted LABS CBC, BMP 02/24/18 06:00 02/24/18 06:00 HOSPITAL COURSE: Date of Admission:02/22/18 Patient presented for abdominal pain. US of abdomen showed development of cholelithiasis with mild to moderate gallbladder thickening. Patient was evaluated by surgery who did not feel he was a surgical candidate. Patient presented with an ANISHA that resolved with fluids. Patient was able to tolerate diet and his pain resolved. Pain 2/2 to biliary colic. Patient dc home. Head CT: no evidence of acute pathology Renal US: morphologically normal kidneys, marked splenomegaly Date of Discharge: 02/24/18 Minutes to complete discharge: 35 Discharge Summary Reason For Visit: DIABETES MELLITUS,HYPERTENSION,BILLARY COLIC Current Active Problems Cirrhosis (Chronic) Diabetes mellitus (Chronic) Hypertension (Chronic) Condition: Stable - Instructions Diet, Activity, Other Instructions: You came to the Emergency Department because you were having abdominal pain. We monitored you while you were here and your abdominal pain has resolved. A surgeon evaluated you and does not think surgery is indicated at this time. Please follow with Dr. Ledesma within a week at his clinic. You should also continue to follow up with your pillar man to monitor your pain and medical history. Continue to take your home medications as prescribed. Please follow up with your primary care physician within one week. Please return to the Emergency Department if you have any abdominal pain, vomiting, diarrhea, chest pain, or shortness of breath. Referrals: Rogelio Ledesma MD [Staff Physician] - 1 Week Armando Dan MD [Staff Physician] - 1 Week Robinson Gr MD [Staff Physician] - 1 Week Disposition: HOME - Home Medications Comprehensive Discharge Medication List: Ambulatory Orders Glimepiride 4 mg PO DAILY 01/01/12 metFORMIN HCL [Glucophage] 1,000 mg PO BID 01/01/12 Ferrous Sulfate [Feosol] 325 mg PO DAILY #30 ud 04/27/17 Docusate Sodium [Colace] 100 mg PO BID #60 capsule 02/24/18 Pantoprazole Sodium [Protonix -] 40 mg PO BID tablet.ec 02/24/18 Terazosin HCl [Hytrin -] 2 mg PO DAILY capsule 02/24/18 This patient is new to me today: No Emergency Visit: No Critical Care patient: No - Discharge Referral Referred to [facility] No
[2018-02-24] MEDS ORDERED: INSULIN (NOVOLOG) ASPART 100 UNITS/ML 10ML VIAL ONE (12:02)
--- NOTE | 2018-02-24 17:52 | PN ---
Teaching Attending Note Name of Resident: Marium Hilario ATTENDING PHYSICIAN STATEMENT I saw and evaluated the patient. I reviewed the resident's note and discussed the case with the resident. I agree with the resident's findings and plan as documented. SUBJECTIVE: Patient is comfortable with no acute distress, no nausea or vomiting, tolerated diet well. OBJECTIVE: Vital Signs Temperature 98.0 F 02/24/18 10:00 Pulse Rate 55 L 02/24/18 10:00 Respiratory Rate 18 02/24/18 10:00 Blood Pressure 136/55 L 02/24/18 10:00 O2 Sat by Pulse Oximetry (%) 98 02/24/18 09:00 GENERAL: The patient is awake, alert, and fully oriented, in no acute distress. HEAD: Normal with no signs of trauma. LUNGS: Breath sounds equal, CTBL, no wheezes, no crackles, no accessory muscle use. HEART: Regular rate and rhythm, S1, S2 without murmur, rub or gallop. ABDOMEN: Soft, nontender, nondistended, normoactive bowel sounds, no guarding, no rebound EXTREMITIES: 2+ pulses, warm, well-perfused, no edema. NEUROLOGICAL: Cranial nerves II through XII grossly intact. Normal speech. PSYCH: Normal mood, normal affect. SKIN: Warm, dry, normal turgor, no rashes or lesions noted CBCD WBC 3.4 K/mm3 (4.0-10.0) L 02/24/18 06:00 RBC 4.22 M/mm3 (4.00-5.60) 02/24/18 06:00 Hgb 9.2 GM/dL (11.7-16.9) L 02/24/18 06:00 Hct 27.7 % (35.4-49) L 02/24/18 06:00 MCV 65.8 fl (80-96) L 02/24/18 06:00 MCHC 33.2 g/dl (32.0-35.9) 02/24/18 06:00 RDW 16.4 % (11.9-15.9) H 02/24/18 06:00 Plt Count 103 K/MM3 (134-434) L 02/24/18 06:00 MPV 9.3 fl (7.5-11.1) 02/24/18 06:00 CMP Sodium 144 mmol/L (136-145) 11/26/18 06:00 Potassium 3.9 mmol/L (3.5-5.1) 02/24/18 06:00 Chloride 112 mmol/L (98-107) H 02/24/18 06:00 Carbon Dioxide 25 mmol/L (21-32) 02/24/18 06:00 Anion Gap 7 MMOL/L (8-16) L 02/24/18 06:00 BUN 12 mg/dL (7-18) 02/24/18 06:00 Creatinine 1.1 mg/dL (0.55-1.3) 02/24/18 06:00 Creat Clearance w eGFR > 60 (>60) 02/24/18 06:00 Random Glucose 148 mg/dL (74-106) H 02/24/18 06:00 Calcium 8.1 mg/dL (8.5-10.1) L 02/24/18 06:00 Total Bilirubin 1.1 mg/dL (0.2-1) H 02/24/18 06:00 AST 39 U/L (15-37) H 02/24/18 06:00 ALT 49 U/L (13-61) 02/24/18 06:00 Alkaline Phosphatase 131 U/L (45-117) H 02/24/18 06:00 Total Protein 6.2 g/dl (6.4-8.2) L 02/24/18 06:00 Albumin 2.9 g/dl (3.4-5.0) L 02/24/18 06:00 CARDIAC ENZYMES Creatine Kinase 41 IU/L (26-308) 02/21/18 20:34 Troponin I < 0.02 ng/ml (0.00-0.05) 02/21/18 20:34 Home Medications Medication Instructions Recorded RX: Glimepiride 4 mg PO DAILY 01/01/12 RX: metFORMIN HCL [Glucophage] 1,000 mg PO BID 01/01/12 RX: Ferrous Sulfate [Feosol] 325 mg PO DAILY #30 ud 04/27/17 Docusate Sodium [Colace] 100 mg PO BID #60 capsule 02/24/18 RX: Pantoprazole Sodium [Protonix 40 mg PO BID tablet.ec 02/24/18 -] RX: Terazosin HCl [Hytrin -] 2 mg PO DAILY capsule 02/24/18 abdominal US: positive for splenomegaly , with liver cirrhosis; increased gallbladder thickening; cholelithiasis; no evidence of cholecysitis; afebrile ASSESSMENT AND PLAN: 72 y/o M with PMH alcoholic cirrhosis, s/p esophageal variceal banding, DM, HTN , anemia, who presents to the ED c/o abdominal pain that started at 2pm yesterday, followed by a syncopal episode a few hours later. #Acute biliary colic improved with evidence of cholelithiasis but no acute cholecystitis. tolerated diet well , will discharge the patient home. #s/p syncopal episode:with negative head Head CT #ANISHA avoid nephrotoxic agents #DM: ISS ACHS. BGM #Microcytic anemia further w/u as an outpatient. follow with GI and production line operator. discharge patient home.
== END 2018-02-24 13:33 | disposition home or self-care (01) | DRG 445 ==
LOC: JER 18:54 → JERBED 02-22 03:01 → INTOOBSV 02-22 03:01 → OBSVTOIN 02-22 03:01 → J7W 02-22 06:22
PROVIDERS: ADMIT Internal Medicine; ATTEND Internal Medicine
DX: K80.70 Calculus of gallbladder and bile duct without cholecystitis without obstruction (principal); N17.9 Acute kidney failure, unspecified; K70.30 Alcoholic cirrhosis of liver without ascites; E11.9 Type 2 diabetes mellitus without complications; I10 Essential (primary) hypertension; B19.20 Unspecified viral hepatitis C without hepatic coma; E66.9 Obesity, unspecified; D50.9 Iron deficiency anemia, unspecified; E86.0 Dehydration
CPT/HCPCS: 36415; 70450-TC; 71045-TC-FY; 76705-TC; 76775-TC; 80048; 80053; 81003; 82150; 82272; 82550; 82728; 82962; 83540; 83550; 83690; 83735; 84100; 84484; 85025; 85044; 85610; 85730; 93005; 93010; 99284-25; J1644; J7030

== ENCOUNTER 2018-04-01 13:20 | Inpatient (IN) | payer MEDICARE, OTHER ==
[2018-04-01] MEDS ORDERED: PANTOPRAZOLE SODIUM 40 MG in SODIUM CHLORIDE 100 ML IVPB ONE (13:40)
[2018-04-01] MEDS ORDERED: SODIUM CHLORIDE 1,000 ML IV STA (13:40)
--- NOTE | 2018-04-01 13:40 | PDOC ---
History of Present Illness - General Chief Complaint: Rectal Bleed Stated Complaint: GI ISSUE Time Seen by Provider: 04/01/18 13:30 History Source: Family Exam Limitations: Language Barrier - History of Present Illness Initial Comments: History provided by daughter at bedside who is translating for her father who only speaks Bangladeshi. Hero is a 72 yo M w a sig pmh of Alcoholic cirrhosis, s/p esophageal varices banding, cholelithiasis, IDDM, HTN, and anemia who presents to the ED with what the patient reports as "bloody diarrhea" which the patient states was black in color. The patient also endorses diffuse abdominal pain ranging from 8- 10/10 in intensity. He describes the abdominal pain as pressure like. The black diarrhea and abdominal pain began 3 days prior to arrival but has worsened which prompted the patient to come to the ER to be evaluated. The pain does not radiate to the back, groin, or shoulder. The patient was seen for abdominal pain recently right after thanksgiving where he was found to have biliary colic with cholelithiasis but no evidence of cholecystitis. Patient also endorses significant chills for the past few days but denies fevers or infections. Patient denies having chest pain, SOB, difficulty breathing, dysuria, urgency, back pain, headache, blurry vision, bloody vomit, syncope, constipation, or recent travel. Allergies: NKA, NKDA Social history: Prior alcohol abuse, no tobacco or recreational drug use reported. Surgical history: Esophageal varices banding PCP: Dr Armando Dan GI doc: Robinson Gr General Surgeon: Rogelio Ledesma Past History - Past Medical History Allergies/Adverse Reactions: Allergies Allergy/AdvReac Type Severity Reaction Status Date / Time No Known Drug Allergies Allergy Verified 02/21/18 19:29 Home Medications: Ambulatory Orders Glimepiride 4 mg PO DAILY 01/01/12 metFORMIN HCL [Glucophage] 1,000 mg PO BID 01/01/12 Ferrous Sulfate [Feosol] 325 mg PO DAILY #30 ud 04/27/17 Docusate Sodium [Colace] 100 mg PO BID #60 capsule 02/24/18 Pantoprazole Sodium [Protonix -] 40 mg PO BID tablet.ec 02/24/18 Terazosin HCl [Hytrin -] 2 mg PO DAILY capsule 02/24/18 Anemia: Yes Asthma: No Cancer: No Cardiac Disorders: No CVA: No COPD: No CHF: No Dementia: No Diabetes: Yes GI Disorders: No Disorders: Yes (KIDNEY STONES) HTN: Yes Hypercholesterolemia: No Liver Disease: No Seizures: No Thyroid Disease: No - Surgical History Abdominal Surgery: No Appendectomy: No Cardiac Surgery: No Cholecystectomy: No Lung Surgery: No Neurologic Surgery: No Orthopedic Surgery: No - Immunization History Td Vaccination: Yes TDAP Vaccination: Yes Immunization Up to Date: Yes - Suicide/Smoking/Psychosocial Hx Smoking History: Never smoked Have you smoked in the past 12 months: No Hx Alcohol Use: No Drug/Substance Use Hx: No Substance Use Type: None Hx Substance Use Treatment: No Review of Systems - Review of Systems Able to Perform ROS?: Yes Comments:: CONSTITUTIONAL: Present: chills, fatigue Absent: fever EYES: Absent: visual changes ENT: Absent: ear pain, no sore throat CARDIOVASCULAR: Absent: chest pain, no palpitations RESPIRATORY: Absent: cough, no SOB GI: Present: Abdominal pain, diarrhea Absent: no nausea, no vomiting, no constipation GENITOURINARY: Present: Frequency Absent: dysuria, no hematuria MUSKULOSKELETAL: Absent: back pain, no arthralgia, no myalgia SKIN: Absent: rash NEURO: Absent: headache *Physical Exam - Physical Exam Comments: GENERAL: Well-appearing, well-nourished. No apparent distress. HEENT: Normocephalic, atraumatic. PERRL, EOM intact. CARDIOVASCULAR: Normal S1, S2. Regular rate and rhythm. PULMONARY: Clear to auscultation bilaterally. ABDOMEN: Abdomen is soft with normal BS. Mild TTP in the epigastric region. Abdomen is non-distended, and non-tender in the other regions. EXTREMITIES: Normal ROM in all four extremities. No gross deformities. SKIN: Warm, dry. No rash NEUROLOGICAL: No focal neurological deficits. Rectal Exam: positive: NL Prostate, normal rectal tone, melena, heme positive stool, other (Small stage 2 sacral ulcer). negative: normal exam, hemorrhoids Procedures - Bedside Ultrasound Other: I placed an 18 gauge IV in the Right AC with ultrasound guidance ED Treatment Course - LABORATORY CBC & Chemistry Diagram: 04/01/18 13:50 04/01/18 13:50 Medical Decision Making - Medical Decision Making Hero is a 72 yo M w a sig pmh of Alcoholic cirrhosis, s/p esophageal varices banding, cholelithiasis, IDDM, HTN, and anemia who presents to the ED with what the patient reports as "bloody diarrhea" which the patient states was black in color. The patient also endorses diffuse abdominal pain ranging from 8- 10/10 in intensity. DDx IBNLT: GI bleed - Melena vs hematochezia, upper vs lower gi bleed, haemorrhoids, variceal bleed, colitis Plan: Rectal Exam, Labs, heme occult, IV hydration, protonix, Octreotide, EKG, CTAP, GI consult - Simón, re-assess. HB is 6.7 which is an acute drop from 9.4 from 1 month prior - Heme occult is positive. - Will transfuse 2 units of PRBC I placed an 18 gauge IV in the Right AC with ultrasound guidance. - Consulted GI - Dr. Gr who said that Dr. James is covering for him today - Spoke with Dr. James who recommended he also get Abx and get admitted to the ICU - GI consult placed. - Ceftriaxone ordered - Patient made NPO *DC/Admit/Observation/Transfer Diagnosis at time of Disposition: GI bleed, Esophageal varices in alcoholic cirrhosis - Discharge Dispostion Condition at time of disposition: Guarded Decision to Admit order: Yes - Referrals Referrals: Armando Dan MD [Primary Care Provider] - - Patient Instructions - Post Discharge Activity
[2018-04-01] MEDS ORDERED: PANTOPRAZOLE SODIUM 40 MG/100 ML BAG IVPB ONE (13:54)
[2018-04-01 14:02] LABS: BASO % 0.5 % (0-2.0); EOS % 1.5 % (0-4.5); HEMATOCRIT 21.8 % (35.4-49); LYMPH % 18.7 % (8-40); MCH 20.6 pg (25.7-33.7); MCHC 30.6 g/dl (32.0-35.9); MEAN CELL VOLUME 67.5 fl (80-96); MEAN PLT VOLUME 9.6 fl (7.5-11.1); MONO % 6.2 % (3.8-10.2); NEUT % 73.1 % (42.8-82.8); PLATELET COUNT 90 K/MM3 (134-434); RBC 3.23 M/mm3 (4.00-5.60); RDW 16.6 % (11.9-15.9); RETICULOCYTES 2.18 % (0.5-1.5); WHITE BLOOD COUNT 4.6 K/mm3 (4.0-10.0)
[2018-04-01 14:10] LABS: HEMOGLOBIN 6.7 GM/dL (11.7-16.9)
[2018-04-01 14:12] LABS: INR 1.29 (0.83-1.09); PROTHROMBIN TIME (PATIENT) 15.3 SEC (9.7-13.0)
[2018-04-01] MEDS ORDERED: OCTREOTIDE ACETATE 50 MCG/1 ML - 1 ML VIAL IVPUSH ONE (14:12)
[2018-04-01 14:15] LABS: ACTIVATED PTT 24.8 SECONDS (25.2-36.5)
--- NOTE | 2018-04-01 14:17 | PDOC ---
Attending Attestation - Resident Resident Name: Edward Kwan - ED Attending Attestation I have performed the following: I have examined & evaluated the patient, The case was reviewed & discussed with the resident, I agree w/resident's findings & plan, Exceptions are as noted - HPI HPI: 04/01/18 14:15 72y M hx of esophageal varicies s/o banding, cirrhosis, iddm, htn, former etoh abuse, presents with complaint of dark stool/diarrhea for several days associated with abdominal pain. pt endorses approx 4-5 episodes of dark loose stool associated with diffuse abd pain. denies any n/v, hemetemsis, fever/chills , sob, palpitations, cp. pt has had episodes of this intermittently, last time approx 1 week ago that resolved. - Physicial Exam PE: 04/01/18 14:30 GENERAL: The patient is awake, alert, and fully oriented, Nontoxic - in no acute distress. HEAD: Normocephalic, atraumatic. EYES: extraocular movements intact, pale conjunctiva ENT: Normal voice, Moist mucous membranes. NECK: Normal range of motion, supple LUNGS: Breath sounds equal, clear to auscultation bilaterally. No wheezes, no rhonchi, no rales. HEART: Regular rate and rhythm, normal S1 and S2 without murmur, rub or gallop. ABDOMEN: Soft, mild diffuse tenderness EXTREMITIES: Normal range of motion, trace edema. NEUROLOGICAL: No facial assymetry, Normal speech, moving all 4 extremities spontaneously and symmetrically PSYCH: Normal mood, normal affect. SKIN: Warm, Dry, normal turgor, - Medical Decision Making 04/01/18 14:31 Suspect possible upper GI bleed due to history of esophageal varices will start protonix and octreotide. The patient's hemoglobin is noted to be 6.7 several points lower than his previous hospitalization will transfuse packed blood cells. We'll place 2 large bore IVs into the patient,. Will see monitor the patient will discuss with GI 04/01/18 18:31 case dw GI. recommend ICU admission pt curretnly hemodynamically stable will continue to monitor accpeted for admission by ICU/inaptient team Heart Score/ECG Review - ECG Impressions Comment:: 04/01/18 14:56 Twelve-lead EKG was performed and reviewed by me. There is normal sinus rhythm with a normal rate. Rate of 68 The axis is normal. The intervals are normal. There is normal R wave progression There are no ST or T wave abnormalities. Impression: Normal twelve-lead EKG
[2018-04-01 14:35] LABS: ALBUMIN 2.8 g/dl (3.4-5.0); ALK PHOS 116 U/L (45-117); ANION GAP 9 MMOL/L (8-16); BILIRUBIN,TOTAL 0.7 mg/dL (0.2-1); BLOOD UREA NITROGEN 51 mg/dL (7-18); CALCIUM 8.5 mg/dL (8.5-10.1); CHLORIDE 114 mmol/L (98-107); CO2 22 mmol/L (21-32); CREATININE 1.3 mg/dL (0.55-1.3); GLUCOSE,RANDOM 231 mg/dL (74-106); POTASSIUM 4.6 mmol/L (3.5-5.1); SGOT/AST 38 U/L (15-37); SGPT/ALT 44 U/L (13-61); SODIUM 145 mmol/L (136-145); TOT PROT 5.6 g/dl (6.4-8.2)
[2018-04-01] MEDS ORDERED: OCTREOTIDE ACETATE 100 MCG/1 ML ONE (14:37)
[2018-04-01] MEDS: OCTREOTIDE ACETATE 1,200 MCG in DEXTROSE 5%-WATER - 488 ML IVPB SCH (15:05)
[2018-04-01 15:06] LABS: ANISOCYTOSIS 3+; MACROCYTOSIS 0; OVALOCYTE 1+; PLATELET ESTIMATE DECREASED
[2018-04-01] MEDS ORDERED: SODIUM CHLORIDE 0.9% 500 ML INFUS.BAG IV ONE (15:25)
[2018-04-01] MEDS ORDERED: CEFTRIAXONE 1,000 MG in DEXTROSE 5%-WATER - 50 ML IVPB ONE (15:50)
[2018-04-01] MEDS ORDERED: CEFTRIAXONE 1 GM/50 ML BAG ONE (16:00)
--- NOTE | 2018-04-01 16:49 | CON.GI ---
Consult Consult Specialty:: GI: Covering for Dr. Solomon who resumes care 04/02/17 Referred by:: ER Reason for Consultation:: Melena - History of Present Illness Chief Complaint: Dark diarrhea from yesterday History of Present Illness: 72M with history of suspected ETOH/MONTALVO cirrhosis admitted for evaluation of dark BM's x 2 days. His and daughter are present bedside and aided in giving the history. Mr. Ponce noticed dark BM's from yesterday morning along with abdominal cramping. His last BM was prior to his ER visit. Initial Hgb was 6.7. There was no hematemesis reported. He has been hemodyanmically stable. He underwent EGD 04/01/[address] Wang that revealed large esophageal varices along with portal gastropathy. esophageal band ligation was performed. He then had an EGD/Colon 04/26/[address] Vázquez. EGD revealed three columns of large varices with stigmata of hemorrhage. This led to banding of varices however it was not clear from the procedural report. Colonoscopy raised the question of colitis in the descending colon however biopsies failed to reveal colitis. He was admitted 02/16 at which time there was question of cholecystitis vs. gallbladder wall thickening secondary to liver disease. No interventions were taken. More recently, he has followed with Dr. Oviedo as outpatient. Hgb 03/[address] solomon was 9.4. His daughter tells me that Mr. Ponce was unable to tolerate nadolol as it made him dizzy and has therefore not been on beta yulissa therapy . He currently remains hemodynamically stable. 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 movement disorder) Cardio/Vascular: Yes: HTN Hepatobiliary: Yes: Cirrhosis (? MONTALVO/ETOH cirrhosis with sequelase of esophageal varices, portal gastropathy and rectal varices) Renal/: Yes: Renal Calculi (requiring ESWL) Heme/Onc: Yes: Anemia Musculoskeletal: Yes: Chronic low back pain, Osteoarthritis, Other (neck pain) Endocrine: Yes: Diabetes Mellitus (with diabetic retinopathy requiring laser therapy) - Past Surgical History Past Surgical History: Yes: None, Colonoscopy (04/18) - Alcohol/Substance Use Hx Alcohol Use: No - Smoking History Smoking history: Never smoked Have you smoked in the past 12 months: No - Social History Usual Living Arrangement: With Spouse ADL: Independent Occupation: retired cemetary worker History of Recent Travel: No Home Medications - Allergies Allergies/Adverse Reactions: Allergies Allergy/AdvReac Type Severity Reaction Status Date / Time No Known Drug Allergies Allergy Verified 02/21/18 19:29 - Home Medications Home Medications: Ambulatory Orders Glimepiride 4 mg PO DAILY 01/01/12 metFORMIN HCL [Glucophage] 1,000 mg PO BID 01/01/12 Ferrous Sulfate [Feosol] 325 mg PO DAILY #30 ud 04/27/17 Docusate Sodium [Colace] 100 mg PO BID #60 capsule 02/24/18 Pantoprazole Sodium [Protonix -] 40 mg PO BID tablet.ec 02/24/18 Terazosin HCl [Hytrin -] 2 mg PO DAILY capsule 02/24/18 Family Disease History - Family Disease History Family Disease History: Diabetes: Brother, Sister, Heart Disease: Father (AL in his 60s), Mother ([place] in her 80s), Brother Review of Systems - Review of Systems Constitutional: denies: Chills Cardiovascular: denies: Chest Pain Gastrointestinal: reports: Abdominal Pain, Melena. denies: Nausea, Rectal Bleeding, Vomiting, Vomiting Blood Physical Exam-GI Vital Signs: Vital Signs Temperature 98.5 F 04/01/18 15:25 Pulse Rate 66 04/01/18 15:25 Respiratory Rate 16 04/01/18 15:25 Blood Pressure 116/44 L 04/01/18 15:25 O2 Sat by Pulse Oximetry (%) 99 04/01/18 15:25 Constitutional: Yes: Calm Eyes: No: Sclera Icterus Cardiovascular: Yes: Regular Rate and Rhythm. No: Murmur Respiratory: Yes: CTA Bilaterally Gastrointestinal Inspection: No: Distention, Scars ...Auscultate: Yes: Normoactive Bowel Sounds ...Palpate: Yes: Tenderness (Mild TTP mid and upper abdomen. No concepcion's sign.) ...Percussion: No: Tympanitic ...Rectal Exam: Yes: Other (No external lesions, no masses, dark brown loose stool 2+ prostate.) Edema: No (No LE edema) Neurological: Yes: Alert, Tremors Labs: CBC, BMP 04/01/18 13:50 04/01/18 13:50 INR, PTT INR 1.29 (0.83-1.09) H 04/01/18 13:50 Problem List - Problems (1) GI bleed Assessment/Plan: Given reported dark BM's, prior history along with acute worsening of anemia and elevated BUN, upper GI source such as esophageal variceal bleed / bleeding portal gastropathy would need to be considered higher in differential along with alternate pathology such as PUD. I discussed this with Mr. Ponce and his family who was present at bedside. We discussed upper endsocopy for further evaluation and for banding of varices if necessary. We discussed potential risks of the procedure like but not limited to bleeding, perforation requiring surgery to repair, infection and sedation medication effects all of which could be potentially life threatening. They have agreed to the procedure. For now: Admit to ICU NPO except meds Octreotide drip Protonix infuision IV antibiotics (ie Levaquin) Can trial low dose coreg to see if he tolerate this more than the nadolol to help prevent further episodes, however, I susec that he will need serial banding sessions for eradication. Monitoe H/H and for signs of active ongoing bleeding. Q 6 month AFP/Hepatic US to screen for HCC Patient having CT scan of the abdomen and pelvis performed in the ED to eval abdominal pain however I suspec that the pain is cramping secondary to passage of blood. EGD in AM with Dr. Solomon, sooner if clinically indicated Code(s): K92.2 - GASTROINTESTINAL HEMORRHAGE, UNSPECIFIED (2) Enlarged prostate Assessment/Plan: Noted on OLGA. Eval per primary team. Code(s): N40.0 - BENIGN PROSTATIC HYPERPLASIA WITHOUT LOWER URINRY TRACT SYMP
[2018-04-01] MEDS: PANTOPRAZOLE SODIUM 80 MG in SODIUM CHLORIDE 100 ML IVPB SCH (17:29)
--- NOTE | 2018-04-01 18:27 | CONSULT ---
Consultation: REQUESTING PROVIDER: CONSULT REQUEST: We have been asked to medically evaluate this patient for UGIB HISTORY OF PRESENT ILLNESS: 72 yo M with history of alcoholic cirrhosis with 2 day history of black stools. History was provided by daughter. He first noticed dark BM's from yesterday morning along with abdominal cramping. His last BM was prior to his ER visit. Initial Hgb was 6.7. Denies hematemesis. He has been HD stable. He was admitted one year prior and EGD performed by Dr. Wang that revealed large esophageal varices along with portal gastropathy. Esophageal band ligation was performed. He then had an EGD/Colon 04/26/[address] Vázquez. EGD revealed three columns of large varices with stigmata of hemorrhage. This led to banding of varices however it was not clear from the procedural report. Colonoscopy raised the question of colitis in the descending colon however biopsies failed to reveal colitis. He was admitted 02/16 at which time there was question of cholecystitis vs. gallbladder wall thickening secondary to liver disease. No interventions were taken. More recently, he has followed with Dr. Oviedo as outpatient. Hgb 03/[address] solomon was 9.4. His daughter stated that he is unable to tolerate nadolol as it made him dizzy and has therefore not been on beta yulissa therapy . Denies CP, BARRERA, SOB, nausea , vomiting, fever or chills. ER course: 1.Hgb 6.7 ; 2 units PRBC ordered 2.CT abdomen and pelvis taken, read pending. Recent Travel: denies PAST MEDICAL HISTORY: as above PAST SURGICAL HISTORY: as above Social History: lives at home with Smoking:denies Alcohol:past abuse Drugs:denies Family History: htn Allergies No Known Drug Allergies Allergy (Verified 04/23/17 12:59) REVIEW OF SYSTEMS: CONSTITUTIONAL: Absent: fever, chills, diaphoresis, generalized weakness, malaise, loss of appetite, weight change HEENT: Absent: rhinorrhea, nasal congestion, throat pain, throat swelling, difficulty swallowing, mouth swelling, ear pain, eye pain, visual changes CARDIOVASCULAR: Absent: chest pain, syncope, palpitations, irregular heart rate, lightheadedness , peripheral edema RESPIRATORY: Absent: cough, shortness of breath, dyspnea with exertion, orthopnea, wheezing, stridor, hemoptysis GASTROINTESTINAL: abdominal pain, melena Absent:, abdominal distension, nausea, vomiting, diarrhea, constipation, hematochezia GENITOURINARY: Absent: dysuria, frequency, urgency, hesitancy, hematuria, flank pain, genital pain MUSCULOSKELETAL: Absent: myalgia, arthralgia, joint swelling, back pain, neck pain SKIN: Absent: rash, itching, pallor HEMATOLOGIC/IMMUNOLOGIC: Absent: easy bleeding, easy bruising, lymphadenopathy, frequent infections ENDOCRINE: Absent: unexplained weight gain, unexplained weight loss, heat intolerance, cold intolerance NEUROLOGIC: Absent: headache, focal weakness or paresthesias, dizziness, unsteady gait, seizure, mental status changes, bladder or bowel incontinence PSYCHIATRIC: Absent: anxiety, depression, suicidal or homicidal ideation, hallucinations. PHYSICAL EXAMINATION Vital Signs - 24 hr 04/01/18 04/01/18 04/01/18 13:22 14:30 15:25 Temperature 99.7 F H 98.5 F Pulse Rate 91 H Pulse Rate [ 66 Apical] Respiratory 18 16 Rate Blood Pressure 109/50 L Blood Pressure 116/44 L [Left Arm] O2 Sat by Pulse 96 98 99 Oximetry (%) 04/01/18 17:30 Temperature Pulse Rate Pulse Rate [ 71 Apical] Respiratory 18 Rate Blood Pressure Blood Pressure 126/45 L [Left Arm] O2 Sat by Pulse 97 Oximetry (%) GENERAL: AAOx3 HEAD: NCAT EYES: pale conjuctiva EARS, NOSE, THROAT: Moist mucous membranes. NECK: supple without lymphadenopathy, JVD, or masses. LUNGS: CTAB. No wheezes, and no crackles. No accessory muscle use. HEART: Regular rate and rhythm, normal S1 and S2 2/6 DON ABDOMEN: Soft, mild epigastric pain. NABS, no guarding, no rebound, no masses. No hepatomegaly or splenomegaly. MUSCULOSKELETAL: Normal range of motion at all joints. No bony deformities or tenderness. No CVA tenderness. LOWER EXTREMITIES: 2+ pulses, warm, well-perfused. No calf tenderness. No peripheral edema. NEUROLOGICAL: Cranial nerves II-XII intact. Normal speech. gait not observed. PSYCHIATRIC: Cooperative. Good eye contact. Appropriate mood and affect. SKIN: Warm, dry, normal turgor, no rashes or lesions noted. Laboratory Results - last 24 hr 04/01/18 04/01/18 04/01/18 13:38 13:38 13:50 WBC 4.6 RBC 3.23 L Hgb 6.7 L* Hct 21.8 L D MCV 67.5 L MCH 20.6 L MCHC 30.6 L RDW 16.6 H Plt Count 90 L MPV 9.6 Absolute Neuts (auto) 3.4 Neutrophils % 73.1 D Lymphocytes % 18.7 D Monocytes % 6.2 Eosinophils % 1.5 Basophils % 0.5 Nucleated RBC % 0 Hypochromia 0 Platelet Estimate Decreased Polychromasia 1+ Poikilocytosis 0 Anisocytosis 3+ Microcytosis 3+ Macrocytosis 0 Ovalocytes 1+ Gavi Cells 1+ Fragmented RBCs 1+ Retic Count 2.18 H D PT with INR INR PTT (Actin FS) Sodium Potassium Chloride Carbon Dioxide Anion Gap BUN Creatinine Creat Clearance w eGFR Random Glucose Calcium Total Bilirubin AST ALT Alkaline Phosphatase Total Protein Albumin Stool Occult Blood Positive Blood Type B POSITIVE Antibody Screen Negative Crossmatch See Detail 04/01/18 04/01/18 13:50 13:50 WBC RBC Hgb Hct MCV MCH MCHC RDW Plt Count MPV Absolute Neuts (auto) Neutrophils % Lymphocytes % Monocytes % Eosinophils % Basophils % Nucleated RBC % Hypochromia Platelet Estimate Polychromasia Poikilocytosis Anisocytosis Microcytosis Macrocytosis Ovalocytes Timblin Cells Fragmented RBCs Retic Count PT with INR 15.30 H INR 1.29 H PTT (Actin FS) 24.8 L Sodium 145 Potassium 4.6 Chloride 114 H Carbon Dioxide 22 Anion Gap 9 BUN 51 H Creatinine 1.3 Creat Clearance w eGFR 54.11 Random Glucose 231 H Calcium 8.5 Total Bilirubin 0.7 AST 38 H ALT 44 Alkaline Phosphatase 116 Total Protein 5.6 L Albumin 2.8 L Stool Occult Blood Blood Type Antibody Screen Crossmatch Active Medications Generic Name Dose Route Start Last Admin Trade Name Freq PRN Reason Stop Dose Admin Octreotide Acetate 1,200 mcg/ 500 mls @ 20.83 mls/hr 04/01/18 14:15 04/01/18 15:05 Dextrose IVPB 20.83 mls/hr ASDIR JELENA Administration 50 MCG/HR Pantoprazole Sodium 80 mg/ 100 mls @ 10 mls/hr 04/01/18 17:15 04/01/18 17:29 Sodium Chloride IVPB 10 mls/hr Q10H JELENA Administration 8 MG/HR Levofloxacin 500 mg in 100 mls @ 100 mls/hr 04/02/18 10:00 Levaquin 500 Mg Premixed Ivpb - IVPB DAILY JELENA Protocol ASSESSMENT/PLAN: 71 y/o man with significant ETOH hx p/w anemia and melena, likely UGIB admitted to ICU for blood/fluid resuscitation, plan for EGD once stable. Neuro: * Awake and alert. CV: * moinitor BP * Maintain MAP >65 Pulm: * No active issues * supplemental O2 PRN GI: * Most likely UGIB possible varaceal bleed. * NPO * Protonix ggt * Octreotide * Ceftriaxone 1 gm daily. and Levaquin 500mg IV daily * EGD tomorrow Heme: * transfuse 2 units PRBC * repeat H/H * maintain adequate access, 2 large bore or greater * Monitor for signs of bleeding. ENDO: * hold oral hypoglycemics. * ISS Q6h FEN: * NS IVF once blood transfused. * Monitor electrolytes and replete PRN * NPO for now. Dispo: We will continue to follow the patient in ICU. Thank you for this consultative opportunity. Problem List - Problems (1) GI bleed (2) Cirrhosis (3) Diabetes mellitus (4) Hypertension Visit type - Emergency Visit Emergency Visit: Yes Care time: The patient presented to the Emergency Department on the above date and was hospitalized for further evaluation of their emergent condition. - New Patient This patient is new to me today: Yes Date on this admission: 04/01/18 - Critical Care Critical Care patient: Yes Total Critical Care Time (in minutes): 42 Critical Care Statement: The care of this patient involved high complexity decision making to prevent further life threatening deterioration of the patient 's condition and/or to evaluate & treat vital organ system(s) failure or risk of failure.
--- NOTE | 2018-04-01 20:02 | PN ---
Teaching Attending Note Name of Resident: Сергей Gillette ATTENDING PHYSICIAN STATEMENT I saw and evaluated the patient. I reviewed the resident's note and discussed the case with the resident. I agree with the resident's findings and plan as documented. SUBJECTIVE: Patient is a 72 year old man with PMH of Alcoholic cirrhosis, s/p esophageal varices banding, cholelithiasis, NIDDM, HTN, and anemia who presents to the ER with what the patient reports as "bloody diarrhea" which the patient states was black in color. Also has diffuse abdominal pain ranging from 8-10/10 in intensity. He describes the abdominal pain as pressure like. The black diarrhea and abdominal pain began 3 days prior to arrival but has worsened. The pain does not radiate to the back, groin, or shoulder. The patient was seen for abdominal pain recently right after Thanksgiving where he was found to have biliary colic with cholelithiasis but no evidence of cholecystitis. Patient also has significant chills for the past few days but denies fevers or infections. Patient denies having chest pain, SOB, difficulty breathing, dysuria , urgency, back pain, headache, blurry vision or bloody vomit. OBJECTIVE: Alert Vital Signs Period Temp Pulse Resp BP Sys/Aden Pulse Ox Last 24 Hr 98.5 F-99.7 F 66-91 16-18 109-126/44-50 96-99 HEENT: No Jaundice, eye redness or discharge, PERRLA, EOMI. Normocephalic, atraumatic. External ears are normal and hearing is grossly intact. No nasal discharge. Neck: Supple, nontender. No palpable adenopathy or thyromegaly. No JVD Chest: Good effort. Clear to auscultation and percussion. Heart: Regular. No S3, rub or murmur Abdomen: Not distended, soft, tender lower abdomen and no HSM. No rebound or guarding. Normoactive bowel sounds. Ext: Peripheral pulses intact. No leg edema. Skin: Warm and dry. No petechiae, rash or ecchymosis. Neuro: Alert. Oriented x3. CN 2-12 grossly intact. Sensation grossly intact in all four extremities and DTR are symmetric. Current Medications Generic Name Dose Route Start Last Admin Trade Name Freq PRN Reason Stop Dose Admin Chlorhexidine Gluconate 1 applic 04/01/18 22:00 Hibiclens For Decolonization - TP HS JELENA Octreotide Acetate 1,200 mcg/ 500 mls @ 20.83 mls/hr 04/01/18 14:15 04/01/18 15:05 Dextrose IVPB 20.83 mls/hr ASDIR JELENA Administration 50 MCG/HR Pantoprazole Sodium 80 mg/ 100 mls @ 10 mls/hr 04/01/18 17:15 04/01/18 17:29 Sodium Chloride IVPB 10 mls/hr Q10H JELENA Administration 8 MG/HR Levofloxacin 500 mg in 100 mls @ 100 mls/hr 04/02/18 10:00 Levaquin 500 Mg Premixed Ivpb - IVPB DAILY [facility] Protocol Mupirocin 1 applic 04/01/18 22:00 Bactroban Ointment (For Decolonization) - NS 04/06/18 21:59 BID [facility] Home Medications Medication Instructions Recorded Glimepiride 4 mg PO DAILY 01/01/12 metFORMIN HCL [Glucophage] 1,000 mg PO BID 01/01/12 Ferrous Sulfate [Feosol] 325 mg PO DAILY #30 ud 04/27/17 Docusate Sodium [Colace] 100 mg PO BID #60 capsule 02/24/18 Pantoprazole Sodium [Protonix -] 40 mg PO BID tablet.ec 02/24/18 Terazosin HCl [Hytrin -] 2 mg PO DAILY capsule 02/24/18 Abnormal Lab Results 04/01/18 04/01/18 04/01/18 13:38 13:50 13:50 RBC 3.23 L Hgb 6.7 L* Hct 21.8 L D MCV 67.5 L MCH 20.6 L MCHC 30.6 L RDW 16.6 H Plt Count 90 L Retic Count 2.18 H D PT with INR 15.30 H INR 1.29 H PTT (Actin FS) 24.8 L Chloride BUN Random Glucose AST Total Protein Albumin Crossmatch See Detail 04/01/18 13:50 RBC Hgb Hct MCV MCH MCHC RDW Plt Count Retic Count PT with INR INR PTT (Actin FS) Chloride 114 H BUN 51 H Random Glucose 231 H AST 38 H Total Protein 5.6 L Albumin 2.8 L Crossmatch ASSESSMENT AND PLAN: 1. GI bleeding - Likely due to variceal bleeding. No significant acute pathology noted on noncontrast CT of abdomen. Seen by GI. Being admitted to ICU and will be kept NPO and treated with Octreotide drip and IV Protonix. Monitor platelets daily. Treat with Rocephin, monitor HCT and transfuse PRN. For EGD in am. 2. Hypoalbuminemia - Possibly due to combined effects of malnutrition and inflammation associated with comorbid chronic conditions. Will ensure adequate dietary protein intake and also consult mail sorter. 3. DM - For now, we will hold the home diabetes drugs and implement sliding scale insulin regimen. Provide comprehensive diabetes care with patient teaching and counseling about the importance of euglycemia, eye care and foot care. 4. ANISHA - Partly due to volume loss. Will avoid nephrotoxic agents such as NSAIDS , aminoglycosides, contrast dyes and certain Alternative medicine products. 5. Obesity - Will provide patient all the necessary assistance, counseling and positive reinforcement to facilitate weight loss. Consult mail sorter. 6. DVT prophylaxis - SCD, TEDs 7. Advance directives - Full code
--- NOTE | 2018-04-01 20:10 | HP ---
CHIEF COMPLAINT: PCP: Dr Armando Dan HISTORY OF PRESENT ILLNESS: 72 yo M PMH of Alcoholic cirrhosis, s/p esophageal varices banding, cholelithiasis, DM, HTN, and anemia p/w black/bloody diarrhea w/ worsening 11/08 non radiating diffuse pressure like lower abd pain x3d. The black diarrhea and abdominal pain began 3 days prior to arrival but has worsened. The pain does not radiate to the back, groin, or shoulder. The patient was seen for abdominal pain recently right after Thanksgiving where he was found to have biliary colic with cholelithiasis but no evidence of cholecystitis, No interventions were taken. Patient also has significant chills for the past few days but denies fevers or infections. Patient denies having chest pain, SOB, difficulty breathing, dysuria, urgency, back pain, headache, blurry vision or bloody vomit. Of note, was admitted one year prior and EGD performed by Dr. Wang that revealed large esophageal varices along with portal gastropathy. Esophageal band ligation was performed. He then had an EGD/Colon 04/26/[address] Vázquez. EGD revealed three columns of large varices with stigmata of hemorrhage. This led to banding of varices. Colonoscopy raised the question of colitis in the descending colon however biopsies failed to reveal colitis. His daughter stated that he is unable to tolerate nadolol as it made him dizzy and has therefore not been on beta yulissa therapy . GI doc: [facility] Surgeon: Rogelio Ledesma ER course was notable for: (1) 2 L NS, protonix gtt, octreotide gtt, CTX, Levaquin, GI consult (2)Hgb 6.7; FOBT pos. 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, but has been sober for years Drugs: denies Family History: denies Allergies No Known Drug Allergies Allergy (Verified 02/21/18 19:29) HOME MEDICATIONS: Home Medications Medication Instructions Recorded Glimepiride 4 mg PO DAILY 01/01/12 metFORMIN HCL [Glucophage] 1,000 mg PO BID 01/01/12 Ferrous Sulfate [Feosol] 325 mg PO DAILY #30 ud 04/27/17 Docusate Sodium [Colace] 100 mg PO BID #60 capsule 02/24/18 Pantoprazole Sodium [Protonix -] 40 mg PO BID tablet.ec 02/24/18 Terazosin HCl [Hytrin -] 2 mg PO DAILY capsule 02/24/18 REVIEW OF SYSTEMS as per hpi PHYSICAL EXAMINATION Vital Signs - 24 hr 04/01/18 04/01/18 04/01/18 13:22 14:30 15:25 Temperature 99.7 F H 98.5 F Pulse Rate 91 H Pulse Rate [ 66 Apical] Respiratory 18 16 Rate Blood Pressure 109/50 L Blood Pressure 116/44 L [Left Arm] O2 Sat by Pulse 96 98 99 Oximetry (%) 04/01/18 17:30 Temperature Pulse Rate Pulse Rate [ 71 Apical] Respiratory 18 Rate Blood Pressure Blood Pressure 126/45 L [Left Arm] O2 Sat by Pulse 97 Oximetry (%) GENERAL: AAOx3, NAD HEAD: NCAT EYES: pale conjuctiva, sclera anicteric EARS, NOSE, THROAT: MMM NECK: supple without lymphadenopathy, JVD, or masses. LUNGS: CTAB. No wheezes, and no crackles. No accessory muscle use. HEART: RRR, normal S1 and S2 2/6 DON ABDOMEN: Soft, TTP lower abd ND NABS, no guarding, no rebound, no masses. MUSCULOSKELETAL: Normal range of motion at all joints. No bony deformities or tenderness. EXTREMITIES: 2+ pulses, warm, well-perfused. No calf tenderness. No peripheral edema. NEUROLOGICAL: Cranial nerves II-XII intact. Normal speech. gait not observed. PSYCHIATRIC: Cooperative. Good eye contact. Appropriate mood and affect. SKIN: Warm, dry, normal turgor, no rashes or lesions noted. Laboratory Results - last 24 hr 04/01/18 04/01/18 04/01/18 13:38 13:38 13:50 WBC 4.6 RBC 3.23 L Hgb 6.7 L* Hct 21.8 L D MCV 67.5 L MCH 20.6 L MCHC 30.6 L RDW 16.6 H Plt Count 90 L MPV 9.6 Absolute Neuts (auto) 3.4 Neutrophils % 73.1 D Lymphocytes % 18.7 D Monocytes % 6.2 Eosinophils % 1.5 Basophils % 0.5 Nucleated RBC % 0 Hypochromia 0 Platelet Estimate Decreased Polychromasia 1+ Poikilocytosis 0 Anisocytosis 3+ Microcytosis 3+ Macrocytosis 0 Ovalocytes 1+ Industry Cells 1+ Fragmented RBCs 1+ Retic Count 2.18 H D PT with INR INR PTT (Actin FS) Sodium Potassium Chloride Carbon Dioxide Anion Gap BUN Creatinine Creat Clearance w eGFR Random Glucose Calcium Total Bilirubin AST ALT Alkaline Phosphatase Total Protein Albumin Stool Occult Blood Positive Blood Type B POSITIVE Antibody Screen Negative Crossmatch See Detail 04/01/18 04/01/18 13:50 13:50 WBC RBC Hgb Hct MCV MCH MCHC RDW Plt Count MPV Absolute Neuts (auto) Neutrophils % Lymphocytes % Monocytes % Eosinophils % Basophils % Nucleated RBC % Hypochromia Platelet Estimate Polychromasia Poikilocytosis Anisocytosis Microcytosis Macrocytosis Ovalocytes Industry Cells Fragmented RBCs Retic Count PT with INR 15.30 H INR 1.29 H PTT (Actin FS) 24.8 L Sodium 145 Potassium 4.6 Chloride 114 H Carbon Dioxide 22 Anion Gap 9 BUN 51 H Creatinine 1.3 Creat Clearance w eGFR 54.11 Random Glucose 231 H Calcium 8.5 Total Bilirubin 0.7 AST 38 H ALT 44 Alkaline Phosphatase 116 Total Protein 5.6 L Albumin 2.8 L Stool Occult Blood Blood Type Antibody Screen Crossmatch ASSESSMENT/PLAN: 72 yo M PMH of Alcoholic cirrhosis, s/p esophageal varices banding, cholelithiasis, DM, HTN, and anemia p/w black/bloody diarrhea w/ worsening 8/10 non radiating diffuse pressure like lower abd pain x3d. Likely UGIB admitted to ICU for blood/fluid resuscitation, plan for EGD once stable. GI bleeding - Likely due to variceal bleeding. Hgb 6.7; FOBT pos. No significant acute pathology noted on noncontrast CT of abdomen. Being admitted to ICU Monitor platelets daily s/p 2 L NS monitor H/H and transfuse PRN. currently receiving 2 Uprbc Maintain MAP >65 GI consult NPO for EGD tomorrow Protonix ggt Octreotide gtt Ceftriaxone 1 gm qd and Levaquin 500mg IV daily Can trial low dose coreg to see if he tolerate this more than the nadolol to help prevent further episodes DM BGM ISS hold home diabetes drugs ANISHA - likely prerenal IVF monitor Cr, baseline around 1 FEN NS IVF once blood transfused. replete PRN NPO prophylaxis SCD protonix gtt Full code Dispo: ICU NPO for EGD tomorrow Visit type - Emergency Visit Emergency Visit: Yes ED Registration Date: 04/01/18 Care time: The patient presented to the Emergency Department on the above date and was hospitalized for further evaluation of their emergent condition. - New Patient This patient is new to me today: Yes Date on this admission: 04/02/18 - Critical Care Critical Care patient: Yes Total Critical Care Time (in minutes): 40 Critical Care Statement: The care of this patient involved high complexity decision making to prevent further life threatening deterioration of the patient 's condition and/or to evaluate & treat vital organ system(s) failure or risk of failure.
[2018-04-01] MEDS: CHLORHEXIDINE GLUCONATE 4% CLEANSER FOR DECOLONIZATION TP SCH (21:46)
[2018-04-01] MEDS: MUPIROCIN 2% TOPICAL OINTMENT FOR DECOLONIZATION NS SCH (21:46)
[2018-04-01 23:38] LABS: HEMATOCRIT 24.8 % (35.4-49); HEMOGLOBIN 8.5 GM/dL (11.7-16.9); MCH 23.8 pg (25.7-33.7); MCHC 34.2 g/dl (32.0-35.9); MEAN CELL VOLUME 69.7 fl (80-96); MEAN PLT VOLUME 10.1 fl (7.5-11.1); PLATELET COUNT 93 K/MM3 (134-434); RBC 3.56 M/mm3 (4.00-5.60); RDW 19.6 % (11.9-15.9); WHITE BLOOD COUNT 4.5 K/mm3 (4.0-10.0)
[2018-04-02] MEDS: PANTOPRAZOLE SODIUM 80 MG in SODIUM CHLORIDE 100 ML IVPB SCH ×2 (03:29→15:28)
[2018-04-02] MEDS ORDERED: ACETAMINOPHEN 325 MG TABLET (FP) ONE (03:35)
[2018-04-02] MEDS: ACETAMINOPHEN 325 MG TABLET (FP) PO PRN ×3 (03:39→18:50)
[2018-04-02 05:34] LABS: BASO % 0.4 % (0-2.0); EOS % 2.5 % (0-4.5); HEMATOCRIT 23.2 % (35.4-49); HEMOGLOBIN 7.5 GM/dL (11.7-16.9); LYMPH % 33.8 % (8-40); MCH 22.5 pg (25.7-33.7); MCHC 32.3 g/dl (32.0-35.9); MEAN CELL VOLUME 69.7 fl (80-96); MEAN PLT VOLUME 9.6 fl (7.5-11.1); MONO % 5.5 % (3.8-10.2); NEUT % 57.8 % (42.8-82.8); PLATELET COUNT 80 K/MM3 (134-434); RBC 3.32 M/mm3 (4.00-5.60); RDW 18.7 % (11.9-15.9); WHITE BLOOD COUNT 4.1 K/mm3 (4.0-10.0)
[2018-04-02 05:45] LABS: INR 1.29 (0.83-1.09); PROTHROMBIN TIME (PATIENT) 15.3 SEC (9.7-13.0)
[2018-04-02 05:47] LABS: ACTIVATED PTT 24.9 SECONDS (25.2-36.5)
[2018-04-02 06:01] LABS: ALBUMIN 2.6 g/dl (3.4-5.0); ALK PHOS 97 U/L (45-117); ANION GAP 5 MMOL/L (8-16); BILIRUBIN,TOTAL 1.3 mg/dL (0.2-1); BLOOD UREA NITROGEN 41 mg/dL (7-18); CALCIUM 7.8 mg/dL (8.5-10.1); CHLORIDE 117 mmol/L (98-107); CO2 25 mmol/L (21-32); CREATININE 1.3 mg/dL (0.55-1.3); GLUCOSE,RANDOM 218 mg/dL (74-106); MAGNESIUM 1.1 mg/dL (1.8-2.4); PHOSPHOROUS 2.8 mg/dL (2.5-4.9); POTASSIUM 4.4 mmol/L (3.5-5.1); SGOT/AST 44 U/L (15-37); SGPT/ALT 49 U/L (13-61); SODIUM 146 mmol/L (136-145); TOT PROT 5.2 g/dl (6.4-8.2)
[2018-04-02] MEDS ORDERED: CALCIUM GLUCONATE 10% - 1,000 MG/10 ML VIAL IVPB ONE (06:33)
[2018-04-02] MEDS ORDERED: CALCIUM GLUCONATE 10% - 1,000 MG/10 ML VIAL ONE (06:59)
[2018-04-02] MEDS ORDERED: INSULIN SLIDING SCALE (NOVOLOG) 1 VIAL SQ SCH (07:00)
--- NOTE | 2018-04-02 07:12 | PN ---
Physical Exam: SUBJECTIVE: Patient seen and examined. Denies pain. Denies N/V. No BMs today yet. OBJECTIVE: Vital Signs Period Temp Pulse Resp BP Sys/Aden Pulse Ox Last 24 Hr 98.5 F-99.7 F 58-91 14-18 109-137/44-56 95-99 GENERAL: Awake, alert, and fully oriented, in no acute distress HEAD: No signs of trauma, normocephalic, atraumatic EYES: PERRLA, EOMI, sclera anicteric, conjunctiva clear ENT: Hearing grossly normal, nares patent, oropharynx clear without exudates. Moist mucosa LUNGS: No distress, speaks full sentences, clear to auscultation bilaterally HEART: Regular rate and rhythm, normal S1 and S2, no murmurs appreciated, peripheral pulses normal and equal bilaterally ABDOMEN: Soft, nontender, normoactive bowel sounds. No guarding, no rebound EXTREMITIES : Normal inspection, Normal range of motion, no edema. No clubbing or cyanosis NEUROLOGICAL: Cranial nerves II through XII grossly intact. Normal speech, no focal sensorimotor deficits SKIN: Warm, Dry Active Medications Generic Name Dose Route Start Last Admin Trade Name Freq PRN Reason Stop Dose Admin Acetaminophen 650 mg 04/02/18 03:31 04/02/18 03:39 Tylenol - PO 650 mg Q6H PRN Administration PAIN LEVEL 1-5 Chlorhexidine Gluconate 1 applic 04/01/18 22:00 04/01/18 21:46 Hibiclens For Decolonization - TP 1 applic HS JELENA Administration Octreotide Acetate 1,200 mcg/ 500 mls @ 20.83 mls/hr 04/01/18 14:15 04/01/18 15:05 Dextrose IVPB 20.83 mls/hr ASDIR JELENA Administration 50 MCG/HR Pantoprazole Sodium 80 mg/ 100 mls @ 10 mls/hr 04/01/18 17:15 04/02/18 03:29 Sodium Chloride IVPB Not Given Q10H JELENA 8 MG/HR Levofloxacin 500 mg in 100 mls @ 100 mls/hr 04/02/18 10:00 Levaquin 500 Mg Premixed Ivpb - IVPB DAILY JELENA Protocol Insulin Aspart 1 vial 04/02/18 07:00 04/02/18 06:10 Novolog Vial Sliding Scale - SQ Not Given ACHS JELENA Protocol Mupirocin 1 applic 04/01/18 22:00 04/01/18 21:46 Bactroban Ointment (For Decolonization) - NS 04/06/18 21:59 1 applic BID JELENA Administration ASSESSMENT/PLAN: The patient is a 72M w/ a PMH of EtOH cirrhosis, esophageal varices s/p banding , and NIDDM who presented w/ 2d melena. On presentation initial Hgb 6.7. 1/ - s/p 2u pRBC /2 - planned EGD, 2u pRBC, 1u plt Neuro Acute pain -Tylenol PRN CV HDS, CTM PULM CTAB, breathing comfortably on RA, CTM GI GI bleed -Protonix gtt -Octreotide gtt -Plan for EGD / -NPO Hypomagnesemia -Repleted Hypocalcemia -Repleted Uop adequate, CTM HEME Acute on chronic anemia 2/2 GI bleed -s/p 2u pRBC 04/01/2017 -Hgb 7.5 from 8.5 -Will transfuse 2u pRBC and 1u plt DVT ppx -Mechanical only, SCDs/TEDs ID Active GI bleed ppx -Levofloxacin ENDO NIDDM -ISS, BGM LTD PIV Dispo: Patient continues to require ICU level of care. Plan for EGD today and transfusion Daughter Leny Ponce [phone] Visit type - Emergency Visit Emergency Visit: Yes ED Registration Date: 04/01/18 Care time: The patient presented to the Emergency Department on the above date and was hospitalized for further evaluation of their emergent condition. - New Patient This patient is new to me today: Yes Date on this admission: 04/02/18 - Critical Care Critical Care patient: Yes Total Critical Care Time (in minutes): 40 Critical Care Statement: The care of this patient involved high complexity decision making to prevent further life threatening deterioration of the patient 's condition and/or to evaluate & treat vital organ system(s) failure or risk of failure.
[2018-04-02] MEDS ORDERED: MAGNESIUM 2GM/50ML STERILE WATER IVPB IVPB ONE (07:15)
[2018-04-02] MEDS ORDERED: MAGNESIUM SULF 50% (8.12 MEQ/2 ML-1 GM VIAL) ONE ×2 (08:10)
[2018-04-02] MEDS: INSULIN SLIDING SCALE (NOVOLOG) 1 VIAL SQ SCH ×3 (08:48→17:15)
[2018-04-02] MEDS ORDERED: MAGNESIUM SULFATE 4GM/100CC IN STERILE WATER IVPB ONE (09:00)
[2018-04-02] MEDS: MUPIROCIN 2% TOPICAL OINTMENT FOR DECOLONIZATION NS SCH ×2 (09:53→21:53)
--- NOTE | 2018-04-02 10:53 | PN ---
Teaching Attending Note Name of Resident: Luis Vega ATTENDING PHYSICIAN STATEMENT I saw and evaluated the patient. I reviewed the resident's note and discussed the case with the resident. I agree with the resident's findings and plan as documented. SUBJECTIVE: Patient seen and examined in the ICU. Receiving pRBCs due to inappropriate response to initial transfusion. Reports some reproducible left sided chest wall discomfort. Intake & Output 03/30/18 03/31/18 04/01/18 04/02/18 23:59 23:59 23:59 23:59 Intake Total 2000 280 Output Total 950 450 Balance 1050 -170 Weight 181 lb 12.8 oz Last Vital Signs Temp Pulse Resp BP Pulse Ox 98.7 F 55 L 15 116/43 L 96 04/02/18 10:00 04/02/18 10:00 04/02/18 10:00 04/02/18 10:00 04/02/18 07:37 Active Medications Acetaminophen (Tylenol -) 650 mg PO Q6H PRN PRN Reason: PAIN LEVEL 1-5 Last Admin: 04/02/18 03:39 Dose: 650 mg Chlorhexidine Gluconate (Hibiclens For Decolonization -) 1 applic TP HS JELENA Last Admin: 04/01/18 21:46 Dose: 1 applic Octreotide Acetate 1,200 mcg/ (Dextrose) 500 mls @ 20.83 mls/hr IVPB ASDIR JELENA Last Admin: 04/01/18 15:05 Dose: 20.83 mls/hr Pantoprazole Sodium 80 mg/ (Sodium Chloride) 100 mls @ 10 mls/hr IVPB Q10H JELENA Last Admin: 04/02/18 03:29 Dose: Not Given Levofloxacin (Levaquin 500 Mg Premixed Ivpb -) 500 mg in 100 mls @ 100 mls/hr IVPB DAILY [facility]; Protocol Last Admin: 04/02/18 09:53 Dose: 100 mls/hr Insulin Aspart (Novolog Vial Sliding Scale -) 1 vial SQ Q6HPO [facility]; Protocol Last Admin: 04/02/18 08:48 Dose: Not Given Mupirocin (Bactroban Ointment (For Decolonization) -) 1 applic NS BID JELENA Stop: 04/06/18 21:59 Last Admin: 04/02/18 09:53 Dose: 1 applic GENERAL: AAOx3 HEAD: NCAT EYES: pale conjuctiva EARS, NOSE, THROAT: Moist mucous membranes. NECK: supple without lymphadenopathy, JVD, or masses. LUNGS: CTAB. No wheezes, and no crackles. No accessory muscle use. HEART: Regular rate and rhythm, normal S1 and S2 2/6 DON ABDOMEN: Soft, mild epigastric pain. NABS, no guarding, no rebound, no masses. No hepatomegaly or splenomegaly. MUSCULOSKELETAL: Normal range of motion at all joints. No bony deformities or tenderness. No CVA tenderness. LOWER EXTREMITIES: 2+ pulses, warm, well-perfused. No calf tenderness. No peripheral edema. NEUROLOGICAL: Non-focal PSYCHIATRIC: Cooperative. Good eye contact. Appropriate mood and affect. SKIN: Warm, dry, normal turgor, no rashes or lesions noted. Laboratory Results - last 24 hr 04/01/18 04/01/18 04/01/18 13:38 13:38 13:50 WBC 4.6 RBC 3.23 L Hgb 6.7 L* Hct 21.8 L D MCV 67.5 L MCH 20.6 L MCHC 30.6 L RDW 16.6 H Plt Count 90 L MPV 9.6 Absolute Neuts (auto) 3.4 Neutrophils % 73.1 D Lymphocytes % 18.7 D Monocytes % 6.2 Eosinophils % 1.5 Basophils % 0.5 Nucleated RBC % 0 Hypochromia 0 Platelet Estimate Decreased Polychromasia 1+ Poikilocytosis 0 Anisocytosis 3+ Microcytosis 3+ Macrocytosis 0 Ovalocytes 1+ Gavi Cells 1+ Fragmented RBCs 1+ Retic Count 2.18 H D PT with INR INR PTT (Actin FS) Sodium Potassium Chloride Carbon Dioxide Anion Gap BUN Creatinine Creat Clearance w eGFR Random Glucose Calcium Phosphorus Magnesium Total Bilirubin AST ALT Alkaline Phosphatase Total Protein Albumin Stool Occult Blood Positive Blood Type B POSITIVE Antibody Screen Negative Crossmatch See Detail 04/01/18 04/01/18 04/01/18 13:50 13:50 23:30 WBC 4.5 RBC 3.56 L Hgb 8.5 L Hct 24.8 L MCV 69.7 L MCH 23.8 L D MCHC 34.2 RDW 19.6 H Plt Count 93 L MPV 10.1 Absolute Neuts (auto) Neutrophils % Lymphocytes % Monocytes % Eosinophils % Basophils % Nucleated RBC % Hypochromia Platelet Estimate Polychromasia Poikilocytosis Anisocytosis Microcytosis Macrocytosis Ovalocytes Sigurd Cells Fragmented RBCs Retic Count PT with INR 15.30 H INR 1.29 H PTT (Actin FS) 24.8 L Sodium 145 Potassium 4.6 Chloride 114 H Carbon Dioxide 22 Anion Gap 9 BUN 51 H Creatinine 1.3 Creat Clearance w eGFR 54.11 Random Glucose 231 H Calcium 8.5 Phosphorus Magnesium Total Bilirubin 0.7 AST 38 H ALT 44 Alkaline Phosphatase 116 Total Protein 5.6 L Albumin 2.8 L Stool Occult Blood Blood Type Antibody Screen Crossmatch 04/02/18 04/02/18 04/02/18 05:15 05:15 05:15 WBC 4.1 RBC 3.32 L Hgb 7.5 L Hct 23.2 L MCV 69.7 L MCH 22.5 L MCHC 32.3 RDW 18.7 H Plt Count 80 L MPV 9.6 Absolute Neuts (auto) 2.4 Neutrophils % 57.8 D Lymphocytes % 33.8 D Monocytes % 5.5 Eosinophils % 2.5 Basophils % 0.4 Nucleated RBC % 0 Hypochromia Platelet Estimate Polychromasia Poikilocytosis Anisocytosis Microcytosis Macrocytosis Ovalocytes Gavi Cells Fragmented RBCs Retic Count PT with INR 15.30 H INR 1.29 H PTT (Actin FS) 24.9 L Sodium 146 H Potassium 4.4 Chloride 117 H Carbon Dioxide 25 Anion Gap 5 L BUN 41 H Creatinine 1.3 Creat Clearance w eGFR 54.11 Random Glucose 218 H Calcium 7.8 L Phosphorus 2.8 Magnesium 1.1 L Total Bilirubin 1.3 H AST 44 H ALT 49 Alkaline Phosphatase 97 Total Protein 5.2 L Albumin 2.6 L Stool Occult Blood Blood Type Antibody Screen Crossmatch ASSESSMENT/PLAN: Acute GI Bleed due to suspected Variceal bleeding History of ETOH abuse Anemia Melena DM pRBCs and platelets are being transfused For Endoscopic evaluation O2 as needed Mechanical VTE prophylaxis PPI drip Octreotide drip Glycemic monitoring and control Jimenez-culture Noted empiric ABX: Can likely D/C once cultures are negative ICU monitoring Dr Izquierdo
--- NOTE | 2018-04-02 12:40 | EKG ---
Test Reason : Blood Pressure : / mmHG Vent. Rate : 054 BPM Atrial Rate : 054 BPM P-R Int : 214 ms QRS Dur : 092 ms QT Int : 462 ms P-R-T Axes : 055 034 056 degrees QTc Int : 438 ms SINUS BRADYCARDIA WITH 1ST DEGREE A-V BLOCK OTHERWISE NORMAL ECG WHEN COMPARED WITH ECG OF 01-APR-2018 13:56, PA INTERVAL HAS INCREASED Confirmed by JOLENE LING, RENU ([id number]) on 04/02/2018 12:39:43 PM Referred By: Nikko ALCAZAR Confirmed By:RENU FERNÁNDEZ MD
[2018-04-02] MEDS ORDERED: PT OWN MED DRAWER 7, Y5N ONE (12:48)
--- NOTE | 2018-04-02 14:47 | PN ---
Physical Exam: SUBJECTIVE: Patient seen and examined this AM. He states that he has not had any further bleeding since being in the hospital. OBJECTIVE: Vital Signs Period Temp Pulse Resp BP Sys/Aden Pulse Ox Last 24 Hr 98.5 F-99.0 F 55-71 14-154 109-137/43-56 95-99 GENERAL: A&O, no acute distress, pale appearing male HEAD: Normocephalic, atraumatic. EYES: PERRL, no scleral icterus EARS, NOSE, THROAT: oropharynx clear without exudates. Moist mucous membranes. NECK: supple without lymphadenopathy LUNGS: CTA b/l, no crackles or wheezes HEART: Regular rate and rhythm, normal S1 and S2 without murmur ABDOMEN: Obese, Soft, nontender to palpation, normoactive bowel sounds EXTREMITIES: 2+ pulses, warm, well-perfused. No peripheral edema. NEUROLOGICAL: Cranial nerves II-XII grossly intact. Normal speech. SKIN: Warm, dry, no rashes or lesions noted Laboratory Results - last 24 hr 04/01/18 04/01/18 04/01/18 13:38 13:50 23:30 WBC 4.5 RBC 3.56 L Hgb 8.5 L Hct 24.8 L MCV 69.7 L MCH 23.8 L D MCHC 34.2 RDW 19.6 H Plt Count 90 L 93 L MPV 9.6 10.1 Absolute Neuts (auto) Neutrophils % Lymphocytes % Monocytes % Eosinophils % Basophils % Nucleated RBC % Hypochromia 0 Platelet Estimate Decreased Polychromasia 1+ Poikilocytosis 0 Anisocytosis 3+ Microcytosis 3+ Macrocytosis 0 Ovalocytes 1+ [place] Cells 1+ Fragmented RBCs 1+ PT with INR INR PTT (Actin FS) Sodium Potassium Chloride Carbon Dioxide Anion Gap BUN Creatinine Creat Clearance w eGFR POC Glucometer Random Glucose Calcium Phosphorus Magnesium Total Bilirubin AST ALT Alkaline Phosphatase Troponin I Total Protein Albumin Blood Type B POSITIVE Antibody Screen Negative Crossmatch See Detail 04/02/18 04/02/18 04/02/18 05:15 05:15 05:15 WBC 4.1 RBC 3.32 L Hgb 7.5 L Hct 23.2 L MCV 69.7 L MCH 22.5 L MCHC 32.3 RDW 18.7 H Plt Count 80 L MPV 9.6 Absolute Neuts (auto) 2.4 Neutrophils % 57.8 D Lymphocytes % 33.8 D Monocytes % 5.5 Eosinophils % 2.5 Basophils % 0.4 Nucleated RBC % 0 Hypochromia Platelet Estimate Polychromasia Poikilocytosis Anisocytosis Microcytosis Macrocytosis Ovalocytes [place] Cells Fragmented RBCs PT with INR 15.30 H INR 1.29 H PTT (Actin FS) 24.9 L Sodium 146 H Potassium 4.4 Chloride 117 H Carbon Dioxide 25 Anion Gap 5 L BUN 41 H Creatinine 1.3 Creat Clearance w eGFR 54.11 POC Glucometer Random Glucose 218 H Calcium 7.8 L Phosphorus 2.8 Magnesium 1.1 L Total Bilirubin 1.3 H AST 44 H ALT 49 Alkaline Phosphatase 97 Troponin I Total Protein 5.2 L Albumin 2.6 L Blood Type Antibody Screen Crossmatch 04/02/18 04/02/18 11:31 12:06 WBC RBC Hgb Hct MCV MCH MCHC RDW Plt Count MPV Absolute Neuts (auto) Neutrophils % Lymphocytes % Monocytes % Eosinophils % Basophils % Nucleated RBC % Hypochromia Platelet Estimate Polychromasia Poikilocytosis Anisocytosis Microcytosis Macrocytosis Ovalocytes [place] Cells Fragmented RBCs PT with INR INR PTT (Actin FS) Sodium Potassium Chloride Carbon Dioxide Anion Gap BUN Creatinine Creat Clearance w eGFR POC Glucometer [phone] Random Glucose Calcium Phosphorus Magnesium Total Bilirubin AST ALT Alkaline Phosphatase Troponin I < 0.02 Total Protein Albumin Blood Type Antibody Screen Crossmatch Active Medications Generic Name Dose Route Start Last Admin Trade Name Freq PRN Reason Stop Dose Admin Acetaminophen 650 mg 04/02/18 03:31 04/02/18 11:39 Tylenol - PO 650 mg Q6H PRN Administration PAIN LEVEL 1-5 Chlorhexidine Gluconate 1 applic 04/01/18 22:00 04/01/18 21:46 Hibiclens For Decolonization - TP 1 applic HS JELENA Administration Octreotide Acetate 1,200 mcg/ 500 mls @ 20.83 mls/hr 04/01/18 14:15 04/01/18 15:05 Dextrose IVPB 20.83 mls/hr ASDIR JELENA Administration 50 MCG/HR Pantoprazole Sodium 80 mg/ 100 mls @ 10 mls/hr 04/01/18 17:15 04/02/18 03:29 Sodium Chloride IVPB Not Given Q10H JELENA 8 MG/HR Levofloxacin 500 mg in 100 mls @ 100 mls/hr 04/02/18 10:00 04/02/18 09:53 Levaquin 500 Mg Premixed Ivpb - IVPB 100 mls/hr DAILY JELENA Administration Protocol Insulin Aspart 1 vial 04/02/18 07:45 04/02/18 11:35 Novolog Vial Sliding Scale - SQ 4 units Q6HPO JELENA Administration Protocol Mupirocin 1 applic 04/01/18 22:00 04/02/18 09:53 Bactroban Ointment (For Decolonization) - NS 04/06/18 21:59 1 applic BID JELENA Administration ASSESSMENT/PLAN: 72 yo M PMH of Alcoholic cirrhosis, s/p esophageal varices banding, cholelithiasis, DM, HTN, and anemia p/w black/bloody diarrhea w/ worsening 11/08 non radiating diffuse pressure like lower abd pain x3d. Anemia requiring transfusion likely secondary to acute GI bleeding -GI consult appreciated, likely for EGD today if stable -Has required 4 units PRBCs, 1 unit Platelets -Trend CBC -Octreotide drip, Protonix Drip -NPO -Empiric Levaquin can likely d/c if cultures negative DM -BGMs/Sliding scale DVT Prophylaxis -SCDs FEN -Fluids: None -Electrolytes: Monitor and replete, hypoMag, hypoPhos, BMP in AM -Nutrition: NPO Disposition ICU Visit type - Emergency Visit Emergency Visit: Yes ED Registration Date: 04/01/18 Care time: The patient presented to the Emergency Department on the above date and was hospitalized for further evaluation of their emergent condition. - New Patient This patient is new to me today: Yes Date on this admission: 04/02/18 - Critical Care Critical Care patient: Yes Total Critical Care Time (in minutes): 40 Critical Care Statement: The care of this patient involved high complexity decision making to prevent further life threatening deterioration of the patient 's condition and/or to evaluate & treat vital organ system(s) failure or risk of failure.
[2018-04-02] MEDS: OCTREOTIDE ACETATE 1,200 MCG in DEXTROSE 5%-WATER - 488 ML IVPB SCH (15:28)
--- NOTE | 2018-04-02 18:39 | PN ---
Progress Note (short form) - Note Progress Note: s/p EGD with rubberband ligation saw patient this evening no melena and no rectal bleeding if no bleeding overnight may have soft diet
--- NOTE | 2018-04-02 19:02 | PN ---
Teaching Attending Note Name of Resident: Keenan Miller ATTENDING PHYSICIAN STATEMENT I saw and evaluated the patient. I reviewed the resident's note and discussed the case with the resident. I agree with the resident's findings and plan as documented. SUBJECTIVE: Feels well - no complaints. No vomiting/hematemesis. no abdominal pain. No fever. OBJECTIVE: Afebrile, Hemodynamically Stable. Last Vital Signs Temp Pulse Resp BP Pulse Ox 97.7 F 51 L 14 127/47 L 96 04/02/18 14:00 04/02/18 16:00 04/02/18 16:00 04/02/18 16:00 04/02/18 13:15 HEENT - Atraumatic, Normocephalic. Heart - S1, S2, RRR Lungs - clear to auscultation. No crackles/wheeze. Abdomen - Soft, non-tender. Bowel Sounds Extremities - Edema +, no calf tenderness. Laboratory Results - last 24 hr 04/01/18 04/01/18 04/02/18 13:38 23:30 05:15 WBC 4.5 4.1 RBC 3.56 L 3.32 L Hgb 8.5 L 7.5 L Hct 24.8 L 23.2 L MCV 69.7 L 69.7 L MCH 23.8 L D 22.5 L MCHC 34.2 32.3 RDW 19.6 H 18.7 H Plt Count 93 L 80 L MPV 10.1 9.6 Absolute Neuts (auto) 2.4 Neutrophils % 57.8 D Lymphocytes % 33.8 D Monocytes % 5.5 Eosinophils % 2.5 Basophils % 0.4 Nucleated RBC % 0 PT with INR INR PTT (Actin FS) Sodium Potassium Chloride Carbon Dioxide Anion Gap BUN Creatinine Creat Clearance w eGFR POC Glucometer Random Glucose Calcium Phosphorus Magnesium Total Bilirubin AST ALT Alkaline Phosphatase Troponin I Total Protein Albumin Blood Type B POSITIVE Antibody Screen Negative Crossmatch See Detail 04/02/18 04/02/18 04/02/18 05:15 05:15 11:31 WBC RBC Hgb Hct MCV MCH MCHC RDW Plt Count MPV Absolute Neuts (auto) Neutrophils % Lymphocytes % Monocytes % Eosinophils % Basophils % Nucleated RBC % PT with INR 15.30 H INR 1.29 H PTT (Actin FS) 24.9 L Sodium 146 H Potassium 4.4 Chloride 117 H Carbon Dioxide 25 Anion Gap 5 L BUN 41 H Creatinine 1.3 Creat Clearance w eGFR 54.11 POC Glucometer [phone] Random Glucose 218 H Calcium 7.8 L Phosphorus 2.8 Magnesium 1.1 L Total Bilirubin 1.3 H AST 44 H ALT 49 Alkaline Phosphatase 97 Troponin I Total Protein 5.2 L Albumin 2.6 L Blood Type Antibody Screen Crossmatch 04/02/18 04/02/18 12:06 17:13 WBC RBC Hgb Hct MCV MCH MCHC RDW Plt Count MPV Absolute Neuts (auto) Neutrophils % Lymphocytes % Monocytes % Eosinophils % Basophils % Nucleated RBC % PT with INR INR PTT (Actin FS) Sodium Potassium Chloride Carbon Dioxide Anion Gap BUN Creatinine Creat Clearance w eGFR POC Glucometer [phone] Random Glucose Calcium Phosphorus Magnesium Total Bilirubin AST ALT Alkaline Phosphatase Troponin I < 0.02 Total Protein Albumin Blood Type Antibody Screen Crossmatch Current Medications Generic Name Dose Route Start Last Admin Trade Name Freq PRN Reason Stop Dose Admin Acetaminophen 650 mg 04/02/18 03:31 04/02/18 11:39 Tylenol - PO 650 mg Q6H PRN Administration PAIN LEVEL 1-5 Chlorhexidine Gluconate 1 applic 04/01/18 22:00 04/01/18 21:46 Hibiclens For Decolonization - TP 1 applic HS JELENA Administration Octreotide Acetate 1,200 mcg/ 500 mls @ 20.83 mls/hr 04/01/18 14:15 04/02/18 15:28 Dextrose IVPB 20.83 mls/hr ASDIR JELENA Administration 50 MCG/HR Pantoprazole Sodium 80 mg/ 100 mls @ 10 mls/hr 04/01/18 17:15 04/02/18 15:28 Sodium Chloride IVPB 10 mls/hr Q10H JELENA Administration 8 MG/HR Levofloxacin 500 mg in 100 mls @ 100 mls/hr 04/02/18 10:00 04/02/18 09:53 Levaquin 500 Mg Premixed Ivpb - IVPB 100 mls/hr DAILY JELENA Administration Protocol Insulin Aspart 1 vial 04/02/18 07:45 04/02/18 17:15 Novolog Vial Sliding Scale - SQ Not Given Q6HPO JELENA Protocol Mupirocin 1 applic 04/01/18 22:00 04/02/18 09:53 Bactroban Ointment (For Decolonization) - NS 04/06/18 21:59 1 applic BID JELENA Administration ASSESSMENT AND PLAN: 72 year old male with history of Alcoholic Liver Cirrhosis with portal hypertension s/p Esophageal variceal banding, Cholelithiasis, DM 2, BPH, HTN, presents with black stool/bloody diarrhea with abdominal pain. CT A/P - no acute intra-abdominal pathology. 1. Acute Blood Loss Anemia secondary to Variceal Bleeding Hb 6.7 s/p EGD with repeat banding today. Continue Protonix, Octrotide s/p 4 units PRBCs. Continue Levofloxacin NPO tonight.GI following Previously lightheaded on Nadolol. 2. DM 2 - Hold Glimepiride, Metformin Continue Sliding scale. 3. BPH - normally on Terazosin. Can resume once oral intake resumes. 4. Hypomagnesemia - repleted. DVT Px - SCDs
--- NOTE | 2018-04-02 19:04 | EKG ---
Test Reason : Blood Pressure : / mmHG Vent. Rate : 068 BPM Atrial Rate : 068 BPM P-R Int : 176 ms QRS Dur : 086 ms QT Int : 412 ms P-R-T Axes : 057 028 054 degrees QTc Int : 438 ms NORMAL SINUS RHYTHM NORMAL ECG WHEN COMPARED WITH ECG OF 21-FEB-2018 20:28, NO SIGNIFICANT CHANGE WAS FOUND Confirmed by RENU FERNÁNDEZ MD ([id number]) on 04/02/2018 7:03:53 PM Referred By: Confirmed By:RENU FERNÁNDEZ MD
[2018-04-02 19:14] LABS: HEMATOCRIT 28.6 % (35.4-49); HEMOGLOBIN 10.2 GM/dL (11.7-16.9); MCH 25.5 pg (25.7-33.7); MCHC 35.6 g/dl (32.0-35.9); MEAN CELL VOLUME 71.6 fl (80-96); PLATELET COUNT 100 K/MM3 (134-434); RBC 3.99 M/mm3 (4.00-5.60); RDW 20.1 % (11.9-15.9); WHITE BLOOD COUNT 4.6 K/mm3 (4.0-10.0)
[2018-04-02] MEDS: CHLORHEXIDINE GLUCONATE 4% CLEANSER FOR DECOLONIZATION TP SCH (21:53)
[2018-04-03] MEDS: PANTOPRAZOLE SODIUM 80 MG in SODIUM CHLORIDE 100 ML IVPB SCH ×2 (00:19→09:06)
[2018-04-03] MEDS: INSULIN SLIDING SCALE (NOVOLOG) 1 VIAL SQ SCH ×5 (00:20→21:23)
[2018-04-03 06:19] LABS: ALBUMIN 2.8 g/dl (3.4-5.0); ALK PHOS 103 U/L (45-117); ANION GAP 6 MMOL/L (8-16); BILIRUBIN,TOTAL 1.7 mg/dL (0.2-1); BLOOD UREA NITROGEN 27 mg/dL (7-18); CALCIUM 8.1 mg/dL (8.5-10.1); CHLORIDE 114 mmol/L (98-107); CO2 26 mmol/L (21-32); CREATININE 1.3 mg/dL (0.55-1.3); GLUCOSE,RANDOM 196 mg/dL (74-106); MAGNESIUM 1.7 mg/dL (1.8-2.4); PHOSPHOROUS 2.9 mg/dL (2.5-4.9); POTASSIUM 3.7 mmol/L (3.5-5.1); SGOT/AST 46 U/L (15-37); SGPT/ALT 53 U/L (13-61); SODIUM 145 mmol/L (136-145); TOT PROT 5.7 g/dl (6.4-8.2)
--- NOTE | 2018-04-03 06:44 | PN ---
Physical Exam: SUBJECTIVE: Patient seen and examined. Patient denies N/V. Denies further bloody stools. Denies abdominal pain. L thoracic pain improved. OBJECTIVE: Vital Signs Period Temp Pulse Resp BP Sys/Aden Pulse Ox Last 24 Hr 97.7 F-98.8 F 50-70 14-18 80-140/40-60 96-99 GENERAL: Awake, alert, and fully oriented, in no acute distress HEAD: No signs of trauma, normocephalic, atraumatic EYES: PERRLA, EOMI, sclera anicteric, conjunctiva clear ENT: Hearing grossly normal, nares patent, oropharynx clear without exudates. Moist mucosa LUNGS: No distress, speaks full sentences, clear to auscultation bilaterally HEART: Regular rate and rhythm, normal S1 and S2, no murmurs appreciated, peripheral pulses normal and equal bilaterally ABDOMEN: Soft, nontender, normoactive bowel sounds. No guarding, no rebound EXTREMITIES : Normal inspection, Normal range of motion, no edema. No clubbing or cyanosis NEUROLOGICAL: Cranial nerves II through XII grossly intact. Normal speech, no focal sensorimotor deficits SKIN: Warm, Dry Active Medications Generic Name Dose Route Start Last Admin Trade Name Freq PRN Reason Stop Dose Admin Acetaminophen 650 mg 04/02/18 03:31 04/02/18 18:50 Tylenol - PO 650 mg Q6H PRN Administration PAIN LEVEL 1-5 Chlorhexidine Gluconate 1 applic 04/01/18 22:00 04/02/18 21:53 Hibiclens For Decolonization - TP 1 applic HS JELENA Administration Octreotide Acetate 1,200 mcg/ 500 mls @ 20.83 mls/hr 04/01/18 14:15 04/02/18 15:28 Dextrose IVPB 20.83 mls/hr ASDIR JELENA Administration 50 MCG/HR Pantoprazole Sodium 80 mg/ 100 mls @ 10 mls/hr 04/01/18 17:15 04/03/18 00:19 Sodium Chloride IVPB Not Given Q10H JELENA 8 MG/HR Levofloxacin 500 mg in 100 mls @ 100 mls/hr 04/02/18 10:00 04/02/18 09:53 Levaquin 500 Mg Premixed Ivpb - IVPB 100 mls/hr DAILY JELENA Administration Protocol Insulin Aspart 1 vial 04/02/18 07:45 04/03/18 06:17 Novolog Vial Sliding Scale - SQ 4 units Q6HPO JELENA Administration Protocol Mupirocin 1 applic 04/01/18 22:00 04/02/18 21:53 Bactroban Ointment (For Decolonization) - NS 04/06/18 21:59 1 applic BID JELENA Administration ASSESSMENT/PLAN: The patient is a 72M w/ a PMH of EtOH cirrhosis, esophageal varices s/p banding , and NIDDM who presented w/ 2d melena. On presentation initial Hgb 6.7. / - s/p 2u pRBC 1/2 - s/p EGD, 2u pRBC, 1u plt / - Hgb stable, soft diet, tx to floor Neuro Acute pain -Tylenol PRN CV HDS, CTM PULM CTAB, breathing comfortably on RA, CTM GI GI bleed -s/p EGD w/ band ligation on 04/02 -Protonix gtt -Octreotide gtt -soft diet Hypomagnesemia -Repleted Hypocalcemia -Repleted Uop adequate, CTM HEME Acute on chronic anemia 2/2 GI bleed -s/p 2u pRBC 04/01 -s/p 2u pRBC & 1u plt / -Hgb 10.5 from 10.2 DVT ppx -Mechanical only, SCDs/TEDs ID Active GI bleed ppx -Levofloxacin ENDO NIDDM -ISS, BGM LTD PIV Dispo: Patient no longer requires ICU level of care, plan to transfer to floor today [facility] [phone] Visit type - Emergency Visit Emergency Visit: Yes ED Registration Date: 04/01/18 Care time: The patient presented to the Emergency Department on the above date and was hospitalized for further evaluation of their emergent condition. - New Patient This patient is new to me today: No - Critical Care Critical Care patient: Yes Total Critical Care Time (in minutes): 35 Critical Care Statement: The care of this patient involved high complexity decision making to prevent further life threatening deterioration of the patient 's condition and/or to evaluate & treat vital organ system(s) failure or risk of failure.
[2018-04-03] MEDS ORDERED: MAGNESIUM 2GM/50ML STERILE WATER IVPB IVPB ONE (06:48)
[2018-04-03 06:58] LABS: HEMATOCRIT 29.8 % (35.4-49); HEMOGLOBIN 10.5 GM/dL (11.7-16.9); MCH 25.5 pg (25.7-33.7); MCHC 35.2 g/dl (32.0-35.9); MEAN CELL VOLUME 72.4 fl (80-96); MEAN PLT VOLUME 10.7 fl (7.5-11.1); PLATELET COUNT 105 K/MM3 (134-434); RBC 4.11 M/mm3 (4.00-5.60); RDW 20.2 % (11.9-15.9); WHITE BLOOD COUNT 4.7 K/mm3 (4.0-10.0)
--- NOTE | 2018-04-03 07:55 | PN ---
Physical Exam: SUBJECTIVE: Patient seen and examined this AM. He states he is feeling better. Denies any chest pain or palpitations overnight and states his left sided thoracic pain has improved. OBJECTIVE: Vital Signs Period Temp Pulse Resp BP Sys/Aden Pulse Ox Last 24 Hr 97.7 F-98.8 F 50-70 14-18 80-140/40-60 96-99 GENERAL: A&O, no acute distress HEAD: Normocephalic, atraumatic. EYES: PERRL, no scleral icterus EARS, NOSE, THROAT: oropharynx clear without exudates. Moist mucous membranes. NECK: supple without lymphadenopathy LUNGS: CTA b/l, no crackles or wheezes HEART: Regular rate and rhythm, normal S1 and S2 without murmur ABDOMEN: Obese, Soft, nontender to palpation, normoactive bowel sounds EXTREMITIES: 2+ pulses, warm, well-perfused. No peripheral edema. NEUROLOGICAL: Cranial nerves II-XII grossly intact. Normal speech. Laboratory Results - last 24 hr 04/01/18 04/02/18 04/02/18 13:38 11:31 12:06 WBC RBC Hgb Hct MCV MCH MCHC RDW Plt Count MPV Neutrophils % Lymphocytes % Nucleated RBC % Sodium Potassium Chloride Carbon Dioxide Anion Gap BUN Creatinine Creat Clearance w eGFR POC Glucometer [phone] Random Glucose Calcium Phosphorus Magnesium Total Bilirubin AST ALT Alkaline Phosphatase Troponin I < 0.02 Total Protein Albumin Blood Type B POSITIVE Antibody Screen Negative Crossmatch See Detail 04/02/18 04/02/18 04/02/18 17:13 18:45 21:34 WBC 4.6 RBC 3.99 L Hgb 10.2 L Hct 28.6 L D MCV 71.6 L MCH 25.5 L D MCHC 35.6 RDW 20.1 H Plt Count 100 L D MPV 10.0 Neutrophils % Lymphocytes % Nucleated RBC % Sodium Potassium Chloride Carbon Dioxide Anion Gap BUN Creatinine Creat Clearance w eGFR POC Glucometer [phone] Random Glucose Calcium Phosphorus Magnesium Total Bilirubin AST ALT Alkaline Phosphatase Troponin I Total Protein Albumin Blood Type Antibody Screen Crossmatch 04/03/18 04/03/18 04/03/18 05:15 05:15 05:44 WBC 4.7 RBC 4.11 Hgb 10.5 L Hct 29.8 L MCV 72.4 L MCH 25.5 L MCHC 35.2 RDW 20.2 H Plt Count 105 L MPV 10.7 Neutrophils % No Result Required. Lymphocytes % No Result Required. Nucleated RBC % 1 H Sodium 145 Potassium 3.7 Chloride 114 H Carbon Dioxide 26 Anion Gap 6 L BUN 27 H Creatinine 1.3 Creat Clearance w eGFR 54.11 POC Glucometer [phone] Random Glucose 196 H Calcium 8.1 L Phosphorus 2.9 Magnesium 1.7 L Total Bilirubin 1.7 H AST 46 H ALT 53 Alkaline Phosphatase 103 Troponin I Total Protein 5.7 L Albumin 2.8 L Blood Type Antibody Screen Crossmatch Active Medications Generic Name Dose Route Start Last Admin Trade Name Freq PRN Reason Stop Dose Admin Acetaminophen 650 mg 04/02/18 03:31 04/02/18 18:50 Tylenol - PO 650 mg Q6H PRN Administration PAIN LEVEL 1-5 Chlorhexidine Gluconate 1 applic 04/01/18 22:00 04/02/18 21:53 Hibiclens For Decolonization - TP 1 applic HS JELENA Administration Octreotide Acetate 1,200 mcg/ 500 mls @ 20.83 mls/hr 04/01/18 14:15 04/02/18 15:28 Dextrose IVPB 20.83 mls/hr ASDIR JELENA Administration 50 MCG/HR Pantoprazole Sodium 80 mg/ 100 mls @ 10 mls/hr 04/01/18 17:15 04/03/18 00:19 Sodium Chloride IVPB Not Given Q10H JELENA 8 MG/HR Levofloxacin 500 mg in 100 mls @ 100 mls/hr 04/02/18 10:00 04/02/18 09:53 Levaquin 500 Mg Premixed Ivpb - IVPB 100 mls/hr DAILY JELENA Administration Protocol Insulin Aspart 1 vial 04/02/18 07:45 04/03/18 06:17 Novolog Vial Sliding Scale - SQ 4 units Q6HPO JELENA Administration Protocol Mupirocin 1 applic 04/01/18 22:00 04/02/18 21:53 Bactroban Ointment (For Decolonization) - NS 04/06/18 21:59 1 applic BID JELENA Administration ASSESSMENT/PLAN: 72 yo M PMH of Alcoholic cirrhosis, s/p esophageal varices banding, cholelithiasis, DM, HTN, and anemia p/w black/bloody diarrhea w/ worsening 11/08 non radiating diffuse pressure like lower abd pain x3d. Anemia requiring transfusion likely secondary to acute GI bleeding -GI consult appreciated -EGD yesterday with banding of varices -Has required 4 units PRBCs, 1 unit Platelets -Trend CBC, H/H currently stable -Octreotide drip, Protonix Drip -Soft diet as tolerated -Empiric Levaquin can likely d/c pending GI recommendation DM -BGMs/Sliding scale DVT Prophylaxis -SCDs FEN -Fluids: None -Electrolytes: Monitor and replete, hypoMag, hypoPhos, HypoK BMP in AM -Nutrition: Soft diet: Sodium controlled diabetic Disposition ICU, stable for transfer out of ICU Visit type - Emergency Visit Emergency Visit: Yes ED Registration Date: 04/01/18 Care time: The patient presented to the Emergency Department on the above date and was hospitalized for further evaluation of their emergent condition. - New Patient This patient is new to me today: No - Critical Care Critical Care patient: Yes Total Critical Care Time (in minutes): 35 Critical Care Statement: The care of this patient involved high complexity decision making to prevent further life threatening deterioration of the patient 's condition and/or to evaluate & treat vital organ system(s) failure or risk of failure.
[2018-04-03] MEDS: MUPIROCIN 2% TOPICAL OINTMENT FOR DECOLONIZATION NS SCH ×2 (09:05→21:21)
--- NOTE | 2018-04-03 10:52 | PN ---
Progress Note (short form) - Note Progress Note: Anesthesia/Pain Pt seen and examined S:alert and awake O: Vital Signs Temperature 98.6 F 04/03/18 10:00 Pulse Rate 66 04/03/18 10:00 Respiratory Rate 18 04/03/18 10:00 Blood Pressure 157/64 04/03/18 10:00 O2 Sat by Pulse Oximetry (%) 98 04/03/18 07:45 CBC, BMP 04/03/18 05:15 04/03/18 05:15 A/P: Current Active Problems Enlarged prostate (Acute) GI bleed (Acute) s/p EGD with banding Doing well post op Continue current care Kevon Figueroa MD
[2018-04-03 11:32] LABS: ANISOCYTOSIS 1+; MACROCYTOSIS 0; PLATELET ESTIMATE DECREASED; TARGET CELLS 1+
[2018-04-03 13:13] VITALS: BMI 30.1
[2018-04-03] MEDS: OCTREOTIDE ACETATE 1,200 MCG in DEXTROSE 5%-WATER - 488 ML IVPB SCH (14:49)
--- NOTE | 2018-04-03 14:50 | PN ---
Teaching Attending Note Name of Resident: Luis Vega ATTENDING PHYSICIAN STATEMENT I saw and evaluated the patient. I reviewed the resident's note and discussed the case with the resident. I agree with the resident's findings and plan as documented. SUBJECTIVE: Patient seen and examined in the ICU. No acute bleeding noted overnight. Left sided left chest wall pain is better. Intake & Output 03/31/18 04/01/18 04/02/18 04/03/18 23:59 23:59 23:59 23:59 Intake Total 2000 999.6 1051 Output Total 950 2250 750 Balance 1050 -1250.4 301 Weight 181 lb 12.8 oz 181 lb Last Vital Signs Temp Pulse Resp BP Pulse Ox 98.2 F 54 L 18 134/87 98 04/03/18 13:40 04/03/18 13:40 04/03/18 13:40 04/03/18 13:40 04/03/18 07:45 Active Medications Acetaminophen (Tylenol -) 650 mg PO Q6H PRN PRN Reason: PAIN LEVEL 1-5 Last Admin: 04/02/18 18:50 Dose: 650 mg Chlorhexidine Gluconate (Hibiclens For Decolonization -) 1 applic TP HS JELENA Last Admin: 04/02/18 21:53 Dose: 1 applic Levofloxacin (Levaquin 500 Mg Premixed Ivpb -) 500 mg in 100 mls @ 100 mls/hr IVPB DAILY [facility], [facility]; Protocol Last Admin: 04/03/18 09:05 Dose: 100 mls/hr Insulin Aspart (Novolog Vial Sliding Scale -) 1 vial SQ Q6HPO [facility], [facility]; Protocol Last Admin: 04/03/18 12:51 Dose: 4 units Mupirocin (Bactroban Ointment (For Decolonization) -) 1 applic NS BID JELENA Stop: 04/06/18 21:59 Last Admin: 04/03/18 09:05 Dose: 1 applic GENERAL: AAOx3 HEAD: NCAT EYES: pale conjuctiva EARS, NOSE, THROAT: Moist mucous membranes. NECK: supple without lymphadenopathy, JVD, or masses. LUNGS: CTAB. No wheezes, and no crackles. No accessory muscle use. HEART: Regular rate and rhythm, normal S1 and S2 2/6 DON ABDOMEN: Soft, mild epigastric pain. NABS, no guarding, no rebound, no masses. No hepatomegaly or splenomegaly. MUSCULOSKELETAL: Normal range of motion at all joints. No bony deformities or tenderness. No CVA tenderness. LOWER EXTREMITIES: 2+ pulses, warm, well-perfused. No calf tenderness. No peripheral edema. NEUROLOGICAL: Non-focal PSYCHIATRIC: Cooperative. Good eye contact. Appropriate mood and affect. SKIN: Warm, dry, normal turgor, no rashes or lesions noted. Laboratory Results - last 24 hr 04/02/18 04/02/18 04/02/18 17:13 18:45 21:34 WBC 4.6 RBC 3.99 L Hgb 10.2 L Hct 28.6 L D MCV 71.6 L MCH 25.5 L D MCHC 35.6 RDW 20.1 H Plt Count 100 L D MPV 10.0 Neutrophils % Neutrophils % (Manual) Band Neutrophils % Lymphocytes % Lymphocytes % (Manual) Monocytes % (Manual) Eosinophils % (Manual) Basophils % (Manual) Myelocytes % (Man) Promyelocytes % (Man) Blast Cells % (Manual) Nucleated RBC % Metamyelocytes Hypochromia Platelet Estimate Polychromasia Poikilocytosis Anisocytosis Microcytosis Macrocytosis Target Cells Schistocytes Sodium Potassium Chloride Carbon Dioxide Anion Gap BUN Creatinine Creat Clearance w eGFR POC Glucometer 186.04395 198.14698 Random Glucose Calcium Phosphorus Magnesium Total Bilirubin AST ALT Alkaline Phosphatase Total Protein Albumin 04/03/18 04/03/18 04/03/18 05:15 05:15 05:44 WBC 4.7 RBC 4.11 Hgb 10.5 L Hct 29.8 L MCV 72.4 L MCH 25.5 L MCHC 35.2 RDW 20.2 H Plt Count 105 L MPV 10.7 Neutrophils % No Result Required. Neutrophils % (Manual) 56.0 Band Neutrophils % 1.1 Lymphocytes % No Result Required. Lymphocytes % (Manual) 31.9 Monocytes % (Manual) 3 L Eosinophils % (Manual) 7.7 H Basophils % (Manual) 0.0 Myelocytes % (Man) 0 Promyelocytes % (Man) 0 Blast Cells % (Manual) 0 Nucleated RBC % 1 H Metamyelocytes 0 Hypochromia 0 Platelet Estimate Decreased Polychromasia 1+ Poikilocytosis 2+ Anisocytosis 1+ Microcytosis 1+ Macrocytosis 0 Target Cells 1+ Schistocytes 1+ Sodium 145 Potassium 3.7 Chloride 114 H Carbon Dioxide 26 Anion Gap 6 L BUN 27 H Creatinine 1.3 Creat Clearance w eGFR 54.11 POC Glucometer [phone] Random Glucose 196 H Calcium 8.1 L Phosphorus 2.9 Magnesium 1.7 L Total Bilirubin 1.7 H AST 46 H ALT 53 Alkaline Phosphatase 103 Total Protein 5.7 L Albumin 2.8 L ASSESSMENT/PLAN: Acute GI Bleed due to Variceal bleeding: S/P Banding History of ETOH abuse Anemia Melena DM Normal transfusion thresholds O2 as needed Mechanical VTE prophylaxis PPI Glycemic monitoring and control D/C ABX Dr Izquierdo
--- NOTE | 2018-04-03 17:38 | PN ---
GI Progress Note Subjective: had 1 dark BM today, no evidence of rectal bleeding, tachycardia, patient not a candidate for beta blockers, resting heart rate is 45 - Objective Vital Signs: Vital Signs Temperature 98.2 F 04/03/18 13:40 Pulse Rate 55 L 04/03/18 16:00 Respiratory Rate 17 04/03/18 16:00 Blood Pressure 145/51 L 04/03/18 16:00 O2 Sat by Pulse Oximetry (%) 98 04/03/18 07:45 Constitutional: Well Nourished Eyes: Yes: Conjunctiva Clear HENT: Yes: Atraumatic Neck: Yes: Supple Cardiovascular: Yes: Regular Rate and Rhythm Respiratory: Yes: CTA Bilaterally ...Palpate: Yes: Soft. No: Firm/Rigid, Guarding, Hepatomegaly, Mass, Pulsatile Mass, Splenomegaly, Tenderness Labs: CBC, BMP 04/03/18 05:15 04/03/18 05:15 INR, PTT INR 1.29 (0.83-1.09) H 04/02/18 05:15 Problem List - Problems (1) Esophageal varix bleeding Assessment/Plan: --resolved R> advance diet observe for another 2 days prior to discharge patient has increased risk of rebleeding Dr Adame is covering starting tomorrow Code(s): I85.01 - ESOPHAGEAL VARICES WITH BLEEDING (2) GI bleed Code(s): K92.2 - GASTROINTESTINAL HEMORRHAGE, UNSPECIFIED
--- NOTE | 2018-04-03 19:45 | PN ---
Teaching Attending Note Name of Resident: Bahman De Guzman ATTENDING PHYSICIAN STATEMENT I saw and evaluated the patient. I reviewed the resident's note and discussed the case with the resident. I agree with the resident's findings and plan as documented. SUBJECTIVE: 3 dark stools overnight. No abdominal pain/nausea/vomiting/ hematemesis. No chest pain. OBJECTIVE: Afebrile, Hemodynamically Stable. Last Vital Signs Temp Pulse Resp BP Pulse Ox 99.1 F 59 L 19 135/50 L 100 04/03/18 18:00 04/03/18 18:00 04/03/18 18:00 04/03/18 18:00 04/03/18 17:44 HEENT - Atraumatic, Normocephalic. Heart - S1, S2, RRR Lungs - clear to auscultation. No crackles/wheeze. Abdomen - Soft, non-tender. Bowel Sounds Extremities - Edema +, no calf tenderness. Laboratory Results - last 24 hr 04/02/18 04/03/18 04/03/18 21:34 05:15 05:15 WBC 4.7 RBC 4.11 Hgb 10.5 L Hct 29.8 L MCV 72.4 L MCH 25.5 L MCHC 35.2 RDW 20.2 H Plt Count 105 L MPV 10.7 Neutrophils % No Result Required. Neutrophils % (Manual) 56.0 Band Neutrophils % 1.1 Lymphocytes % No Result Required. Lymphocytes % (Manual) 31.9 Monocytes % (Manual) 3 L Eosinophils % (Manual) 7.7 H Basophils % (Manual) 0.0 Myelocytes % (Man) 0 Promyelocytes % (Man) 0 Blast Cells % (Manual) 0 Nucleated RBC % 1 H Metamyelocytes 0 Hypochromia 0 Platelet Estimate Decreased Polychromasia 1+ Poikilocytosis 2+ Anisocytosis 1+ Microcytosis 1+ Macrocytosis 0 Target Cells 1+ Schistocytes 1+ Sodium 145 Potassium 3.7 Chloride 114 H Carbon Dioxide 26 Anion Gap 6 L BUN 27 H Creatinine 1.3 Creat Clearance w eGFR 54.11 POC Glucometer [phone] Random Glucose 196 H Calcium 8.1 L Phosphorus 2.9 Magnesium 1.7 L Total Bilirubin 1.7 H AST 46 H ALT 53 Alkaline Phosphatase 103 Total Protein 5.7 L Albumin 2.8 L 04/03/18 04/03/18 04/03/18 05:44 12:45 17:30 WBC RBC Hgb Hct MCV MCH MCHC RDW Plt Count MPV Neutrophils % Neutrophils % (Manual) Band Neutrophils % Lymphocytes % Lymphocytes % (Manual) Monocytes % (Manual) Eosinophils % (Manual) Basophils % (Manual) Myelocytes % (Man) Promyelocytes % (Man) Blast Cells % (Manual) Nucleated RBC % Metamyelocytes Hypochromia Platelet Estimate Polychromasia Poikilocytosis Anisocytosis Microcytosis Macrocytosis Target Cells Schistocytes Sodium Potassium Chloride Carbon Dioxide Anion Gap BUN Creatinine Creat Clearance w eGFR POC Glucometer [phone] [phone] Random Glucose Calcium Phosphorus Magnesium Total Bilirubin AST ALT Alkaline Phosphatase Total Protein Albumin Current Medications Generic Name Dose Route Start Last Admin Trade Name Freq PRN Reason Stop Dose Admin Acetaminophen 650 mg 04/02/18 03:31 04/02/18 18:50 Tylenol - PO 650 mg Q6H PRN Administration PAIN LEVEL 1-5 Chlorhexidine Gluconate 1 applic 04/01/18 22:00 04/02/18 21:53 Hibiclens For Decolonization - TP 1 applic HS JELENA Administration Levofloxacin 500 mg in 100 mls @ 100 mls/hr 04/02/18 10:00 04/03/18 09:05 Levaquin 500 Mg Premixed Ivpb - IVPB 100 mls/hr DAILY JELENA Administration Protocol Insulin Aspart 1 vial 04/03/18 16:30 04/03/18 17:32 Novolog Vial Sliding Scale - SQ 8 units ACHS JELENA Administration Protocol Mupirocin 1 applic 04/01/18 22:00 04/03/18 09:05 Bactroban Ointment (For Decolonization) - NS 04/06/18 21:59 1 applic BID JELENA Administration ASSESSMENT AND PLAN: 72 year old male with history of Alcoholic Liver Cirrhosis with portal hypertension s/p Esophageal variceal banding, Cholelithiasis, DM 2, BPH, HTN, presents with black stool/bloody diarrhea with abdominal pain. CT A/P - no acute intra-abdominal pathology. 1. Acute Blood Loss Anemia secondary to Variceal Bleeding s/p EGD with repeat banding 1/2 Off Protonix, Octrotide drips - unclear why PPI stopped - will discuss with GI. H/H 10.08/26 s/p 4 units PRBCs. Continue Levofloxacin prophylaxis Tolerating soft diet. Previously lightheaded on Nadolol, not re-started on BB. 2. DM 2 - Glimepiride, Metformin held. Continue Sliding scale. 3. BPH - normally on Terazosin. Can resume once oral intake resumes. 4. Hypomagnesemia - repleted. DVT Px - SCDs
[2018-04-03] MEDS: CHLORHEXIDINE GLUCONATE 4% CLEANSER FOR DECOLONIZATION TP SCH (21:22)
[2018-04-04 06:21] LABS: BASO % 0.2 % (0-2.0); EOS % 3.6 % (0-4.5); HEMATOCRIT 30.8 % (35.4-49); LYMPH % 28.7 % (8-40); MCH 23.6 pg (25.7-33.7); MCHC 32.5 g/dl (32.0-35.9); MEAN CELL VOLUME 72.8 fl (80-96); MEAN PLT VOLUME 9.4 fl (7.5-11.1); NEUT % 60.5 % (42.8-82.8); PLATELET COUNT 92 K/MM3 (134-434); RBC 4.23 M/mm3 (4.00-5.60); RDW 20.8 % (11.9-15.9); WHITE BLOOD COUNT 4.7 K/mm3 (4.0-10.0)
[2018-04-04] MEDS: INSULIN SLIDING SCALE (NOVOLOG) 1 VIAL SQ SCH ×4 (06:24→22:19)
[2018-04-04 06:47] LABS: ALBUMIN 2.9 g/dl (3.4-5.0); ALK PHOS 110 U/L (45-117); ANION GAP 7 MMOL/L (8-16); BILIRUBIN,TOTAL 1.2 mg/dL (0.2-1); BLOOD UREA NITROGEN 22 mg/dL (7-18); CALCIUM 7.6 mg/dL (8.5-10.1); CHLORIDE 114 mmol/L (98-107); CO2 24 mmol/L (21-32); CREATININE 1.4 mg/dL (0.55-1.3); GLUCOSE,RANDOM 216 mg/dL (74-106); POTASSIUM 3.6 mmol/L (3.5-5.1); SGOT/AST 40 U/L (15-37); SGPT/ALT 53 U/L (13-61); SODIUM 145 mmol/L (136-145); TOT PROT 5.7 g/dl (6.4-8.2)
--- NOTE | 2018-04-04 07:23 | PN ---
Physical Exam: SUBJECTIVE: Denies pain. Denies N/V, abdominal pain. No further reported melanic stools OBJECTIVE: Vital Signs Period Temp Pulse Resp BP Sys/Aden Pulse Ox Last 24 Hr 98.1 F-99.1 F 45-66 17-19 114-157/42-87 98-100 GENERAL: Awake, alert, and fully oriented, in no acute distress HEAD: No signs of trauma, normocephalic, atraumatic EYES: PERRLA, EOMI, sclera anicteric, conjunctiva clear ENT: Hearing grossly normal, nares patent, oropharynx clear without exudates. Moist mucosa LUNGS: No distress, speaks full sentences, clear to auscultation bilaterally HEART: Regular rate and rhythm, normal S1 and S2, no murmurs appreciated, peripheral pulses normal and equal bilaterally ABDOMEN: Soft, nontender, normoactive bowel sounds. No guarding, no rebound EXTREMITIES : Normal inspection, Normal range of motion, no edema. No clubbing or cyanosis NEUROLOGICAL: Cranial nerves II through XII grossly intact. Normal speech, no focal sensorimotor deficits SKIN: Warm, Dry Active Medications Generic Name Dose Route Start Last Admin Trade Name Freq PRN Reason Stop Dose Admin Acetaminophen 650 mg 04/02/18 03:31 04/02/18 18:50 Tylenol - PO 650 mg Q6H PRN Administration PAIN LEVEL 1-5 Chlorhexidine Gluconate 1 applic 04/01/18 22:00 04/03/18 21:22 Hibiclens For Decolonization - TP 1 applic HS JELENA Administration Levofloxacin 500 mg in 100 mls @ 100 mls/hr 04/02/18 10:00 04/03/18 09:05 Levaquin 500 Mg Premixed Ivpb - IVPB 100 mls/hr DAILY JELENA Administration Protocol Insulin Aspart 1 vial 04/03/18 16:30 04/04/18 06:24 Novolog Vial Sliding Scale - SQ 4 units ACHS JELENA Administration Protocol Mupirocin 1 applic 04/01/18 22:00 04/03/18 21:21 Bactroban Ointment (For Decolonization) - NS 04/06/18 21:59 1 applic BID JELENA Administration ASSESSMENT/PLAN: The patient is a 72M w/ a PMH of EtOH cirrhosis, esophageal varices s/p banding , and NIDDM who presented w/ 2d melena. On presentation initial Hgb 6.7. 04/01 - s/p 2u pRBC /2 - s/p EGD, 2u pRBC, 1u plt /3 - Hgb stable, soft diet, tx to floor 04/04 - Tx to floor, Protonix IV BID Neuro Acute pain -Tylenol PRN CV HDS, CTM PULM CTAB, breathing comfortably on RA, CTM GI GI bleed -s/p EGD w/ band ligation on 04/02 -soft diet -Protonix BID Hypomagnesemia -Repleted Hypocalcemia -Repleted Uop adequate, CTM HEME Acute on chronic anemia 2/2 GI bleed -s/p 2u pRBC 04/01 -s/p 2u pRBC & 1u plt /2 -Hgb 10 (10.5), HDS, no indication for transfusion at this time DVT ppx -Mechanical only, SCDs/TEDs ID Active GI bleed ppx -Levofloxacin ENDO NIDDM -ISS, BGM LTD -PIV Dispo: Patient no longer requires ICU level of care, plan to transfer to floor today [facility] [phone] Visit type - Emergency Visit Emergency Visit: Yes ED Registration Date: 04/01/18 Care time: The patient presented to the Emergency Department on the above date and was hospitalized for further evaluation of their emergent condition. - New Patient This patient is new to me today: No - Critical Care Critical Care patient: Yes Total Critical Care Time (in minutes): 35 Critical Care Statement: The care of this patient involved high complexity decision making to prevent further life threatening deterioration of the patient 's condition and/or to evaluate & treat vital organ system(s) failure or risk of failure.
--- NOTE | 2018-04-04 07:54 | PN ---
Physical Exam: SUBJECTIVE: Patient seen and examined this AM. He states he is feeling well today. mentions one bowel movement with some blood overnight, tolerating diet well. OBJECTIVE: Vital Signs Period Temp Pulse Resp BP Sys/Aden Pulse Ox Last 24 Hr 98.1 F-99.1 F 45-66 17-19 114-157/42-87 100-100 GENERAL: A&O, no acute distress HEAD: Normocephalic, atraumatic. EYES: PERRL, no scleral icterus EARS, NOSE, THROAT: oropharynx clear without exudates. Moist mucous membranes. NECK: supple without lymphadenopathy LUNGS: CTA b/l, no crackles or wheezes HEART: Regular rate and rhythm, normal S1 and S2 without murmur ABDOMEN: Obese, Soft, nontender to palpation, normoactive bowel sounds EXTREMITIES: 2+ pulses, warm, well-perfused. No peripheral edema. NEUROLOGICAL: Cranial nerves II-XII grossly intact. Normal speech. Laboratory Results - last 24 hr 04/03/18 04/03/18 04/03/18 05:15 12:45 17:30 WBC RBC Hgb Hct MCV MCH MCHC RDW Plt Count MPV Absolute Neuts (auto) Neutrophils % Neutrophils % (Manual) 56.0 Band Neutrophils % 1.1 Lymphocytes % Lymphocytes % (Manual) 31.9 Monocytes % Monocytes % (Manual) 3 L Eosinophils % Eosinophils % (Manual) 7.7 H Basophils % Basophils % (Manual) 0.0 Myelocytes % (Man) 0 Promyelocytes % (Man) 0 Blast Cells % (Manual) 0 Nucleated RBC % Metamyelocytes 0 Hypochromia 0 Platelet Estimate Decreased Polychromasia 1+ Poikilocytosis 2+ Anisocytosis 1+ Microcytosis 1+ Macrocytosis 0 Target Cells 1+ Schistocytes 1+ Sodium Potassium Chloride Carbon Dioxide Anion Gap BUN Creatinine Creat Clearance w eGFR POC Glucometer [phone] Random Glucose Calcium Total Bilirubin AST ALT Alkaline Phosphatase Total Protein Albumin 04/03/18 04/04/18 04/04/18 21:10 05:30 05:30 WBC 4.7 RBC 4.23 Hgb 10.0 L Hct 30.8 L MCV 72.8 L MCH 23.6 L MCHC 32.5 RDW 20.8 H Plt Count 92 L MPV 9.4 D Absolute Neuts (auto) 2.9 Neutrophils % 60.5 Neutrophils % (Manual) Band Neutrophils % Lymphocytes % 28.7 Lymphocytes % (Manual) Monocytes % 7.0 Monocytes % (Manual) Eosinophils % 3.6 Eosinophils % (Manual) Basophils % 0.2 Basophils % (Manual) Myelocytes % (Man) Promyelocytes % (Man) Blast Cells % (Manual) Nucleated RBC % 0 Metamyelocytes Hypochromia Platelet Estimate Polychromasia Poikilocytosis Anisocytosis Microcytosis Macrocytosis Target Cells Schistocytes Sodium 145 Potassium 3.6 Chloride 114 H Carbon Dioxide 24 Anion Gap 7 L BUN 22 H Creatinine 1.4 H Creat Clearance w eGFR 49.68 POC Glucometer [phone] Random Glucose 216 H Calcium 7.6 L Total Bilirubin 1.2 H AST 40 H ALT 53 Alkaline Phosphatase 110 Total Protein 5.7 L Albumin 2.9 L Active Medications Generic Name Dose Route Start Last Admin Trade Name Freq PRN Reason Stop Dose Admin Acetaminophen 650 mg 04/02/18 03:31 04/02/18 18:50 Tylenol - PO 650 mg Q6H PRN Administration PAIN LEVEL 1-5 Chlorhexidine Gluconate 1 applic 04/01/18 22:00 04/03/18 21:22 Hibiclens For Decolonization - TP 1 applic HS JELENA Administration Levofloxacin 500 mg in 100 mls @ 100 mls/hr 04/02/18 10:00 04/03/18 09:05 Levaquin 500 Mg Premixed Ivpb - IVPB 100 mls/hr DAILY JELENA Administration Protocol Insulin Aspart 1 vial 04/03/18 16:30 04/04/18 06:24 Novolog Vial Sliding Scale - SQ 4 units ACHS JELENA Administration Protocol Mupirocin 1 applic 04/01/18 22:00 04/03/18 21:21 Bactroban Ointment (For Decolonization) - NS 04/06/18 21:59 1 applic BID JELENA Administration ASSESSMENT/PLAN: 72 yo M PMH of Alcoholic cirrhosis, s/p esophageal varices banding, cholelithiasis, DM, HTN, and anemia p/w black/bloody diarrhea w/ worsening 11/08 non radiating diffuse pressure like lower abd pain x3d. Anemia requiring transfusion likely secondary to acute GI bleeding -GI consult appreciated -EGD with banding of varices -Has required 4 units PRBCs, 1 unit Platelets -Trend CBC, H/H currently stable -No longer requiring Octreotide drip or Protonix drip -Protonix 40 mg IV BID -Soft diet as tolerated -Empiric Levaquin can likely d/c pending GI recommendation DM -BGMs/Sliding scale DVT Prophylaxis -SCDs FEN -Fluids: None -Electrolytes: Monitor and replete, BMP in AM -Nutrition: Soft diet: Sodium controlled diabetic Disposition ICU, stable for transfer out of ICU, could likely DC tomorrow if remains stable Visit type - Emergency Visit Emergency Visit: Yes ED Registration Date: 04/01/18 Care time: The patient presented to the Emergency Department on the above date and was hospitalized for further evaluation of their emergent condition. - New Patient This patient is new to me today: No - Critical Care Critical Care patient: No
[2018-04-04] MEDS: MUPIROCIN 2% TOPICAL OINTMENT FOR DECOLONIZATION NS SCH ×2 (10:08→21:06)
[2018-04-04] MEDS ORDERED: PANTOPRAZOLE SODIUM 40 MG VIAL IVPUSH SCH (12:15)
--- NOTE | 2018-04-04 12:53 | PN ---
Teaching Attending Note Name of Resident: Luis Vega ATTENDING PHYSICIAN STATEMENT I saw and evaluated the patient. I reviewed the resident's note and discussed the case with the resident. I agree with the resident's findings and plan as documented. SUBJECTIVE: Patient seen and examined in the ICU. No acute bleeding noted overnight. Left sided left chest wall pain is better. Intake & Output 04/01/18 04/02/18 04/03/18 04/04/18 23:59 23:59 23:59 23:59 Intake Total 2000 999.6 1101 50 Output Total 950 2250 1350 Balance 1050 -1250.4 -249 50 Weight 181 lb 12.8 oz 181 lb Last Vital Signs Temp Pulse Resp BP Pulse Ox 98.1 F 52 L 18 121/44 L 100 04/04/18 06:00 04/04/18 08:00 04/04/18 09:00 04/04/18 08:00 04/04/18 09:00 Active Medications Acetaminophen (Tylenol -) 650 mg PO Q6H PRN PRN Reason: PAIN LEVEL 1-5 Last Admin: 04/02/18 18:50 Dose: 650 mg Chlorhexidine Gluconate (Hibiclens For Decolonization -) 1 applic TP HS JELENA Last Admin: 04/03/18 21:22 Dose: 1 applic Levofloxacin (Levaquin 500 Mg Premixed Ivpb -) 500 mg in 100 mls @ 100 mls/hr IVPB DAILY [facility]; Protocol Last Admin: 04/04/18 10:08 Dose: 100 mls/hr Insulin Aspart (Novolog Vial Sliding Scale -) 1 vial SQ ACHS [facility]; Protocol Last Admin: 04/04/18 11:36 Dose: 10 units Mupirocin (Bactroban Ointment (For Decolonization) -) 1 applic NS BID JELENA Stop: 04/06/18 21:59 Last Admin: 04/04/18 10:08 Dose: 1 applic Pantoprazole Sodium (Protonix Iv) 40 mg IVPUSH BID JELENA GENERAL: AAOx3 HEAD: NCAT EYES: pale conjuctiva EARS, NOSE, THROAT: Moist mucous membranes. NECK: supple without lymphadenopathy, JVD, or masses. LUNGS: CTAB. No wheezes, and no crackles. No accessory muscle use. HEART: Regular rate and rhythm, normal S1 and S2 2/6 DON ABDOMEN: Soft, mild epigastric pain. NABS, no guarding, no rebound, no masses. No hepatomegaly or splenomegaly. MUSCULOSKELETAL: Normal range of motion at all joints. No bony deformities or tenderness. No CVA tenderness. LOWER EXTREMITIES: 2+ pulses, warm, well-perfused. No calf tenderness. No peripheral edema. NEUROLOGICAL: Non-focal PSYCHIATRIC: Cooperative. Good eye contact. Appropriate mood and affect. SKIN: Warm, dry, normal turgor, no rashes or lesions noted. Laboratory Results - last 24 hr 04/03/18 04/03/18 04/03/18 12:45 17:30 21:10 WBC RBC Hgb Hct MCV MCH MCHC RDW Plt Count MPV Absolute Neuts (auto) Neutrophils % Lymphocytes % Monocytes % Eosinophils % Basophils % Nucleated RBC % Sodium Potassium Chloride Carbon Dioxide Anion Gap BUN Creatinine Creat Clearance w eGFR POC Glucometer 232.78782 322.23337 229.32445 Random Glucose Calcium Total Bilirubin AST ALT Alkaline Phosphatase Total Protein Albumin 04/04/18 04/04/18 04/04/18 05:16 05:30 05:30 WBC 4.7 RBC 4.23 Hgb 10.0 L Hct 30.8 L MCV 72.8 L MCH 23.6 L MCHC 32.5 RDW 20.8 H Plt Count 92 L MPV 9.4 D Absolute Neuts (auto) 2.9 Neutrophils % 60.5 Lymphocytes % 28.7 Monocytes % 7.0 Eosinophils % 3.6 Basophils % 0.2 Nucleated RBC % 0 Sodium 145 Potassium 3.6 Chloride 114 H Carbon Dioxide 24 Anion Gap 7 L BUN 22 H Creatinine 1.4 H Creat Clearance w eGFR 49.68 POC Glucometer [phone] Random Glucose 216 H Calcium 7.6 L Total Bilirubin 1.2 H AST 40 H ALT 53 Alkaline Phosphatase 110 Total Protein 5.7 L Albumin 2.9 L 04/04/18 11:32 WBC RBC Hgb Hct MCV MCH MCHC RDW Plt Count MPV Absolute Neuts (auto) Neutrophils % Lymphocytes % Monocytes % Eosinophils % Basophils % Nucleated RBC % Sodium Potassium Chloride Carbon Dioxide Anion Gap BUN Creatinine Creat Clearance w eGFR POC Glucometer [phone] Random Glucose Calcium Total Bilirubin AST ALT Alkaline Phosphatase Total Protein Albumin ASSESSMENT/PLAN: Acute GI Bleed due to Variceal bleeding: S/P Banding History of ETOH abuse Anemia Melena DM Normal transfusion thresholds O2 as needed Mechanical VTE prophylaxis PPI Glycemic monitoring and control D/C ABX Floor Dr Izquierdo
--- NOTE | 2018-04-04 14:56 | PN ---
GI Progress Note Subjective: For Dr. Gr: No acute events States feeling better Dr. Cutler will be covering from this evening through the weekend - Objective Vital Signs: Vital Signs Temperature 98.1 F 04/04/18 06:00 Pulse Rate 53 L 04/04/18 14:00 Respiratory Rate 18 04/04/18 14:00 Blood Pressure 126/54 L 04/04/18 14:00 O2 Sat by Pulse Oximetry (%) 100 04/04/18 09:00 Constitutional: Calm Eyes: No: Sclera Icterus Cardiovascular: Yes: Bradycardia Respiratory: Yes: CTA Bilaterally Gastrointestinal Inspection: No: Distention ...Auscultate: Yes: Normoactive Bowel Sounds ...Palpate: No: Hepatomegaly, Splenomegaly, Tenderness Edema: No (No LE edema) Neurological: Yes: Alert Labs: CBC, BMP 04/04/18 05:30 04/04/18 05:30 INR, PTT INR 1.29 (0.83-1.09) H 04/02/18 05:15 Problem List - Problems (1) GI bleed Assessment/Plan: No overt bleeding Given baseline bradycardia and intolerance to beta yulissa therapy previously, will likely not be able to be maintained on non-selective beta yulissa. Will need trial of serial banding for eradication of varices. No active bleeding was noted. D/C'd Steven Continue to monitor Outpatient follow-up with Dr. Gr Code(s): K92.2 - GASTROINTESTINAL HEMORRHAGE, UNSPECIFIED (2) Enlarged prostate Code(s): N40.0 - BENIGN PROSTATIC HYPERPLASIA WITHOUT LOWER URINRY TRACT SYMP
--- NOTE | 2018-04-04 19:46 | PN ---
Teaching Attending Note Name of Resident: Keenan Miller ATTENDING PHYSICIAN STATEMENT I saw and evaluated the patient. I reviewed the resident's note and discussed the case with the resident. I agree with the resident's findings and plan as documented. SUBJECTIVE: 1 episode of bloody stool overnight. No chest/abdominal pain. No nausea/vomiting/hematemesis. No fever/chills. OBJECTIVE: Afebrile/Hemodynamically Stable. Last Vital Signs Temp Pulse Resp BP Pulse Ox 98 F 51 L 20 130/52 L 100 04/04/18 18:00 04/04/18 18:00 04/04/18 18:00 04/04/18 18:00 04/04/18 09:00 HEENT - Atraumatic, Normocephalic. Heart - S1, S2, RRR Lungs - clear to auscultation. No crackles/wheeze. Abdomen - Soft, non-tender. Bowel Sounds Extremities - Edema +, no calf tenderness. Neuro - AAO x 3. Tone/Power normal all 4 extremities. Laboratory Results - last 24 hr 04/01/18 04/03/18 04/04/18 13:38 21:10 05:16 WBC RBC Hgb Hct MCV MCH MCHC RDW Plt Count MPV Absolute Neuts (auto) Neutrophils % Lymphocytes % Monocytes % Eosinophils % Basophils % Nucleated RBC % Sodium Potassium Chloride Carbon Dioxide Anion Gap BUN Creatinine Creat Clearance w eGFR POC Glucometer 229.59063 248.18437 Random Glucose Calcium Total Bilirubin AST ALT Alkaline Phosphatase Total Protein Albumin Blood Type B POSITIVE Antibody Screen Negative Crossmatch See Detail 04/04/18 04/04/18 04/04/18 05:30 05:30 11:32 WBC 4.7 RBC 4.23 Hgb 10.0 L Hct 30.8 L MCV 72.8 L MCH 23.6 L MCHC 32.5 RDW 20.8 H Plt Count 92 L MPV 9.4 D Absolute Neuts (auto) 2.9 Neutrophils % 60.5 Lymphocytes % 28.7 Monocytes % 7.0 Eosinophils % 3.6 Basophils % 0.2 Nucleated RBC % 0 Sodium 145 Potassium 3.6 Chloride 114 H Carbon Dioxide 24 Anion Gap 7 L BUN 22 H Creatinine 1.4 H Creat Clearance w eGFR 49.68 POC Glucometer 336.34958 Random Glucose 216 H Calcium 7.6 L Total Bilirubin 1.2 H AST 40 H ALT 53 Alkaline Phosphatase 110 Total Protein 5.7 L Albumin 2.9 L Blood Type Antibody Screen Crossmatch 04/04/18 17:57 WBC RBC Hgb Hct MCV MCH MCHC RDW Plt Count MPV Absolute Neuts (auto) Neutrophils % Lymphocytes % Monocytes % Eosinophils % Basophils % Nucleated RBC % Sodium Potassium Chloride Carbon Dioxide Anion Gap BUN Creatinine Creat Clearance w eGFR POC Glucometer 162.91587 Random Glucose Calcium Total Bilirubin AST ALT Alkaline Phosphatase Total Protein Albumin Blood Type Antibody Screen Crossmatch Current Medications Generic Name Dose Route Start Last Admin Trade Name Freq PRN Reason Stop Dose Admin Acetaminophen 650 mg 04/02/18 03:31 04/02/18 18:50 Tylenol - PO 650 mg Q6H PRN Administration PAIN LEVEL 1-5 Chlorhexidine Gluconate 1 applic 04/01/18 22:00 04/03/18 21:22 Hibiclens For Decolonization - TP 1 applic HS JELENA Administration Insulin Aspart 1 vial 04/03/18 16:30 04/04/18 18:12 Novolog Vial Sliding Scale - SQ 2 units ACHS JELENA Administration Protocol Mupirocin 1 applic 04/01/18 22:00 04/04/18 10:08 Bactroban Ointment (For Decolonization) - NS 04/06/18 21:59 1 applic BID JELENA Administration Pantoprazole Sodium 40 mg 04/05/18 10:00 Protonix - PO DAILY JELENA ASSESSMENT AND PLAN: 72 year old male with history of Alcoholic Liver Cirrhosis with portal hypertension s/p Esophageal variceal banding, CKD 3, Cholelithiasis, DM 2, BPH, HTN, presents with black stool/bloody diarrhea with abdominal pain. CT A/P - no acute intra-abdominal pathology. 1. Acute Blood Loss Anemia secondary to Variceal Bleeding s/p EGD with repeat banding 1/2 Off Protonix, Octrotide drips - started on Protonix daily. H/H 01/28.8 s/p 4 units PRBCs. Levofloxacin prophylaxis discontinued. Tolerating soft diet. BB held due to relative bradycardia. 2. DM 2 - Glimepiride, Metformin held. Continue Sliding scale. 3. BPH - normally on Terazosin. Will resume. 4. Hypomagnesemia - repleted. 5. Thrombocytopenia sec to Liver Cirrhosis - no active bleeding currently. Will monitor. 6. CKD 3 - Stable. DVT Px - SCDs
[2018-04-04] MEDS: CHLORHEXIDINE GLUCONATE 4% CLEANSER FOR DECOLONIZATION TP SCH (21:06)
[2018-04-04 23:10] LABS: ANION GAP 7 MMOL/L (8-16); BLOOD UREA NITROGEN 26 mg/dL (7-18); CALCIUM 7.4 mg/dL (8.5-10.1); CHLORIDE 113 mmol/L (98-107); CO2 23 mmol/L (21-32); CREATININE 1.7 mg/dL (0.55-1.3); POTASSIUM 4.2 mmol/L (3.5-5.1); SODIUM 143 mmol/L (136-145)
[2018-04-04 23:12] LABS: GLUCOSE,RANDOM 333 mg/dL (74-106)
[2018-04-05 05:51] LABS: BASO % 0.8 % (0-2.0); HEMATOCRIT 30.6 % (35.4-49); HEMOGLOBIN 9.9 GM/dL (11.7-16.9); LYMPH % 30.9 % (8-40); MCH 23.7 pg (25.7-33.7); MCHC 32.5 g/dl (32.0-35.9); MEAN CELL VOLUME 72.7 fl (80-96); MEAN PLT VOLUME 9.3 fl (7.5-11.1); NEUT % 56.3 % (42.8-82.8); PLATELET COUNT 94 K/MM3 (134-434); RDW 20.9 % (11.9-15.9); WHITE BLOOD COUNT 4.5 K/mm3 (4.0-10.0)
[2018-04-05] MEDS: INSULIN SLIDING SCALE (NOVOLOG) 1 VIAL SQ SCH ×2 (06:31→12:00)
[2018-04-05 06:36] LABS: ALBUMIN 2.8 g/dl (3.4-5.0); ALK PHOS 120 U/L (45-117); ANION GAP 5 MMOL/L (8-16); BILIRUBIN,TOTAL 0.9 mg/dL (0.2-1); BLOOD UREA NITROGEN 24 mg/dL (7-18); CALCIUM 7.6 mg/dL (8.5-10.1); CHLORIDE 115 mmol/L (98-107); CO2 25 mmol/L (21-32); CREATININE 1.3 mg/dL (0.55-1.3); GLUCOSE,RANDOM 81 mg/dL (74-106); POTASSIUM 3.5 mmol/L (3.5-5.1); SGOT/AST 43 U/L (15-37); SGPT/ALT 55 U/L (13-61); SODIUM 145 mmol/L (136-145); TOT PROT 5.7 g/dl (6.4-8.2)
[2018-04-05 07:22] LABS: MACROCYTOSIS 1+
[2018-04-05 07:23] LABS: ANISOCYTOSIS 1+
[2018-04-05] MEDS ORDERED: POTASSIUM CHLORIDE TABS 20 MEQ TABLET.ER (FP) PO ONE (08:24)
[2018-04-05] MEDS ORDERED: PANTOPRAZOLE 40 MG TABLET (FP) PO SCH (10:00)
[2018-04-05] MEDS ORDERED: TERAZOSIN HCL 1 MG CAPSULE PO SCH (10:00)
--- NOTE | 2018-04-05 10:06 | PN ---
Teaching Attending Note Name of Resident: Delio Yao ATTENDING PHYSICIAN STATEMENT I saw and evaluated the patient. I reviewed the resident's note and discussed the case with the resident. I agree with the resident's findings and plan as documented. SUBJECTIVE: Patient seen and examined in the ICU. No acute bleeding noted overnight. Left sided left chest wall pain has resolved. Intake & Output 04/02/18 04/03/18 04/04/18 04/05/18 23:59 23:59 23:59 23:59 Intake Total 999.6 1101 250 50 Output Total 2250 1350 500 Balance -1250.4 -249 -250 50 Weight 181 lb Last Vital Signs Temp Pulse Resp BP Pulse Ox 98.6 F 63 16 121/45 L 100 04/05/18 06:00 04/05/18 08:00 04/05/18 08:00 04/05/18 08:00 04/04/18 20:33 Active Medications Acetaminophen (Tylenol -) 650 mg PO Q6H PRN PRN Reason: PAIN LEVEL 1-5 Last Admin: 04/02/18 18:50 Dose: 650 mg Chlorhexidine Gluconate (Hibiclens For Decolonization -) 1 applic TP HS [facility] Last Admin: 04/04/18 21:06 Dose: 1 applic Insulin Aspart (Novolog Vial Sliding Scale -) 1 vial SQ ACHS [facility]; Protocol Last Admin: 04/05/18 06:31 Dose: Not Given Mupirocin (Bactroban Ointment (For Decolonization) -) 1 applic NS BID JELENA Stop: 04/06/18 21:59 Last Admin: 04/04/18 21:06 Dose: 1 applic Pantoprazole Sodium (Protonix -) 40 mg PO DAILY JELENA Terazosin HCl (Hytrin -) 2 mg PO DAILY [facility] GENERAL: AAOx3 HEAD: NCAT EYES: pale conjuctiva EARS, NOSE, THROAT: Moist mucous membranes. NECK: supple without lymphadenopathy, JVD, or masses. LUNGS: CTAB. No wheezes, and no crackles. No accessory muscle use. HEART: Regular rate and rhythm, normal S1 and S2 2/6 DON ABDOMEN: Soft, mild epigastric pain. NABS, no guarding, no rebound, no masses. No hepatomegaly or splenomegaly. MUSCULOSKELETAL: Normal range of motion at all joints. No bony deformities or tenderness. No CVA tenderness. LOWER EXTREMITIES: 2+ pulses, warm, well-perfused. No calf tenderness. No peripheral edema. NEUROLOGICAL: Non-focal PSYCHIATRIC: Cooperative. Good eye contact. Appropriate mood and affect. SKIN: Warm, dry, normal turgor, no rashes or lesions noted. Laboratory Results - last 24 hr 04/01/18 04/04/18 04/04/18 13:38 05:16 11:32 WBC RBC Hgb Hct MCV MCH MCHC RDW Plt Count MPV Absolute Neuts (auto) Neutrophils % Lymphocytes % Monocytes % Eosinophils % Basophils % Nucleated RBC % Polychromasia Anisocytosis Macrocytosis Gavi Cells Fragmented RBCs Sodium Potassium Chloride Carbon Dioxide Anion Gap BUN Creatinine Creat Clearance w eGFR POC Glucometer 248.26079 336.22331 Random Glucose Calcium Total Bilirubin AST ALT Alkaline Phosphatase Total Protein Albumin Blood Type B POSITIVE Antibody Screen Negative Crossmatch See Detail 04/04/18 04/04/18 04/05/18 17:57 22:00 05:15 WBC 4.5 RBC 4.20 Hgb 9.9 L Hct 30.6 L MCV 72.7 L MCH 23.7 L MCHC 32.5 RDW 20.9 H Plt Count 94 L MPV 9.3 Absolute Neuts (auto) 2.5 Neutrophils % 56.3 Lymphocytes % 30.9 Monocytes % 8.0 Eosinophils % 4.0 Basophils % 0.8 D Nucleated RBC % 0 Polychromasia 1+ Anisocytosis 1+ Macrocytosis 1+ Gavi Cells 1+ Fragmented RBCs 1+ Sodium 143 Potassium 4.2 Chloride 113 H Carbon Dioxide 23 Anion Gap 7 L BUN 26 H Creatinine 1.7 H Creat Clearance w eGFR 39.71 POC Glucometer 162.65901 Random Glucose 333 H* Calcium 7.4 L Total Bilirubin AST ALT Alkaline Phosphatase Total Protein Albumin Blood Type Antibody Screen Crossmatch 04/05/18 05:15 WBC RBC Hgb Hct MCV MCH MCHC RDW Plt Count MPV Absolute Neuts (auto) Neutrophils % Lymphocytes % Monocytes % Eosinophils % Basophils % Nucleated RBC % Polychromasia Anisocytosis Macrocytosis Gavi Cells Fragmented RBCs Sodium 145 Potassium 3.5 Chloride 115 H Carbon Dioxide 25 Anion Gap 5 L BUN 24 H Creatinine 1.3 Creat Clearance w eGFR 54.11 POC Glucometer Random Glucose 81 Calcium 7.6 L Total Bilirubin 0.9 AST 43 H ALT 55 Alkaline Phosphatase 120 H Total Protein 5.7 L Albumin 2.8 L Blood Type Antibody Screen Crossmatch ASSESSMENT/PLAN: Acute GI Bleed due to Variceal bleeding: S/P Banding History of ETOH abuse Anemia Melena DM Normal transfusion thresholds O2 as needed Mechanical VTE prophylaxis PPI Glycemic monitoring and control D/C ABX Floor Dr Izquierdo
[2018-04-05] MEDS: MUPIROCIN 2% TOPICAL OINTMENT FOR DECOLONIZATION NS SCH (10:53)
[2018-04-05] MEDS ORDERED: PT OWN MED DRAWER 7, Y5N ONE (10:54)
--- NOTE | 2018-04-05 12:14 | PN ---
Progress Note (short form) - Note Progress Note: Patient seen and examined at bedside no events overnight denies any further chest pain Vital Signs Temperature 98.6 F 04/05/18 06:00 Pulse Rate 63 04/05/18 08:00 Respiratory Rate 16 04/05/18 08:00 Blood Pressure 121/45 L 04/05/18 08:00 O2 Sat by Pulse Oximetry (%) 100 04/05/18 09:00 PE: GENERAL: Awake, alert, and fully oriented, in no acute distress HEAD: No signs of trauma, normocephalic, atraumatic EYES: PERRLA, EOMI, sclera anicteric, conjunctiva clear ENT: moist mucous membranes LUNGS: clear to auscultation bilaterally HEART: Regular rate and rhythm, normal S1 and S2 ABDOMEN: Soft, nontender, normoactive bowel sounds NEUROLOGICAL: Cranial nerves 2-12 grossly intact. SKIN: Warm, Dry 04/01/18 04/04/18 04/05/18 13:38 22:00 05:15 WBC 4.5 RBC 4.20 Hgb 9.9 L Hct 30.6 L MCV 72.7 L MCHC 32.5 RDW 20.9 H Plt Count 94 L Neutrophils % 56.3 Lymphocytes % 30.9 Monocytes % 8.0 Eosinophils % 4.0 Basophils % 0.8 D Sodium 143 Potassium 4.2 Chloride 113 H Carbon Dioxide 23 Anion Gap 7 L BUN 26 H Creatinine 1.7 H Blood Type B POSITIVE Antibody Screen Negative 04/05/18 05:15 WBC RBC Hgb Hct MCV MCHC RDW Plt Count Neutrophils % Lymphocytes % Monocytes % Eosinophils % Basophils % Sodium 145 Potassium 3.5 Chloride 115 H Carbon Dioxide 25 Anion Gap 5 L BUN 24 H Creatinine 1.3 Blood Type Antibody Screen A/P: 72M with variceal bleed s/p banding Acute bloos loss anemia secondary to acute GI bleed DM BPH Melena Patient's Hb has been stable transfuse PRN per normal transfusion thresholds PPI terazosin ABx stopped patient to be discharged today by hospitalist team Discussed with Dr. Izquierdo
--- NOTE | 2018-04-05 12:20 | PN ---
Progress Note (short form) - Note Progress Note: Hgb steady, no sign of bleeding: CBC, BMP 04/05/18 05:15 04/05/18 05:15 Tolerating diet. No GI objection to transfer out of ICU. Would continue pantoprazole or alternative PPI as outpatient.
[2018-04-05 14:35] VITALS: TEMP 98
[2018-04-05 14:36] VITALS: BP 142/50; PULSE 51
--- NOTE | 2018-04-05 16:59 | DS ---
Physical Exam: SUBJECTIVE: Patient seen and examined. No c/o . Had 2 well formed brown stools yesterday, non bloody. No hematemesis. Able to ambulate without assistance. Wants to go home. OBJECTIVE: Vital Signs Period Temp Pulse Resp BP Sys/Aden Pulse Ox Last 24 Hr 98 F-98.6 F 48-63 15-20 117-142/39-70 100-100 Vital Signs Temp 98 F 04/05/18 10:00 Pulse 51 L 04/05/18 12:00 Resp 18 04/05/18 12:00 BP 142/50 L 04/05/18 12:00 Pulse Ox 100 04/05/18 09:00 Intake & Output 04/04/18 04/05/18 04/05/18 23:59 11:59 23:59 Intake Total 200 50 120 Output Total 500 Balance -300 50 120 Intake: IVPB 100 Oral 100 50 120 Output: Urine 500 Void 500 Other: Voiding Method Urinal Urinal # Unmeasured Voids Void 2 Bowel Movement Yes: loose dark Yes: loose dark # Bowel Movements 1 1 PHYSICAL EXAM GENERAL: The patient is awake, alert, and fully oriented, in no acute distress. LUNGS: Breath sounds equal, clear to auscultation bilaterally HEART: Regular rate and rhythm, S1, S2 ABDOMEN: Soft, nontender, nondistended, normoactive bowel sounds, no guarding, no rebound EXTREMITIES: 2+ pulses, warm, well-perfused, no edema. NEUROLOGICAL: Cranial nerves II through XII grossly intact. Normal speech, normal gait . CBC, BMP 04/05/18 05:15 04/05/18 05:15 LABS Laboratory Results - last 24 hr 04/01/18 04/04/18 04/04/18 13:38 17:57 22:00 WBC RBC Hgb Hct MCV MCH MCHC RDW Plt Count MPV Absolute Neuts (auto) Neutrophils % Lymphocytes % Monocytes % Eosinophils % Basophils % Nucleated RBC % Polychromasia Anisocytosis Macrocytosis Griffin Cells Fragmented RBCs Sodium 143 Potassium 4.2 Chloride 113 H Carbon Dioxide 23 Anion Gap 7 L BUN 26 H Creatinine 1.7 H Creat Clearance w eGFR 39.71 POC Glucometer 162.01309 Random Glucose 333 H* Calcium 7.4 L Total Bilirubin AST ALT Alkaline Phosphatase Total Protein Albumin Blood Type B POSITIVE Antibody Screen Negative Crossmatch See Detail 01/05/19 01/05/19 05:15 05:15 WBC 4.5 RBC 4.20 Hgb 9.9 L Hct 30.6 L MCV 72.7 L MCH 23.7 L MCHC 32.5 RDW 20.9 H Plt Count 94 L MPV 9.3 Absolute Neuts (auto) 2.5 Neutrophils % 56.3 Lymphocytes % 30.9 Monocytes % 8.0 Eosinophils % 4.0 Basophils % 0.8 D Nucleated RBC % 0 Polychromasia 1+ Anisocytosis 1+ Macrocytosis 1+ Griffin Cells 1+ Fragmented RBCs 1+ Sodium 145 Potassium 3.5 Chloride 115 H Carbon Dioxide 25 Anion Gap 5 L BUN 24 H Creatinine 1.3 Creat Clearance w eGFR 54.11 POC Glucometer Random Glucose 81 Calcium 7.6 L Total Bilirubin 0.9 AST 43 H ALT 55 Alkaline Phosphatase 120 H Total Protein 5.7 L Albumin 2.8 L Blood Type Antibody Screen Crossmatch HOSPITAL COURSE: Date of Admission:04/01/18 Date of Discharge: 04/05/18 Prehospital Course: 72 yo M PMH of Alcoholic cirrhosis, s/p esophageal varices banding, cholelithiasis, DM, HTN, and anemia p/w black/bloody diarrhea w/ worsening 11/08 non radiating diffuse pressure like lower abd pain x3d. The black diarrhea and abdominal pain began 3 days prior to arrival but has worsened. The pain does not radiate to the back, groin, or shoulder. The patient was seen for abdominal pain recently right after Thanksgiving where he was found to have biliary colic with cholelithiasis but no evidence of cholecystitis, No interventions were taken. Patient also has significant chills for the past few days but denies fevers or infections. Patient denies having chest pain, SOB, difficulty breathing, dysuria, urgency, back pain, headache, blurry vision or bloody vomit. Of note, was admitted one year prior and EGD performed by Dr. Wang that revealed large esophageal varices along with portal gastropathy. Esophageal band ligation was performed. He then had an EGD/Colon 04/26/[address] Vázquez. EGD revealed three columns of large varices with stigmata of hemorrhage. This led to banding of varices. Colonoscopy raised the question of colitis in the descending colon however biopsies failed to reveal colitis. His daughter stated that he is unable to tolerate nadolol as it made him dizzy and has therefore not been on beta yulissa therapy . Hospital course: Pt was managed for Anemia requiring transfusion likely secondary to acute GI bleeding, with 4 units PRBCs, 1 unit Platelets He had EGD with banding of varices. He improved and was transitioned from octreotide and protonix drip to Protonix 40 mg PO. Pt's nadolol was stopped because of bradycardia. He is to follow GI closely for serial banding for cure. He was restarted on his other medications and discharged home. 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 We are stopping your nadolol for now. Stop taking nadolol Continue your other medications as prescribed Follow up with your primary doctor in one week- for repeat blood count Follow up with your stomach doctor (GI ) in one week You have to completely stop drinking alcohol If you think your symptoms are getting worse with repeated blood in stool, vomiting blood, palpitations or collapse, chest pain or breathlessness, please go to the nearest emergency room Referrals: Armando Dan MD [Primary Care Provider] - 1 Week Robinson Gr MD [Staff Physician] - 1 Week Disposition: HOME - Home Medications Comprehensive Discharge Medication List: Ambulatory Orders Ferrous Sulfate [Feosol] 325 mg PO DAILY #30 ud 04/27/17 Terazosin HCl [Hytrin -] 2 mg PO DAILY capsule 02/24/18 Amlodipine Besylate 5 mg PO DAILY #30 tablet 04/05/18 Docusate Sodium [Colace] 100 mg PO BID #60 capsule 04/05/18 Glimepiride 4 mg PO DAILY #30 tablet 04/05/18 Lactulose 2 tbs PO HS #7 bottle 04/05/18 Pantoprazole Sodium [Protonix -] 40 mg PO BID #30 tablet.ec 04/05/18 metFORMIN HCL [Glucophage -] 1,000 mg PO BID #120 tablet 04/05/18 This patient is new to me today: Yes Date on this admission: 04/05/18 Emergency Visit: Yes ED Registration Date: 04/01/18 Care time: The patient presented to the Emergency Department on the above date and was hospitalized for further evaluation of their emergent condition. Critical Care patient: Yes Total Critical Care Time (in minutes): 40 Critical Care Statement: The care of this patient involved high complexity decision making to prevent further life threatening deterioration of the patient 's condition and/or to evaluate & treat vital organ system(s) failure or risk of failure. - Discharge Referral Referred to [facility].: No
--- NOTE | 2018-04-05 19:56 | PN ---
Teaching Attending Note Name of Resident: Magalie Valencia ATTENDING PHYSICIAN STATEMENT I saw and evaluated the patient. I reviewed the resident's note and discussed the case with the resident. I agree with the resident's findings and plan as documented. SUBJECTIVE: Feels well, no further bleeding. BM x 2 overnight - brown stool, non -bloody. No abdominal or chest pain. OBJECTIVE: Afebrile, Hemodynamically Stable. Last Vital Signs Temp Pulse Resp BP Pulse Ox 98 F 51 L 18 142/50 L 100 04/05/18 10:00 04/05/18 12:00 04/05/18 12:00 04/05/18 12:00 04/05/18 09:00 HEENT - Atraumatic, Normocephalic. Heart - S1, S2, RRR Lungs - clear to auscultation. No crackles/wheeze. Abdomen - Soft, non-tender. Bowel Sounds normal. Extremities - Edema +, no calf tenderness. Neuro - AAO x 3. Tone/Power normal all 4 extremities. Laboratory Results - last 24 hr 04/01/18 04/04/18 04/05/18 13:38 22:00 05:15 WBC 4.5 RBC 4.20 Hgb 9.9 L Hct 30.6 L MCV 72.7 L MCH 23.7 L MCHC 32.5 RDW 20.9 H Plt Count 94 L MPV 9.3 Absolute Neuts (auto) 2.5 Neutrophils % 56.3 Lymphocytes % 30.9 Monocytes % 8.0 Eosinophils % 4.0 Basophils % 0.8 D Nucleated RBC % 0 Polychromasia 1+ Anisocytosis 1+ Macrocytosis 1+ Gavi Cells 1+ Fragmented RBCs 1+ Sodium 143 Potassium 4.2 Chloride 113 H Carbon Dioxide 23 Anion Gap 7 L BUN 26 H Creatinine 1.7 H Creat Clearance w eGFR 39.71 POC Glucometer Random Glucose 333 H* Calcium 7.4 L Total Bilirubin AST ALT Alkaline Phosphatase Total Protein Albumin Blood Type B POSITIVE Antibody Screen Negative Crossmatch See Detail 04/05/18 04/05/18 05:15 05:34 WBC RBC Hgb Hct MCV MCH MCHC RDW Plt Count MPV Absolute Neuts (auto) Neutrophils % Lymphocytes % Monocytes % Eosinophils % Basophils % Nucleated RBC % Polychromasia Anisocytosis Macrocytosis [place] Cells Fragmented RBCs Sodium 145 Potassium 3.5 Chloride 115 H Carbon Dioxide 25 Anion Gap 5 L BUN 24 H Creatinine 1.3 Creat Clearance w eGFR 54.11 POC Glucometer 80.59905 Random Glucose 81 Calcium 7.6 L Total Bilirubin 0.9 AST 43 H ALT 55 Alkaline Phosphatase 120 H Total Protein 5.7 L Albumin 2.8 L Blood Type Antibody Screen Crossmatch ASSESSMENT AND PLAN: 72 year old male with history of Alcoholic Liver Cirrhosis with portal hypertension s/p Esophageal variceal banding, CKD 3, Cholelithiasis, DM 2, BPH, HTN, presents with black stool/bloody diarrhea with abdominal pain. CT A/P - no acute intra-abdominal pathology. 1. Acute Blood Loss Anemia secondary to Variceal Bleeding s/p EGD with repeat banding 1/2 Off Protonix, Octrotide drips - for discharge on Protonix po H/H 9.9/30.6 s/p 4 units PRBCs. Levofloxacin prophylaxis discontinued. Tolerating diet, no further bleeding, medically stable for discharge. BB held due to relative bradycardia. 2. DM 2 - Glimepiride, Metformin to be resumed on discharge. 3. BPH - continue on Terazosin. 4. Hypomagnesemia - repleted. 5. Thrombocytopenia sec to Liver Cirrhosis - no active bleeding currently. 6. CKD 3 - Stable. Medically stable for discharge home with Protonix and GI follow up.
== END 2018-04-05 14:40 | disposition home or self-care (01) | DRG 811 ==
LOC: JER 13:20 → JERBED 18:22 → JICU 20:23
PROVIDERS: ADMIT Internal Medicine
PROC: 0W3P8ZZ Control Bleeding in Gastrointestinal Tract, Via Natural or Artificial Opening Endoscopic (ICD-10-PCS; 2018-04-02)
PROC: 30233N1 Transfusion of Nonautologous Red Blood Cells into Peripheral Vein, Percutaneous Approach (ICD-10-PCS; 2018-04-02)
PROC: 30233R1 Transfusion of Nonautologous Platelets into Peripheral Vein, Percutaneous Approach (ICD-10-PCS; 2018-04-02)
PROC: 06L38CZ Occlusion of Esophageal Vein with Extraluminal Device, Via Natural or Artificial Opening Endoscopic (ICD-10-PCS; principal; 2018-04-02 13:30)
DX: D62 Acute posthemorrhagic anemia (principal); I85.01 Esophageal varices with bleeding; K76.6 Portal hypertension; N17.9 Acute kidney failure, unspecified; K70.30 Alcoholic cirrhosis of liver without ascites; E11.9 Type 2 diabetes mellitus without complications; N40.0 Benign prostatic hyperplasia without lower urinary tract symptoms; E83.42 Hypomagnesemia; D64.9 Anemia, unspecified; N18.3 Chronic kidney disease, stage 3 (moderate); E83.51 Hypocalcemia; E88.09 Other disorders of plasma-protein metabolism, not elsewhere classified; E66.9 Obesity, unspecified; Z68.30 Body mass index [BMI] 30.0-30.9, adult; I12.9 Hypertensive chronic kidney disease with stage 1 through stage 4 chronic kidney disease, or unspecified chronic kidney disease; E83.39 Other disorders of phosphorus metabolism; E87.6 Hypokalemia
CPT/HCPCS: 36415; 36430; 71046-TC-FY; 74176-TC; 80048; 80053; 82272; 82962; 83735; 84100; 84484; 85025; 85027; 85044; 85610; 85730; 86850; 86900; 86901; 86922; 93005; 93010; 99284-25; J7030; P9034; P9038; P9058

== ENCOUNTER 2021-03-22 10:57 | Observation (INO) | payer OTHER ==
[2021-03-22 14:44] LABS: BASO % 0.9 % (0-2.0); EOS % 1.2 % (0-4.5); HEMATOCRIT 19.9 % (35.4-49); LYMPH % 19.1 % (8-40); MEAN CELL VOLUME 61.7 fl (80-96); MONO % 7.8 % (3.8-10.2); PLATELET COUNT 194 10^3/uL (134-434); RBC 3.22 M/mm3 (4.00-5.60); RETICULOCYTES 2.12 % (0.5-1.5); WHITE BLOOD COUNT 3.2 K/mm3 (4.0-10.0)
[2021-03-22 14:47] LABS: MCH 19.1 pg (25.7-33.7)
[2021-03-22 14:51] LABS: INR 1.59 (0.83-1.09); PROTHROMBIN TIME (PATIENT) 18.7 SEC (9.7-13.0)
[2021-03-22 14:52] LABS: HEMOGLOBIN 6.2 GM/dL (11.7-16.9)
[2021-03-22 14:54] LABS: ACTIVATED PTT 28.3 SECONDS (25.2-36.5)
[2021-03-22 15:04] LABS: CALCIUM 8.8 mg/dL (8.5-10.1); CHLORIDE 109 mmol/L (98-107); SODIUM 139 mmol/L (136-145)
[2021-03-22 15:07] LABS: ALBUMIN 2.7 g/dl (3.4-5.0); ANION GAP 9 MMOL/L (8-16); BLOOD UREA NITROGEN 16.4 mg/dL (7-18); CO2 22 mmol/L (21-32); GLUCOSE,RANDOM 262 mg/dL (74-106)
[2021-03-22 15:10] LABS: CREATININE 1.5 mg/dL (0.55-1.3); SGOT/AST 19 U/L (15-37); SGPT/ALT 19 U/L (13-61)
[2021-03-22 15:11] LABS: BILIRUBIN,TOTAL 0.8 mg/dL (0.2-1); TOT PROT 6.2 g/dl (6.4-8.2)
[2021-03-22 15:13] LABS: ALK PHOS 109 U/L (45-117)
[2021-03-22 15:15] LABS: IRON SERUM 35 ug/dL (50-175); TOTAL IRON BINDING CAPACITY 294 ug/dL (250-450)
[2021-03-22 15:17] LABS: ANISOCYTOSIS 3+; MACROCYTOSIS 0; OVALOCYTE 1+; PLATELET ESTIMATE NORMAL; TARGET CELLS 1+
[2021-03-22] MEDS ORDERED: FUROSEMIDE 40 MG/4 ML INJECTABLE VIAL ONE ×2 (16:59→21:56)
[2021-03-22] MEDS ORDERED: IRON SUCROSE INJECTION 200 MG in SODIUM CHLORIDE 90 ML IVPB ONE (17:51)
[2021-03-22] MEDS: INSULIN SLIDING SCALE (NOVOLOG) 1 VIAL SQ SCH (22:09)
[2021-03-23 03:17] VITALS: BMI 31.0
[2021-03-23] MEDS: INSULIN SLIDING SCALE (NOVOLOG) 1 VIAL SQ SCH ×3 (06:28→18:28)
[2021-03-23 08:26] LABS: ALBUMIN 2.7 g/dl (3.4-5.0); CALCIUM 8.7 mg/dL (8.5-10.1)
[2021-03-23 08:27] LABS: BLOOD UREA NITROGEN 15.4 mg/dL (7-18); MAGNESIUM 1.4 mg/dL (1.8-2.4)
[2021-03-23 08:29] LABS: BASO % 1.1 % (0-2.0); CREATININE 1.3 mg/dL (0.55-1.3); EOS % 2.7 % (0-4.5); HEMATOCRIT 23.1 % (35.4-49); HEMOGLOBIN 7.4 GM/dL (11.7-16.9); LYMPH % 23.5 % (8-40); MCH 20.3 pg (25.7-33.7); MEAN CELL VOLUME 63.3 fl (80-96); MEAN PLT VOLUME 9.7 fl (7.5-11.1); MONO % 7.5 % (3.8-10.2); NEUT % 65.2 % (42.8-82.8); PLATELET COUNT 182 10^3/uL (134-434); RBC 3.65 M/mm3 (4.00-5.60); RDW 19.8 % (11.9-15.9); WHITE BLOOD COUNT 3.7 K/mm3 (4.0-10.0)
[2021-03-23 08:31] LABS: BILIRUBIN,TOTAL 1.3 mg/dL (0.2-1); TOT PROT 6.3 g/dl (6.4-8.2)
[2021-03-23] MEDS ORDERED: IRON SUCROSE INJECTION 200 MG in SODIUM CHLORIDE 90 ML IVPB ONE (10:00)
[2021-03-23] MEDS ORDERED: PANTOPRAZOLE 40 MG TABLET PO SCH (10:00)
[2021-03-23 11:14] LABS: PLATELET ESTIMATE NORMAL
[2021-03-23 13:51] VITALS: BP 127/55; PULSE 58; TEMP 98
[2021-03-23] MEDS ORDERED: SPIRONOLACTONE 25 MG TABLET PO SCH (14:00)
[2021-03-23] MEDS ORDERED: FUROSEMIDE 40 MG TABLET (FP) PO SCH (14:30)
[2021-03-23] MEDS ORDERED: FUROSEMIDE 40 MG/4 ML INJECTABLE VIAL IVPUSH ONE (14:52)
[2021-03-23] MEDS ORDERED: MAGNESIUM SULF 50% (8.12 MEQ/2 ML-1 GM VIAL) IVPB ONE (15:08)
[2021-03-23] MEDS ORDERED: DOCUSATE SODIUM 100 MG CAPSULE (FP) PO SCH (22:00)
[2021-03-24] MEDS ORDERED: PANTOPRAZOLE 40 MG TABLET PO SCH (10:00)
[2021-03-24] MEDS ORDERED: TERAZOSIN HCL 2 MG CAPSULE PO SCH (10:00)
[2021-03-24] MEDS ORDERED: amLODIPine BESYLATE 5 MG TABLET (FP) PO SCH (10:00)
== END 2021-03-23 18:46 | disposition home or self-care (01) ==
LOC: JER 10:57 → JERBED 18:14 → J4W 03-23 02:15
PROVIDERS: ADMIT Internal Medicine; ATTEND Internal Medicine
PROC: 30233N1 Transfusion of Nonautologous Red Blood Cells into Peripheral Vein, Percutaneous Approach (ICD-10-PCS; principal; 2021-03-22)
PROC: 3E033GC Introduction of Other Therapeutic Substance into Peripheral Vein, Percutaneous Approach (ICD-10-PCS; 2021-03-22)
PROC: 3E013VG Introduction of Insulin into Subcutaneous Tissue, Percutaneous Approach (ICD-10-PCS; 2021-03-22)
DX: D64.9 Anemia, unspecified (principal); I10 Essential (primary) hypertension; K70.30 Alcoholic cirrhosis of liver without ascites; E11.9 Type 2 diabetes mellitus without complications; R53.1 Weakness; R60.0 Localized edema; R26.2 Difficulty in walking, not elsewhere classified; Z99.89 Dependence on other enabling machines and devices; Z79.84 Long term (current) use of oral hypoglycemic drugs
CPT/HCPCS: 36415; 36430; 71045-TC-FY; 80053; 82272; 82550; 82962; 83540; 83550; 83735; 83880; 84100; 84484; 85025; 85045; 85610; 85730; 86850; 86900; 86901; 86922; 93005; 93010; 96365; 96372; 96375; 99285-25; C9803; G0378; J1756; P9058; U0003; U0005

== ENCOUNTER 2021-05-22 00:08 | Inpatient (IN) | payer OTHER ==
[2021-05-22 02:04] LABS: HEMATOCRIT 25.1 % (35.4-49); MCH 20.5 pg (25.7-33.7); MCHC 31.9 g/dl (32.0-35.9); MEAN CELL VOLUME 64.3 fl (80-96); MEAN PLT VOLUME 8.1 fl (7.5-11.1); PLATELET COUNT 160 10^3/uL (134-434); RDW 20.8 % (11.9-15.9); WHITE BLOOD COUNT 4.5 K/mm3 (4.0-10.0)
[2021-05-22 02:12] LABS: INR 1.32 (0.83-1.09); PROTHROMBIN TIME (PATIENT) 15.2 SEC (9.7-13.0)
[2021-05-22 02:14] LABS: ACTIVATED PTT 27.7 SECONDS (25.2-36.5)
[2021-05-22 02:25] LABS: CHLORIDE 120 mmol/L (98-107); SODIUM 142 mmol/L (136-145)
[2021-05-22 02:27] LABS: CALCIUM 8.3 mg/dL (8.5-10.1)
[2021-05-22 02:28] LABS: ALBUMIN 2.9 g/dl (3.4-5.0); BLOOD UREA NITROGEN 32.2 mg/dL (7-18); CO2 20 mmol/L (21-32); GLUCOSE,RANDOM 285 mg/dL (74-106)
[2021-05-22 02:31] LABS: CREATININE 1.4 mg/dL (0.55-1.3); SGOT/AST 30 U/L (15-37); SGPT/ALT 28 U/L (13-61)
[2021-05-22 02:32] LABS: TOT PROT 7.4 g/dl (6.4-8.2)
[2021-05-22 02:33] LABS: BILIRUBIN,TOTAL 0.5 mg/dL (0.2-1)
[2021-05-22 02:34] LABS: ALK PHOS 183 U/L (45-117)
[2021-05-22 02:40] LABS: ANION GAP 3 MMOL/L (8-16)
[2021-05-22] MEDS ORDERED: INSULIN (NOVOLOG) ASPART 100 UNITS/ML 10ML VIAL SQ ONE (02:45)
[2021-05-22] MEDS ORDERED: SODIUM BICARBONATE 8.4% 50 MEQ/50 ML VIAL IVPUSH ONE (02:46)
[2021-05-22] MEDS ORDERED: CALCIUM GLUCONATE 10% - 1,000 MG/10 ML VIAL IVPB ONE (02:47)
[2021-05-22] MEDS ORDERED: DEXTROSE 50%-WATER - 25 GM/50 ML VIAL IVPUSH ONE ×2 (02:48→02:54)
[2021-05-22] MEDS ORDERED: INSULIN REGULAR HUMAN 100 UNITS/ML *VIAL IVPUSH ONE ×2 (02:53→02:54)
[2021-05-22] MEDS ORDERED: SODIUM CHLORIDE 0.9% 500 ML INFUS.BAG IV ONE (02:55)
[2021-05-22] MEDS ORDERED: CALCIUM GLUCONATE 10% - 1,000 MG/10 ML VIAL ONE (03:06)
[2021-05-22] MEDS ORDERED: SODIUM BICARBONATE 8.4% 50 MEQ/50 ML VIAL ONE (03:06)
[2021-05-22] MEDS ORDERED: INSULIN REGULAR HUMAN 100 UNITS/ML *VIAL ONE (03:07)
[2021-05-22 03:35] LABS: ANISOCYTOSIS 2+; MACROCYTOSIS 0; SICKELED CELLS 1+; TARGET CELLS 1+; TEAR DROP CELLS 1+
[2021-05-22 05:58] LABS: HEMATOCRIT 22.5 % (35.4-49); MCH 20.1 pg (25.7-33.7); MCHC 31.3 g/dl (32.0-35.9); MEAN CELL VOLUME 64.1 fl (80-96); MEAN PLT VOLUME 8.4 fl (7.5-11.1); PLATELET COUNT 140 10^3/uL (134-434); RDW 20.8 % (11.9-15.9); WHITE BLOOD COUNT 3.7 K/mm3 (4.0-10.0)
[2021-05-22 07:28] LABS: ANISOCYTOSIS 2+; MACROCYTOSIS 0; TARGET CELLS 1+
[2021-05-22 09:29] LABS: ALBUMIN 2.8 g/dl (3.4-5.0)
[2021-05-22 09:30] LABS: BLOOD UREA NITROGEN 28.7 mg/dL (7-18)
[2021-05-22 09:32] LABS: CREATININE 1.1 mg/dL (0.55-1.3)
[2021-05-22 09:34] LABS: BILIRUBIN,TOTAL 0.7 mg/dL (0.2-1); TOT PROT 6.6 g/dl (6.4-8.2)
[2021-05-22] MEDS ORDERED: PANTOPRAZOLE SODIUM 40 MG VIAL ONE ×2 (10:04→22:18)
[2021-05-22] MEDS ORDERED: amLODIPine BESYLATE 5 MG TABLET (FP) ONE (10:04)
[2021-05-22] MEDS ORDERED: FUROSEMIDE 40 MG TABLET (FP) ONE ×2 (10:14→15:33)
[2021-05-22] MEDS: SPIRONOLACTONE 25 MG TABLET PO SCH (10:26)
[2021-05-22] MEDS: FUROSEMIDE 20 MG TABLET (FP) PO SCH ×2 (10:33→15:44)
[2021-05-22] MEDS: amLODIPine BESYLATE 5 MG TABLET (FP) PO SCH (10:33)
[2021-05-22] MEDS: PANTOPRAZOLE SODIUM 40 MG VIAL IVPUSH SCH ×2 (10:33→22:32)
[2021-05-23 00:20] VITALS: BMI 30.2
[2021-05-23] MEDS: FUROSEMIDE 20 MG TABLET (FP) PO SCH ×2 (06:55→13:06)
[2021-05-23] MEDS: amLODIPine BESYLATE 5 MG TABLET (FP) PO SCH (09:36)
[2021-05-23] MEDS: SPIRONOLACTONE 25 MG TABLET PO SCH (09:36)
[2021-05-23] MEDS: PANTOPRAZOLE SODIUM 40 MG VIAL IVPUSH SCH ×2 (09:36→21:44)
[2021-05-23] MEDS ORDERED: FLU VACC QS2021-22(6MOS UP)/PF 60 MCG/0.5 ML SYRINGE IM ONE (10:00)
[2021-05-23] MEDS ORDERED: PNEUMOC 13-VAL CONJ-DIP CRM/PF 0.5 ML DISP.SYRIN IM ONE (10:00)
[2021-05-23] MEDS: POLYETHYLENE GLYCOL 3350 255 GM BTL PO ONE ×2 (17:17→19:11)
[2021-05-23] MEDS: BISACODYL 5 MG TABLET.DR (FP) PO ONE ×2 (17:18→19:11)
[2021-05-23] MEDS: MAGNESIUM CITRATE 300 ML BOTTLE PO SCH ×2 (19:03→21:44)
[2021-05-23 21:07] LABS: BASO % 1.3 % (0-2.0); EOS % 2.3 % (0-4.5); HEMATOCRIT 27.6 % (35.4-49); HEMOGLOBIN 8.9 GM/dL (11.7-16.9); LYMPH % 16.9 % (8-40); MCH 21.7 pg (25.7-33.7); MCHC 32.2 g/dl (32.0-35.9); MEAN CELL VOLUME 67.5 fl (80-96); MEAN PLT VOLUME 8.4 fl (7.5-11.1); MONO % 8.8 % (3.8-10.2); NEUT % 70.7 % (42.8-82.8); PLATELET COUNT 131 10^3/uL (134-434); RBC 4.08 M/mm3 (4.00-5.60); RDW 23.1 % (11.9-15.9); WHITE BLOOD COUNT 3.9 K/mm3 (4.0-10.0)
[2021-05-23] MEDS: INSULIN SLIDING SCALE (NOVOLOG) 1 VIAL SQ SCH (21:45)
[2021-05-24] MEDS: MAGNESIUM CITRATE 300 ML BOTTLE PO SCH (01:28)
[2021-05-24] MEDS ORDERED: SODIUM PHOSPHATE/NA BIPHOS 133 ML ENEMA RC ONE (05:00)
[2021-05-24] MEDS: INSULIN SLIDING SCALE (NOVOLOG) 1 VIAL SQ SCH ×4 (06:08→22:00)
[2021-05-24] MEDS ORDERED: INSULIN (LEVEMIR) 100 UNITS/ML UNITS SQ SCH (07:00)
[2021-05-24 09:22] LABS: BASO % 0.6 % (0-2.0); EOS % 2.9 % (0-4.5); HEMATOCRIT 30.1 % (35.4-49); HEMOGLOBIN 9.7 GM/dL (11.7-16.9); MCH 21.8 pg (25.7-33.7); MCHC 32.2 g/dl (32.0-35.9); MEAN CELL VOLUME 67.6 fl (80-96); MEAN PLT VOLUME 8.2 fl (7.5-11.1); MONO % 8.2 % (3.8-10.2); NEUT % 69.3 % (42.8-82.8); PLATELET COUNT 126 10^3/uL (134-434); RBC 4.45 M/mm3 (4.00-5.60); RDW 22.6 % (11.9-15.9); WHITE BLOOD COUNT 4.9 K/mm3 (4.0-10.0)
[2021-05-24 09:37] LABS: BLOOD UREA NITROGEN 25.5 mg/dL (7-18); CALCIUM 9.8 mg/dL (8.5-10.1)
[2021-05-24 09:38] LABS: ALBUMIN 3.1 g/dl (3.4-5.0); MAGNESIUM 1.9 mg/dL (1.8-2.4)
[2021-05-24 09:41] LABS: CREATININE 1.3 mg/dL (0.55-1.3); PHOSPHOROUS 3.7 mg/dL (2.5-4.9)
[2021-05-24 09:42] LABS: TOT PROT 7.3 g/dl (6.4-8.2)
[2021-05-24] MEDS: PANTOPRAZOLE SODIUM 40 MG VIAL IVPUSH SCH ×2 (11:11→22:00)
[2021-05-24] MEDS: amLODIPine BESYLATE 5 MG TABLET (FP) PO SCH (11:11)
[2021-05-25] MEDS: INSULIN SLIDING SCALE (NOVOLOG) 1 VIAL SQ SCH ×4 (06:31→21:56)
[2021-05-25] MEDS ORDERED: INSULIN (LEVEMIR) 100 UNITS/ML UNITS SQ SCH ×2 (07:00→14:39)
[2021-05-25 08:40] LABS: EPI CELLS 15 /uL (0-25.1); HYALINE CASTS 2 /uL (0-3.1); URINE APPEARANCE CLOUDY; URINE BACTERIA >9,000 /uL (0-1359); URINE BILIRUBIN NEGATIVE (NEGATIVE); URINE COLOR YELLOW; URINE GLUCOSE (UA) NEGATIVE (NEGATIVE); URINE KETONE NEGATIVE (NEGATIVE); URINE LEUK ESTERASE 1+ (NEGATIVE); URINE NITRITE POSITIVE (NEGATIVE); URINE PROTEIN 1+ (NEGATIVE); URINE RBC 25 /uL (0-23.9); URINE UROBILINOGEN 0.2 mg/dL (0.2-1.0); URINE WBC 64 /uL (0-25.8)
[2021-05-25 08:51] LABS: BASO % 0.4 % (0-2.0); EOS % 2.4 % (0-4.5); HEMATOCRIT 27.2 % (35.4-49); HEMOGLOBIN 8.9 GM/dL (11.7-16.9); LYMPH % 20.9 % (8-40); MCH 22.3 pg (25.7-33.7); MCHC 32.9 g/dl (32.0-35.9); MEAN CELL VOLUME 67.8 fl (80-96); MEAN PLT VOLUME 8.3 fl (7.5-11.1); MONO % 8.5 % (3.8-10.2); NEUT % 67.8 % (42.8-82.8); PLATELET COUNT 119 10^3/uL (134-434); RBC 4.01 M/mm3 (4.00-5.60); RDW 22.6 % (11.9-15.9); WHITE BLOOD COUNT 3.7 K/mm3 (4.0-10.0)
[2021-05-25 09:11] LABS: BLOOD UREA NITROGEN 31.1 mg/dL (7-18)
[2021-05-25 09:12] LABS: ALBUMIN 2.6 g/dl (3.4-5.0); MAGNESIUM 1.7 mg/dL (1.8-2.4)
[2021-05-25 09:14] LABS: PHOSPHOROUS 2.9 mg/dL (2.5-4.9)
[2021-05-25 09:15] LABS: CREATININE 1.5 mg/dL (0.55-1.3)
[2021-05-25 09:16] LABS: BILIRUBIN,TOTAL 1.1 mg/dL (0.2-1); TOT PROT 6.6 g/dl (6.4-8.2)
[2021-05-25] MEDS: PANTOPRAZOLE SODIUM 40 MG VIAL IVPUSH SCH ×2 (10:16→21:28)
[2021-05-25] MEDS: amLODIPine BESYLATE 5 MG TABLET (FP) PO SCH (10:16)
[2021-05-25] MEDS ORDERED: SODIUM CHLORIDE 500 ML IV SCH (14:00)
[2021-05-25] MEDS ORDERED: MAGNESIUM OXIDE 400 MG TABLET (FP) PO ONE (14:26)
[2021-05-26] MEDS ORDERED: INSULIN (LEVEMIR) 100 UNITS/ML UNITS SQ ONE ×2 (06:14→08:40)
[2021-05-26] MEDS: INSULIN SLIDING SCALE (NOVOLOG) 1 VIAL SQ SCH ×3 (06:29→17:42)
[2021-05-26] MEDS ORDERED: INSULIN (NOVOLOG) ASPART 100 UNITS/ML 10ML VIAL ONE (08:39)
[2021-05-26 09:32] LABS: HEMOGLOBIN 9.4 GM/dL (11.7-16.9); MCH 22.3 pg (25.7-33.7); MCHC 33.5 g/dl (32.0-35.9); MEAN CELL VOLUME 66.6 fl (80-96); MEAN PLT VOLUME 8.6 fl (7.5-11.1); PLATELET COUNT 115 10^3/uL (134-434); RDW 22.7 % (11.9-15.9); WHITE BLOOD COUNT 4.6 K/mm3 (4.0-10.0)
[2021-05-26] MEDS: PANTOPRAZOLE SODIUM 40 MG VIAL IVPUSH SCH (09:44)
[2021-05-26 09:54] LABS: CALCIUM 8.1 mg/dL (8.5-10.1)
[2021-05-26] MEDS: amLODIPine BESYLATE 5 MG TABLET (FP) PO SCH (09:54)
[2021-05-26 09:55] LABS: ALBUMIN 2.8 g/dl (3.4-5.0); BLOOD UREA NITROGEN 31.6 mg/dL (7-18); MAGNESIUM 1.7 mg/dL (1.8-2.4)
[2021-05-26 09:59] LABS: CREATININE 1.5 mg/dL (0.55-1.3); PHOSPHOROUS 2.3 mg/dL (2.5-4.9)
[2021-05-26 10:00] LABS: BILIRUBIN,TOTAL 0.9 mg/dL (0.2-1); TOT PROT 7.2 g/dl (6.4-8.2)
[2021-05-26 10:04] VITALS: BP 139/52; PULSE 64; TEMP 98
[2021-05-26 11:56] LABS: ANISOCYTOSIS 1+; MACROCYTOSIS 0; OVALOCYTE 2+; TARGET CELLS 1+; TEAR DROP CELLS 1+; TOXIC GRANULATION 1+
[2021-05-26] MEDS ORDERED: MAGNESIUM OXIDE 400 MG TABLET (FP) PO ONE (15:06)
[2021-05-26] MEDS ORDERED: NAPH,MB-DB/K PH,MBDB POWDER PACKET PO ONE (15:07)
[2021-05-26] MEDS ORDERED: INSULIN (NOVOLOG) ASPART 100 UNITS/ML 10ML VIAL SQ SCH (16:30)
[2021-05-26] MEDS ORDERED: PANTOPRAZOLE 40 MG TABLET PO SCH (22:00)
[2021-05-26] MEDS ORDERED: INSULIN (LEVEMIR) 100 UNITS/ML UNITS SQ SCH (22:00)
== END 2021-05-26 19:25 | disposition home or self-care (01) | DRG 394 ==
LOC: JER 00:08 → JERBED 02:50 → J7W 23:09
PROVIDERS: ADMIT Internal Medicine; ATTEND Internal Medicine
PROC: 30233K1 Transfusion of Nonautologous Frozen Plasma into Peripheral Vein, Percutaneous Approach (ICD-10-PCS; principal; 2021-05-22)
PROC: 30233N1 Transfusion of Nonautologous Red Blood Cells into Peripheral Vein, Percutaneous Approach (ICD-10-PCS; 2021-05-22)
PROC: 0DJD8ZZ Inspection of Lower Intestinal Tract, Via Natural or Artificial Opening Endoscopic (ICD-10-PCS; 2021-05-24)
DX: K64.8 Other hemorrhoids (principal); K76.6 Portal hypertension; N17.9 Acute kidney failure, unspecified; I82.890 Acute embolism and thrombosis of other specified veins; I10 Essential (primary) hypertension; E11.319 Type 2 diabetes mellitus with unspecified diabetic retinopathy without macular edema; E87.5 Hyperkalemia; R16.1 Splenomegaly, not elsewhere classified; E11.65 Type 2 diabetes mellitus with hyperglycemia; M54.50 Low back pain, unspecified; D64.9 Anemia, unspecified; K74.69 Other cirrhosis of liver; K57.90 Diverticulosis of intestine, part unspecified, without perforation or abscess without bleeding
CPT/HCPCS: 36415; 36430; 74174-TC; 80053; 81003; 82272; 82962; 83605; 83735; 84100; 85025; 85610; 85730; 86850; 86900; 86901; 86922; 93005; 93010; 99285-25; C9803; P9017; P9058; U0003; U0005

== ENCOUNTER 2021-07-18 15:54 | Inpatient (IN) | payer OTHER ==
[2021-07-18 19:39] LABS: BASO % 0.6 % (0-2.0); EOS % 1.6 % (0-4.5); HEMATOCRIT 23.6 % (35.4-49); HEMOGLOBIN 7.4 GM/dL (11.7-16.9); LYMPH % 18.4 % (8-40); MCH 21.1 pg (25.7-33.7); MCHC 31.6 g/dl (32.0-35.9); MEAN CELL VOLUME 66.7 fl (80-96); MEAN PLT VOLUME 9.1 fl (7.5-11.1); MONO % 9.4 % (3.8-10.2); PLATELET COUNT 156 10^3/uL (134-434); RBC 3.53 M/mm3 (4.00-5.60); WHITE BLOOD COUNT 3.7 K/mm3 (4.0-10.0)
[2021-07-18 19:45] LABS: INR 1.22 (0.83-1.09); PROTHROMBIN TIME (PATIENT) 14.1 SEC (9.7-13.0)
[2021-07-18 19:48] LABS: ACTIVATED PTT 19.4 SECONDS (25.2-36.5)
[2021-07-18 20:05] LABS: CALCIUM 8.2 mg/dL (8.5-10.1)
[2021-07-18 20:06] LABS: ALBUMIN 2.5 g/dl (3.4-5.0); BLOOD UREA NITROGEN 29.2 mg/dL (7-18)
[2021-07-18 20:09] LABS: CREATININE 1.4 mg/dL (0.55-1.3)
[2021-07-18 20:11] LABS: BILIRUBIN,TOTAL 0.8 mg/dL (0.2-1); TOT PROT 6.3 g/dl (6.4-8.2)
[2021-07-18 20:18] LABS: MAGNESIUM 1.5 mg/dL (1.8-2.4)
[2021-07-18 20:22] LABS: PHOSPHOROUS 3.4 mg/dL (2.5-4.9)
[2021-07-18 20:47] LABS: ANISOCYTOSIS 2+; MACROCYTOSIS 0; OVALOCYTE 2+; TARGET CELLS 1+; TEAR DROP CELLS 1+
[2021-07-18] MEDS ORDERED: MAGNESIUM OXIDE 400 MG TABLET (FP) PO ONE (21:42)
[2021-07-18] MEDS ORDERED: PIPERACILLIN/TAZOB 3.375 GM 3.375 GM in DEXTROSE 5%-WATER - 50 ML IVPB ONE (21:47)
[2021-07-18] MEDS ORDERED: MAGNESIUM OXIDE 400 MG TABLET (FP) ONE (22:05)
[2021-07-18] MEDS ORDERED: PIPERACILLIN/TAZOB 3.375 GM 3.375 GM/50 ML BAG IVPB ONE (22:06)
[2021-07-18 22:30] LABS: URINE APPEARANCE CLEAR; URINE BILIRUBIN NEGATIVE (NEGATIVE); URINE COLOR YELLOW; URINE GLUCOSE (UA) NEGATIVE (NEGATIVE); URINE KETONE NEGATIVE (NEGATIVE); URINE LEUK ESTERASE NEGATIVE (NEGATIVE); URINE NITRITE NEGATIVE (NEGATIVE); URINE PROTEIN NEGATIVE (NEGATIVE); URINE UROBILINOGEN 0.2 mg/dL (0.2-1.0)
[2021-07-18] MEDS ORDERED: FUROSEMIDE 40 MG/4 ML INJECTABLE VIAL IVPUSH ONE (23:24)
[2021-07-18] MEDS ORDERED: PANTOPRAZOLE SODIUM 40 MG VIAL IVPUSH SCH (23:26)
[2021-07-18] MEDS ORDERED: ONDANSETRON 4 MG/2 ML VIAL IVPUSH PRN (23:34)
[2021-07-18 23:55] LABS: RETICULOCYTES 1.02 % (0.5-1.5)
[2021-07-19] MEDS ORDERED: SPIRONOLACTONE 25 MG TABLET ONE (00:14)
[2021-07-19] MEDS ORDERED: PANTOPRAZOLE SODIUM 40 MG/100 ML BAG IVPB ONE (00:14)
[2021-07-19] MEDS ORDERED: FUROSEMIDE 40 MG/4 ML INJECTABLE VIAL ONE (00:14)
[2021-07-19] MEDS: SPIRONOLACTONE 25 MG TABLET PO SCH ×2 (00:32→14:51)
[2021-07-19] MEDS: METHYL SALICYLATE/MENTHOL OINT 30 GM TUBE TP SCH ×3 (01:30→22:13)
[2021-07-19 01:33] VITALS: BMI 35.6
[2021-07-19] MEDS ORDERED: cefTRIAXone SODIUM 1 GM VIAL ONE ×2 (05:26→08:54)
[2021-07-19] MEDS ORDERED: DEXTROSE 5%-WATER - 50 ML IVPB ONE ×2 (05:26→08:54)
[2021-07-19] MEDS: FERROUS SO4 325 MG TABLET (FP) PO SCH ×3 (05:37→22:10)
[2021-07-19] MEDS: CEFTRIAXONE 1 GM in DEXTROSE 5%-WATER - 50 ML IVPB SCH ×2 (05:37→09:57)
[2021-07-19] MEDS: INSULIN SLIDING SCALE (NOVOLOG) 1 VIAL SQ SCH ×4 (06:16→22:16)
[2021-07-19] MEDS: LIPASE/PROTEASE/AMYLASE 36,000 UNIT CAPSULE PO SCH ×3 (06:45→22:14)
[2021-07-19] MEDS ORDERED: PNEUMOC 13-VAL CONJ-DIP CRM/PF 0.5 ML DISP.SYRIN IM ONE (10:00)
[2021-07-19] MEDS ORDERED: FLU VACC QS2021-22(6MOS UP)/PF 60 MCG/0.5 ML SYRINGE IM ONE (10:00)
[2021-07-19 11:02] LABS: BASO % 0.8 % (0-2.0); EOS % 2.2 % (0-4.5); HEMATOCRIT 22.8 % (35.4-49); HEMOGLOBIN 7.4 GM/dL (11.7-16.9); LYMPH % 22.6 % (8-40); MCH 21.4 pg (25.7-33.7); MCHC 32.4 g/dl (32.0-35.9); MEAN CELL VOLUME 66.1 fl (80-96); MEAN PLT VOLUME 8.3 fl (7.5-11.1); NEUT % 65.4 % (42.8-82.8); PLATELET COUNT 157 10^3/uL (134-434); RBC 3.45 M/mm3 (4.00-5.60); RDW 17.8 % (11.9-15.9); WHITE BLOOD COUNT 3.1 K/mm3 (4.0-10.0)
[2021-07-19 11:27] LABS: ALBUMIN 2.2 g/dl (3.4-5.0); BLOOD UREA NITROGEN 31.2 mg/dL (7-18); CALCIUM 8.4 mg/dL (8.5-10.1); MAGNESIUM 1.6 mg/dL (1.8-2.4)
[2021-07-19 11:30] LABS: CREATININE 1.3 mg/dL (0.55-1.3); PHOSPHOROUS 3.1 mg/dL (2.5-4.9)
[2021-07-19] MEDS ORDERED: FUROSEMIDE 40 MG/4 ML INJECTABLE VIAL IVPUSH ONE (13:05)
[2021-07-19] MEDS ORDERED: MAGNESIUM SULF 50% (8.12 MEQ/2 ML-1 GM VIAL) IVPB ONE (13:05)
[2021-07-19] MEDS: FOLIC ACID 1 MG TABLET (FP) PO SCH (14:53)
[2021-07-19] MEDS: amLODIPine BESYLATE 5 MG TABLET (FP) PO SCH (14:54)
[2021-07-19] MEDS: LIDOCAINE 5% TOPICAL PATCH TP SCH (14:54)
[2021-07-19] MEDS: PANTOPRAZOLE SODIUM 40 MG VIAL IVPUSH SCH ×2 (14:57→22:10)
[2021-07-19] MEDS: ALBUMIN HUMAN 25% 100 ML VIAL IV SCH ×4 (17:16→23:18)
[2021-07-19] MEDS ORDERED: IBUPROFEN 400 MG TABLET (FP) PO ONE (18:23)
[2021-07-19 20:12] LABS: BF WBC & OTHER NUCLEATED CELLS 123 /mm3
[2021-07-19 20:39] LABS: BODY FLUID MACROPHAGES 39 %; BODY FLUID MONOCYTE 21 %
[2021-07-19] MEDS ORDERED: LIDOCAINE PATCH REMOVAL MC SCH (22:00)
[2021-07-19] MEDS ORDERED: TERAZOSIN HCL 1 MG CAPSULE PO SCH (22:00)
[2021-07-20] MEDS: FERROUS SO4 325 MG TABLET (FP) PO SCH ×2 (05:46→17:16)
[2021-07-20] MEDS: LIPASE/PROTEASE/AMYLASE 36,000 UNIT CAPSULE PO SCH ×2 (05:47→17:10)
[2021-07-20] MEDS: INSULIN SLIDING SCALE (NOVOLOG) 1 VIAL SQ SCH ×2 (07:02→12:38)
[2021-07-20 08:20] LABS: BASO % 0.5 % (0-2.0); HEMATOCRIT 21.3 % (35.4-49); LYMPH % 19.3 % (8-40); MCH 21.5 pg (25.7-33.7); MCHC 32.6 g/dl (32.0-35.9); MEAN CELL VOLUME 65.8 fl (80-96); MEAN PLT VOLUME 8.1 fl (7.5-11.1); MONO % 10.2 % (3.8-10.2); PLATELET COUNT 142 10^3/uL (134-434); RBC 3.24 M/mm3 (4.00-5.60); RDW 17.5 % (11.9-15.9); WHITE BLOOD COUNT 2.9 K/mm3 (4.0-10.0)
[2021-07-20 08:30] LABS: CALCIUM 8.3 mg/dL (8.5-10.1)
[2021-07-20 08:31] LABS: BLOOD UREA NITROGEN 25.4 mg/dL (7-18); MAGNESIUM 1.6 mg/dL (1.8-2.4)
[2021-07-20 08:34] LABS: CREATININE 1.3 mg/dL (0.55-1.3); PHOSPHOROUS 2.4 mg/dL (2.5-4.9)
[2021-07-20 08:36] LABS: BILIRUBIN,TOTAL 1.1 mg/dL (0.2-1); TOT PROT 5.5 g/dl (6.4-8.2)
[2021-07-20 08:46] LABS: ALBUMIN 2.8 g/dl (3.4-5.0)
[2021-07-20 09:23] LABS: HEMOGLOBIN 6.9 GM/dL (11.7-16.9)
[2021-07-20] MEDS ORDERED: cefTRIAXone SODIUM 1 GM VIAL ONE (10:41)
[2021-07-20] MEDS ORDERED: DEXTROSE 5%-WATER - 50 ML IVPB ONE (10:41)
[2021-07-20] MEDS: amLODIPine BESYLATE 5 MG TABLET (FP) PO SCH (10:47)
[2021-07-20] MEDS: SPIRONOLACTONE 25 MG TABLET PO SCH ×2 (10:47→11:00)
[2021-07-20] MEDS: FOLIC ACID 1 MG TABLET (FP) PO SCH (10:47)
[2021-07-20] MEDS: METHYL SALICYLATE/MENTHOL OINT 30 GM TUBE TP SCH (10:47)
[2021-07-20] MEDS: PANTOPRAZOLE SODIUM 40 MG VIAL IVPUSH SCH (10:48)
[2021-07-20] MEDS: CEFTRIAXONE 1 GM in DEXTROSE 5%-WATER - 50 ML IVPB SCH (10:48)
[2021-07-20] MEDS: LIDOCAINE 5% TOPICAL PATCH TP SCH (10:52)
[2021-07-20] MEDS ORDERED: MAGNESIUM OXIDE 400 MG TABLET (FP) PO ONE ×2 (11:54→15:15)
[2021-07-20] MEDS ORDERED: NAPH,MB-DB/K PH,MBDB POWDER PACKET PO SCH (12:00)
[2021-07-20] MEDS ORDERED: NADOLOL 20 MG TABLET (FP) PO SCH (13:00)
[2021-07-20 15:09] VITALS: PULSE 66; TEMP 97.8
[2021-07-20 18:06] VITALS: BP 137/57
[2021-07-21] MEDS ORDERED: FUROSEMIDE 40 MG TABLET (FP) PO SCH (10:00)
== END 2021-07-20 18:30 | disposition short-term general hospital (02) | DRG 433 ==
LOC: JER 15:54 → JERBED 21:23 → J7W 07-19 01:05
PROVIDERS: ADMIT Hospitalist
PROC: 0W9G3ZZ Drainage of Peritoneal Cavity, Percutaneous Approach (ICD-10-PCS; principal; 2021-07-19)
PROC: BW40ZZZ Ultrasonography of Abdomen (ICD-10-PCS; 2021-07-19)
DX: K70.31 Alcoholic cirrhosis of liver with ascites (principal); K92.2 Gastrointestinal hemorrhage, unspecified; K86.1 Other chronic pancreatitis; K76.6 Portal hypertension; N18.9 Chronic kidney disease, unspecified; E10.9 Type 1 diabetes mellitus without complications; K31.89 Other diseases of stomach and duodenum; E87.70 Fluid overload, unspecified; I12.9 Hypertensive chronic kidney disease with stage 1 through stage 4 chronic kidney disease, or unspecified chronic kidney disease; N40.0 Benign prostatic hyperplasia without lower urinary tract symptoms
CPT/HCPCS: 36415; 76942-TC; 80053; 81003; 82042; 82140; 82150; 82272; 82465; 82728; 82945; 82962; 83540; 83550; 83615; 83735; 83986; 84100; 84157; 84478; 84484; 85025; 85045; 85610; 85730; 86850; 86900; 86901; 86922; 87040; 87070; 87075; 87077; 87086; 87102; 87116; 87205; 87206; 87210; 87324; 87449; 88108; 88305-TC; 93005; 93010; 97116-GP; 97162-GP; 99285-25; C9803-CS; U0003; U0005

== ENCOUNTER 2021-07-20 22:43 | Emergency (ER) | payer OTHER ==
[2021-07-20 22:54] VITALS: TEMP 98.2; BMI 31.1
[2021-07-20 23:59] LABS: EOS % 2.6 % (0-4.5); HEMATOCRIT 25.9 % (35.4-49); HEMOGLOBIN 8.3 GM/dL (11.7-16.9); MCH 21.1 pg (25.7-33.7); MCHC 31.9 g/dl (32.0-35.9); MEAN CELL VOLUME 66.1 fl (80-96); MEAN PLT VOLUME 8.1 fl (7.5-11.1); MONO % 8.1 % (3.8-10.2); NEUT % 81.3 % (42.8-82.8); PLATELET COUNT 184 10^3/uL (134-434); RBC 3.92 M/mm3 (4.00-5.60); WHITE BLOOD COUNT 6.5 K/mm3 (4.0-10.0)
[2021-07-21 00:08] LABS: INR 1.28 (0.83-1.09); PROTHROMBIN TIME (PATIENT) 14.8 SEC (9.7-13.0)
[2021-07-21 00:11] LABS: ACTIVATED PTT 24.7 SECONDS (25.2-36.5)
[2021-07-21 00:14] LABS: ADD RBC MORPHOLOGY YES
[2021-07-21 00:24] LABS: CALCIUM 8.2 mg/dL (8.5-10.1)
[2021-07-21 00:25] LABS: ALBUMIN 2.8 g/dl (3.4-5.0); BLOOD UREA NITROGEN 22.5 mg/dL (7-18)
[2021-07-21 00:28] LABS: CREATININE 1.4 mg/dL (0.55-1.3)
[2021-07-21 00:29] LABS: BILIRUBIN,TOTAL 0.8 mg/dL (0.2-1)
[2021-07-21 00:30] LABS: TOT PROT 5.9 g/dl (6.4-8.2)
[2021-07-21 02:28] VITALS: BP 132/53; PULSE 57
== END 2021-07-21 01:45 | disposition short-term general hospital (02) ==
LOC: JER 22:43
DX: D64.9 Anemia, unspecified (principal); K92.2 Gastrointestinal hemorrhage, unspecified; R18.8 Other ascites
CPT/HCPCS: 36415; 80053; 84484; 85025; 85610; 85730; 86850; 86900; 86901; 93005; 93010; 99284-25

== ENCOUNTER 2022-06-13 14:17 | Inpatient (IN) | payer OTHER ==
[2022-06-13] MEDS ORDERED: morphine CARPU-JECT 4 MG/1 ML DISP.SYRIN IVPUSH ONE (15:53)
[2022-06-13 16:28] LABS: HEMATOCRIT 20.3 % (35.4-49); INR 1.25 (0.83-1.09); MCH 21.4 pg (25.7-33.7); MCHC 32.5 g/dl (32.0-35.9); MEAN PLT VOLUME 8.8 fl (7.5-11.1); PLATELET COUNT 198 10^3/uL (134-434); PROTHROMBIN TIME (PATIENT) 14.5 SEC (9.7-13.0); RBC 3.08 M/mm3 (4.00-5.60); RDW 18.6 % (11.9-15.9); WHITE BLOOD COUNT 6.2 K/mm3 (4.0-10.0)
[2022-06-13 16:31] LABS: ACTIVATED PTT 30.7 SECONDS (25.2-36.5)
[2022-06-13 16:32] LABS: HEMOGLOBIN 6.6 GM/dL (11.7-16.9)
[2022-06-13 16:39] LABS: ALBUMIN 2.2 g/dl (3.4-5.0); CALCIUM 8.2 mg/dL (8.5-10.1); MAGNESIUM 1.6 mg/dL (1.8-2.4)
[2022-06-13 16:42] LABS: CREATININE 1.3 mg/dL (0.55-1.3)
[2022-06-13 16:43] LABS: BILIRUBIN,TOTAL 1.2 mg/dL (0.2-1); TOT PROT 6.4 g/dl (6.4-8.2)
[2022-06-13 16:55] LABS: ANISOCYTOSIS 3+; MACROCYTOSIS 1+; OVALOCYTE 1+; TARGET CELLS 1+; TEAR DROP CELLS 1+
[2022-06-13] MEDS: LIPASE/PROTEASE/AMYLASE 36,000 UNIT CAPSULE PO SCH (18:22)
[2022-06-13] MEDS ORDERED: MAGNESIUM SULF 50% (8.12 MEQ/2 ML-1 GM VIAL) IVPB ONE (18:36)
[2022-06-13] MEDS ORDERED: MAGNESIUM SULFATE IN WATER 2 GM/50 ML IVPB IVPB ONE (18:39)
[2022-06-13] MEDS ORDERED: METOCLOPRAMIDE HCL 10 MG TABLET (FP) PO PRN (22:00)
[2022-06-13] MEDS ORDERED: PANTOPRAZOLE 40 MG TABLET PO ONE (23:09)
[2022-06-13] MEDS ORDERED: FERROUS SO4 325 MG TABLET (FP) ONE (23:09)
[2022-06-13] MEDS: FERROUS SO4 325 MG TABLET (FP) PO SCH (23:19)
[2022-06-13] MEDS: PANTOPRAZOLE 40 MG TABLET PO SCH (23:19)
[2022-06-14 04:26] VITALS: BMI 29.8
[2022-06-14] MEDS: FERROUS SO4 325 MG TABLET (FP) PO SCH ×3 (05:11→21:22)
[2022-06-14] MEDS: LIPASE/PROTEASE/AMYLASE 36,000 UNIT CAPSULE PO SCH ×3 (08:39→17:40)
[2022-06-14] MEDS ORDERED: LOSARTAN POTASSIUM 25 MG TABLET PO SCH (10:00)
[2022-06-14] MEDS ORDERED: amLODIPine BESYLATE 5 MG TABLET (FP) PO SCH (10:00)
[2022-06-14] MEDS ORDERED: NADOLOL 20 MG TABLET (FP) PO SCH (10:00)
[2022-06-14] MEDS ORDERED: SPIRONOLACTONE 25 MG TABLET PO SCH (10:00)
[2022-06-14] MEDS ORDERED: FUROSEMIDE 40 MG TABLET (FP) PO SCH (10:00)
[2022-06-14] MEDS: PANTOPRAZOLE 40 MG TABLET PO SCH (10:41)
[2022-06-14] MEDS: FOLIC ACID 1 MG TABLET (FP) PO SCH (10:41)
[2022-06-14 11:16] LABS: BASO % 1.8 % (0-2.0); EOS % 2.1 % (0-4.5); HEMATOCRIT 22.6 % (35.4-49); HEMOGLOBIN 7.2 GM/dL (11.7-16.9); LYMPH % 4.8 % (8-40); MCH 22.7 pg (25.7-33.7); MEAN PLT VOLUME 8.9 fl (7.5-11.1); MONO % 9.5 % (3.8-10.2); NEUT % 81.8 % (42.8-82.8); PLATELET COUNT 167 10^3/uL (134-434); RBC 3.18 M/mm3 (4.00-5.60); RDW 22.6 % (11.9-15.9); WHITE BLOOD COUNT 6.4 K/mm3 (4.0-10.0)
[2022-06-14 11:36] LABS: MAGNESIUM 1.7 mg/dL (1.8-2.4)
[2022-06-14 11:38] LABS: CALCIUM 7.8 mg/dL (8.5-10.1)
[2022-06-14 11:40] LABS: PHOSPHOROUS 2.3 mg/dL (2.5-4.9)
[2022-06-14 11:42] LABS: CREATININE 1.1 mg/dL (0.55-1.3)
[2022-06-14] MEDS ORDERED: MAGNESIUM 2GM/50ML STERILE WATER IVPB IVPB ONE (11:57)
[2022-06-14 13:39] LABS: ANISOCYTOSIS 2+; MACROCYTOSIS 0; OVALOCYTE 2+; TARGET CELLS 2+; TEAR DROP CELLS 1+; TOXIC GRANULATION 2+
[2022-06-14] MEDS ORDERED: INSULIN (LEVEMIR) 100 UNITS/ML UNITS SQ ONE (14:13)
[2022-06-14 14:18] LABS: PH,URINE 5.5 (5.0-8.0); URINE APPEARANCE CLEAR; URINE BILIRUBIN NEGATIVE (NEGATIVE); URINE COLOR YELLOW; URINE GLUCOSE (UA) NEGATIVE (NEGATIVE); URINE KETONE NEGATIVE (NEGATIVE); URINE LEUK ESTERASE NEGATIVE (NEGATIVE); URINE NITRITE NEGATIVE (NEGATIVE); URINE PROTEIN NEGATIVE (NEGATIVE); URINE UROBILINOGEN 0.2 mg/dL (0.2-1.0)
[2022-06-14] MEDS: INSULIN SLIDING SCALE (NOVOLOG) 1 VIAL SQ SCH (16:46)
[2022-06-14] MEDS ORDERED: NAPH,MB-DB/K PH,MBDB POWDER PACKET PO ONE (18:49)
[2022-06-14] MEDS ORDERED: MAGNESIUM SULF 50% (8.12 MEQ/2 ML-1 GM VIAL) IVPB ONE (18:50)
[2022-06-14] MEDS: FUROSEMIDE 40 MG TABLET (FP) PO SCH (21:23)
[2022-06-14] MEDS: RIFAXIMIN 550 MG TABLET PO SCH (21:23)
[2022-06-15] MEDS ORDERED: INSULIN (NOVOLOG) ASPART 100 UNITS/ML 10ML VIAL ONE (06:33)
[2022-06-15] MEDS: INSULIN SLIDING SCALE (NOVOLOG) 1 VIAL SQ SCH ×3 (06:36→17:09)
[2022-06-15] MEDS: INSULIN (LEVEMIR) 100 UNITS/ML UNITS SQ SCH (06:37)
[2022-06-15] MEDS: FERROUS SO4 325 MG TABLET (FP) PO SCH ×3 (06:39→21:07)
[2022-06-15 08:50] LABS: BASO % 0.5 % (0-2.0); EOS % 3.2 % (0-4.5); HEMATOCRIT 23.5 % (35.4-49); HEMOGLOBIN 7.7 GM/dL (11.7-16.9); LYMPH % 12.7 % (8-40); MCH 23.2 pg (25.7-33.7); MCHC 32.7 g/dl (32.0-35.9); MEAN CELL VOLUME 70.8 fl (80-96); MEAN PLT VOLUME 8.5 fl (7.5-11.1); MONO % 9.6 % (3.8-10.2); PLATELET COUNT 206 10^3/uL (134-434); RBC 3.31 M/mm3 (4.00-5.60); RDW 22.9 % (11.9-15.9); WHITE BLOOD COUNT 8.8 K/mm3 (4.0-10.0)
[2022-06-15] MEDS: FUROSEMIDE 40 MG TABLET (FP) PO SCH (09:08)
[2022-06-15] MEDS: FOLIC ACID 1 MG TABLET (FP) PO SCH (09:08)
[2022-06-15] MEDS: RIFAXIMIN 550 MG TABLET PO SCH ×2 (09:08→21:07)
[2022-06-15] MEDS: FAMOTIDINE 20 MG TABLET PO SCH (09:09)
[2022-06-15] MEDS: LIPASE/PROTEASE/AMYLASE 36,000 UNIT CAPSULE PO SCH ×3 (09:12→16:59)
[2022-06-15 09:17] LABS: CALCIUM 7.9 mg/dL (8.5-10.1)
[2022-06-15 09:18] LABS: ALBUMIN 1.9 g/dl (3.4-5.0); BLOOD UREA NITROGEN 34.1 mg/dL (7-18); MAGNESIUM 2.5 mg/dL (1.8-2.4)
[2022-06-15 09:21] LABS: CREATININE 1.2 mg/dL (0.55-1.3); PHOSPHOROUS 2.8 mg/dL (2.5-4.9)
[2022-06-15 09:22] LABS: TOT PROT 5.6 g/dl (6.4-8.2)
[2022-06-15 09:23] LABS: BILIRUBIN,TOTAL 1.4 mg/dL (0.2-1)
[2022-06-15] MEDS ORDERED: TERAZOSIN HCL 2 MG CAPSULE PO SCH (10:00)
[2022-06-15] MEDS ORDERED: LIDOCAINE HCL 1%, 10 MG/ML (20ML VIAL) SQ ONE ×2 (11:38→12:00)
[2022-06-15 13:07] LABS: BF WBC & OTHER NUCLEATED CELLS 139 /mm3
[2022-06-15 13:28] LABS: BODY FLUID BASOPHIL 0 %; BODY FLUID HISTIOCYTES 0 %; BODY FLUID MACROPHAGES 40 %; BODY FLUID MESOTHELIAL 1 %; BODY FLUID MONOCYTE 1 %; BODY FLUID PLASMA CELL 0 %; BODYL FLD EOSINOPHIL 0 %
[2022-06-15] MEDS: FUROSEMIDE 20 MG TABLET (FP) PO SCH (21:31)
[2022-06-16] MEDS: FERROUS SO4 325 MG TABLET (FP) PO SCH ×3 (05:01→21:23)
[2022-06-16] MEDS: INSULIN (LEVEMIR) 100 UNITS/ML UNITS SQ SCH (06:02)
[2022-06-16] MEDS: INSULIN SLIDING SCALE (NOVOLOG) 1 VIAL SQ SCH ×3 (06:03→16:42)
[2022-06-16] MEDS: FUROSEMIDE 20 MG TABLET (FP) PO SCH ×2 (09:02→21:22)
[2022-06-16] MEDS: LIPASE/PROTEASE/AMYLASE 36,000 UNIT CAPSULE PO SCH ×3 (09:02→17:43)
[2022-06-16] MEDS: FOLIC ACID 1 MG TABLET (FP) PO SCH (09:02)
[2022-06-16] MEDS: RIFAXIMIN 550 MG TABLET PO SCH ×2 (09:02→21:22)
[2022-06-16] MEDS: FAMOTIDINE 20 MG TABLET PO SCH (09:02)
[2022-06-16] MEDS: TERAZOSIN HCL 1 MG CAPSULE PO SCH (09:03)
[2022-06-16 09:39] LABS: BASO % 0.6 % (0-2.0); EOS % 3.1 % (0-4.5); HEMATOCRIT 22.6 % (35.4-49); HEMOGLOBIN 7.5 GM/dL (11.7-16.9); LYMPH % 15.1 % (8-40); MCH 23.1 pg (25.7-33.7); MCHC 33.1 g/dl (32.0-35.9); MEAN CELL VOLUME 69.8 fl (80-96); MONO % 9.6 % (3.8-10.2); NEUT % 71.6 % (42.8-82.8); PLATELET COUNT 166 10^3/uL (134-434); RBC 3.23 M/mm3 (4.00-5.60); RDW 23.4 % (11.9-15.9); WHITE BLOOD COUNT 6.2 K/mm3 (4.0-10.0)
[2022-06-16 10:12] LABS: ALBUMIN 1.8 g/dl (3.4-5.0); BLOOD UREA NITROGEN 36.9 mg/dL (7-18); MAGNESIUM 2.1 mg/dL (1.8-2.4)
[2022-06-16 10:15] LABS: CREATININE 1.3 mg/dL (0.55-1.3)
[2022-06-16 10:17] LABS: TOT PROT 5.4 g/dl (6.4-8.2)
[2022-06-16 10:18] LABS: BILIRUBIN,TOTAL 1.5 mg/dL (0.2-1)
[2022-06-16] MEDS ORDERED: INSULIN (NOVOLOG) ASPART 100 UNITS/ML 10ML VIAL ONE ×2 (11:57→18:57)
[2022-06-17] MEDS: INSULIN (LEVEMIR) 100 UNITS/ML UNITS SQ SCH (06:46)
[2022-06-17] MEDS: FERROUS SO4 325 MG TABLET (FP) PO SCH ×3 (06:46→22:13)
[2022-06-17] MEDS: INSULIN SLIDING SCALE (NOVOLOG) 1 VIAL SQ SCH ×3 (06:48→16:35)
[2022-06-17 08:39] LABS: BASO % 0.6 % (0-2.0); EOS % 1.9 % (0-4.5); HEMOGLOBIN 7.1 GM/dL (11.7-16.9); LYMPH % 11.4 % (8-40); MCH 23.3 pg (25.7-33.7); MCHC 33.7 g/dl (32.0-35.9); MEAN CELL VOLUME 69.2 fl (80-96); MEAN PLT VOLUME 8.1 fl (7.5-11.1); MONO % 11.5 % (3.8-10.2); NEUT % 74.6 % (42.8-82.8); PLATELET COUNT 172 10^3/uL (134-434); RBC 3.03 M/mm3 (4.00-5.60); RDW 23.1 % (11.9-15.9)
[2022-06-17 08:55] LABS: CALCIUM 7.8 mg/dL (8.5-10.1)
[2022-06-17 08:56] LABS: ALBUMIN 1.7 g/dl (3.4-5.0); BLOOD UREA NITROGEN 38.7 mg/dL (7-18); MAGNESIUM 1.8 mg/dL (1.8-2.4)
[2022-06-17 08:59] LABS: CREATININE 1.3 mg/dL (0.55-1.3)
[2022-06-17 09:00] LABS: TOT PROT 5.2 g/dl (6.4-8.2)
[2022-06-17 09:01] LABS: BILIRUBIN,TOTAL 1.7 mg/dL (0.2-1)
[2022-06-17] MEDS: TERAZOSIN HCL 1 MG CAPSULE PO SCH (09:09)
[2022-06-17] MEDS: RIFAXIMIN 550 MG TABLET PO SCH ×2 (09:10→22:13)
[2022-06-17] MEDS: FOLIC ACID 1 MG TABLET (FP) PO SCH (09:10)
[2022-06-17] MEDS: FAMOTIDINE 20 MG TABLET PO SCH (09:10)
[2022-06-17] MEDS: LIPASE/PROTEASE/AMYLASE 36,000 UNIT CAPSULE PO SCH ×3 (09:10→17:25)
[2022-06-17] MEDS: FUROSEMIDE 20 MG TABLET (FP) PO SCH ×2 (09:10→22:13)
[2022-06-17 09:46] LABS: ANISOCYTOSIS 3+; MACROCYTOSIS 0; OVALOCYTE 2+; TARGET CELLS 2+
[2022-06-17] MEDS: ASPIRIN COATED 81 MG TABLET.EC PO SCH (10:49)
[2022-06-17] MEDS ORDERED: MAGNESIUM SULF 50% (8.12 MEQ/2 ML-1 GM VIAL) IVPB ONE (14:00)
[2022-06-17] MEDS: oxyCODONE HCL 5 MG TABLET PO PRN ×2 (16:35→22:20)
[2022-06-17 18:39] LABS: HEMATOCRIT 25.3 % (35.4-49); HEMOGLOBIN 8.4 GM/dL (11.7-16.9); MCH 23.5 pg (25.7-33.7); MCHC 33.2 g/dl (32.0-35.9); MEAN CELL VOLUME 70.6 fl (80-96); PLATELET COUNT 167 10^3/uL (134-434); RBC 3.58 M/mm3 (4.00-5.60); RDW 23.7 % (11.9-15.9); WHITE BLOOD COUNT 7.4 K/mm3 (4.0-10.0)
[2022-06-17] MEDS: ATORVASTATIN CA 40 MG TABLET (FP) PO SCH (22:13)
[2022-06-18] MEDS: oxyCODONE HCL 5 MG TABLET PO PRN (06:29)
[2022-06-18] MEDS: FERROUS SO4 325 MG TABLET (FP) PO SCH ×3 (06:29→22:48)
[2022-06-18] MEDS: INSULIN (LEVEMIR) 100 UNITS/ML UNITS SQ SCH (06:31)
[2022-06-18] MEDS: INSULIN SLIDING SCALE (NOVOLOG) 1 VIAL SQ SCH ×3 (06:32→17:14)
[2022-06-18] MEDS: LIPASE/PROTEASE/AMYLASE 36,000 UNIT CAPSULE PO SCH ×3 (08:02→17:14)
[2022-06-18 09:17] LABS: EOS % 2.5 % (0-4.5); HEMATOCRIT 22.8 % (35.4-49); HEMOGLOBIN 7.6 GM/dL (11.7-16.9); LYMPH % 14.6 % (8-40); MCH 23.5 pg (25.7-33.7); MCHC 33.4 g/dl (32.0-35.9); MEAN CELL VOLUME 70.3 fl (80-96); MEAN PLT VOLUME 8.4 fl (7.5-11.1); MONO % 11.6 % (3.8-10.2); NEUT % 70.3 % (42.8-82.8); PLATELET COUNT 164 10^3/uL (134-434); RBC 3.24 M/mm3 (4.00-5.60); RDW 23.4 % (11.9-15.9); WHITE BLOOD COUNT 6.2 K/mm3 (4.0-10.0)
[2022-06-18 09:34] LABS: ALBUMIN 1.7 g/dl (3.4-5.0); BLOOD UREA NITROGEN 41.7 mg/dL (7-18); CALCIUM 7.8 mg/dL (8.5-10.1); MAGNESIUM 1.9 mg/dL (1.8-2.4)
[2022-06-18 09:37] LABS: CREATININE 1.3 mg/dL (0.55-1.3)
[2022-06-18 09:39] LABS: BILIRUBIN,TOTAL 1.6 mg/dL (0.2-1); TOT PROT 5.2 g/dl (6.4-8.2)
[2022-06-18] MEDS: FOLIC ACID 1 MG TABLET (FP) PO SCH (10:41)
[2022-06-18] MEDS: FUROSEMIDE 20 MG TABLET (FP) PO SCH ×2 (10:41→22:48)
[2022-06-18] MEDS: TERAZOSIN HCL 1 MG CAPSULE PO SCH (10:41)
[2022-06-18] MEDS: FAMOTIDINE 20 MG TABLET PO SCH (10:41)
[2022-06-18] MEDS: RIFAXIMIN 550 MG TABLET PO SCH ×2 (10:41→22:48)
[2022-06-18] MEDS: ASPIRIN COATED 81 MG TABLET.EC PO SCH (10:41)
[2022-06-18 16:08] LABS: KAPPA/LAMBDA RATIO, UR 9.19 (1.83-14.26)
[2022-06-18] MEDS ORDERED: oxyCODONE HCL 5 MG TABLET PO PRN (16:56)
[2022-06-18] MEDS ORDERED: ACETAMINOPHEN 500 MG TABLET (FP) PO PRN (17:02)
[2022-06-18] MEDS: LIDOCAINE 5% TOPICAL PATCH TP SCH (17:15)
[2022-06-18] MEDS: LIDOCAINE PATCH REMOVAL MC SCH (22:48)
[2022-06-18] MEDS: ATORVASTATIN CA 40 MG TABLET (FP) PO SCH (22:48)
[2022-06-19] MEDS: INSULIN (LEVEMIR) 100 UNITS/ML UNITS SQ SCH (06:09)
[2022-06-19] MEDS: INSULIN SLIDING SCALE (NOVOLOG) 1 VIAL SQ SCH ×3 (06:10→16:51)
[2022-06-19] MEDS: FERROUS SO4 325 MG TABLET (FP) PO SCH ×3 (06:10→22:28)
[2022-06-19] MEDS: LIPASE/PROTEASE/AMYLASE 36,000 UNIT CAPSULE PO SCH ×3 (08:29→17:01)
[2022-06-19] MEDS: FAMOTIDINE 20 MG TABLET PO SCH (09:05)
[2022-06-19] MEDS: RIFAXIMIN 550 MG TABLET PO SCH ×2 (09:05→22:27)
[2022-06-19] MEDS: FOLIC ACID 1 MG TABLET (FP) PO SCH (09:06)
[2022-06-19] MEDS: LIDOCAINE 5% TOPICAL PATCH TP SCH (09:06)
[2022-06-19] MEDS: ASPIRIN COATED 81 MG TABLET.EC PO SCH (09:06)
[2022-06-19] MEDS: TERAZOSIN HCL 1 MG CAPSULE PO SCH (09:09)
[2022-06-19] MEDS: FUROSEMIDE 20 MG TABLET (FP) PO SCH ×2 (09:10→22:27)
[2022-06-19 11:04] LABS: HEMATOCRIT 24.8 % (35.4-49); HEMOGLOBIN 8.3 GM/dL (11.7-16.9); MCH 23.6 pg (25.7-33.7); MCHC 33.4 g/dl (32.0-35.9); MEAN CELL VOLUME 70.8 fl (80-96); PLATELET COUNT 185 10^3/uL (134-434); RBC 3.51 M/mm3 (4.00-5.60); RDW 23.6 % (11.9-15.9); WHITE BLOOD COUNT 6.6 K/mm3 (4.0-10.0)
[2022-06-19 11:24] LABS: CALCIUM 8.2 mg/dL (8.5-10.1)
[2022-06-19 11:25] LABS: BLOOD UREA NITROGEN 37.8 mg/dL (7-18)
[2022-06-19 11:28] LABS: CREATININE 1.1 mg/dL (0.55-1.3)
[2022-06-19 14:07] LABS: ALBUMIN % 44.3 % (.); ALPHA-1 FOR UPE 2.6 % (.); TOTAL PROTEIN, URINE 20.6 mg/dL (Not Estab.)
[2022-06-19] MEDS ORDERED: INSULIN (NOVOLOG) ASPART 100 UNITS/ML 10ML VIAL ONE (19:32)
[2022-06-19] MEDS: ATORVASTATIN CA 40 MG TABLET (FP) PO SCH (22:27)
[2022-06-19] MEDS: LIDOCAINE PATCH REMOVAL MC SCH (22:28)
[2022-06-20] MEDS: INSULIN (LEVEMIR) 100 UNITS/ML UNITS SQ SCH (06:44)
[2022-06-20] MEDS: INSULIN SLIDING SCALE (NOVOLOG) 1 VIAL SQ SCH ×3 (06:46→16:23)
[2022-06-20] MEDS: FERROUS SO4 325 MG TABLET (FP) PO SCH ×3 (06:46→21:43)
[2022-06-20] MEDS: LIPASE/PROTEASE/AMYLASE 36,000 UNIT CAPSULE PO SCH ×3 (08:30→17:06)
[2022-06-20 08:51] LABS: HEMOGLOBIN 7.6 GM/dL (11.7-16.9); MCH 23.4 pg (25.7-33.7); MCHC 33.1 g/dl (32.0-35.9); MEAN CELL VOLUME 70.9 fl (80-96); MEAN PLT VOLUME 8.3 fl (7.5-11.1); PLATELET COUNT 177 10^3/uL (134-434); RBC 3.24 M/mm3 (4.00-5.60); RDW 23.5 % (11.9-15.9); WHITE BLOOD COUNT 5.1 K/mm3 (4.0-10.0)
[2022-06-20 09:13] LABS: CALCIUM 8.2 mg/dL (8.5-10.1)
[2022-06-20 09:14] LABS: ALBUMIN 1.7 g/dl (3.4-5.0); BLOOD UREA NITROGEN 39.4 mg/dL (7-18); MAGNESIUM 1.5 mg/dL (1.8-2.4)
[2022-06-20 09:17] LABS: CREATININE 1.1 mg/dL (0.55-1.3); PHOSPHOROUS 3.1 mg/dL (2.5-4.9)
[2022-06-20 09:18] LABS: BILIRUBIN,TOTAL 1.4 mg/dL (0.2-1); TOT PROT 5.5 g/dl (6.4-8.2)
[2022-06-20] MEDS: FAMOTIDINE 20 MG TABLET PO SCH (10:20)
[2022-06-20] MEDS: RIFAXIMIN 550 MG TABLET PO SCH ×2 (10:20→21:43)
[2022-06-20] MEDS: FUROSEMIDE 20 MG TABLET (FP) PO SCH ×2 (10:20→21:43)
[2022-06-20] MEDS: TERAZOSIN HCL 1 MG CAPSULE PO SCH (10:21)
[2022-06-20] MEDS: FOLIC ACID 1 MG TABLET (FP) PO SCH (10:21)
[2022-06-20] MEDS: LIDOCAINE 5% TOPICAL PATCH TP SCH (10:33)
[2022-06-20] MEDS: MAGNESIUM SULF 50% (8.12 MEQ/2 ML-1 GM VIAL) IVPB SCH ×2 (11:25→21:43)
[2022-06-20] MEDS: ATORVASTATIN CA 40 MG TABLET (FP) PO SCH (21:43)
[2022-06-20] MEDS: LIDOCAINE PATCH REMOVAL MC SCH (23:26)
[2022-06-21] MEDS ORDERED: INSULIN (NOVOLOG) ASPART 100 UNITS/ML 10ML VIAL ONE (06:24)
[2022-06-21] MEDS: INSULIN (LEVEMIR) 100 UNITS/ML UNITS SQ SCH (06:25)
[2022-06-21] MEDS: INSULIN SLIDING SCALE (NOVOLOG) 1 VIAL SQ SCH (06:26)
[2022-06-21] MEDS: FERROUS SO4 325 MG TABLET (FP) PO SCH (06:26)
[2022-06-21 09:10] VITALS: BP 118/41; PULSE 61; RESP 29; TEMP 98.3
[2022-06-21] MEDS: LIDOCAINE 5% TOPICAL PATCH TP SCH (09:14)
[2022-06-21] MEDS: FAMOTIDINE 20 MG TABLET PO SCH (09:14)
[2022-06-21] MEDS: TERAZOSIN HCL 1 MG CAPSULE PO SCH (09:14)
[2022-06-21] MEDS: FUROSEMIDE 20 MG TABLET (FP) PO SCH (09:14)
[2022-06-21] MEDS: RIFAXIMIN 550 MG TABLET PO SCH (09:14)
[2022-06-21] MEDS: FOLIC ACID 1 MG TABLET (FP) PO SCH (09:14)
[2022-06-21] MEDS: LIPASE/PROTEASE/AMYLASE 36,000 UNIT CAPSULE PO SCH (09:14)
[2022-06-21] MEDS: ASPIRIN COATED 81 MG TABLET.EC PO SCH (09:14)
[2022-06-21 09:22] LABS: HEMATOCRIT 25.6 % (35.4-49); HEMOGLOBIN 8.2 GM/dL (11.7-16.9); MCH 23.1 pg (25.7-33.7); MCHC 32.3 g/dl (32.0-35.9); MEAN CELL VOLUME 71.7 fl (80-96); MEAN PLT VOLUME 8.7 fl (7.5-11.1); PLATELET COUNT 195 10^3/uL (134-434); RBC 3.57 M/mm3 (4.00-5.60); RDW 23.8 % (11.9-15.9); WHITE BLOOD COUNT 5.3 K/mm3 (4.0-10.0)
[2022-06-21 09:50] LABS: CALCIUM 8.2 mg/dL (8.5-10.1)
[2022-06-21 09:51] LABS: BLOOD UREA NITROGEN 39.8 mg/dL (7-18); MAGNESIUM 2.2 mg/dL (1.8-2.4)
[2022-06-22 16:08] LABS: BODY FLUID ALBUMIN 0.9 g/dL (Not Estab.)
== END 2022-06-21 11:35 | DRG 812 ==
LOC: JER 14:17 → INTOOBSV 16:44 → JERBED 16:44 → UNDOADMOB 16:44 → JERBED 17:20 → J6S 06-14 03:29 → JERBED 06-14 03:29 → OBSVTOIN 06-15 10:04
PROVIDERS: ADMIT Internal Medicine; ATTEND Internal Medicine
PROC: 0W9G3ZX Drainage of Peritoneal Cavity, Percutaneous Approach, Diagnostic (ICD-10-PCS; principal; 2022-06-15)
PROC: 0W9G3ZZ Drainage of Peritoneal Cavity, Percutaneous Approach (ICD-10-PCS; 2022-06-20)
DX: D64.9 Anemia, unspecified (principal); S42.211A Unspecified displaced fracture of surgical neck of right humerus, initial encounter for closed fracture; R18.8 Other ascites; K70.30 Alcoholic cirrhosis of liver without ascites; F10.10 Alcohol abuse, uncomplicated; E11.9 Type 2 diabetes mellitus without complications; I12.9 Hypertensive chronic kidney disease with stage 1 through stage 4 chronic kidney disease, or unspecified chronic kidney disease; E11.22 Type 2 diabetes mellitus with diabetic chronic kidney disease; N18.9 Chronic kidney disease, unspecified; D56.9 Thalassemia, unspecified; I65.21 Occlusion and stenosis of right carotid artery; E83.42 Hypomagnesemia; E83.39 Other disorders of phosphorus metabolism; W01.0XXA Fall on same level from slipping, tripping and stumbling without subsequent striking against object, initial encounter; Y93.89 Activity, other specified; Y92.009 Unspecified place in unspecified non-institutional (private) residence as the place of occurrence of the external cause; Y99.8 Other external cause status; Z79.4 Long term (current) use of insulin
CPT/HCPCS: 0241U-QW; 36415; 36430; 70450-TC; 71045-TC-FY; 71101-TC-RT-FY; 72125-TC; 73030-TC-RT-FY; 73060-TC-RT-FY; 76942-TC; 80048; 80053; 81003; 82042; 82150; 82272; 82465; 82607; 82746; 82945; 82962; 83540; 83550; 83615; 83735; 83883; 83986; 84100; 84155; 84156; 84165; 84166; 84478; 85025; 85027; 85045; 85610; 85730; 86850; 86900; 86901; 86922; 87070; 87075; 87102; 87116; 87205; 87206; 87210; 88108; 88305-TC; 93005; 93010; 93306-TC; 93880-TC; 97116-GP; 97162-GP; 99285-25; C9803-CS; G0378; P9058; U0003; U0005

== ENCOUNTER 2022-09-17 13:09 | Inpatient (IN) | payer OTHER ==
[2022-09-17 13:31] VITALS: BMI 21.7
[2022-09-17] MEDS ORDERED: VANCOMYCIN 1 GM in D5W (PRE-DOCKED) 1,000 MG/250 ML (RESTRICTED TO ID ONLY IVPB ONE (14:19)
[2022-09-17] MEDS ORDERED: PIPERACILLIN/TAZOB 3.375 GM 3.375 GM in DEXTROSE 5%-WATER - 50 ML IVPB ONE (14:19)
[2022-09-17] MEDS ORDERED: ACETAMINOPHEN 1000 MG/100 ML BAG IVPB ONE (14:22)
[2022-09-17] MEDS ORDERED: SODIUM CHLORIDE 1,000 ML IV STA (14:23)
[2022-09-17] MEDS ORDERED: ACETAMINOPHEN INJECTION 100 ML IVPB ONE (15:17)
[2022-09-17] MEDS ORDERED: PIPERACILLIN/TAZOB 3.375 GM 3.375 GM/50 ML BAG IVPB ONE (15:17)
[2022-09-17 15:29] LABS: BASO % 0.4 % (0-2.0); HEMATOCRIT 19.5 % (35.4-49); LYMPH % 5.1 % (8-40); MCH 21.6 pg (25.7-33.7); MCHC 31.7 g/dl (32.0-35.9); MEAN CELL VOLUME 68.1 fl (80-96); MEAN PLT VOLUME 8.7 fl (7.5-11.1); MONO % 5.4 % (3.8-10.2); NEUT % 89.1 % (42.8-82.8); PLATELET COUNT 124 10^3/uL (134-434); RBC 2.86 M/mm3 (4.00-5.60); RDW 17.7 % (11.9-15.9); WHITE BLOOD COUNT 8.7 K/mm3 (4.0-10.0)
[2022-09-17 15:35] LABS: HEMOGLOBIN 6.2 GM/dL (11.7-16.9)
[2022-09-17 15:36] LABS: INR 1.34 (0.83-1.09); PROTHROMBIN TIME (PATIENT) 15.5 SEC (9.7-13.0)
[2022-09-17] MEDS ORDERED: VANCOMYCIN/WATER FOR INJ (PEG) 1,000 MG/200 ML BAG IVPB ONE (15:37)
[2022-09-17 15:38] LABS: ACTIVATED PTT 32.6 SECONDS (25.2-36.5)
[2022-09-17 15:48] LABS: POTASSIUM 4.8 mmol/L (3.5-5.1)
[2022-09-17 15:50] LABS: CALCIUM 8.9 mg/dL (8.5-10.1)
[2022-09-17 15:51] LABS: BLOOD UREA NITROGEN 38.9 mg/dL (7-18)
[2022-09-17 15:54] LABS: CREATININE 1.5 mg/dL (0.55-1.3)
[2022-09-17 15:56] LABS: BILIRUBIN,TOTAL 1.2 mg/dL (0.2-1); TOT PROT 6.3 g/dl (6.4-8.2)
[2022-09-17 15:58] LABS: ANISOCYTOSIS 3+; MACROCYTOSIS 0
[2022-09-17 16:00] LABS: LACTIC ACID 3.1 mmol/L (0.4-2.0)
[2022-09-17 17:05] LABS: URINE APPEARANCE CLEAR; URINE BILIRUBIN NEGATIVE (NEGATIVE); URINE COLOR YELLOW; URINE GLUCOSE (UA) NEGATIVE (NEGATIVE); URINE KETONE NEGATIVE (NEGATIVE); URINE LEUK ESTERASE NEGATIVE (NEGATIVE); URINE NITRITE NEGATIVE (NEGATIVE); URINE PROTEIN TRACE (NEGATIVE); URINE UROBILINOGEN 0.2 mg/dL (0.2-1.0)
[2022-09-17] MEDS ORDERED: PANTOPRAZOLE SODIUM 40 MG VIAL IVPUSH ONE (17:49)
[2022-09-17] MEDS ORDERED: LACTULOSE 20 GM/30 ML UDC (FOR ORAL USE ONLY) ONE (18:27)
[2022-09-17] MEDS ORDERED: PIPERACILLIN/TAZOB 4.5 GM 4.5 GM/100 ML BAG IVPB ONE (18:27)
[2022-09-17] MEDS ORDERED: PANTOPRAZOLE SODIUM 40 MG VIAL ONE (18:27)
[2022-09-17] MEDS: PIPERACILLIN/TAZOB 4.5 GM 4.5 GM in DEXTROSE 5%-WATER 100 ML IVPB SCH (18:37)
[2022-09-17] MEDS: SODIUM CHLORIDE 0.45% 1,000 ML IV SCH ×2 (18:37→23:29)
[2022-09-17] MEDS: LACTULOSE 20 GM/30 ML UDC (FOR ORAL USE ONLY) PO SCH ×2 (18:37→23:30)
[2022-09-17 19:00] LABS: ARTERIAL BLD GAS O2 SATURATION 84.2 % (95-98); ARTERIAL BLOOD GAS BASE EXCESS -2.6 mmol/L (-2-2); ARTERIAL BLOOD GAS PO2 45.2 mmHg (80-100); ARTERIAL BLOOD GAS pH 7.456 (7.350-7.450)
[2022-09-17] MEDS: INSULIN SLIDING SCALE (NOVOLOG) 1 VIAL SQ SCH (19:03)
[2022-09-17 19:10] LABS: ALLENS TEST POSITIVE
[2022-09-17] MEDS ORDERED: PATIENT'S OWN MEDICATION (NON-FORMULARY) (Ferrous Sulfate [Ferrous Sulfate] 325 MG Tablet) PO SCH (22:00)
[2022-09-17] MEDS: FERROUS SO4 325 MG TABLET (FP) PO SCH (23:30)
[2022-09-17] MEDS: RIFAXIMIN 550 MG TABLET PO SCH (23:30)
[2022-09-18] MEDS: PIPERACILLIN/TAZOB 4.5 GM 4.5 GM in DEXTROSE 5%-WATER 100 ML IVPB SCH ×4 (02:08→13:12)
[2022-09-18] MEDS: FERROUS SO4 325 MG TABLET (FP) PO SCH ×3 (05:14→21:53)
[2022-09-18] MEDS: LACTULOSE 20 GM/30 ML UDC (FOR ORAL USE ONLY) PO SCH ×3 (05:14→21:53)
[2022-09-18] MEDS: INSULIN SLIDING SCALE (NOVOLOG) 1 VIAL SQ SCH ×3 (06:29→17:27)
[2022-09-18 09:42] LABS: BASO % 0.6 % (0-2.0); EOS % 0.4 % (0-4.5); HEMATOCRIT 19.1 % (35.4-49); MCHC 32.2 g/dl (32.0-35.9); MEAN CELL VOLUME 71.4 fl (80-96); MEAN PLT VOLUME 9.3 fl (7.5-11.1); MONO % 7.5 % (3.8-10.2); NEUT % 79.5 % (42.8-82.8); PLATELET COUNT 99 10^3/uL (134-434); RBC 2.67 M/mm3 (4.00-5.60); RDW 18.6 % (11.9-15.9); WHITE BLOOD COUNT 6.1 K/mm3 (4.0-10.0)
[2022-09-18] MEDS ORDERED: TAMSULOSIN HCL 0.4 MG CAP PO SCH (10:00)
[2022-09-18 10:01] LABS: POTASSIUM 3.8 mmol/L (3.5-5.1)
[2022-09-18 10:03] LABS: HEMOGLOBIN 6.1 GM/dL (11.7-16.9)
[2022-09-18 10:08] LABS: CALCIUM 8.3 mg/dL (8.5-10.1)
[2022-09-18 10:09] LABS: BLOOD UREA NITROGEN 37.1 mg/dL (7-18)
[2022-09-18 10:12] LABS: CREATININE 1.5 mg/dL (0.55-1.3)
[2022-09-18] MEDS: RIFAXIMIN 550 MG TABLET PO SCH ×2 (10:35→21:53)
[2022-09-18] MEDS: FUROSEMIDE 20 MG TABLET (FP) PO SCH (10:35)
[2022-09-18] MEDS: PANTOPRAZOLE SODIUM 40 MG VIAL IVPUSH SCH ×2 (10:35→21:53)
[2022-09-18] MEDS ORDERED: ACETAMINOPHEN 325 MG TABLET (FP) PO ONE (13:30)
[2022-09-18] MEDS: SODIUM CHLORIDE 0.45% 1,000 ML IV SCH (17:26)
[2022-09-18] MEDS: PIPERACILLIN/TAZOB 3.375 GM 3.375 GM in DEXTROSE 5%-WATER - 50 ML IVPB SCH (17:27)
[2022-09-18 18:52] LABS: BF WBC & OTHER NUCLEATED CELLS 77 /mm3
[2022-09-18 19:01] LABS: BODY FLUID MONOCYTE 12 %
[2022-09-18 20:58] LABS: BASO % 0.5 % (0-2.0); EOS % 1.7 % (0-4.5); HEMATOCRIT 21.4 % (35.4-49); LYMPH % 12.9 % (8-40); MCH 23.3 pg (25.7-33.7); MCHC 32.3 g/dl (32.0-35.9); MEAN CELL VOLUME 72.1 fl (80-96); MEAN PLT VOLUME 9.2 fl (7.5-11.1); MONO % 10.6 % (3.8-10.2); NEUT % 74.3 % (42.8-82.8); PLATELET COUNT 93 10^3/uL (134-434); RBC 2.97 M/mm3 (4.00-5.60); RDW 18.8 % (11.9-15.9); WHITE BLOOD COUNT 6.1 K/mm3 (4.0-10.0)
[2022-09-18 21:01] LABS: HEMOGLOBIN 6.9 GM/dL (11.7-16.9)
[2022-09-18] MEDS: SUCRALFATE 1 GM TABLET (FP) PO SCH (22:17)
[2022-09-19] MEDS: PIPERACILLIN/TAZOB 3.375 GM 3.375 GM in DEXTROSE 5%-WATER - 50 ML IVPB SCH ×3 (01:08→17:08)
[2022-09-19] MEDS: LACTULOSE 20 GM/30 ML UDC (FOR ORAL USE ONLY) PO SCH ×3 (05:14→21:11)
[2022-09-19] MEDS: FERROUS SO4 325 MG TABLET (FP) PO SCH ×3 (05:14→21:11)
[2022-09-19] MEDS: INSULIN SLIDING SCALE (NOVOLOG) 1 VIAL SQ SCH ×4 (07:04→16:54)
[2022-09-19] MEDS: TAMSULOSIN HCL 0.4 MG CAP PO SCH (08:05)
[2022-09-19] MEDS: FUROSEMIDE 20 MG TABLET (FP) PO SCH (09:22)
[2022-09-19] MEDS: RIFAXIMIN 550 MG TABLET PO SCH ×2 (09:22→21:11)
[2022-09-19] MEDS: PANTOPRAZOLE SODIUM 40 MG VIAL IVPUSH SCH ×2 (09:22→21:11)
[2022-09-19] MEDS: SUCRALFATE 1 GM TABLET (FP) PO SCH ×2 (09:22→21:11)
[2022-09-19 11:03] LABS: BF WBC & OTHER NUCLEATED CELLS 65 /mm3
[2022-09-19 11:14] LABS: BASO % 0.6 % (0-2.0); EOS % 3.7 % (0-4.5); HEMATOCRIT 22.4 % (35.4-49); HEMOGLOBIN 7.2 GM/dL (11.7-16.9); LYMPH % 15.9 % (8-40); MCHC 32.1 g/dl (32.0-35.9); MEAN CELL VOLUME 71.8 fl (80-96); MEAN PLT VOLUME 9.7 fl (7.5-11.1); MONO % 9.9 % (3.8-10.2); NEUT % 69.9 % (42.8-82.8); PLATELET COUNT 105 10^3/uL (134-434); RBC 3.13 M/mm3 (4.00-5.60); RDW 18.3 % (11.9-15.9); WHITE BLOOD COUNT 5.7 K/mm3 (4.0-10.0)
[2022-09-19 11:15] LABS: BODY FLUID BASOPHIL 0 %; BODY FLUID HISTIOCYTES 0 %; BODY FLUID MACROPHAGES 17 %; BODY FLUID MONOCYTE 0 %; BODY FLUID PLASMA CELL 0 %; BODYL FLD EOSINOPHIL 0 %
[2022-09-19 11:19] LABS: INR 1.36 (0.83-1.09); PROTHROMBIN TIME (PATIENT) 15.7 SEC (9.7-13.0)
[2022-09-19 11:38] LABS: POTASSIUM 3.7 mmol/L (3.5-5.1)
[2022-09-19 11:41] LABS: ALBUMIN 1.7 g/dl (3.4-5.0); BLOOD UREA NITROGEN 35.9 mg/dL (7-18); CALCIUM 7.8 mg/dL (8.5-10.1)
[2022-09-19 11:44] LABS: CREATININE 1.7 mg/dL (0.55-1.3)
[2022-09-19 11:46] LABS: BILIRUBIN,TOTAL 1.7 mg/dL (0.2-1); TOT PROT 5.4 g/dl (6.4-8.2)
[2022-09-19] MEDS ORDERED: IRON SUCROSE INJECTION 200 MG in SODIUM CHLORIDE 90 ML IVPB ONE (14:00)
[2022-09-19 16:06] LABS: HEMATOCRIT 22.5 % (35.4-49); HEMOGLOBIN 7.3 GM/dL (11.7-16.9); MCH 23.1 pg (25.7-33.7); MCHC 32.4 g/dl (32.0-35.9); MEAN CELL VOLUME 71.1 fl (80-96); MEAN PLT VOLUME 9.1 fl (7.5-11.1); PLATELET COUNT 98 10^3/uL (134-434); RBC 3.16 M/mm3 (4.00-5.60); RDW 18.8 % (11.9-15.9); WHITE BLOOD COUNT 5.3 K/mm3 (4.0-10.0)
[2022-09-19 16:46] LABS: ANISOCYTOSIS 2+; MACROCYTOSIS 0; OVALOCYTE 1+; TARGET CELLS 1+
[2022-09-19] MEDS: SODIUM CHLORIDE 0.45% 1,000 ML IV SCH (20:46)
[2022-09-20] MEDS: PIPERACILLIN/TAZOB 3.375 GM 3.375 GM in DEXTROSE 5%-WATER - 50 ML IVPB SCH ×3 (01:38→17:44)
[2022-09-20] MEDS: SODIUM CHLORIDE 0.45% 1,000 ML IV SCH ×2 (03:27→16:00)
[2022-09-20] MEDS: LACTULOSE 20 GM/30 ML UDC (FOR ORAL USE ONLY) PO SCH ×4 (06:13→21:31)
[2022-09-20] MEDS: INSULIN SLIDING SCALE (NOVOLOG) 1 VIAL SQ SCH ×3 (06:13→17:05)
[2022-09-20] MEDS: FERROUS SO4 325 MG TABLET (FP) PO SCH ×3 (06:13→21:32)
[2022-09-20] MEDS: TAMSULOSIN HCL 0.4 MG CAP PO SCH (08:42)
[2022-09-20 08:58] LABS: INR 1.3 (0.83-1.09)
[2022-09-20 09:04] LABS: BASO % 0.8 % (0-2.0); HEMATOCRIT 21.1 % (35.4-49); LYMPH % 20.3 % (8-40); MCHC 32.2 g/dl (32.0-35.9); MEAN CELL VOLUME 71.3 fl (80-96); MEAN PLT VOLUME 9.4 fl (7.5-11.1); MONO % 9.5 % (3.8-10.2); NEUT % 64.4 % (42.8-82.8); PLATELET COUNT 116 10^3/uL (134-434); RBC 2.96 M/mm3 (4.00-5.60); RDW 18.3 % (11.9-15.9); WHITE BLOOD COUNT 4.9 K/mm3 (4.0-10.0)
[2022-09-20 09:09] VITALS: RESP 18
[2022-09-20 09:15] LABS: POTASSIUM 3.5 mmol/L (3.5-5.1)
[2022-09-20 09:24] LABS: ALBUMIN 1.6 g/dl (3.4-5.0); BLOOD UREA NITROGEN 26.8 mg/dL (7-18); CALCIUM 7.9 mg/dL (8.5-10.1)
[2022-09-20 09:27] LABS: CREATININE 1.5 mg/dL (0.55-1.3)
[2022-09-20 09:28] LABS: HEMOGLOBIN 6.8 GM/dL (11.7-16.9)
[2022-09-20] MEDS ORDERED: IRON SUCROSE INJECTION 200 MG in SODIUM CHLORIDE 90 ML IVPB ONE (10:00)
[2022-09-20] MEDS: PANTOPRAZOLE SODIUM 40 MG VIAL IVPUSH SCH ×2 (10:01→21:32)
[2022-09-20] MEDS: RIFAXIMIN 550 MG TABLET PO SCH ×2 (10:01→21:32)
[2022-09-20] MEDS: SUCRALFATE 1 GM TABLET (FP) PO SCH ×2 (10:01→21:32)
[2022-09-20] MEDS: FUROSEMIDE 20 MG TABLET (FP) PO SCH (10:01)
[2022-09-20 13:09] LABS: BODY FLUID ALBUMIN 0.8 g/dL (Not Estab.)
[2022-09-20 13:09] LABS: BODY FLUID ALBUMIN 0.6 g/dL (Not Estab.)
[2022-09-21] MEDS: PIPERACILLIN/TAZOB 3.375 GM 3.375 GM in DEXTROSE 5%-WATER - 50 ML IVPB SCH ×2 (01:49→09:25)
[2022-09-21] MEDS: LACTULOSE 20 GM/30 ML UDC (FOR ORAL USE ONLY) PO SCH (05:12)
[2022-09-21] MEDS: SODIUM CHLORIDE 0.45% 1,000 ML IV SCH (05:13)
[2022-09-21] MEDS: FERROUS SO4 325 MG TABLET (FP) PO SCH (05:13)
[2022-09-21] MEDS: INSULIN SLIDING SCALE (NOVOLOG) 1 VIAL SQ SCH ×2 (06:27→10:59)
[2022-09-21] MEDS: TAMSULOSIN HCL 0.4 MG CAP PO SCH (08:49)
[2022-09-21] MEDS: FUROSEMIDE 20 MG TABLET (FP) PO SCH (09:25)
[2022-09-21] MEDS: RIFAXIMIN 550 MG TABLET PO SCH (09:25)
[2022-09-21] MEDS: SUCRALFATE 1 GM TABLET (FP) PO SCH (09:25)
[2022-09-21] MEDS: PANTOPRAZOLE SODIUM 40 MG VIAL IVPUSH SCH (09:25)
[2022-09-21] MEDS ORDERED: IRON SUCROSE INJECTION 200 MG in SODIUM CHLORIDE 90 ML IVPB ONE (10:00)
[2022-09-21 10:54] VITALS: BP 109/40; PULSE 54; TEMP 98.3
== END 2022-09-21 10:59 | disposition short-term general hospital (02) | DRG 919 ==
LOC: JER 13:09 → EDBD 17:44 → JERBED 17:44 → MERGE 17:44 → J5S 21:31
PROVIDERS: ADMIT Internal Medicine; ATTEND Student in an Organized Health Care Education/Training Program
PROC: 30233N1 Transfusion of Nonautologous Red Blood Cells into Peripheral Vein, Percutaneous Approach (ICD-10-PCS; 2022-09-17)
PROC: 0W9G3ZX Drainage of Peritoneal Cavity, Percutaneous Approach, Diagnostic (ICD-10-PCS; principal; 2022-09-18)
DX: T85.698A Other mechanical complication of other specified internal prosthetic devices, implants and grafts, initial encounter (principal); A41.9 Sepsis, unspecified organism; K92.2 Gastrointestinal hemorrhage, unspecified; R18.8 Other ascites; K74.60 Unspecified cirrhosis of liver; E11.9 Type 2 diabetes mellitus without complications; I11.0 Hypertensive heart disease with heart failure; D50.9 Iron deficiency anemia, unspecified; K21.9 Gastro-esophageal reflux disease without esophagitis; Y83.9 Surgical procedure, unspecified as the cause of abnormal reaction of the patient, or of later complication, without mention of misadventure at the time of the procedure; N40.0 Benign prostatic hyperplasia without lower urinary tract symptoms; I50.9 Heart failure, unspecified
CPT/HCPCS: 0241U-QW; 36415; 36430; 36600; 71045-TC-FY; 74176-TC; 76942-TC; 80048; 80053; 81003; 82042; 82140; 82150; 82272; 82465; 82607; 82728; 82746; 82803; 82945; 82962; 83540; 83550; 83605; 83615; 83986; 84157; 84478; 84484; 85025; 85610; 85730; 86850; 86900; 86901; 86922; 87040; 87070; 87075; 87086; 87102; 87116; 87205; 87206; 87210; 87635; 88108; 88305-TC; 93005; 93010; 97116-GP; 97161-GP; 99285-25; J1756; P9058

== ENCOUNTER 2023-09-24 15:26 | Inpatient (IN) | payer OTHER ==
[2023-09-24 16:56] LABS: BASO % 0.5 % (0-2.0); LYMPH % 20.8 % (8-40); MCH 23.5 pg (25.7-33.7); MCHC 31.6 g/dl (32.0-35.9); MEAN CELL VOLUME 74.4 fl (80-96); MEAN PLT VOLUME 7.7 fl (7.5-11.1); MONO % 8.4 % (3.8-10.2); NEUT % 63.3 % (42.8-82.8); PLATELET COUNT 150 10^3/uL (134-434); RBC 2.15 M/mm3 (4.00-5.60); RDW 20.8 % (11.9-15.9); WHITE BLOOD COUNT 4.5 K/mm3 (4.0-10.0)
[2023-09-24 17:03] LABS: INR 1.17 (0.83-1.09); PROTHROMBIN TIME (PATIENT) 13.4 SEC (9.7-13.0)
[2023-09-24] MEDS ORDERED: PANTOPRAZOLE SODIUM 40 MG VIAL ONE (17:05)
[2023-09-24 17:06] LABS: ACTIVATED PTT 31.4 SECONDS (25.2-36.5)
[2023-09-24] MEDS: PANTOPRAZOLE SODIUM 40 MG VIAL IVPUSH ONE (17:10)
[2023-09-24 17:18] LABS: ANISOCYTOSIS 2+; MACROCYTOSIS 1+; OVALOCYTE 1+; TEAR DROP CELLS 1+
[2023-09-24 17:22] LABS: POTASSIUM 5.2 mmol/L (3.5-5.1)
[2023-09-24 17:24] LABS: CALCIUM 8.4 mg/dL (8.5-10.1)
[2023-09-24 17:25] LABS: ALBUMIN 2.1 g/dl (3.4-5.0); BLOOD UREA NITROGEN 46.8 mg/dL (7-18); MAGNESIUM 1.6 mg/dL (1.8-2.4)
[2023-09-24 17:28] LABS: CREATININE 1.5 mg/dL (0.55-1.3); PHOSPHOROUS 3.2 mg/dL (2.5-4.9)
[2023-09-24 17:29] LABS: BILIRUBIN,TOTAL 0.9 mg/dL (0.2-1); IRON SERUM 55 ug/dL (50-175); TOTAL IRON BINDING CAPACITY 178 ug/dL (250-450)
[2023-09-24 17:30] LABS: TOT PROT 5.4 g/dl (6.4-8.2)
[2023-09-24 17:33] LABS: N-TERMINAL BNP 2144.2 pg/ml (5-450)
[2023-09-24] MEDS ORDERED: MAGNESIUM SULFATE IN WATER 2 GM/50 ML IVPB IVPB ONE (17:36)
[2023-09-24] MEDS: MAGNESIUM SULFATE IN WATER 2 GM/50 ML IVPB IVPB ONE (17:40)
[2023-09-24] MEDS ORDERED: SODIUM ZIRCONIUM CYCLOSILICATE (LOKELMA) 10 GM PACKET ONE (20:48)
[2023-09-24] MEDS: SODIUM ZIRCONIUM CYCLOSILICATE (LOKELMA) 5 GM PACKET PO ONE (20:54)
[2023-09-24] MEDS ORDERED: FUROSEMIDE 40 MG/4 ML INJECTABLE VIAL ONE (21:39)
[2023-09-24] MEDS: FUROSEMIDE 40 MG/4 ML INJECTABLE VIAL IVPUSH ONE (21:50)
[2023-09-25] MEDS: INSULIN ASPART SLIDING SCALE (NOVOLOG) 1 VIAL SQ SCH (00:35)
[2023-09-25 01:17] VITALS: BMI 27.5
[2023-09-25] MEDS: OCTREOTIDE ACETATE 200 MCG, OCTREOTIDE ACETATE 1,000 MCG in DEXTROSE 5%-WATER - 496 ML IVPB SCH (04:15)
[2023-09-25 05:09] LABS: HEMATOCRIT 22.8 % (35.4-49); HEMOGLOBIN 7.6 GM/dL (11.7-16.9); MCH 25.5 pg (25.7-33.7); MCHC 33.4 g/dl (32.0-35.9); MEAN CELL VOLUME 76.4 fl (80-96); MEAN PLT VOLUME 8.5 fl (7.5-11.1); PLATELET COUNT 146 10^3/uL (134-434); RBC 2.98 M/mm3 (4.00-5.60); RDW 20.5 % (11.9-15.9); WHITE BLOOD COUNT 5.4 K/mm3 (4.0-10.0)
[2023-09-25 05:21] LABS: POTASSIUM 4.5 mmol/L (3.5-5.1)
[2023-09-25 05:23] LABS: CALCIUM 8.7 mg/dL (8.5-10.1)
[2023-09-25 05:24] LABS: ALBUMIN 2.2 g/dl (3.4-5.0); BLOOD UREA NITROGEN 44.8 mg/dL (7-18); MAGNESIUM 1.8 mg/dL (1.8-2.4)
[2023-09-25 05:27] LABS: CREATININE 1.5 mg/dL (0.55-1.3); PHOSPHOROUS 3.4 mg/dL (2.5-4.9)
[2023-09-25 05:28] LABS: BILIRUBIN,TOTAL 2.6 mg/dL (0.2-1); TOT PROT 5.5 g/dl (6.4-8.2)
[2023-09-25] MEDS: FUROSEMIDE 20 MG TABLET (FP) PO SCH (06:05)
[2023-09-25 06:49] VITALS: RESP 18
[2023-09-25] MEDS: PANTOPRAZOLE SODIUM 40 MG VIAL IVPUSH SCH (10:39)
[2023-09-25] MEDS: FOLIC ACID 1 MG TABLET (FP) PO SCH (10:40)
[2023-09-25] MEDS: INSULIN (LEVEMIR) 100 UNITS/ML UNITS SQ SCH (10:40)
[2023-09-25] MEDS: RIFAXIMIN 550 MG TABLET PO SCH (10:40)
[2023-09-25] MEDS: THIAMINE 100 MG TABLET PO SCH (10:40)
[2023-09-25] MEDS: TERAZOSIN HCL 2 MG CAPSULE PO SCH (14:06)
[2023-09-25] MEDS ORDERED: INSULIN ASPART SLIDING SCALE (NOVOLOG) 1 VIAL SQ ONE (17:37)
[2023-09-25] MEDS: TERAZOSIN HCL 1 MG CAPSULE PO SCH (22:04)
[2023-09-26 06:59] LABS: BASO % 0.8 % (0-2.0); EOS % 6.6 % (0-4.5); HEMATOCRIT 22.3 % (35.4-49); HEMOGLOBIN 7.4 GM/dL (11.7-16.9); LYMPH % 26.2 % (8-40); MCH 25.3 pg (25.7-33.7); MEAN CELL VOLUME 76.7 fl (80-96); MEAN PLT VOLUME 8.3 fl (7.5-11.1); MONO % 8.4 % (3.8-10.2); PLATELET COUNT 145 10^3/uL (134-434); RBC 2.91 M/mm3 (4.00-5.60); RDW 20.1 % (11.9-15.9); WHITE BLOOD COUNT 4.3 K/mm3 (4.0-10.0)
[2023-09-26 07:08] LABS: INR 1.23 (0.83-1.09); PROTHROMBIN TIME (PATIENT) 13.8 SEC (9.7-13.0)
[2023-09-26 07:09] LABS: POTASSIUM 4.7 mmol/L (3.5-5.1)
[2023-09-26 07:13] LABS: ALBUMIN 2.1 g/dl (3.4-5.0); BLOOD UREA NITROGEN 41.6 mg/dL (7-18); MAGNESIUM 1.5 mg/dL (1.8-2.4)
[2023-09-26 07:16] LABS: CREATININE 1.5 mg/dL (0.55-1.3)
[2023-09-26 07:18] LABS: BILIRUBIN,TOTAL 2.4 mg/dL (0.2-1); TOT PROT 5.3 g/dl (6.4-8.2)
[2023-09-26] MEDS: PANTOPRAZOLE 40 MG TABLET PO SCH (09:52)
[2023-09-26] MEDS: MAGNESIUM SULF 50% (8.12 MEQ/2 ML-1 GM VIAL) IVPB ONE (09:53)
[2023-09-26] MEDS ORDERED: INSULIN ASPART SLIDING SCALE (NOVOLOG) 1 VIAL SQ ONE ×2 (11:39→17:11)
[2023-09-26] MEDS: LACTULOSE 10 GM PO SCH (12:21)
[2023-09-26 13:12] LABS: HEMATOCRIT 23.7 % (35.4-49); HEMOGLOBIN 7.7 GM/dL (11.7-16.9); MCHC 32.3 g/dl (32.0-35.9); MEAN CELL VOLUME 77.3 fl (80-96); MEAN PLT VOLUME 8.3 fl (7.5-11.1); PLATELET COUNT 142 10^3/uL (134-434); RBC 3.07 M/mm3 (4.00-5.60); RDW 19.8 % (11.9-15.9); WHITE BLOOD COUNT 4.1 K/mm3 (4.0-10.0)
[2023-09-26 18:38] VITALS: BP 147/44; PULSE 54; TEMP 98.1
== END 2023-09-26 19:36 | disposition home or self-care (01) | DRG 378 ==
LOC: JER 15:26 → JERBED 17:48 → OBSVTOIN 21:10 → J7W 09-25 02:09
PROVIDERS: ADMIT Internal Medicine; ATTEND Nurse Practitioner Acute Care
PROC: 30233N1 Transfusion of Nonautologous Red Blood Cells into Peripheral Vein, Percutaneous Approach (ICD-10-PCS; principal; 2023-09-24)
DX: K92.2 Gastrointestinal hemorrhage, unspecified (principal); I13.0 Hypertensive heart and chronic kidney disease with heart failure and stage 1 through stage 4 chronic kidney disease, or unspecified chronic kidney disease; D64.9 Anemia, unspecified; E11.22 Type 2 diabetes mellitus with diabetic chronic kidney disease; K74.60 Unspecified cirrhosis of liver; I50.9 Heart failure, unspecified; E83.42 Hypomagnesemia; N18.9 Chronic kidney disease, unspecified; D50.9 Iron deficiency anemia, unspecified
CPT/HCPCS: 0241U-QW; 36415; 36430; 71045-TC-FY; 80053; 82140; 82272; 82962; 83036; 83540; 83550; 83735; 83880; 84100; 84484; 85025; 85027; 85610; 85730; 86850; 86900; 86901; 86922; 93005; 93010; 97116-GP; 97161-GP; 99285-25; G0378; P9038; P9058

== ENCOUNTER 2024-05-09 13:33 | Inpatient (IN) | payer OTHER ==
[2024-05-09] MEDS: ACETAMINOPHEN 1000 MG/100 ML BAG IVPB ONE (15:00)
[2024-05-09] MEDS ORDERED: ACETAMINOPHEN INJECTION 100 ML ONE (15:02)
[2024-05-09 15:05] LABS: BASO % 0.2 % (0-2.0); HEMATOCRIT 21.3 % (35.4-49); LYMPH % 5.1 % (8-40); MCH 21.7 pg (25.7-33.7); MCHC 31.3 g/dl (32.0-35.9); MEAN CELL VOLUME 69.2 fl (80-96); MEAN PLT VOLUME 9.1 fl (7.5-11.1); MONO % 6.8 % (3.8-10.2); NEUT % 87.9 % (42.8-82.8); PLATELET COUNT 111 10^3/uL (134-434); RBC 3.07 M/mm3 (4.00-5.60); WHITE BLOOD COUNT 6.8 K/mm3 (4.0-10.0)
[2024-05-09 15:07] LABS: INR 1.41 (0.83-1.09); PROTHROMBIN TIME (PATIENT) 15.4 SEC (9.7-13.0)
[2024-05-09 15:09] LABS: ACTIVATED PTT 32.9 SECONDS (25.2-36.5); HEMOGLOBIN 6.7 GM/dL (11.7-16.9)
[2024-05-09 15:26] LABS: POTASSIUM 4.8 mmol/L (3.5-5.1)
[2024-05-09 15:28] LABS: BLOOD UREA NITROGEN 52.9 mg/dL (7-18); CALCIUM 8.3 mg/dL (8.5-10.1)
[2024-05-09 15:29] LABS: ALBUMIN 2.4 g/dl (3.4-5.0); MAGNESIUM 1.4 mg/dL (1.8-2.4)
[2024-05-09 15:32] LABS: CREATININE 1.8 mg/dL (0.55-1.3)
[2024-05-09 15:33] LABS: BILIRUBIN,TOTAL 1.7 mg/dL (0.2-1); TOT PROT 5.9 g/dl (6.4-8.2)
[2024-05-09 15:37] LABS: ANISOCYTOSIS 2+; MACROCYTOSIS 0; OVALOCYTE 2+
[2024-05-09 18:16] LABS: EPI CELLS 9 /uL (0-25.1); HYALINE CASTS 1 /uL (0-3.1); URINE APPEARANCE CLEAR; URINE BACTERIA 20 /uL (0-1359); URINE BILIRUBIN NEGATIVE (NEGATIVE); URINE COLOR YELLOW; URINE GLUCOSE (UA) NEGATIVE (NEGATIVE); URINE KETONE NEGATIVE (NEGATIVE); URINE LEUK ESTERASE NEGATIVE (NEGATIVE); URINE NITRITE NEGATIVE (NEGATIVE); URINE PROTEIN 1+ (NEGATIVE); URINE RBC 46 /uL (0-23.9); URINE UROBILINOGEN 0.2 mg/dL (0.2-1.0); URINE WBC 12 /uL (0-25.8)
[2024-05-09] MEDS: MAGNESIUM 1GM/D5W - 1 GM/100 ML IVPB IVPB ONE (18:19)
[2024-05-09] MEDS ORDERED: MAGNESIUM 1GM/D5W - 1 GM/100 ML IVPB IVPB ONE (18:30)
[2024-05-09] MEDS: VANCOMYCIN 1 GM PREMIX (F) 1 GM/200 ML BAG IVPB ONE (20:36)
[2024-05-09] MEDS ORDERED: HEPARIN NA (PORCINE) 5,000 UNITS/ML 1ML VIAL SQ SCH (22:00)
[2024-05-09] MEDS: RIFAXIMIN 550 MG TABLET PO SCH (22:54)
[2024-05-10 02:30] LABS: HEMATOCRIT 21.5 % (35.4-49); MCH 22.5 pg (25.7-33.7); MCHC 31.4 g/dl (32.0-35.9); MEAN CELL VOLUME 71.8 fl (80-96); MEAN PLT VOLUME 8.3 fl (7.5-11.1); PLATELET COUNT 83 10^3/uL (134-434); RBC 2.99 M/mm3 (4.00-5.60); RDW 18.8 % (11.9-15.9); WHITE BLOOD COUNT 7.3 K/mm3 (4.0-10.0)
[2024-05-10] MEDS: SODIUM CHLORIDE 1,000 ML IV SCH (02:30)
[2024-05-10 02:34] LABS: HEMOGLOBIN 6.7 GM/dL (11.7-16.9)
[2024-05-10] MEDS: INSULIN ASPART SLIDING SCALE (NOVOLOG) 1 VIAL SQ SCH (06:46)
[2024-05-10] MEDS: INSULIN (LEVEMIR) 100 UNITS/ML UNITS SQ SCH (06:47)
[2024-05-10] MEDS: VANCOMYCIN/WATER 1250 MG 1,250 MG/250 ML BAG IVPB SCH ×2 (08:36→14:13)
[2024-05-10] MEDS: TAMSULOSIN HCL 0.4 MG CAP PO SCH (09:16)
[2024-05-10] MEDS: PANTOPRAZOLE 40 MG TABLET PO SCH (09:16)
[2024-05-10] MEDS: FOLIC ACID 1 MG TABLET (FP) PO SCH (09:16)
[2024-05-10] MEDS: THIAMINE 100 MG TABLET PO SCH (09:16)
[2024-05-10 09:42] LABS: BASO % 0.6 % (0-2.0); EOS % 2.6 % (0-4.5); HEMATOCRIT 25.5 % (35.4-49); HEMOGLOBIN 8.1 GM/dL (11.7-16.9); LYMPH % 5.3 % (8-40); MCH 23.1 pg (25.7-33.7); MCHC 31.9 g/dl (32.0-35.9); MEAN CELL VOLUME 72.6 fl (80-96); MONO % 8.1 % (3.8-10.2); NEUT % 83.4 % (42.8-82.8); PLATELET COUNT 94 10^3/uL (134-434); RBC 3.51 M/mm3 (4.00-5.60); RDW 20.1 % (11.9-15.9); RETICULOCYTES 1.36 % (0.5-1.5); WHITE BLOOD COUNT 8.4 K/mm3 (4.0-10.0)
[2024-05-10 09:56] LABS: POTASSIUM 4.8 mmol/L (3.5-5.1)
[2024-05-10 09:58] LABS: CALCIUM 8.2 mg/dL (8.5-10.1)
[2024-05-10 09:59] LABS: ALBUMIN 2.2 g/dl (3.4-5.0); BLOOD UREA NITROGEN 56.2 mg/dL (7-18); MAGNESIUM 1.6 mg/dL (1.8-2.4)
[2024-05-10] MEDS ORDERED: TAMSULOSIN HCL 0.4 MG CAP PO SCH (10:00)
[2024-05-10 10:01] LABS: BILIRUBIN,DIRECT 1.2 mg/dL (0.0-0.2); PHOSPHOROUS 2.8 mg/dL (2.5-4.9)
[2024-05-10 10:02] LABS: CREATININE 1.6 mg/dL (0.55-1.3)
[2024-05-10 10:03] LABS: BILIRUBIN,TOTAL 3.3 mg/dL (0.2-1); TOT PROT 5.3 g/dl (6.4-8.2)
[2024-05-10] MEDS: ACETAMINOPHEN 325 MG TABLET (FP) PO PRN (11:14)
[2024-05-10] MEDS: MAGNESIUM 1GM/D5W - 1 GM/100 ML IVPB IVPB ONE (11:15)
[2024-05-10] MEDS: CEFAZOLIN 1 GM/D5W 1 GM/50 ML BAG IVPB SCH (14:26)
[2024-05-10] MEDS: oxyCODONE HCL 5 MG TABLET PO PRN (17:23)
[2024-05-11 08:12] LABS: INR 1.45 (0.83-1.09); PROTHROMBIN TIME (PATIENT) 15.8 SEC (9.7-13.0)
[2024-05-11 08:23] LABS: POTASSIUM 5.2 mmol/L (3.5-5.1)
[2024-05-11 08:25] LABS: CALCIUM 8.2 mg/dL (8.5-10.1)
[2024-05-11 08:26] LABS: ALBUMIN 2.2 g/dl (3.4-5.0)
[2024-05-11 08:28] LABS: CREATININE 1.7 mg/dL (0.55-1.3)
[2024-05-11 08:30] LABS: BILIRUBIN,TOTAL 1.9 mg/dL (0.2-1); TOT PROT 5.3 g/dl (6.4-8.2)
[2024-05-11] MEDS: LACTULOSE 20 GM/30 ML UDC (FOR ORAL USE ONLY) PO SCH ×2 (09:34→10:27)
[2024-05-11] MEDS ORDERED: SODIUM ZIRCONIUM CYCLOSILICATE (LOKELMA) 5 GM PACKET PO STA (11:54)
[2024-05-11] MEDS ORDERED: PIPERACILLIN/TAZOB 3.375 GM 3.375 GM in DEXTROSE 5%-WATER - 50 ML IVPB SCH (12:00)
[2024-05-11] MEDS ORDERED: VANCOMYCIN/WATER 1250 MG 1,250 MG/250 ML BAG IVPB SCH (12:00)
[2024-05-11] MEDS: PIPERACILLIN/TAZOB 3.375 GM 50 ML IVPB SCH (12:50)
[2024-05-11] MEDS: SODIUM CHLORIDE 1,000 ML IV SCH (13:03)
[2024-05-11] MEDS: NIFEdipine E.R. 30 MG TABLET PO SCH (13:04)
[2024-05-11] MEDS: VANCOMYCIN/WATER 1250 MG 1,250 MG/250 ML BAG IVPB SCH (13:10)
[2024-05-11] MEDS: SODIUM ZIRCONIUM CYCLOSILICATE (LOKELMA) 5 GM PACKET PO STA (13:24)
[2024-05-11 14:53] LABS: BF WBC & OTHER NUCLEATED CELLS 60 /mm3; BODY FLUID MACROPHAGES 52 %
[2024-05-11 14:54] LABS: BODY FLUID MESOTHELIAL 2 %; BODY FLUID MONOCYTE 5 %
[2024-05-11] MEDS ORDERED: ALBUMIN HUMAN 25% 12.5 GM/50 ML VIAL IV ONE (15:12)
[2024-05-12 07:58] LABS: HEMATOCRIT 23.8 % (35.4-49); HEMOGLOBIN 7.6 GM/dL (11.7-16.9); MCH 23.1 pg (25.7-33.7); MCHC 32.1 g/dl (32.0-35.9); MEAN CELL VOLUME 72.1 fl (80-96); MEAN PLT VOLUME 9.2 fl (7.5-11.1); PLATELET COUNT 101 10^3/uL (134-434); RDW 18.9 % (11.9-15.9); WHITE BLOOD COUNT 7.6 K/mm3 (4.0-10.0)
[2024-05-12 08:20] LABS: POTASSIUM 4.3 mmol/L (3.5-5.1)
[2024-05-12 08:23] LABS: CALCIUM 7.9 mg/dL (8.5-10.1)
[2024-05-12 08:24] LABS: BLOOD UREA NITROGEN 59.6 mg/dL (7-18); MAGNESIUM 1.9 mg/dL (1.8-2.4)
[2024-05-12 08:27] LABS: CREATININE 2.2 mg/dL (0.55-1.3); PHOSPHOROUS 3.1 mg/dL (2.5-4.9)
[2024-05-12 08:28] LABS: BILIRUBIN,TOTAL 2.1 mg/dL (0.2-1)
[2024-05-12] MEDS: PIPERACILLIN/TAZOB 2.25 GM 2.25 GM/50 ML BAG IVPB SCH (11:39)
[2024-05-12] MEDS: SODIUM CHLORIDE 0.45% 1,000 ML IV SCH (11:43)
[2024-05-12 12:15] LABS: HEMATOCRIT 25.2 % (35.4-49); HEMOGLOBIN 8.3 GM/dL (11.7-16.9); MCH 23.5 pg (25.7-33.7); MCHC 32.9 g/dl (32.0-35.9); MEAN CELL VOLUME 71.6 fl (80-96); MEAN PLT VOLUME 9.4 fl (7.5-11.1); PLATELET COUNT 105 10^3/uL (134-434); RBC 3.52 M/mm3 (4.00-5.60); RDW 19.6 % (11.9-15.9); WHITE BLOOD COUNT 8.7 K/mm3 (4.0-10.0)
[2024-05-12 13:18] LABS: ANISOCYTOSIS 0; MACROCYTOSIS 0; OVALOCYTE 1+; TARGET CELLS 1+
[2024-05-12 15:07] LABS: BODY FLUID ALBUMIN 0.9 g/dL (Not Estab.)
[2024-05-12] MEDS ORDERED: oxyCODONE HCL 5 MG TABLET PO PRN (20:24)
[2024-05-12] MEDS: LACTULOSE 20 GM/30 ML UDC (FOR ORAL USE ONLY) PO SCH (21:29)
[2024-05-12] MEDS: RIFAXIMIN 550 MG TABLET PO SCH (21:29)
[2024-05-13 05:52] LABS: ARTERIAL BLD GAS O2 SATURATION 96.7 % (95-98); ARTERIAL BLOOD GAS BASE EXCESS -11.3 mmol/L (-2-2); ARTERIAL BLOOD GAS pH 7.368 (7.350-7.450)
[2024-05-13 05:55] LABS: ALLENS TEST POSITIVE
[2024-05-13] MEDS: INSULIN (LEVEMIR) 100 UNITS/ML UNITS SQ SCH (06:07)
[2024-05-13] MEDS: INSULIN ASPART SLIDING SCALE (NOVOLOG) 1 VIAL SQ SCH (06:08)
[2024-05-13 08:26] LABS: HEMOGLOBIN 7.3 GM/dL (11.7-16.9); MCH 23.3 pg (25.7-33.7); MCHC 31.9 g/dl (32.0-35.9); MEAN PLT VOLUME 9.3 fl (7.5-11.1); PLATELET COUNT 105 10^3/uL (134-434); RBC 3.15 M/mm3 (4.00-5.60); RDW 19.5 % (11.9-15.9)
[2024-05-13 08:44] LABS: POTASSIUM 4.1 mmol/L (3.5-5.1)
[2024-05-13 08:51] LABS: BLOOD UREA NITROGEN 69.2 mg/dL (7-18); CALCIUM 7.9 mg/dL (8.5-10.1); MAGNESIUM 1.9 mg/dL (1.8-2.4)
[2024-05-13 08:54] LABS: ALBUMIN 1.9 g/dl (3.4-5.0); CREATININE 2.8 mg/dL (0.55-1.3); PHOSPHOROUS 3.6 mg/dL (2.5-4.9); URIC ACID 10.2 mg/dL (2.6-7.2)
[2024-05-13 08:55] LABS: BILIRUBIN,TOTAL 2.1 mg/dL (0.2-1); TOT PROT 5.1 g/dl (6.4-8.2)
[2024-05-13] MEDS: FOLIC ACID 1 MG TABLET (FP) PO SCH (10:30)
[2024-05-13] MEDS: THIAMINE 100 MG TABLET PO SCH (10:31)
[2024-05-13] MEDS: PANTOPRAZOLE 40 MG TABLET PO SCH (10:31)
[2024-05-13] MEDS: NIFEdipine E.R. 30 MG TABLET PO SCH (10:31)
[2024-05-13] MEDS: TAMSULOSIN HCL 0.4 MG CAP PO SCH (10:32)
[2024-05-13] MEDS: ACETAMINOPHEN 325 MG TABLET (FP) PO PRN (17:19)
[2024-05-13] MEDS: LACTULOSE 20 GM/30 ML UDC (FOR ORAL USE ONLY) PO SCH (18:30)
[2024-05-13] MEDS: ALBUMIN HUMAN 25% 100 ML VIAL IV SCH (19:43)
[2024-05-14 08:18] LABS: BASO % 0.4 % (0-2.0); EOS % 6.3 % (0-4.5); HEMATOCRIT 21.3 % (35.4-49); LYMPH % 8.8 % (8-40); MCH 23.3 pg (25.7-33.7); MCHC 32.9 g/dl (32.0-35.9); MEAN CELL VOLUME 70.8 fl (80-96); MEAN PLT VOLUME 9.7 fl (7.5-11.1); MONO % 11.4 % (3.8-10.2); NEUT % 73.1 % (42.8-82.8); PLATELET COUNT 102 10^3/uL (134-434); RBC 3.01 M/mm3 (4.00-5.60); RDW 19.5 % (11.9-15.9); WHITE BLOOD COUNT 9.4 K/mm3 (4.0-10.0)
[2024-05-14 08:20] LABS: INR 1.24 (0.83-1.09); PROTHROMBIN TIME (PATIENT) 13.6 SEC (9.7-13.0)
[2024-05-14 08:33] LABS: HEMATOCRIT 21.7 % (35.4-49); MEAN CELL VOLUME 71.7 fl (80-96); MEAN PLT VOLUME 9.9 fl (7.5-11.1); PLATELET COUNT 103 10^3/uL (134-434); RBC 3.03 M/mm3 (4.00-5.60); RDW 19.2 % (11.9-15.9); WHITE BLOOD COUNT 9.4 K/mm3 (4.0-10.0)
[2024-05-14 08:46] LABS: BLOOD UREA NITROGEN 80.6 mg/dL (7-18)
[2024-05-14 08:49] LABS: MAGNESIUM 1.9 mg/dL (1.8-2.4)
[2024-05-14 08:53] LABS: CREATININE 3.6 mg/dL (0.55-1.3); PHOSPHOROUS 4.2 mg/dL (2.5-4.9)
[2024-05-14] MEDS: SPIRONOLACTONE 25 MG TABLET PO SCH (10:02)
[2024-05-14] MEDS ORDERED: SODIUM BICARBONATE 8.4% 50 MEQ/50 ML DISP.SYRIN IVPUSH ONE (11:34)
[2024-05-14] MEDS: SODIUM CHLORIDE 1,000 ML IV SCH (12:19)
[2024-05-14] MEDS: SODIUM BICARBONATE 8.4% 50 MEQ/50 ML VIAL IVPUSH ONE (12:20)
[2024-05-14] MEDS: ALBUMIN HUMAN 25% 100 ML VIAL IV SCH (12:49)
[2024-05-14 14:02] LABS: URINE APPEARANCE CLEAR; URINE BILIRUBIN NEGATIVE (NEGATIVE); URINE COLOR YELLOW; URINE GLUCOSE (UA) NEGATIVE (NEGATIVE); URINE KETONE NEGATIVE (NEGATIVE); URINE LEUK ESTERASE NEGATIVE (NEGATIVE); URINE NITRITE NEGATIVE (NEGATIVE); URINE PROTEIN TRACE (NEGATIVE); URINE UROBILINOGEN 0.2 mg/dL (0.2-1.0)
[2024-05-14] MEDS: LACTULOSE 20 GM/30 ML UDC (FOR ORAL USE ONLY) PO SCH (17:58)
[2024-05-15 07:45] LABS: POTASSIUM 4.1 mmol/L (3.5-5.1)
[2024-05-15 07:46] LABS: POTASSIUM 4.1 mmol/L (3.5-5.1)
[2024-05-15 07:48] LABS: ALBUMIN 2.8 g/dl (3.4-5.0); BLOOD UREA NITROGEN 84.5 mg/dL (7-18); CALCIUM 8.1 mg/dL (8.5-10.1); MAGNESIUM 1.9 mg/dL (1.8-2.4)
[2024-05-15 07:49] LABS: BLOOD UREA NITROGEN 89.3 mg/dL (7-18)
[2024-05-15 07:50] LABS: BILIRUBIN,DIRECT 1.4 mg/dL (0.0-0.2); CREATININE 4.3 mg/dL (0.55-1.3)
[2024-05-15 07:51] LABS: PHOSPHOROUS 4.3 mg/dL (2.5-4.9)
[2024-05-15 07:52] LABS: BILIRUBIN,TOTAL 2.3 mg/dL (0.2-1); CREATININE 4.3 mg/dL (0.55-1.3); TOT PROT 5.8 g/dl (6.4-8.2)
[2024-05-15] MEDS: ALBUTEROL SO4 2.5/IPRATROPIUM 0.5 INH SOL 3 ML VIAL.NEB. NEB ONE (08:27)
[2024-05-15 09:42] LABS: BASO % 0.2 % (0-2.0); EOS % 3.5 % (0-4.5); HEMATOCRIT 22.8 % (35.4-49); HEMOGLOBIN 7.4 GM/dL (11.7-16.9); LYMPH % 7.2 % (8-40); MCH 22.7 pg (25.7-33.7); MCHC 32.4 g/dl (32.0-35.9); MEAN CELL VOLUME 70.1 fl (80-96); MEAN PLT VOLUME 9.5 fl (7.5-11.1); NEUT % 79.1 % (42.8-82.8); PLATELET COUNT 133 10^3/uL (134-434); RBC 3.26 M/mm3 (4.00-5.60); RDW 19.3 % (11.9-15.9); WHITE BLOOD COUNT 11.6 K/mm3 (4.0-10.0)
[2024-05-15 16:20] VITALS: BMI 32.3
[2024-05-16 08:04] LABS: POTASSIUM 4.1 mmol/L (3.5-5.1)
[2024-05-16 08:10] LABS: ALBUMIN 2.6 g/dl (3.4-5.0); BLOOD UREA NITROGEN 93.6 mg/dL (7-18); CALCIUM 8.1 mg/dL (8.5-10.1)
[2024-05-16 08:14] LABS: CREATININE 4.4 mg/dL (0.55-1.3); HEMATOCRIT 22.9 % (35.4-49); HEMOGLOBIN 7.4 GM/dL (11.7-16.9); MCH 22.9 pg (25.7-33.7); MCHC 32.2 g/dl (32.0-35.9); MEAN CELL VOLUME 71.2 fl (80-96); MEAN PLT VOLUME 9.1 fl (7.5-11.1); PLATELET COUNT 169 10^3/uL (134-434); RBC 3.22 M/mm3 (4.00-5.60); RDW 19.8 % (11.9-15.9); WHITE BLOOD COUNT 14.3 K/mm3 (4.0-10.0)
[2024-05-16 08:15] LABS: BILIRUBIN,TOTAL 2.2 mg/dL (0.2-1); TOT PROT 5.7 g/dl (6.4-8.2)
[2024-05-16 09:25] LABS: EPI CELLS 22 /uL (0-25.1); HYALINE CASTS 2 /uL (0-3.1); URINE APPEARANCE CLOUDY; URINE BACTERIA 2 /uL (0-1359); URINE BILIRUBIN NEGATIVE (NEGATIVE); URINE COLOR YELLOW; URINE GLUCOSE (UA) NEGATIVE (NEGATIVE); URINE KETONE NEGATIVE (NEGATIVE); URINE LEUK ESTERASE NEGATIVE (NEGATIVE); URINE NITRITE NEGATIVE (NEGATIVE); URINE PROTEIN 2+ (NEGATIVE); URINE UROBILINOGEN 0.2 mg/dL (0.2-1.0)
[2024-05-16 09:42] LABS: URINE RBC 377 /uL (0-23.9); URINE WBC 70 /uL (0-25.8)
[2024-05-16 09:43] LABS: YEAST PRESENT (NEGATIVE)
[2024-05-16] MEDS: SODIUM CHLORIDE 1,000 ML IV SCH (10:25)
[2024-05-17 08:15] LABS: BASO % 0.3 % (0-2.0); EOS % 4.9 % (0-4.5); HEMATOCRIT 22.4 % (35.4-49); LYMPH % 6.2 % (8-40); MCH 22.4 pg (25.7-33.7); MCHC 31.2 g/dl (32.0-35.9); MEAN CELL VOLUME 71.8 fl (80-96); MEAN PLT VOLUME 9.1 fl (7.5-11.1); NEUT % 77.6 % (42.8-82.8); PLATELET COUNT 233 10^3/uL (134-434); RBC 3.11 M/mm3 (4.00-5.60); RDW 19.4 % (11.9-15.9); WHITE BLOOD COUNT 18.5 K/mm3 (4.0-10.0)
[2024-05-17 08:38] LABS: POTASSIUM 4.1 mmol/L (3.5-5.1)
[2024-05-17 08:41] LABS: ALBUMIN 2.4 g/dl (3.4-5.0)
[2024-05-17 08:42] LABS: BLOOD UREA NITROGEN 97.8 mg/dL (7-18)
[2024-05-17 08:44] LABS: CREATININE 4.7 mg/dL (0.55-1.3)
[2024-05-17 08:46] LABS: BILIRUBIN,TOTAL 1.7 mg/dL (0.2-1); TOT PROT 5.5 g/dl (6.4-8.2)
[2024-05-17 09:41] LABS: INR 1.26 (0.83-1.09); PROTHROMBIN TIME (PATIENT) 13.9 SEC (9.7-13.0)
[2024-05-17] MEDS: SODIUM CHLORIDE 0.45% 1,000 ML IV SCH (09:42)
[2024-05-17 12:59] LABS: BASO % 0.3 % (0-2.0); EOS % 2.2 % (0-4.5); HEMATOCRIT 21.8 % (35.4-49); LYMPH % 3.2 % (8-40); MCH 21.9 pg (25.7-33.7); MCHC 30.8 g/dl (32.0-35.9); MEAN CELL VOLUME 71.1 fl (80-96); MEAN PLT VOLUME 8.1 fl (7.5-11.1); MONO % 8.8 % (3.8-10.2); NEUT % 85.5 % (42.8-82.8); PLATELET COUNT 215 10^3/uL (134-434); RBC 3.07 M/mm3 (4.00-5.60); RDW 20.1 % (11.9-15.9); WHITE BLOOD COUNT 16.5 K/mm3 (4.0-10.0)
[2024-05-17 13:04] LABS: HEMOGLOBIN 6.7 GM/dL (11.7-16.9)
[2024-05-17] MEDS: SODIUM BICARBONATE 8.4% - 50 MEQ in SODIUM CHLORIDE 0.45% 1,000 ML IV SCH (13:29)
[2024-05-17 13:58] LABS: ANISOCYTOSIS 1+; OVALOCYTE 1+
[2024-05-17 15:19] LABS: PHOSPHOROUS 5.6 mg/dL (2.5-4.9)
[2024-05-17 23:23] LABS: BASO % 2.3 % (0-2.0); EOS % 3.2 % (0-4.5); HEMATOCRIT 23.8 % (35.4-49); HEMOGLOBIN 7.5 GM/dL (11.7-16.9); LYMPH % 5.8 % (8-40); MCH 23.5 pg (25.7-33.7); MCHC 31.8 g/dl (32.0-35.9); MEAN CELL VOLUME 73.9 fl (80-96); MEAN PLT VOLUME 8.5 fl (7.5-11.1); MONO % 10.6 % (3.8-10.2); NEUT % 78.1 % (42.8-82.8); PLATELET COUNT 206 10^3/uL (134-434); RBC 3.21 M/mm3 (4.00-5.60); RDW 22.9 % (11.9-15.9); WHITE BLOOD COUNT 15.7 K/mm3 (4.0-10.0)
[2024-05-17 23:26] LABS: ADD RBC MORPHOLOGY YES
[2024-05-18 07:31] LABS: POTASSIUM 4.6 mmol/L (3.5-5.1)
[2024-05-18 07:35] LABS: BASO % 0.3 % (0-2.0); EOS % 3.5 % (0-4.5); HEMATOCRIT 26.2 % (35.4-49); HEMOGLOBIN 8.4 GM/dL (11.7-16.9); LYMPH % 5.2 % (8-40); MCH 24.3 pg (25.7-33.7); MCHC 32.2 g/dl (32.0-35.9); MEAN CELL VOLUME 75.5 fl (80-96); MEAN PLT VOLUME 8.6 fl (7.5-11.1); MONO % 10.9 % (3.8-10.2); NEUT % 80.1 % (42.8-82.8); PLATELET COUNT 225 10^3/uL (134-434); RBC 3.47 M/mm3 (4.00-5.60); RDW 22.9 % (11.9-15.9); WHITE BLOOD COUNT 17.1 K/mm3 (4.0-10.0)
[2024-05-18 07:36] LABS: ALBUMIN 2.5 g/dl (3.4-5.0)
[2024-05-18 07:39] LABS: BLOOD UREA NITROGEN 102.3 mg/dL (7-18); CREATININE 5.1 mg/dL (0.55-1.3)
[2024-05-18 07:41] LABS: CALCIUM 8.2 mg/dL (8.5-10.1)
[2024-05-18 07:44] LABS: BILIRUBIN,TOTAL 2.8 mg/dL (0.2-1); TOT PROT 5.8 g/dl (6.4-8.2)
[2024-05-18 08:15] LABS: ADD RBC MORPHOLOGY YES
[2024-05-18 10:34] VITALS: RESP 18; TEMP 98.1
[2024-05-18 12:50] VITALS: BP 140/44; PULSE 77
[2024-05-18] MEDS: SODIUM BICARBONATE 8.4% 50 MEQ/50 ML VIAL IVPUSH ONE (12:54)
[2024-05-24 15:06] LABS: RENIN ACTIVITY(PRA) 0.64 ng/mL/hr (0.167-5.380)
== END 2024-05-18 13:33 | disposition short-term general hospital (02) | DRG 432 ==
LOC: JER 13:33 → JERBED 17:18 → J5S 23:20 → J8W 05-10 15:56 → J4S 05-11 18:01
PROVIDERS: ADMIT Student in an Organized Health Care Education/Training Program; ATTEND Internal Medicine
PROC: 30233N1 Transfusion of Nonautologous Red Blood Cells into Peripheral Vein, Percutaneous Approach (ICD-10-PCS; 2024-05-09)
PROC: 0W9G3ZX Drainage of Peritoneal Cavity, Percutaneous Approach, Diagnostic (ICD-10-PCS; principal; 2024-05-11)
DX: K74.60 Unspecified cirrhosis of liver (principal); K76.7 Hepatorenal syndrome; L03.115 Cellulitis of right lower limb; N17.9 Acute kidney failure, unspecified; K76.6 Portal hypertension; E72.20 Disorder of urea cycle metabolism, unspecified; R18.8 Other ascites; D62 Acute posthemorrhagic anemia; E87.4 Mixed disorder of acid-base balance; L03.116 Cellulitis of left lower limb; D50.9 Iron deficiency anemia, unspecified; D69.6 Thrombocytopenia, unspecified; E83.42 Hypomagnesemia; E11.9 Type 2 diabetes mellitus without complications; E78.5 Hyperlipidemia, unspecified; N18.32 Chronic kidney disease, stage 3b; I12.9 Hypertensive chronic kidney disease with stage 1 through stage 4 chronic kidney disease, or unspecified chronic kidney disease
CPT/HCPCS: 0241U-QW; 36415; 36430; 36600; 71045-TC-FY; 73502-TC-RT-FY; 73564-TC-RT-FY; 73590-TC-RT-FY; 73610-TC-RT-FY; 73630-TC-RT-FY; 73701-TC-RT; 73721-RT-TC; 74150-TC; 76700-TC; 76942-TC; 80048; 80053; 80076; 81003; 82042; 82085; 82088; 82105; 82140; 82150; 82248; 82272; 82436; 82465; 82550; 82570; 82607; 82728; 82746; 82747; 82803; 82945; 82962; 82977; 83540; 83550; 83615; 83735; 83874; 83986; 84100; 84133; 84156; 84157; 84244; 84300; 84550; 85014; 85025; 85027; 85045; 85610; 85651; 85730; 86140; 86850; 86900; 86901; 86922; 87040; 87070; 87075; 87081; 87086; 87102; 87116; 87205; 87206; 87210; 88108; 88305-TC; 93005; 93010; 93970-TC; 93975; 94640; 97116-GP; 97161-GP; 99285-25; G0480; J0131; P9058